=== PATIENT | male | born 1980 | race Caucasian/White ===

== ENCOUNTER 2021-05-14 14:29 | Inpatient (IN) | payer SELFPAY, OTHER ==
[2021-05-14 14:45] VITALS: BP 142/82; PULSE 79; RESP 16; TEMP 36.7; O2SAT 93; BMI 30.6
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
[2021-05-14] MEDS: Propranolol 10 MG Tablet PO ×2 (18:41→20:17)
[2021-05-14 19:31] VITALS: BP 138/77; PULSE 84; RESP 18; TEMP 36.8; O2SAT 99
[2021-05-14 19:33] VITALS: RESP 22; O2SAT 90
[2021-05-14 20:00] VITALS: PULSE 84; RESP 18; O2SAT 99
[2021-05-14] MEDS: Enoxaparin 30 MG/0.3 ML Syringe SC (20:16)
[2021-05-14] MEDS: Amox/Clavulanate 875 MG Tablet PO (20:17)
[2021-05-14] MEDS: MELATONIN 3 MG TABLET 6 MG PO (20:18)
[2021-05-14] MEDS: levETIRAcetam 1,000 MG Tablet 1000 MG PO (20:18)
[2021-05-14] MEDS: Acetaminophen 500 MG Tablet 1000 MG PO (20:19)
[2021-05-14] MEDS: QUEtiapine 25 MG Tablet PO (22:13)
[2021-05-15] VITALS (7 sets, daily range): BP systolic 115; BP diastolic 62; PULSE 75–97; RESP 18–20; TEMP 37.1–39.4; O2SAT 89–98
--- NOTE | 2021-05-15 00:50 | NURSING ---
PT'S UP TO THE NURSE'S STATION AND REPORTS PT IS RESTING WITH EYES CLOSED, BUT THAT HIS BREATHING IS FAST. PULSE OX CHECKED WHILE PT ASLEEP AND PULSE IS79 BPM WITH A PULSE OX OF 89% ON RA. HUMIDIFIED O2 AT 3 LPM APPLIED PER N/C AND OX INCREASING TO 92%. O2 THAN INCREASED TO 4 LPM PER N/C.
[2021-05-15] MEDS: oxyCODONE 5 MG Tablet PO ×3 (01:57→17:52)
[2021-05-15] MEDS: Acetaminophen 500 MG Tablet 1000 MG PO ×2 (06:44→22:15)
[2021-05-15] MEDS: Amox/Clavulanate 875 MG Tablet PO ×2 (08:48→22:13)
[2021-05-15] MEDS: Cholecalciferol (VIT D3) 25 MCG TABLET (1,000 UNITS) PO (08:48)
[2021-05-15] MEDS: Propranolol 10 MG Tablet PO ×4 (08:48→22:13)
[2021-05-15] MEDS: Enoxaparin 30 MG/0.3 ML Syringe SC ×2 (08:48→22:12)
[2021-05-15] MEDS: Lidocaine 5% Patch 1 PATCH TOPICAL (08:49)
[2021-05-15 09:02] LABS: Absolute Lymphocyte Count 1.61 X10^3/uL (0.83-4.51); Absolute Neutrophil Count 22.8 X10^3/uL (2.0-7.7); Basophil# 0.09 X10^3/uL; Basophil% 0.3 % (0-1); Eosinophil# 0.13 X10^3/uL; Eosinophils% 0.5 % (0-5); Hematocrit 36.7 % (40-54); Hemoglobin 12.3 g/dL (13.0-16.5); Lymphocyte # 1.61 X10^3/ul (0.83-4.51); Mean Corp Hgb Conc 33.5 g/dL (32-36); Mean Corpuscular Hgb 30.8 pg (27.0-32.0); Mean Platelet Vol. 8.7 fl (6.2-12.0); Monocyte% 5.6 % (0-10); NRBC Flagged by Analyzer 0 % (0-5); Neutrophil # 22.83 X10^3/uL (2.7-7.7); Neutrophil % 85.8 % (47-70); POSITIVE DIFFERENTIAL YES; Platelet Count 460 K/mm3 (150-450); RBC Distribution Width CV 13.2 % (11.6-14.6); RBC Distribution Width SD 44.7 fl (35.1-43.9); Red Blood Count 3.99 M/mm3 (4.6-6.2); White Blood Count 26.7 K/mm3 (4.4-11.0)
[2021-05-15 09:03] LABS: Differential Indicated SCAN CRITERIA MET
[2021-05-15 09:35] LABS: ALB/GLOB Ratio 0.6 RATIO (0.9-2.4); AST(SGOT) 50 U/L (15-37); Alanine Aminotransfer ALT/SGPT 75 U/L (16-61); Albumin, Serum 2.9 g/dL (3.2-5.0); Alkaline Phosphatase 91 U/L (45-117); Anion Gap 8 (5-15); BUN 17 mg/dL (7-18); BUN/Creat Ratio 17.3 RATIO (10-20); Chloride 103 mmol/L (98-107); Creatinine, Serum 0.98 mg/dL (0.70-1.30); EST Glomerular Filtration Rate 89 mL/min (>60); Est Glom Filt Rate - Afr Amer 108 mL/min (>60); Estimated Creatinine Clearance 102.42 ml/min; Globulin 4.6 g/dL (2.2-4.2); Glucose 122 mg/dL (74-106); Magnesium 2.3 mg/dL (1.6-2.6); Phosphorus 2.9 mg/dL (2.5-4.9); Potassium 3.9 mmol/L (3.5-5.1); Protein, Total 7.5 g/dL (6.4-8.2); Sodium Level 138 mmol/L (136-145)
--- NOTE | 2021-05-15 14:56 | CASEMGMT ---
Social Work Left message with to complete admit assessment. Juliette Enriquez, SOFT TILE SETTER WOMEN'S APPAREL SALESPERSON
--- NOTE | 2021-05-15 15:11 | CHAPLAIN ---
Type of Pastoral Visit _x__ Initial Visit ___ Follow-up Visit ___ On-call Visit ___ General Patient Visit ___ Spiritual Assessment ___ Family Conference ___ Bereavement ___ Rapid Response ___ Code Blue ___ Other (describe below) Pastoral Care Referral From ___ Patient ___ Family ___ Nurse ___ Physician ___ Counter Person ___ Tuckpointer Cleaner Caulker _x__ Other (describe below) Sacrament/Intervention _x__ Active listening ___ Anointing ___ Uatsdin ___ Bereavement ___ Communion ___ Radha exploration ___ ___ Life review _x__ Prayer ___ Reconciliation ___ Sacrament of Sick _x__ Supportive presence ___ Wedding ___ Other (describe below) Pastoral Comments visit recommended by Bruce Arzola for support to this patient and even more for the ; introduced self and role at hospital; pt and welcomed visit; pt interacted but had some difficulty finishing his sentences and getting words out; gave assurance to patient that our time together would be understanding and patient; offer of prayer welcomed; future visits would be welcomed; is tearful after the prayer
[2021-05-15] MEDS: QUEtiapine 25 MG Tablet PO (20:40)
[2021-05-15] MEDS: MELATONIN 3 MG TABLET 6 MG PO (22:13)
[2021-05-16] VITALS (8 sets, daily range): BP systolic 121–125; BP diastolic 67–68; PULSE 80–101; RESP 16–24; TEMP 36.9–37.2; O2SAT 91–95
--- NOTE | 2021-05-16 01:51 | NURSING ---
1999 pt temp was rechecked per spouse request and was noted to be 102.9 orally. blanket removed and pt used IS, post and anterior bases were diminished this hs . stressed the importance to spouse of using the IS. 2210 pt up to go the br and temp retaken, this was 100.8 orally pt returned to bed, temp reduced in room and ice pack applied to neck. tylenol given at this time. 02 at 2l/m applied d/t SP02 was 89% on ra with the 02 on SP02 came up to 92-93%. pt takes 02 off when awake and staff applies when lays back down in the bed. spouse reports that he has drank as much today, pt offered juice or other liquids and pt refused. pt will doze off and then wants to get up and go. staff will offer bathroom or walk and pt is agreeable, but declines 2350 pt up to the br and returned to bed and temp is now 99.3 orally. rn aware of the above charting 0230 bed alarm are going off and pt is sitting on the side of the bed, pt asked if he wanted to go to the br and stated that he didn't know. pt assisted to the br and pt voided. pt ambulated in the amor with 2 assists with quad walker. pt gait is very unsteady d/t crossing feet and having the walker to close to body, pt instructed proper ambulation techniques and would do ok for a while but then return to crossing his feet. pt returned to bed and 02 reapplied and is now resting quietly
[2021-05-16] MEDS: oxyCODONE 5 MG Tablet PO ×4 (03:29→18:31)
[2021-05-16] MEDS: Acetaminophen 500 MG Tablet 1000 MG PO ×3 (05:56→23:52)
--- NOTE | 2021-05-16 08:34 | PCM.PN.BLA ---
Progress Note Had a temp last night to 102.9. Received Tylenol and this AM temp is 99.3. VSS Maintaining appropriate oxygen saturation on RA while awake. He desaturates into the high 80's at night when sleeping. Nursing has been applying oxygen while sleeping Oral intake was 1360 yesterday Discussed with nursing - Not sleeping well at night. Occasional dry cough. Reviewed the PT/OT/ST notes - scheduled for a MBS today. Medication list reviewed. He is much more alert today than he was last evening when I saw him. He has a intermittent cough. He denies dysuria, worsening pain in the chest, SOB, abd pain, N/V/D. HE is able to follow commands today and he is giving me appropriate verbal responses to my questions. His voice is soft and hoarse. Denies ST, sinus pain, loss of taste and smell. He is smiling today and working with OT. Physical Exam Const alert and no apparent distress General Appearance: cooperative HEENT HEENT Narrative: No hearing deficit detected. MM are dry today and I asked him to increase his water intake today. Neck no lymphadenopathy and supple Resp Resp Narrative: BS's in both bases are very diminished. He is guarding his respirations and unable to take a very deep breath. There are crackles in the bases and no wheezing. He is not tachypneic and he has no conversational dyspnea. Effort and Inspection: Negative for respiratory distress Cardio regular rhythm, S1 normal heart sound, S2 normal heart sound, no murmurs, no rub and no gallops Cardio Narrative: The resting HR is in the 90's and I suspect this is due to dehydration +/- fever. BP is normal and stable GI normal to inspection, nondistended, normoactive bowel sounds, soft to palpation and non-tender Extremity no calf tenderness and no pedal edema Skin no jaundice and no mottling Rashes: no rashes Neuro CN's II-XII intact bilaterally, moves all extremities and no focal motor deficits Neuro Narrative: more alert and appropriate today. He is able to speak in short phrases and able to follow simple commands. Processing time today is faster but still slower than what I expect in a 40 YO. Assessment & Plan Assessment/Plan (1) Fever: (2) Physical debility: (3) Scapula fracture: (4) Temporal bone fracture: (5) Multiple transverse process fractures: (6) TBI (traumatic brain injury): (7) Pulmonary laceration: (8) Glenoid fracture of shoulder: (9) Clavicle fracture: (10) SDH (subdural hematoma): (11) SAH (subarachnoid hemorrhage): (12) Multiple fractures of ribs of right side: (13) Vertebral fracture, closed: PLAN: 1. blood cultures now 2. sputum culture 3, repeat a CBC and a BMP in the AM 4. PA and LAT CXR now 5. COVID 19 rapid test now 6. Supplemental oxygen as needed. 7. UA now. 8. MBS today 7. He has been on Augmentin. I will review the paperwork from the previous hospital to see if anything was ever covered. Will DC the Augmentin and start Vanco and Zosyn. 8. Continue therapy 9. continue Seroquel at the same dose nightly. Will add Ambien PRN insomnia. Visit Charges Inpatient E&M: 37073 Subs Hosp L3
[2021-05-16] MEDS: Lidocaine 5% Patch 1 PATCH TOPICAL (09:46)
[2021-05-16] MEDS: Enoxaparin 30 MG/0.3 ML Syringe SC ×2 (09:46→20:35)
[2021-05-16 09:47] LABS: Color, Urine Yellow (Yellow); Glucose, Dipstick Normal (Normal); Ketone-Dipstick Negative (Negative); Leukocyte Esterase-Dipstick 25 /ul (Negative); Nitrite-Dipstick Negative (Negative); Occult Blood-Urine 10 /ul (Negative); Protein-Dipstick 30 mg/dl (Negative); Urine Bilirubin Dipstick Negative (Negative); Urine Clarity Sl. Cloudy (Clear); Urine Urobilinogen 4 mg/dl (Normal)
[2021-05-16] MEDS: Cholecalciferol (VIT D3) 25 MCG TABLET (1,000 UNITS) PO (09:47)
[2021-05-16] MEDS: Propranolol 10 MG Tablet PO ×4 (09:47→20:35)
[2021-05-16] MEDS: Senna/Docusate Sodium 1 Tablet 2 TABLET PO (09:47)
[2021-05-16 09:53] LABS: Bacteria 1+ /hpf (None Seen); Mucous, Urine 2+ /hpf (<or=2+); Red Blood Cells-Urine 0-5 SEEN /hpf (0-5); Squamous Epithelial Cells - UA 0-5 SEEN /hpf (0-5); White Blood Cells 0-5 SEEN /hpf (0-5)
[2021-05-16] MEDS: 0.9% Saline Lock 10 ML Syringe IV ×2 (10:13→20:30)
[2021-05-16] MEDS: Albuterol 2.5 MG/3 ML VIAL.NEB. INHALATION ×4 (10:58→23:48)
--- NOTE | 2021-05-16 11:22 | PHA.PHARE_ITS ---
Consult Pharmacy has been consulted to manage selected antiobiotic: Vancomycin Type of Consult: New start Suspected Infection: Pneumonia Labs: Sodium 138 mmol/L (136-145) 05/15/21 08:40 Potassium 3.9 mmol/L (3.5-5.1) 05/15/21 08:40 Chloride 103 mmol/L (98-107) 05/15/21 08:40 Carbon Dioxide 27.0 mmol/L (21.0-32.0) 05/15/21 08:40 Anion Gap 8 (5-15) 05/15/21 08:40 BUN 17 mg/dL (7-18) 05/15/21 08:40 Creatinine 0.98 mg/dL (0.70-1.30) 05/15/21 08:40 Est GFR (MDRD) Af Amer 108 mL/min (>60) 05/15/21 08:40 Est GFR (MDRD) Non-Af 89 mL/min (>60) 05/15/21 08:40 BUN/Creatinine Ratio 17.3 RATIO (10-20) 05/15/21 08:40 Glucose 122 mg/dL (74-106) H 05/15/21 08:40 Microbiology: Microbiology 05/16/21 09:30 Nasal Secretion SARS-CoV-2 Antigen (Rapid) - Final Weight used for dosin kg Estimated Creatinine Clearance: 102ML/MIN Goal Trough: 15-20 mcg/mL Pharmacy Plan for Drug Dosing: Give initial standard (15mg/kg) dose of 1500mg IV x1 as ordered. Then continue with 1250mg IV q8h per [facility] dosing protocol. Will order a vanc trough to be drawn before the 4th total dose tomorrow. Pharmacy Service will continue to monitor and adjust dosing as required. Follow-Up Labs: Trough Vancomycin Labs to be done on [date and time ordered]: 05/17/21 10:30
--- NOTE | 2021-05-16 14:15 | RAD_ITS ---
STUDY: X-RAY CHEST REASON FOR EXAM: Male, 40 years old. Fever. Recent right sided chest tube. TECHNIQUE: PA and lateral views of the chest. COMPARISON: None. FINDINGS: The lungs are hypoexpanded. There is bibasilar atelectasis versus early infiltrate. No pneumothorax. There is no demonstrated pleural abnormality. Normal size heart. Normal mediastinum and melody. Normal visualized pulmonary arteries. Normal visualized aortic arch and descending thoracic aorta. Normal visualized thoracic spine. There is a displaced fracture of the right mid clavicle. The shoulders are otherwise intact. There is question of multiple age indeterminate right rib fractures. There is no demonstrated abnormality of the visualized soft tissue structures of the upper abdomen. RAD/Chest PA and Lateral IMPRESSION: 1. The Limited inspiration. Atelectasis versus infiltrate at the lung bases. 2. No pneumothorax. 3. Irregularity of the right chest wall. Question age-indeterminate rib fractures. 4. Displaced fracture of the mid right clavicle. Electronically Signed: Obinna Gamboa DO at 16:52 EST Tel [phone], Service support ,
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
[2021-05-16 19:40] LABS: M R Staph aureus DNA By PCR Negative (Negative); Probe Check PASS; Specimen Processing Control PASS
[2021-05-16] MEDS: QUEtiapine 25 MG Tablet PO (20:14)
[2021-05-16] MEDS: Zolpidem Tartrate 5 MG Tablet PO (23:52)
--- NOTE | 2021-05-17 00:01 | CPS ---
Rehab Unit RN took aerosol mask off pt. due to pt. being called to ER at this time
--- NOTE | 2021-05-17 01:08 | NURSING ---
pt awake at 2330 and requested to use the toilet, staff assisted, pt gait is slightly unsteady. respiratory called to give breathing tx. pt also medicated with ambien and tylenol for rib pain. k-pad set up for pt to use. pt resting quietly after returning to bed and spouse requested to have pt check for fever and was 100.1, this was before k-pad was warm. SP02 was 89% on ra after breathing tx and 02 at 2l/m applied at this time. rn made aware
[2021-05-17 02:42] VITALS: TEMP 36.9
[2021-05-17] MEDS: oxyCODONE 5 MG Tablet PO ×3 (06:34→21:24)
[2021-05-17 07:54] VITALS: PULSE 98; RESP 21; O2SAT 90
[2021-05-17] MEDS: Albuterol 2.5 MG/3 ML VIAL.NEB. INHALATION ×3 (07:54→14:58)
[2021-05-17 08:34] VITALS: BP 130/62; PULSE 82; RESP 16; TEMP 36.6; O2SAT 95
[2021-05-17] MEDS: Propranolol 10 MG Tablet PO ×4 (09:05→21:23)
[2021-05-17] MEDS: Lidocaine 5% Patch 1 PATCH TOPICAL (09:05)
[2021-05-17] MEDS: Acetaminophen 500 MG Tablet 1000 MG PO ×2 (09:05→20:21)
[2021-05-17] MEDS: Enoxaparin 30 MG/0.3 ML Syringe SC ×2 (09:05→21:24)
[2021-05-17] MEDS: Cholecalciferol (VIT D3) 25 MCG TABLET (1,000 UNITS) PO (09:05)
[2021-05-17 09:07] LABS: Absolute Lymphocyte Count 1.01 X10^3/uL (0.83-4.51); Absolute Neutrophil Count 13.4 X10^3/uL (2.0-7.7); Basophil# 0.05 X10^3/uL; Basophil% 0.3 % (0-1); Eosinophils% 1.3 % (0-5); Hematocrit 34.6 % (40-54); Hemoglobin 11.4 g/dL (13.0-16.5); Lymphocyte # 1.01 X10^3/ul (0.83-4.51); Lymphocyte % 6.5 % (19-41); Mean Corp Hgb Conc 32.9 g/dL (32-36); Mean Corpuscular Hgb 30.7 pg (27.0-32.0); Mean Corpuscular Volume 93.3 fL (80-94); Mean Platelet Vol. 9.1 fl (6.2-12.0); Monocyte# 0.65 X10^3/uL; Monocyte% 4.2 % (0-10); NRBC Flagged by Analyzer 0 % (0-5); Neutrophil # 13.43 X10^3/uL (2.7-7.7); Neutrophil % 86.5 % (47-70); Platelet Count 463 K/mm3 (150-450); RBC Distribution Width CV 13.5 % (11.6-14.6); RBC Distribution Width SD 45.9 fl (35.1-43.9); Red Blood Count 3.71 M/mm3 (4.6-6.2); White Blood Count 15.5 K/mm3 (4.4-11.0)
[2021-05-17 09:24] LABS: Anion Gap 9 (5-15); BUN 15 mg/dL (7-18); Calcium,Total 8.8 mg/dL (8.5-10.1); Chloride 104 mmol/L (98-107); Creatinine, Serum 1.07 mg/dL (0.70-1.30); EST Glomerular Filtration Rate 81 mL/min (>60); Est Glom Filt Rate - Afr Amer 98 mL/min (>60); Estimated Creatinine Clearance 93.81 ml/min; Glucose 141 mg/dL (74-106); Phosphorus 2.5 mg/dL (2.5-4.9); Potassium 3.7 mmol/L (3.5-5.1); Sodium Level 136 mmol/L (136-145)
[2021-05-17 11:08] LABS: Vancomycin, Trough Level 11.4 ug/mL (5.0-15.0)
[2021-05-17 11:48] VITALS: PULSE 81; RESP 22; O2SAT 93
--- NOTE | 2021-05-17 12:56 | PCM.RX.CS ---
Consult Pharmacy has been consulted to manage selected antiobiotic: Vancomycin Type of Consult: Follow-up Suspected Infection: Pneumonia Prior Doses of Antibiotics Received/Current Regimen: 1250mg iv q8h. Labs: Sodium 136 mmol/L (136-145) 05/17/21 08:30 Potassium 3.7 mmol/L (3.5-5.1) 05/17/21 08:30 Chloride 104 mmol/L (98-107) 05/17/21 08:30 Carbon Dioxide 23.0 mmol/L (21.0-32.0) 05/17/21 08:30 Anion Gap 9 (5-15) 05/17/21 08:30 BUN 15 mg/dL (7-18) 05/17/21 08:30 Creatinine 1.07 mg/dL (0.70-1.30) 05/17/21 08:30 Est GFR (MDRD) Af Amer 98 mL/min (>60) 05/17/21 08:30 Est GFR (MDRD) Non-Af 81 mL/min (>60) 05/17/21 08:30 BUN/Creatinine Ratio 14.0 RATIO (10-20) 05/17/21 08:30 Glucose 141 mg/dL (74-106) H 05/17/21 08:30 Vancomycin Trough 11.4 ug/mL (5.0-15.0) 05/17/21 10:22 Microbiology: Microbiology 05/16/21 09:30 Urine, Clean Catch Urine Culture - Preliminary Culture exhibits no growth. 05/16/21 09:30 Nasal Secretion SARS-CoV-2 Antigen (Rapid) - Final Weight used for dosin kg Estimated Creatinine Clearance: 94 ml/min Goal Trough: 15-20 mcg/mL Pharmacy Plan for Drug Dosing: Trough level today was 11.4 with goal range of 15-20mcg/ml. Renal labs reviewed. Will increase dose to 1500mg iv q8h. New trough level ordered for 05.18.21 before 4th dose of new regimen. Pharmacy Service will continue to monitor and adjust dosing as required. Follow-Up Labs: Trough Vancomycin - 05.18.21@1830 before 1900 dose
[2021-05-17] MEDS: 0.9% Saline Lock 10 ML Syringe IV ×2 (14:09→18:53)
[2021-05-17 14:58] VITALS: RESP 21
[2021-05-17 19:25] VITALS: BP 150/82; PULSE 100; RESP 16; TEMP 37.1; O2SAT 96
[2021-05-17] MEDS: QUEtiapine 25 MG Tablet 50 MG PO (21:23)
[2021-05-18] MEDS: Acetaminophen 500 MG Tablet 1000 MG PO ×3 (04:22→22:49)
[2021-05-18] MEDS: 0.9% Saline Lock 10 ML Syringe IV (05:40)
[2021-05-18 07:30] VITALS: PULSE 90; RESP 17
[2021-05-18] MEDS: Albuterol 2.5 MG/3 ML VIAL.NEB. INHALATION ×3 (07:30→18:39)
[2021-05-18 08:12] VITALS: BP 136/80; PULSE 100; RESP 20; TEMP 37.2; O2SAT 92
[2021-05-18] MEDS: Propranolol 10 MG Tablet PO ×4 (10:50→21:26)
[2021-05-18] MEDS: Lidocaine 5% Patch 1 PATCH TOPICAL (10:50)
[2021-05-18] MEDS: Cholecalciferol (VIT D3) 25 MCG TABLET (1,000 UNITS) PO (10:51)
[2021-05-18] MEDS: Enoxaparin 30 MG/0.3 ML Syringe SC ×2 (10:51→21:26)
[2021-05-18] MEDS: oxyCODONE 5 MG Tablet PO ×2 (11:11→19:58)
[2021-05-18 11:41] VITALS: PULSE 79; RESP 17
[2021-05-18 18:40] VITALS: PULSE 82; RESP 16
[2021-05-18 19:04] LABS: Vancomycin, Trough Level 19.3 ug/mL (5.0-15.0)
[2021-05-18 21:21] VITALS: BP 142/91; PULSE 93; RESP 18; TEMP 37; O2SAT 96
[2021-05-18] MEDS: QUEtiapine 25 MG Tablet 50 MG PO (21:26)
[2021-05-18 22:00] VITALS: RESP 18
[2021-05-19] MEDS: oxyCODONE 5 MG Tablet PO ×4 (02:44→22:05)
--- NOTE | 2021-05-19 05:09 | PCM.RX.CS ---
Consult Pharmacy has been consulted to manage selected antiobiotic: Vancomycin Type of Consult: Follow-up Labs: Sodium 136 mmol/L (136-145) 05/17/21 08:30 Potassium 3.7 mmol/L (3.5-5.1) 05/17/21 08:30 Chloride 104 mmol/L (98-107) 05/17/21 08:30 Carbon Dioxide 23.0 mmol/L (21.0-32.0) 05/17/21 08:30 Anion Gap 9 (5-15) 05/17/21 08:30 BUN 15 mg/dL (7-18) 05/17/21 08:30 Creatinine 1.07 mg/dL (0.70-1.30) 05/17/21 08:30 Est GFR (MDRD) Af Amer 98 mL/min (>60) 05/17/21 08:30 Est GFR (MDRD) Non-Af 81 mL/min (>60) 05/17/21 08:30 BUN/Creatinine Ratio 14.0 RATIO (10-20) 05/17/21 08:30 Glucose 141 mg/dL (74-106) H 05/17/21 08:30 Vancomycin Trough 19.3 ug/mL (5.0-15.0) H 05/18/21 18:30 Microbiology: Microbiology 05/16/21 09:30 Urine, Clean Catch Urine Culture - Final Culture exhibits no growth. 05/16/21 09:10 Blood Culture (Wb) - Venous Blood Culture - Preliminary No growth in 48 hours. 05/16/21 09:03 Blood Culture (Wb) - Anticubital Right Blood Culture - Preliminary No growth in 48 hours. 05/16/21 09:30 Nasal Secretion SARS-CoV-2 Antigen (Rapid) - Final Goal Trough: 15-20 mcg/mL Pharmacy Plan for Drug Dosing: Pharmacy Service will continue to monitor and adjust dosing as required. TROUGH 1830 @ 7.5HRS. NO CHANGES FOLLOW UP TROUGH IN 2 DAYS Follow-Up Labs: Trough Vancomycin Labs to be done on [date and time ordered]: 04/19 @ 1830
[2021-05-19] MEDS: Acetaminophen 500 MG Tablet 1000 MG PO ×2 (06:37→22:04)
[2021-05-19] MEDS: Propranolol 10 MG Tablet PO ×4 (07:34→21:15)
[2021-05-19] MEDS: Cholecalciferol (VIT D3) 25 MCG TABLET (1,000 UNITS) PO (07:35)
[2021-05-19] MEDS: Enoxaparin 30 MG/0.3 ML Syringe SC ×2 (07:35→21:15)
[2021-05-19] MEDS: Lidocaine 5% Patch 1 PATCH TOPICAL (07:37)
[2021-05-19 07:43] VITALS: BP 133/85; PULSE 90; RESP 16; TEMP 36.4; O2SAT 96
[2021-05-19 07:49] VITALS: PULSE 102; RESP 16
[2021-05-19] MEDS: Albuterol 2.5 MG/3 ML VIAL.NEB. INHALATION ×2 (07:49→14:46)
--- NOTE | 2021-05-19 10:59 | PN_ITS ---
Subjective Subjective Day #4 Zosyn and vancomycin. Vancomycin has been DC'd today. MRSA nasal swab was negative. Afebrile since 05/16/2021 at 0850. VSS - resting HR is higher than expected. Maintaining appropriate oxygen saturation on RA Oral intake is very good Discussed with nursing - no problems that need addressed Reviewed the PT/OT/ST notes Medication list reviewed. Vancomycin trough was therapeutic yesterday. Urine culture had no growth. COVID-19 rapid test was negative. MRSA nasal swab was negative. the cough has resolved and he is denying SOB. He tells me he feels good. He has been using the IS and acapella as instructed. Denies dysuria. Still having some difficulty with word finding. He is very cooperative and pleasant. No N/V/CP/dysuria, calf pain, diarrhea, sores in the mouth. Objective Data Objective Data Vital Signs: Vital Signs Temp Pulse Resp BP Pulse Ox 97.6 F L 90 16 133/85 H 96 05/19/21 07:43 05/19/21 07:43 05/19/21 07:43 05/19/21 07:43 05/19/21 07:43 Oxygen Flow Rate (L/min) 3 Oxygen Delivery Method Room Air Weight: 213 lb 13.574 oz Body Mass Index (BMI) 30.6 Intake & Output: Intake and Output for Last 24 Hours 05/17/21 05/18/21 05/19/21 23:59 23:59 23:59 Intake Total 2722.25 / 2722.25 2820 / 2820 870 / 870 Balance 2722.25 / 2722.25 2820 / 2820 870 / 870 Medical Nutrition Assessment Dietitian: Malnutrition Criteria Met Start: 05/15/21 13:32 Freq: Status: Active Protocol: Document 05/18/21 10:06 RMA (Rec: 05/18/21 10:07 RMA [id number]) Nutrition Malnutrition Evidence of Malnutrition Exists Yes Malnutrition (severe): Acute Illness/Injury Evidenced By Suboptimal Energy Intake ( Severe),Weight Loss (Severe) Intake Problem Inadequate Oral Intake Etiology related to limited food acceptance due to aversion to pureed texture Signs/Symptoms as evidenced by intake at meals <50% Status Active Problem Clinical Problem Acute Disease or Injury Related Malnutrition Etiology related to acute traumatic brain injury/trauma Signs/Symptoms as evidenced by loss of 7# from reported UBW 220# to CBW 213#; 3.2% body weight loss in less than two weeks (injury 05/06/21) and inadequate oral intake less than 50% meals. Status Active Problem Recommendation Dietitian Recommendations/Changes Continue regular diet as ordered with ensure compact TID at meals---consistency as per LABOR GANG SUPERVISOR, currently soft & bite -sized foods and nectar/mildly thick liquids. Adjust ONS as needed to prevent further weight loss and optimize oral intake once able to trend weights. Monitor weights closely as available. Lab / Micro Data Result Diagrams: 05/17/21 08:30 05/17/21 08:30 Labs: Laboratory Results - last 24 hr 05/18/21 18:30: Vancomycin Trough 19.3 H Micro: Microbiology 05/16/21 09:30 Urine, Clean Catch Urine Culture - Final Culture exhibits no growth. 05/16/21 09:10 Blood Culture (Wb) - Venous Blood Culture - Preliminary No growth in 48 hours. 05/16/21 09:03 Blood Culture (Wb) - Anticubital Right Blood Culture - Prelim inary No growth in 48 hours. 05/16/21 09:30 Nasal Secretion SARS-CoV-2 Antigen (Rapid) - Final Physical Exam Const alert and no apparent distress General Appearance: cooperative and well developed HEENT moist oral mucous membranes and oropharynx normal Eyes PERRL and EOMs intact bilaterally Neck supple Resp normal respiratory effort and clear to auscultation bilaterally Resp Narrative: Much better air exchange in the bases with no crackles, wheezes or rhonchi. Cardio regular rate, regular rhythm, S1 normal heart sound, S2 normal heart sound, no murmurs, no rub and no gallops GI normal to inspection, nondistended, normoactive bowel sounds, soft to palpation and non-tender GI Narrative: No guarding with palpation Extremity normal capillary refill, no clubbing, cyanosis or edema and no calf tenderness Skin Skin Narrative: abrasions and ecchymosis are resolving Rashes: no rashes Neuro CN's II-XII intact bilaterally, no focal motor deficits and no sensory deficits noted Neuro Narrative: some trouble with memory and word finding. His has been staying with him and she has been a big help reminding him about the IS and PEP and keeping him from getting out of bed and ambulating without assistance. Motor Exam: strength 5/5 throughout Psych cooperative and affect normal Appearance: appropriate Mood & Affect: Negative for anxious Assessment & Plan Assessment/Plan (1) Hospital acquired PNA: (2) Physical debility: (3) Trauma: (4) Scapula fracture: (5) Temporal bone fracture: (6) Multiple transverse process fractures: (7) Acquired cognitive dysfunction: (8) TBI (traumatic brain injury): (9) Severe protein-calorie malnutrition: PLAN: 1. DC the Vancomycin 2. continue the Zosyn - may DC tomorrow and transition to Augmentin after I see the lab and the CXR 3. Continue therapy 4. May be able to DC home soon and have therapy at home Charges/Coding Visit Charges Inpatient E&M: 24982 Subs Hosp L2
--- NOTE | 2021-05-19 13:45 | CASEMGMT ---
Social Work IDT met with patient and for Team meeting. Discussed patient's progress in therapy and nursing. Pt is progressing well. However, still has severe cognitive deficits. ST following. Recommending continued intensive therapy prior to DC home. [facility] is covering cost. Will ReTeam next week. SW to continue to follow for discharge planning. Juliette Enriquez, DIESEL SERVICE JOURNEYMAN RECEIVER BULK SYSTEM
[2021-05-19 14:46] VITALS: PULSE 85; RESP 17
[2021-05-19 18:38] VITALS: PULSE 95; RESP 18
[2021-05-19 21:00] VITALS: BP 156/79; PULSE 89; RESP 16; TEMP 36.7; O2SAT 96
[2021-05-19] MEDS: QUEtiapine 25 MG Tablet 50 MG PO (21:15)
--- NOTE | 2021-05-20 03:32 | NURSING ---
pt has been awake since midnight and restless in the bed . pt received a shower at hs and ambulated around the amor then returned to bed, medications given at 2100 and pain medication at 2200 for should and back discomfort. pt encouraged to sleep and rest with little success. rn aware
[2021-05-20] MEDS: oxyCODONE 5 MG Tablet PO (03:40)
--- NOTE | 2021-05-20 03:49 | NURSING ---
staff to check on pt and was sitting the recliner awake, pt reported that he was having some back pain, when asked. pt medicated with oxyir and oral care performed by pt with harjinder. pt offered to ambulate in the amor and declined stating that he might later
[2021-05-20 05:55] LABS: Absolute Lymphocyte Count 1.76 X10^3/uL (0.83-4.51); Basophil# 0.04 X10^3/uL; Basophil% 0.4 % (0-1); Eosinophil# 0.28 X10^3/uL; Eosinophils% 2.5 % (0-5); Hematocrit 33.4 % (40-54); Hemoglobin 10.8 g/dL (13.0-16.5); Lymphocyte # 1.76 X10^3/ul (0.83-4.51); Mean Corp Hgb Conc 32.3 g/dL (32-36); Mean Corpuscular Hgb 30.3 pg (27.0-32.0); Mean Corpuscular Volume 93.8 fL (80-94); Mean Platelet Vol. 9.6 fl (6.2-12.0); Monocyte# 0.91 X10^3/uL; Monocyte% 8.3 % (0-10); NRBC Flagged by Analyzer 0 % (0-5); Neutrophil # 7.96 X10^3/uL (2.7-7.7); Neutrophil % 72.3 % (47-70); Platelet Count 506 K/mm3 (150-450); RBC Distribution Width CV 13.7 % (11.6-14.6); RBC Distribution Width SD 46.8 fl (35.1-43.9); Red Blood Count 3.56 M/mm3 (4.6-6.2)
[2021-05-20 06:15] LABS: Anion Gap 4 (5-15); BUN 14 mg/dL (7-18); Calcium,Total 8.8 mg/dL (8.5-10.1); Chloride 107 mmol/L (98-107); Creatinine, Serum 0.94 mg/dL (0.70-1.30); EST Glomerular Filtration Rate 94 mL/min (>60); Est Glom Filt Rate - Afr Amer 114 mL/min (>60); Estimated Creatinine Clearance 106.78 ml/min; Glucose 96 mg/dL (74-106); Magnesium 2.1 mg/dL (1.6-2.6); Phosphorus 3.5 mg/dL (2.5-4.9); Potassium 3.7 mmol/L (3.5-5.1); Sodium Level 139 mmol/L (136-145)
[2021-05-20] MEDS: Acetaminophen 500 MG Tablet 1000 MG PO ×3 (06:17→21:11)
[2021-05-20] MEDS: Enoxaparin 30 MG/0.3 ML Syringe SC ×2 (07:41→21:09)
[2021-05-20] MEDS: Propranolol 10 MG Tablet PO ×4 (07:41→21:09)
[2021-05-20] MEDS: Lidocaine 5% Patch 1 PATCH TOPICAL (07:41)
[2021-05-20] MEDS: Cholecalciferol (VIT D3) 25 MCG TABLET (1,000 UNITS) PO (07:41)
[2021-05-20] MEDS: Senna/Docusate Sodium 1 Tablet 2 TABLET PO ×2 (07:42→21:10)
--- NOTE | 2021-05-20 08:00 | RAD_ITS ---
INDICATION: pneumonia follow up EXAMINATION/TECHNIQUE: X-RAY - XR Chest 2 Views COMPARISON: Chest radiograph from 05/16/2021 FINDINGS: LINES/DEVICES: None. MEDIASTINUM: Heart size is stable. LUNGS: Trace residual right basilar patchy opacities which have improved since previous study. Bibasilar atelectasis. Chronic interstitial changes. Scattered calcified granulomas. No sizable pleural effusion or pneumothorax. BONES/SOFT TISSUES: Redemonstration of age indeterminate displaced mid right clavicle fracture. Age-indeterminate right scapular fracture. Remote right-sided rib fractures. RAD/Chest PA and Lateral IMPRESSION: 1. Trace residual right basilar patchy opacities have improved since 05/16/2021 and may relate to resolving pneumonia. 2. Age indeterminate right clavicle and right scapula fractures. Remote right-sided rib fractures. Electronically Signed: Flavio Rueda MD at 13:03 EST Tel , Service support ,
[2021-05-20 08:27] VITALS: BP 123/63; PULSE 88; RESP 20; TEMP 36.6; O2SAT 94
--- NOTE | 2021-05-20 10:22 | PCM.PROGNOTE ---
Subjective Subjective Day #5/10 Antibiotics Afebrile VSS Maintaining appropriate oxygen saturation on RA Oral intake is good Discussed with nursing - no problems that need addressed Reviewed the PT/OT/ST notes Medication list reviewed. All lab was personally reviewed. White blood cell count is coming down and the differential has 72% of neutrophils which is an improvement. BMP is unremarkable. Chest x-ray was reviewed and there has been significant improvement in the infiltrates. Rell is still having trouble sleeping at night and his tells me that he was tearful and somewhat depressed last night. This is in part due to being without his children and family. We have approved his children to visit on and his parents will come on Wednesday. They agree to remain in the room and wear masks. Objective Data Objective Data Vital Signs: Vital Signs Temp Pulse Resp BP Pulse Ox 98 F 88 20 H 123/63 H 94 05/20/21 08:27 05/20/21 08:27 05/20/21 08:27 05/20/21 08:27 05/20/21 08:27 Oxygen Flow Rate (L/min) 3 Oxygen Delivery Method Room Air Weight: 213 lb 13.574 oz Body Mass Index (BMI) 30.6 Intake & Output: Intake and Output for Last 24 Hours 05/18/21 05/19/21 05/20/21 23:59 23:59 23:59 Intake Total 2820 / 2820 2069 50 / 50 Balance 2820 / 2820 2069 50 / 50 Medical Nutrition Assessment Dietitian: Malnutrition Criteria Met Start: 05/15/21 13:32 Freq: Status: Active Protocol: Document 05/18/21 10:06 RMA (Rec: 05/18/21 10:07 RMA [id number]) Nutrition Malnutrition Evidence of Malnutrition Exists Yes Malnutrition (severe): Acute Illness/Injury Evidenced By Suboptimal Energy Intake ( Severe),Weight Loss (Severe) Intake Problem Inadequate Oral Intake Etiology related to limited food acceptance due to aversion to pureed texture Signs/Symptoms as evidenced by intake at meals <50% Status Active Problem Clinical Problem Acute Disease or Injury Related Malnutrition Etiology related to acute traumatic brain injury/trauma Signs/Symptoms as evidenced by loss of 7# from reported UBW 220# to CBW 213#; 3.2% body weight loss in less than two weeks (injury 05/06/21) and inadequate oral intake less than 50% meals. Status Active Problem Recommendation Dietitian Recommendations/Changes Continue regular diet as ordered with ensure compact TID at meals---consistency as per SILVER [employer]ATER, currently soft & bite -sized foods and nectar/mildly thick liquids. Adjust ONS as needed to prevent further weight loss and optimize oral intake once able to trend weights. Monitor weights closely as available. Lab / Micro Data Result Diagrams: 05/20/21 05:13 05/20/21 05:13 Labs: Laboratory Results - last 24 hr 05/20/21 05:13: WBC 11.0, RBC 3.56 L, Hgb 10.8 L, Hct 33.4 L, MCV 93.8, MCH 30.3, MCHC 32.3, RDW Std Deviation 46.8 H, RDW Coeff of Dung 13.7, Plt Count 506 H, MPV 9.6, Immature Gran % (Auto) 0.500, Neut % (Auto) 72.3 H, Lymph % (Auto) 16.0 L, [place] % (Auto) 8.3, Eos % (Auto) 2.5, Baso % (Auto) 0.4, Absolute Neuts (auto) 8.0 H, Absolute Lymphs (auto) 1.76, Nucleated RBC % 0 05/20/21 05:13: Sodium 139, Potassium 3.7, Chloride 107, Carbon Dioxide 28.0, Anion Gap 4 L, BUN 14, Creatinine 0.94, Estim Creat Clear Calc 106.78, Est GFR (MDRD) Af Amer 114, Est GFR (MDRD) Non-Af 94, BUN/Creatinine Ratio 15.0, Glucose 96, Calcium 8.8, Phosphorus 3.5, Magnesium 2.1 Micro: Microbiology 05/16/21 09:30 Urine, Clean Catch Urine Culture - Final Culture exhibits no growth. 05/16/21 09:10 Blood Culture (Wb) - Venous Blood Culture - Preliminary No growth in 48 hours. 05/16/21 09:03 Blood Culture (Wb) - Anticubital Right Blood Culture - Preliminary No growth in 48 hours. 05/16/21 09:30 Nasal Secretion SARS-CoV-2 Antigen (Rapid) - Final Physical Exam Const alert Constitutional Narrative: oriented to place today and can name his children. Still can not recall alonso's name but he knows she is his . Resp normal respiratory effort and clear to auscultation bilaterally Resp Narrative: Much better air exchange, teresa in the bases. He is not tachypneic and has no conversation dyspnea. Cardio regular rate, regular rhythm, no murmurs and no gallops GI normal to inspection, nondistended, normoactive bowel sounds, soft to palpation, non-tender and non-distended Extremity no calf tenderness General Extremity: Negative for clubbing or edema Skin General Skin Exam: no breakdown Rashes: no rashes Neuro CN's II-XII intact bilaterally and no sensory deficits noted Neuro Narrative: Deficits are primarily due to cognition/severe TBI. He is making some progress with cognition. Motor Exam: general weakness Psych cooperative Psych Narrative: His tells me that he was very tearful last night. she thinks Appearance: appropriate Assessment & Plan Assessment/Plan (1) Insomnia: (2) Hospital acquired PNA: (3) Trauma: (4) Physical debility: (5) Acquired cognitive dysfunction: (6) TBI (traumatic brain injury): (7) Multiple transverse process fractures: (8) Temporal bone fracture: (9) Scapula fracture: PLAN: 1. Add Elavil 50 mg p.o. nightly to the current drug regimen. 2. Discontinue Zosyn after the last dose today and start Augmentin in the a.m. to finish 10 days of therapy. 3. Continue IS and PEP 4. Reassess the sleep situation in the AM 5. Continue therapy. He is a young man and I would like to get his cognition as close to baseline as possible. He will benefit from at least 1 more week in rehab. 6. 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 Charges/Coding Visit Charges Inpatient E&M: 38570 Subs Hosp L2
[2021-05-20] MEDS: 0.9% Saline Lock 10 ML Syringe IV ×2 (15:01→21:12)
--- NOTE | 2021-05-20 17:00 | CHAPLAIN ---
Type of Pastoral Visit ___ Initial Visit _x__ Follow-up Visit ___ On-call Visit ___ General Patient Visit ___ Spiritual Assessment ___ Family Conference ___ Bereavement ___ Rapid Response ___ Code Blue ___ Other (describe below) Pastoral Care Referral From _x__ Patient ___ Family ___ Nurse ___ Physician ___ Iron Guardrail Installer ___ Ship Keeper ___ Other (describe below) Sacrament/Intervention _x__ Active listening ___ Anointing ___ Jain ___ Bereavement ___ Communion ___ Radha exploration ___ ___ Life review _x__ Prayer ___ Reconciliation ___ Sacrament of Sick _x__ Supportive presence ___ Wedding ___ Other (describe below) Pastoral Comments patient reports feeling some better and making some improvements; pt and spouse are looking forward to when family is to visit; spouse asks for prayer so that patient can sleep better in the nighttime;
[2021-05-20 20:05] VITALS: BP 128/83; PULSE 87; RESP 18; TEMP 37.1; O2SAT 97
[2021-05-20 20:45] VITALS: PULSE 86; O2SAT 95
[2021-05-20] MEDS: QUEtiapine 25 MG Tablet 50 MG PO (21:09)
[2021-05-20] MEDS: Amitriptyline 25 MG Tablet 50 MG PO (21:10)
[2021-05-21] MEDS: Acetaminophen 500 MG Tablet 1000 MG PO ×2 (06:51→21:53)
[2021-05-21 07:35] VITALS: BP 133/76; PULSE 89; RESP 18; TEMP 36.6; O2SAT 93
[2021-05-21] MEDS: Propranolol 10 MG Tablet PO ×4 (10:58→21:48)
[2021-05-21] MEDS: Lidocaine 5% Patch 1 PATCH TOPICAL (10:58)
[2021-05-21] MEDS: Enoxaparin 30 MG/0.3 ML Syringe SC ×2 (10:58→21:48)
[2021-05-21] MEDS: Amox/Clavulanate 875 MG Tablet PO ×2 (10:58→21:48)
[2021-05-21] MEDS: Cholecalciferol (VIT D3) 25 MCG TABLET (1,000 UNITS) PO (10:59)
[2021-05-21] MEDS: Senna/Docusate Sodium 1 Tablet 2 TABLET PO ×2 (10:59→21:48)
--- NOTE | 2021-05-21 12:14 | PN_ITS ---
Progress Note Afebrile VSS Maintaining appropriate oxygen saturation on RA Oral intake is good Discussed with nursing - no problems that need addressed Reviewed the PT/OT/ST notes Medication list reviewed. He slept well last night with the addition of Elavil to his drug regimen. He denies shortness of breath cough, palpitations. He still has some pain in th e right chest but it is much better than it was when he presented to rehab. He is able to take a deep breath with no difficulty. No calf pain. He is very alert today and looks more rested. He easily sits up in bed and swings his legs over the side of the bed with no assistance and no grimacing. He was able to tell me he was in [place] but needed cue to tell me it was April and it was 2020 but, he eventually was able to come up with all the answers. Mucous membranes are moist Lungs-clear to auscultation bilaterally with good air exchange. Heart-regular rate and rhythm, no gallops Abdomen-soft, nontender, nondistended, normal bowel sounds, bowel movements are regular No calf tenderness, no ankle edema Impressions 1. severe TBI 2. Multiple fractures 3. PNA - hospital acquired...possible due to aspiration. Continue antibiotics continue therapy Will need ongoing ST post DC for cognition. Will continue the Elavil for depression and insomnia. Start to wean the Seroquel. No work post DC until released by ST and neurology. 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 Visit Charges Inpatient E&M: 50309 Subs Hosp L2
[2021-05-21] MEDS: Naproxen 500 MG Tablet PO (17:09)
[2021-05-21 19:31] VITALS: BP 131/81; PULSE 89; RESP 18; TEMP 36.9; O2SAT 98
[2021-05-21] MEDS: QUEtiapine 25 MG Tablet 50 MG PO (21:48)
[2021-05-21] MEDS: Amitriptyline 25 MG Tablet 50 MG PO (21:48)
[2021-05-21 22:00] VITALS: RESP 18
[2021-05-22] MEDS: 0.9% Saline Lock 10 ML Syringe IV (06:47)
[2021-05-22] MEDS: Cholecalciferol (VIT D3) 25 MCG TABLET (1,000 UNITS) PO (07:52)
[2021-05-22] MEDS: Amox/Clavulanate 875 MG Tablet PO ×2 (07:52→20:32)
[2021-05-22] MEDS: Lidocaine 5% Patch 1 PATCH TOPICAL (07:53)
[2021-05-22] MEDS: Propranolol 10 MG Tablet PO ×4 (07:53→20:33)
[2021-05-22] MEDS: Naproxen 500 MG Tablet PO ×2 (07:53→17:17)
[2021-05-22 08:00] VITALS: BP 114/74; PULSE 78; RESP 18; TEMP 36.3; O2SAT 94
[2021-05-22] MEDS: Enoxaparin 30 MG/0.3 ML Syringe SC ×2 (10:02→20:33)
[2021-05-22] MEDS: Amitriptyline 25 MG Tablet 50 MG PO (20:33)
[2021-05-22] MEDS: QUEtiapine 25 MG Tablet 50 MG PO (20:34)
[2021-05-22 22:00] VITALS: BP 123/73; PULSE 91; RESP 14; TEMP 36.2; O2SAT 100
[2021-05-23] MEDS: Lidocaine 5% Patch 1 PATCH TOPICAL (07:56)
[2021-05-23] MEDS: Cholecalciferol (VIT D3) 25 MCG TABLET (1,000 UNITS) PO (07:56)
[2021-05-23] MEDS: Naproxen 500 MG Tablet PO ×2 (07:56→17:54)
[2021-05-23] MEDS: Propranolol 10 MG Tablet PO ×4 (07:56→21:33)
[2021-05-23] MEDS: Amox/Clavulanate 875 MG Tablet PO ×2 (07:56→21:32)
[2021-05-23 08:34] VITALS: BP 113/70; PULSE 98; RESP 16; TEMP 36.6; O2SAT 95
[2021-05-23] MEDS: Enoxaparin 30 MG/0.3 ML Syringe SC ×2 (10:27→21:32)
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
--- NOTE | 2021-05-23 14:41 | CASEMGMT ---
Social Work Physician reporting pt is requesting to discharge on Wednesday05/25/21. Pt will need continued outpatient speech therapy. Pt does not need DME. SW met with pt and his in room and confirmed d/c plan. Pt is agreeable to discharge date and agreeable to outpatient speech therapy and would like to go to [facility] and use [facility] van transportation. Pt and state they do have transportation home on Wednesday. Referral made to [facility] with request to coordination appointments with [facility] van availability and to contact pt with appointment times. No other d/c needs. Plan: home with , outpatient Speech Therapy at [facility]. JOE Ramirez
--- NOTE | 2021-05-23 16:28 | PCM.DC ---
Discharge Instructions Diet Discharge Diet: - (Easy to chew with thin liquids) Activity Discharge Activity: May Not Drive and May Shower May resume sexual activity in: No Restrictions Weight Bearing Status: Full weight bearing Lifting Restrictions: 10 lbs Additional Activity Instructions:: Do the exercises given to you by the therapists at least once a day. Do NOT return to work until your PCP or the neurologist tells you that you are ready to resume work. Dressing / Incision Call your doctor if you observe: Fever of 101 or Higher, Inability to urinate, Inability to have a bowel movement, Shortness of breath, Fainting spells, Swelling in the ankles, Chest pain, Increased palpitations (irregular heartbeat) and Calf discomfort Follow Up Care Pending Tests Upon Discharge: none Discharge Plan Admission Admit Date/Time: 05/14/21 14:29 Primary Reason for Your Visit: Debility due to head trauma with severe TBI Attending Provider: Kay Nguyễn Instructions Patient Instructions: Improving Cognition After ..., Depression and TBI, Anxiety and Traumatic Brain Injury Additional Instructions / Restrictions: 1. Outpatient Speech Therapy at [facility]. They will call you with appointment time 2. It is very important for you to attend the speech therapy appts. You are still having some problems with your thought processes and memory and the harder you work at speech therapy the more likely you are to recover your baseline ability to think and process information. It can take up to 2 years to reach maximum improvement in brain function after a traumatic brain injury. 3. I do not know if neurology will want you to stay on the Keppra or not. It is an antiepileptic drug. You have an appt this coming and you should ask the doctor at that time. 4. I am decreasing one of the pills you take at night called Seroquel from 50 mg to 25 mg. You are sleeping well on the amitriptyline 50 mg at bedtime and you likely do not need to medications. Take the Seroquel 25 mg for 2 weeks and then discontinue. If the sleeping disturbance recurs give me a call or talk to your PCP (Dr. Schuler). 5. you have done VERY WELL in therapy and I think you will continue to improve. It was a pleasure to meet you and thank you for being so motivated to get better and so cooperative with us. If you or Elena have any questions after you leave rehab please call me. I can be reached at [phone] (office) or [phone] (cell phone) Take care and god bless. Discharge Orders/Prescriptions Prescriptions: New quetiapine 25 mg Tablet 25 mg PO QHS Qty: 14 RF: 0 amitriptyline 25 mg Tablet 50 mg PO QHS Qty: 60 RF: 0 lidocaine 5 % Adhesive Patch,Medicated 1 patch topical DAILY Qty: 30 RF: 0 naproxen 500 mg Tablet 500 mg PO BIDCM Qty: 60 RF: 0 acidophilus-pectin, citrus 25 million cell -100 mg Tablet 1 tab PO BID Qty: 20 RF: 0 Continued acetaminophen 500 mg Tablet 1,000 mg PO Q8H RF: 0 melatonin 3 mg Tablet 6 mg PO QHS Qty: 30 RF: 0 propranolol 10 mg Tablet 10 mg PO 4X/DAY Qty: 120 RF: 0 amoxicillin-pot clavulanate 875-125 mg Tablet 1 tab PO BID Qty: 4 RF: 0 cholecalciferol (vitamin D3) 25 mcg (1,000 unit) Tablet 25 mcg PO DAILY Qty: 30 RF: 0 Changed oxycodone 5 mg Capsule 5 mg PO Q4H PRN (Reason: Pain 4-10) 7 Days Qty: 35 RF: 0 levetiracetam [Keppra] 1,000 mg Tablet 1,000 mg PO Q12H Qty: 60 RF: 0 Referrals / Follow Up: Shanice Rodriguez MD [NON-STAFF] - 05/29/21 10:15 am David Schuler DO [NON-STAFF] - 06/02/21 10:30 am Disposition Disposition (needs filled in before D/C Order can be placed): Home, Self Care
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
[2021-05-23] MEDS: Amitriptyline 25 MG Tablet 50 MG PO (21:33)
[2021-05-23] MEDS: QUEtiapine 25 MG Tablet 50 MG PO (21:33)
[2021-05-23 21:35] VITALS: BP 100/76; PULSE 88; RESP 18; TEMP 36.7; O2SAT 96
--- NOTE | 2021-05-24 03:51 | NURSING ---
REVIEWED AND AGREE WITH [employer]S HANDOFF CHARTING AND FUNCTIONAL ASSESSMENT.
[2021-05-24 07:29] VITALS: BP 113/61; PULSE 88; RESP 16; TEMP 36.3; O2SAT 95
[2021-05-24] MEDS: Naproxen 500 MG Tablet PO (07:57)
[2021-05-24] MEDS: Amox/Clavulanate 875 MG Tablet PO (07:58)
[2021-05-24] MEDS: Propranolol 10 MG Tablet PO ×2 (07:58→15:16)
[2021-05-24] MEDS: Cholecalciferol (VIT D3) 25 MCG TABLET (1,000 UNITS) PO (08:00)
[2021-05-24] MEDS: Enoxaparin 30 MG/0.3 ML Syringe SC (08:04)
[2021-05-24 15:30] VITALS: BP 113/61; PULSE 88; RESP 16; TEMP 36.3; O2SAT 95
--- NOTE | 2021-05-24 15:30 | NURSING ---
Patient and verbalized understanding to discharge instruct given.
--- NOTE | 2021-05-27 10:14 | NURSING ---
Pt's Elena undated on pt's appointment dates and times
== END 2021-05-24 15:30 | disposition home or self-care (01) | DRG 561 ==
PROVIDERS: Admitting Provider Internal Medicine; Visit Provider Internal Medicine
DX: S22.41XD Multiple fractures of ribs, right side, subsequent encounter for fracture with routine healing (principal); S12.200D Unspecified displaced fracture of third cervical vertebra, subsequent encounter for fracture with routine healing; S12.300D Unspecified displaced fracture of fourth cervical vertebra, subsequent encounter for fracture with routine healing; S12.400D Unspecified displaced fracture of fifth cervical vertebra, subsequent encounter for fracture with routine healing; S12.500D Unspecified displaced fracture of sixth cervical vertebra, subsequent encounter for fracture with routine healing; S12.600D Unspecified displaced fracture of seventh cervical vertebra, subsequent encounter for fracture with routine healing; S22.019D Unspecified fracture of first thoracic vertebra, subsequent encounter for fracture with routine healing; S22.039D Unspecified fracture of third thoracic vertebra, subsequent encounter for fracture with routine healing; S22.049D Unspecified fracture of fourth thoracic vertebra, subsequent encounter for fracture with routine healing; S22.059D Unspecified fracture of T5-T6 vertebra, subsequent encounter for fracture with routine healing; S22.069D Unspecified fracture of T7-T8 vertebra, subsequent encounter for fracture with routine healing; S22.079D Unspecified fracture of T9-T10 vertebra, subsequent encounter for fracture with routine healing; S22.081D Stable burst fracture of T11-T12 vertebra, subsequent encounter for fracture with routine healing; S02.19XD Other fracture of base of skull, subsequent encounter for fracture with routine healing; S42.141D Displaced fracture of glenoid cavity of scapula, right shoulder, subsequent encounter for fracture with routine healing; S42.031D Displaced fracture of lateral end of right clavicle, subsequent encounter for fracture with routine healing; S06.5X9D Traumatic subdural hemorrhage with loss of consciousness of unspecified duration, subsequent encounter; S06.6X9D Traumatic subarachnoid hemorrhage with loss of consciousness of unspecified duration, subsequent encounter; R13.12 Dysphagia, oropharyngeal phase; E66.9 Obesity, unspecified; Z68.30 Body mass index [BMI] 30.0-30.9, adult; S27.331D Laceration of lung, unilateral, subsequent encounter; W20.8XXD Other cause of strike by thrown, projected or falling object, subsequent encounter
CPT/HCPCS: 36415; 71046; 74230; 80048; 80053; 80202; 81001; 83735; 84100; 85025; 87040; 87086; 87426; 87641; 92507; 92523; 92526; 92610; 92611; 94640; 94667; 94668; 97110; 97112; 97116; 97162; 97166; 97530; 97535; 97802; 97803; 99251; J7040; J7050; A4216; G0463

== ENCOUNTER 2024-12-09 20:30 | Emergency (ER) | payer OTHER, SELFPAY ==
[2024-12-09 20:31] VITALS: BP 134/87; PULSE 83; RESP 16; TEMP 36.4; O2SAT 98; BMI 30.4
--- NOTE | 2024-12-09 20:37 | EKG12_ITS ---
Test Reason : CP Blood Pressure : */* mmHG Vent. Rate : 80 BPM Atrial Rate : 80 BPM P-R Int : 152 ms QRS Dur : 84 ms QT Int : 376 ms P-R-T Axes : 63 22 0 degrees QTcB Int : 433 ms Normal sinus rhythm Normal ECG Confirmed by CLAUDE CHINO, FIDELINA ([id number]), pictures editor JACQUELYN LAKHANI ([id number]) on 12/12/2024 7:42:11 AM Referred By: Confirmed By: FIDELINA ARCE MD
--- NOTE | 2024-12-09 22:17 | EX.ED.DYSGE1 ---
HPI History of Present Illness Chief Complaint: Chest Pain Informant: patient and spouse/S.O. Narrative Narrative: 44-year-old male presenting to the emergency room with epigastric discomfort. Patient states that tonight he was rather hungry and he had 4 barbecued chicken breast. Shortly after eating he developed a pressure sensation in his epigastrium. Had a bowel movement and it was a little bit later that he began to feel better. He denied any nausea or vomiting. No pain in the shoulder. No shortness of breath. No actual chest pain no radiation to the back. Patient states he has been eating normally without any difficulty such as burning belching or pain. [facility] Medical History Obesity (BMI 30.0-34.9) Home Medications ?Medication ?Instructions ?Recorded ?Last Taken ?Type acetaminophen 500 mg tablet 1,000 mg PO Q8H pain 05/14/21 Unknown History acidophilus 25 million 1 tab PO BID #20 tabs 05/23/21 Unknown Rx cell-pectin, citrus 100 mg tablet amitriptyline 25 mg tablet 50 mg (2 x 25 mg) PO QHS #60 tabs 05/23/21 Unknown Rx cholecalciferol (vitamin D3) 25 25 mcg PO DAILY supplement #30 tabs 05/23/21 Unknown Rx mcg (1,000 unit) tablet levetiracetam 1,000 mg tablet 1,000 mg PO Q12H TBI #60 tabs 05/23/21 Unknown Rx (Keppra) lidocaine 5 % topical patch 1 patch topical DAILY #30 ea 05/23/21 Unknown Rx melatonin 3 mg tablet 6 mg (2 x 3 mg) PO QHS sleep #30 05/23/21 Unknown Rx tabs naproxen 500 mg tablet 500 mg PO BIDCM #60 tabs 05/23/21 Unknown Rx oxycodone 5 mg capsule 5 mg PO Q4H PRN Pain 4-10 7 days 05/23/21 Unknown Rx #35 caps propranolol 10 mg tablet 10 mg PO 4X/DAY pain #120 tabs 05/23/21 Unknown Rx quetiapine 25 mg tablet 25 mg PO QHS #14 tabs 05/23/21 Unknown Rx sertraline 50 mg tablet 75 mg PO DAILY 12/09/24 Unknown History Allergy/AdvReac Type Severity Reaction Status Date / Time No Known Allergies Allergy Verified 12/09/24 20:31 Social History Smoking Status: Never smoker ROS ROS ED Constitutional Constitutional ED: Denies chills, fever(s) or weight loss Eyes Eyes: Denies change in vision or diplopia ENT ENT ED: Denies ear pain, rhinorrhea or sore throat Cardiovascular Cardiovascular: Denies chest pain, orthopnea, palpitations or racing heartbeat Respiratory/Chest Respiratory/Chest: Denies cough, dyspnea, dyspnea on exertion or orthopnea Gastrointestinal Gastrointestinal: Reports abdominal pain; Denies constipation, diarrhea, nausea or vomiting Genitourinary Genitourinary ED: Denies dysuria, hematuria or urinary frequency Musculoskeletal Musculoskeletal: Denies arthralgias or myalgias Integumentary Denies abscess or rash Neurologic Neurologic: Denies headache(s) or weakness Psychiatric Psychiatric: Denies anxiety, depression, suicidal ideation or suicidal thoughts Endocrine Endocrinology: Denies polydipsia, polyphagia or polyuria Allergic/Immunologic Allergic/Immunologic ED: Denies mouth swelling, tongue swelling or urticaria EXAM Physical Exam Const Vital Signs: 12/09/24 20:31 12/09/24 22:18 12/09/24 22:39 Temperature 97.5 F L Temperature Source Temporal Pulse Rate 83 68 Respiratory Rate 16 15 Respiratory Effort Normal Non-Labored Blood Pressure 134/87 H Blood Pressure Mean 102 Pulse Ox 98 100 Oxygen Delivery Method Room Air Positive well nourished and well developed General Appearance ED: well developed and NAD HEENT Reports normocephalic, head/scalp atraumatic and moist mucous membranes Eyes PERRL and EOMs intact bilaterally Neck no lymphadenopathy, supple and no JVD Resp normal respiratory effort and clear to auscultation bilaterally Cardio regular rate, regular rhythm and no murmurs GI normal to inspection, nondistended, normoactive bowel sounds and non-tender Palpation: soft Back/Spine no CVA tenderness and normal ROM Extremity normal to inspection General Extremety ED: Negative for edema General Extremity: Negative for edema Neuro oriented x3 and CN's II-XII intact bilaterally Sensorium / Orientation: alert Motor Exam: strength 5/5 throughout Psych mental status grossly normal Mood & Affect: Negative for depressed or tearful Skin no rashes or lesions noted and no wounds MDM MDM MDM Narrative Medical decision making narrative: Differential diagnosis includes but not limited to biliary colic acute coronary syndrome pancreatitis GERD gastric outlet obstruction EKG shows a normal sinus rhythm at a ventricular rate of 80 bpm. Bedside ultrasound performed by this physician I do not see any pericholecystic fluid sludge or cholelithiasis. He has no tenderness over his gallbladder or pancreas. The common bile duct of is not readily visible on bedside ultrasound. Basic blood work was obtained including cardiac enzymes. Like 11.8 AST of 83 ALT of 49. He had some elevation of his transaminases in the past. Total bilirubin 0.5 indirect 0.3 lipase 41. Normal electrolytes normal creatinine glucose 111. Clinically I think the patient can be discharged home. I did recommend PCP follow-up if recurrent symptoms return if worsening or concerns History & Record Review Discussion w/independent historian: Patient and Significant other Additional record(s) reviewed:: Prior labs Lab Data Attestation: I reviewed the patient's lab results. Labs: Laboratory Results - last 24 hr 12/09/24 22:16 WBC 11.8 H RBC 4.53 L Hgb 14.1 Hct 41.9 MCV 92.5 MCH 31.1 MCHC 33.7 RDW Std Deviation 44.4 H RDW Coeff of Dung 13.1 Plt Count 225 MPV 9.8 Immature Gran % (Auto) 0.200 Neut % (Auto) 80.1 H Lymph % (Auto) 12.0 L Swift % (Auto) 6.7 Eos % (Auto) 0.6 Baso % (Auto) 0.4 Absolute Neuts (auto) 9.4 H Absolute Lymphs (auto) 1.41 Nucleated RBC % 0 Sodium 141 Potassium 4.1 Chloride 107 Carbon Dioxide 22.6 Anion Gap 11 BUN 16 Creatinine 1.00 Estim Creat Clear Calc 118.55 Est GFR (MDRD) Non-Af 95 BUN/Creatinine Ratio 15.7 Glucose 111 H Calcium 9.1 Total Bilirubin 0.58 Direct Bilirubin 0.30 AST 83 H ALT 49 H Alkaline Phosphatase 77 Troponin T High Sens < 6 Total Protein 6.9 Albumin 4.4 Globulin 2.5 Lipase 41 EKG Initial EKG: Attestation: I personally reviewed and interpreted this EKG as follows: Comments: Normal sinus rhythm ventricular rate of 80 bpm Discharge Plan Triage Chief Complaint: Chest Pain ED Provider: Sandip Diaz Dx/Rx/DC Orders Clinical Impression: Abdominal pain Instructions: Abdominal Pain Prescriptions: No Action acetaminophen 500 mg Tablet 1,000 mg PO Q8H quetiapine 25 mg Tablet 25 mg PO QHS Qty: 14 0RF amitriptyline 25 mg Tablet 50 mg PO QHS Qty: 60 0RF lidocaine 5 % Adhesive Patch,Medicated 1 patch topical DAILY Qty: 30 0RF Rx Instructions: apply to the R lateral ribs in the AM and remove at bedtime naproxen 500 mg Tablet 500 mg PO BIDCM Qty: 60 0RF Rx Instructions: Take with food acidophilus-pectin, citrus 25 million cell -100 mg Tablet 1 tab PO BID Qty: 20 0RF melatonin 3 mg Tablet 6 mg PO QHS Qty: 30 0RF propranolol 10 mg Tablet 10 mg PO 4X/DAY Qty: 120 0RF oxycodone 5 mg Capsule 5 mg PO Q4H PRN (Reason: Pain 4-10) 7 Days Qty: 35 0RF levetiracetam [Keppra] 1,000 mg Tablet 1,000 mg PO Q12H Qty: 60 0RF cholecalciferol (vitamin D3) 25 mcg (1,000 unit) Tablet 25 mcg PO DAILY Qty: 30 0RF sertraline 50 mg tablet 75 mg PO DAILY Primary Care Provider: Neetu Verdugo NP Referrals: Neetu Verdugo NP, [facility] [Primary Care Provider] - As Needed Print Language: Portuguese Disposition Disposition: Home, Self Care
--- OUTSIDE RECORDS SUMMARY | 2024-12-09 22:17 | XMS RPT_ITS | CCD ---
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 [address] Performed By: #### 2 4321-2 #### [facility] CLIA [id number] [address] RBC (Bld) [#/Vol] 3.86 10*6/uL Low 4.20-6.00 [facility] Comment on above: Order Comment: Speci men Type: BLOOD SPECIMEN Performed By: #### 2 4323-8 #### [facility] CLIA [id number] [address] Performed By: #### 2 4321-2 #### [facility] CLIA [id number] [address] WBC (Bld) [#/Vol] 12.03 10*3/uL High 3.70-11.00 [facility] Comment on above: Order Comment: Speci men Type: BLOOD SPECIMEN Performed By: #### 2 4323-8 #### [facility] CLIA [id number] [address] Performed By: #### 2 4321-2 #### [facility] CLIA [id number] [address] THERAPY NTon 05-13-2021 THERAPY NT HNO ID: [id number] Author: Shmuel Macedo PTA Service: Physical Therapy Author Type: Tire Design Engineer Type: Therapy (PT/OT/Speech/Resp) Filed: 05/13/2021 3:09 PM Note Text: Attestation signed by Dominick Archibald PT at 05/14/2021 4:08 PM I reviewed and agree with the documentation corresponding to this therapy visit. Noted goals met for sit to stand, transfer, and ambulation. Updated these goals to stand by/contact guard assist moving forward. SIGNATURE: Dominick Archibald, PT DATE: May 14, 2021 TIME: 4:07 PM Physical Therapy Treatment SERVICE DATE: 05/13/2021 SERVICE TIME: 1423 to 1449 ROOM: [id number] Recommended Discharge Disposition: Acute Rehab Recommended Discharge Disposition Due to: Patient requires an active, intensive rehabilitation therapy program due to:;ADL impairment resulting in caregiver dependence;ataxia;careg iver training needs;coordination deficits;decline in functional status requiring daily skilled care;new / worsened cognitive deficits related to current diagnosis;ongoing intervention of multiple therapy disciplines PT 6 Clicks Score: 16 Patient with improved mobility this session. Patient able to ambulate short distances in room--very unsteady gait, lower extremities crossing at time, decreased proprioception, increased lateral sway/loss of balance. 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 Patient would benefit from intensive rehab to maximize functional recovery for safe return to home, work, community, and head of family with spouse and 6 children. continue to recommend acute care to improve strength, ROM, balance,endurance, normalized gait pattern, and independence with mobility tasks to prior level of function for safe return to home activity. Patients right arm placed in sling to prevent from WB during mobility and improve comfort. Precautions/Activity Restrictions: Fall Risk;Bed/Chair Alarm;Impulsive with Activity;Spine;Brace;We ight Bearing Restrictions Precaution/Activity Restriction Comments: TLSO for OOB Isolation Type: None Extremity With Weight Bearing Restricted: Right Upper Extremity Right Upper Extremity Weight Bearing Status: NWB Current Hospital Course: Pt admitted after branch fell on him, sustained L SDH with TBI, R 1-10 rib fx, R C3 and C7 fx, R T1 and T3-9 transverse process fx, T6 and T11 compression fx, lung contusion, left temporal bone fx, and R glenoid, scapula, and clavicle fx. Reason for Hospital Admission: logging accident Relevant Past Medical History: none on file Response to Therapy Interventions: Good participation in activities,Improved tolerance for activity,Notable progression with functional activities/skills,Cogni tive deficits Continue skilled needs due to: Functional mobility/skill impairments,Safety concerns Physical Therapy Problem List: Cognitive Deficit;Pain;Safety Deficits;Impaired Self Care;Decreased Activity Tolerance;Decreased Strength;Functional Mobility Impairment;Balance Impaired Treatment Interventions: Education;Strengthening ;Functional Mobility Training;Balance Training;Neuromuscular Re-education;Cognitive Training Plan for next visit: Bed mobility,Chair transfer training,Gait training,Exercise instruction/handout,Sit to Stand Transfers,Standing Balance,Standing Tolerance Home Environment Patient Lives With: Family Assistance Available: 24 Hour Entry To Home: Stairs Number Of Stairs Into Home: 3 Number Of Stairs To Bed/Bath: 0 Prior Functional Level: Within Functional Limits Prior Functional Level Comments: Per chart review, pt works as a [employer]. Pt's reports pt independent in ADL's and IADL's. Patient Report: patient pleasant and agreeable to PT--following commands CURRENT FUNCTIONAL STATUS: Most recent performance mobility performed during session in bold, other mobility completed during prior session and may no longer be correct or appropriate to complete. Current Functional Mobility Assist Level Additional Information Rolling Minimal Assistance cuing for log roll to left side Supine to Sit Moderate Assistance via log roll, cuing to push with LE only, keeping RUE NWB, assist with trunk Sit to Supine Moderate Assistance;Additional Information Scooting Sit to Stand Minimal Assistance cuing to keep RUE NWB, assist with balance to come to standing, unsteady in standing Stand to Sit Minimal Assistance;Additional Information cuing to keep RUE NWB, reaching back with LUE, assist with balance and eccentric control Bed to Chair Moderate Assistance;Minimal Assistance (Jina once at EOB) Bed To Chair Transfer Type: Stepping Bed To Chair Transfer Equipment: Gait Belt Toilet/Commode Gait Moderate Assistance Gait Devic (more content not included)... Normal [facility] THERAPY NT HNO ID: [id number] Author: Palmira Almaguer [facility]-DIRECTOR MEDICAL WRITING Service: Speech/Swallow Author Type: Speech Language Pathologist Type: Therapy (PT/OT/Speech/Resp) Filed: 05/13/2021 3:13 PM Note Text: Speech Therapy Treatment SERVICE DATE: 05/13/2021 SERVICE TIME: 1048 to 1107 ROOM: [id number] IMPRESSION: Communication deficits identified: Expressive aphasia,Receptive aphasia,Cognitive deficits Swallow Deficits Identified / Suspected: Oropharyngeal dysphagia Diet Recommendations: Pureed IDDSI Level 4 Thin Liquids IDDSI Level 0 Medications crushed in puree (pudding/applesauce) Swallowing Precautions Recommendations: 1:1 Supervision Alert (patient should be fully alert for P.O. intake) Sit upright 90 degrees for all PO Small Bite/Sip Feed / Eat at a slow rate Nursing Recommendations: Ask patient preferences/routine;See swallow guide posted in patients room;Reinforce use of swallowing strategies;Reinforce use of taught communication strategies;Reinforce use of cognitive strategies Recommended Discharge Disposition: Acute Rehab Justification for Recommended Discharge Disposition: Patient requires an intensive inpatient rehabilitation therapy program due to:;aspiration risk requiring ongoing medical management;dysphagia requiring frequent assessment and diet modification;expressive language/communication deficits;receptive language/communication deficits;new/worsened cognitive deficits related to current diagnosis Current Hospital Course: 05/12 chest xray: Patchy opacity posterior right lung mid and lung base. Given recent trauma, this could represent lung contusion. Developing pneumonia cannot be excluded. Reason for Hospital Admission: logging accident Rehabilitation Precautions: Modified Diet;Aspiration Precautions;Dysphagia;C ognitive Linguistics Deficits;Communication Deficits Isolation Type: None Reason for Speech Therapy Consult: concerns for dysphagia and cognitive-linguistic deficits Relevant Past Medical History: not on file Continue skilled DIRECTOR MEDICAL WRITING services due to : Communication difficulties,Dysphagia, Safety concerns Speech Therapy Problem List: Dysphagia;Cognitive-Kavita guistic Impairment;Aphasia Patient Report: I feel okay. Current Status Oral Hygiene: Clear, moist oral cavity Dentition: Retains Natural Dentition Current Feeding Method: Oral Current Diet Textures: Clear Liquids Current Level Of Communication: Verbal Current Management Of Secretions: Able to expectorate adequately Speech/Cognition/Langua ge Expressive and Receptive Language: Auditory Comprehension Deficits: 1-Step Commands - (%): 50 Simple Yes/No Questions ? (%): 70 Verbal Expression Deficits: Confrontational Naming ? (%): 60 Cognition: Cognitive Status: Cognitive Deficits: Orientation Deficits Orientation Deficits: Place,Time,Situation,Co nfused Responsiveness: Awake,Alert Attention Deficit: Sustained The Orientation Log (O-Log) is designed to be a quick quantitative measure of orientation status for use at the bedside with rehabilitation inpatients. Place, time, and situational (Etiology/Event + Pathology/Deficits) domains are assessed. Patient responses are scored according to the following criteria: 3 = correct spontaneously or upon first free recall attempt 2 = correct upon logical cueing (e.g., That was yesterday, so today must be...) 1 = correct upon multiple choice or phonemic cueing 0 = incorrect despite cueing, inappropriate response, or unable to respond Stimulus Response/Score City 0/[address] 0/3 Name of Hospital 0 Month 0 Date 0 Year 08/28 Day of Week 0 Clock Time 08/28 Etiology/Event 0 Pathology/Deficits 0 Total 12/25 -Patient up in bed upon DIRECTOR MEDICAL WRITING arrival, agreeable to treatment. present during session -Per report, patient has more difficulty answering questions presented in Paraguayan. Patient also speaks Samoan. -Patient more alert today per report -Benefited from maximal verbal cues for orientation questions including orientation to time, place, situation. -Benefited from moderate-maximal verbal/visual cueing for expressive/receptive language tasks - also presented questions asked in tunisian. -Patient required redirection for sustaining attention Swallow Assessment Position Of Patient During Assessment: Upright In Bed Consistencies Presented: Thin Liquids IDDSI Level 0,Pureed IDDSI Level 4,Solid Compensatory Strategies Utilized During Assessment: 1:1 Supervision,Alert (patient should be fully alert for P.O. intake),Small Bite/Sip,Feed / Eat at a slow rate,Sit upright 90 degrees for all PO -Patient up in bed upon DIRECTOR MEDICAL WRITING arrival, agreeable to treatment -Able to self feed -Impulsive- requires moderate verbal cueing to take small sips/bites -Laryngeal movement detected upon swallow -Trace oral residue post swallow of solids-resolved with DIRECTOR MEDICAL WRITING facilitated liquid wash -Mastication time incr (more content not included)... [facility] ALLIED HEALTHon 05-12-2021 ALLIED HEALTH HNO ID: [id number] Author: RT Elena(R) Service: Radiology Author Type: Technologist Type: Allied Health Filed: 05/12/2021 11:26 AM Note Text: Radiology Service Progress Note PATIENT NAME: Ivanna Collier Jr. DATE OF SERVICE: May 12, 2021 TIME: 11:26 AM PATIENT IDENTITY VERIFICATION COMPLETED USING TWO (2) IDENTIFIERS: Name and Date of confirmed by patient verbally and Name and Date of confirmed by identification band. FALL SCREENING: Has the patient had 2 falls in the last year or 1 fall with injury or currently using an Ambulatory Assistive Device (Walker, Cane, Wheelchair, Crutches, etc.)? Inpatient: Screened on floor PATIENT GENDER DATA: Male PATIENT RELEVANT IMPLANT DATA REVIEWED: Not Applicable RADIOLOGY DEPARTMENT: General X-ray: Exam(s) Completed: Chest X-Ray PERIPHERAL IV DATA: Not applicable SIGNED BY: RT Char(R) May 12, 2021 11:26 AM [facility] Basic metabolic 2000 panelon 05-12-2021 Anion gap [Moles/Vol] 12 mmol/L Normal 9-18 [facility] Comment on above: Order Comment: Speci men Type: BLOOD SPECIMEN Performed By: #### 1 988-5, 70741-0 ####[facility] [id number] [place] [address] [place] Calcium [Mass/Vol] 9.2 mg/dL Normal 8.5-10.2 [facility] Comment on above: Order Comment: Speci men Type: BLOOD SPECIMEN Performed By: #### 1 988-5, 20014-7 ####[facility]ORYCLIA [id number] [address] [place] Chloride [Moles/Vol] 104 mmol/L Normal 97-105 [facility] Comment on above: Order Comment: Speci men Type: BLOOD SPECIMEN Performed By: #### 1 988-5, 68917-5 ####[facility] [id number] [place] [address] [place] CO2 [Moles/Vol] 27 mmol/L Normal 22-30 [facility] Comment on above: Order Comment: Speci men Type: BLOOD SPECIMEN Performed By: #### 1 988-5, 24357-5 ####[facility] [id number] [place] [address] [place] Creatinine [Mass/Vol] 0.83 mg/dL Normal 0.73-1.22 [facility] Comment on above: Order Comment: Speci men Type: BLOOD SPECIMEN Performed By: #### 1 988-5, 50283-9 ####[facility] [id number] [place] [address] [place] GFR/1.73 sq M.predicted MDRD (S/P/Bld) [Vol rate/Area] mL/min/{1.73_m2} [facility] Comment on above: Order Comment: Speci men Type: BLOOD SPECIMEN Result Comment: >60 eGFR (Estimated GFR) Units of measure: mL/min/1.73 meters squared eGFR is derived from the reexpressed MDRD Study equation using the following parameters: serum creatinine, age, gender and race. The creatinine assay has been calibrated to be traceable to IDMS. An eGFR <60 mL/min/1.73m2 for >3 months is consistent with chronic kidney disease. Refer to KDOQI guidelines for clinical interpretation. In patients with unstable renal function, e.g. those with acute kidney injury, the eGFR may not accurately reflect actual GFR. Performed By: #### 1 988-5, 07488-9 ####[facility]ORYCLIA [id number] [place] [address] [place] Glucose [Mass/Vol] 102 mg/dL High 74-99 [facility] Comment on above: Order Comment: Speci men Type: BLOOD SPECIMEN Result Comment: The [place] Diabetes Association (ADA) provides guidance for cutoff values for fasting glucose and random glucose. The ADA defines fasting as no caloric intake for at least 8 hours. Fasting plasma glucose results between 100 to 125 mg/dL indicate increased risk for diabetes (prediabetes). Fasting plasma glucose results greater than or equal to 126 mg/dL meet the criteria for diagnosis of diabetes. In the absence of unequivocal hyperglycemia, results should be confirmed by repeat testing. In a patient with classic symptoms of hyperglycemia or hyperglycemic crisis, random plasma glucose results greater than or equal to 200 mg/dL meet the criteria for diagnosis of diabetes. Reference: Standards of Medical Care in Diabetes 2016, [place] Diabetes Association. Diabetes Care. 2016.39(Suppl 1). Performed By: #### 1 988-5, 12318-0 ####[facility]ORYCLIA [id number] [place] [address] [place] Potassium [Moles/Vol] 3.9 mmol/L Normal 3.7-5.1 [facility] Comment on above: Order Comment: Speci men Type: BLOOD SPECIMEN Performed By: #### 1 988-5, 60371-9 ####[facility] [id number] [address] Sodium [Moles/Vol] 143 mmol/L Normal 136-144 [facility] Comment on above: Order Comment: Speci men Type: BLOOD SPECIMEN Performed By: #### 1 988-5, 30106-8 ####[facility] [id number] [address] Urea nitrogen [Mass/Vol] 24 mg/dL Normal 9-24 [facility] Comment on above: Order Comment: Speci men Type: BLOOD SPECIMEN Performed By: #### 1 988-5, 45023-4 ####[facility]ORYCLIA [id number] [address] CBC panel Auto (Bld)on 05-12 Erythrocyte distribution width (RBC) [Ratio] 13.4 % Normal 11.5-15.0 [facility] Comment on above: Order Comment: Speci men Type: BLOOD SPECIMEN Performed By: #### 5 8410-2 #### [facility] CLIA [id number] [address] Hematocrit (Bld) [Volume fraction] 35.7 % Low 39.0-51.0 [facility] Comment on above: Order Comment: Speci men Type: BLOOD SPECIMEN Performed By: #### 5 8410-2 #### [facility] CLIA [id number] [address] Hemoglobin (Bld) [Mass/Vol] 11.4 g/dL Low 13.0-17.0 [facility] Comment on above: Order Comment: Speci men Type: BLOOD SPECIMEN Performed By: #### 5 8410-2 #### [facility] CLIA [id number] [address] MCH (RBC) [Entitic mass] 30.6 pg Normal 26.0-34.0 [facility] Comment on above: Order Comment: Speci men Type: BLOOD SPECIMEN Performed By: #### 5 8410-2 #### [facility] CLIA [id number] [address] MCHC (RBC) [Mass/Vol] 31.9 g/dL Normal 30.5-36.0 [facility] Comment on above: Order Comment: Speci men Type: BLOOD SPECIMEN Performed By: #### 5 8410-2 #### [facility] CLIA [id number] [address] MCV (RBC) [Entitic vol] 96.0 fL Normal 80.0-100.0 [facility] Comment on above: Order Comment: Speci men Type: BLOOD SPECIMEN Performed By: #### 5 8410-2 #### [facility] CLIA [id number] [address] Nucleated RBC (Bld) [#/Vol] 10*3/uL Normal <0.01 [facility] Comment on above: Order Comment: Speci men Type: BLOOD SPECIMEN Performed By: #### 5 8410-2 #### [facility] CLIA [id number] [address] Platelet mean volume (Bld) [Entitic vol] 9.5 fL Normal 9.0-12.7 [facility] Comment on above: Order Comment: Speci men Type: BLOOD SPECIMEN Performed By: #### 5 8410-2 #### [facility] CLIA [id number] [address] Platelets (Bld) [#/Vol] 313 10*3/uL Normal 150-400 [facility] Comment on above: Order Comment: Speci men Type: BLOOD SPECIMEN Performed By: #### 5 8410-2 #### [facility] CLIA [id number] [address] RBC (Bld) [#/Vol] 3.72 10*6/uL Low 4.20-6.00 [facility] Comment on above: Order Comment: Speci men Type: BLOOD SPECIMEN Performed By: #### 5 8410-2 #### [facility] CLIA [id number] [address] [place] [address] [place] WBC (Bld) [#/Vol] 10.98 10*3/uL Normal 3.70-11.00 [facility] Comment on above: Order Comment: Speci men Type: BLOOD SPECIMEN Performed By: #### 5 8410-2 #### [facility] CLIA [id number] [address] CONSULTon 05-12-2021 CONSULT HNO ID: [id number] Author: David Colón MD Service: Physical Medicine AND Rehabilitation Author Type: Physician Type: Consults Filed: 05/12/2021 11:37 PM Note Text: HOSPITAL INITIAL CONSULTATION: PMANDR SERVICE DATE: 05/12/2021 REASON FOR CONSULTATION: assessment of rehab service needs and recommendations regarding level of care assignment ASSESSMENT AND PLAN: Pt is 40yo previously healthy male with TBI and multiple major trauma 2/2 tree branch falling on his head. Nonsurgical management of SAH/SDH. With NWB RUE and TLSO needed when out of bed. Has fluctuating somnolence/agitation with what appears to be poor sleep-wake cycle. Was extubated only 2 days ago. ACTIVE PROBLEM LIST Sdh (Subdural Hematoma) (Hcc) Tbi (Traumatic Brain Injury) (Hcc) Acute Respiratory Failure (Hcc) Multiple Rib Fractures Cervical Transverse Process Fracture, Initial Encounter ([facility]) Closed Fracture of Transverse Process of Thoracic Vertebra (Hcc) Closed Fracture of Temporal Bone (Hcc) Subarachnoid Hemorrhage Following Injury, With Loss of Consciousness (Hcc) Closed Displaced Fracture of Acromial End of Right Clavicle Closed Wedge Compression Fracture of T6 Vertebra (Hcc) Closed Wedge Compression Fracture of T11 Vertebra (Hcc) Contusion of Right Lung Closed Nondisplaced Fracture of Body of Right Scapula RECOMMENDATIONS: - Consider Seroquel or mirtazapine for nightly agitation. - Avoid Haldol or benzos for acute agitation, instead IM Zyprexa or Geodon would be preferred if conservative techniques are not sufficient for his safety. - Encourage sleep hygiene measures, fewer daytime naps, window shades up during the day - Discussed discharge rehab recommendation with , she is agreeable to acute rehab. Prefers location near home ([place]) but given brain injury, would be best served in facility with lock-down unit available. ? I recommend a Acute Rehabilitation intensity level in view of the patient's projected near-term ability to tolerate a high (15 hours of therapy per week) level of activity and reasonable plan for discharge to the home setting, good potential to experience functional improvements, with rehab treatment, that would make a substantial difference in the eventual discharge setting, need for medical and nursing care that is intensive, with very close nursing and medical surveillance and qualifying diagnosis for IRF and level of medical complexity. ? This patient requires multidisciplinary rehabilitation treatment, including PMANDR physician daily care, 24 hour rehabilitation nursing, physical therapy, occupational therapy, rehabilitation psychology, +/- speech pathology, rec therapy and rehabilitation social work, nutrition services. SUBJECTIVE: HPI: Ivanna Collier Jr. is a 40 year old male with PMH as below who presented to [facility] on 05/06/2021 for TBI. Struck on head by large branch falling from unknown height, works as [employer]. Immediate LOC. Intubated on the scene with hypertonic NS for brain edema. On workup, noted to have multiple displaced rib fxs, vertebral compression and TP fractures, left temporal bone fx, SAH/SDH, right scapula/glenoid/clavicl e fractures. Has been followed by trauma, ICU, spine, NSG, and ortho teams. No interventional procedures have been required to this point. Extubated on 05/10, now on [place] oxygen. Has been recommended TLSO for now. Due to functional impairments with need for multidisciplinary therapy services and complex medical issues needing medical supervision, patient was referred to [facility] services for rehab recommendations and level of care assignment, Bowel/Bladder: external cath, Senna-S Pain Mgmt: gabapentin, oxy, tylenol, Agitation/dysautonomia: Decreased responsiveness with intermittent agitation. Required Haldol once. DVT PPx: lovenox Weightbearing restrictions: ALICIA SCOTT Current sedating medications: neurontin, Keppra, oxycodone, propranolol Patient seen and examined today. Reported agitation overnight, but states that he is more alert today than prior days. He denies any active pain and is pleasant, although confused with minimal responses. Difficulty following exam instructions. Denies any problems with vision, headaches, sensitivity to light/sound. notes that he sleeps a lot during the day. Of note, He was only extubated 2 days ago. His also noted concern with his safety as he tends to want to walk to the bathroom himself instead of using call light or urinal. No falls. 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 Pt's reports pt independent in ADL's and IADL's. Current Level of F (more content not included)... [facility] CRP SerPl-mCncon 05-12-2021 CRP [Mass/Vol] 18.1 mg/dL High <0.9 [facility] Comment on above: Order Comment: Speci men Type: BLOOD SPECIMEN Performed By: #### 1 988-5, 16070-6 ####[facility]ORYCLIA [id number] [place] [address] [place] NURSING PROGon 05-12-2021 NURSING PROG HNO ID: [id number] Author: Anh Yanez RN Service: Nursing Author Type: Registered Nurse Type: Nursing Progress Note Filed: 05/12/2021 1:32 AM Note Text: Noted some wheezing in pt respirations not previously noted on assessment. Respiratory treatment delivered at 2330 and not due again until 0430. Pt continues 90-92% on room air as before. Paged #[phone] to update. [facility] NUTRITIONon 05-12-2021 NUTRITION HNO ID: [id number] Author: Amanda Ortega RD Service: Nutrition Therapy Author Type: Registered Dietitian Type: Nutrition Filed: 05/12/2021 3:39 PM Note Text: NUTRITION THERAPY PROGRESS NOTE SERVICE DATE: 05/12/2021 SERVICE TIME: 10:52 AM Nutrition Assessment: Recommended Malnutrition Diagnosis: No Malnutrition Identified (05/07/21 1034 : Lizett Torrez RD) Estimated kilocalorie needs: 7554-8755 Calorie Calculation Method: 25-30 kcals/kg Estimated protein needs (grams): 113-151 Grams protein determined by: [place] body weight;1.5 - 2.0 g/kg Care Plan: Follow for diet advancement to goal Supplements: Ensure Clear Monitor and Evaluation: Meet greater than 75% of estimated needs;Monitor fluid/electrolyte balance;Monitor bowel function;Monitor labs, I/Os, vital signs, weight Interval History: LOS 5 days s/p log to head injury. Extubated 05/10 and tube feeds d/c. Minimal verbal responses. On CLD. Anthropometrics: Height: 177.8 cm (5' 10) Weight: 104.9 kg (231 lb 4.2 oz) Dosing Weight: 75.3 kg (166 lb) Usual Weight: 104.4 kg (230 lb 2.6 oz) Body mass index is 33.18 kg/m?. Obese Weight change percentage over time: Spouse at bedside reports stable weight Intake History: Current Intake: Less than 50% estimated energy needs Over: 5 day LOS Diet Orders (From admission, onward) Start Ordered 05/11/21 0900 DIET LIQUID START NOW Question: Liquid Diet Answer: CLEAR LIQUID 05/11/21 0849 MNT Billing Type: Re-assess/15 min 1 unit SIGNATURE: Amanda Ortega RD PATIENT NAME: Ivanna Collier Jr. DATE: May 12, 2021 TIME: 10:52 AM PAGER: [phone] [facility] Prealbumin [Mass/Vol]on 04-28 Prealbumin Nephelometry [Mass/Vol] 12 mg/dL Low 17-36 [facility] Comment on above: Order Comment: Speci men Type: BLOOD SPECIMEN Performed By: #### 1 4338-8 #### [facility] CLIA [id number] [address] Order Comment: Speci men Type: URINE SPECIMEN Performed By: #### U TOX2 #### [facility] CLIA [id number] [address] THERAPY NTon 05-12-2021 THERAPY NT HNO ID: [id number] Author: Darinaa Triana CCC-DIRECTOR MEDICAL WRITING Service: Speech/Swallow Author Type: Speech Language Pathologist Type: Therapy (PT/OT/Speech/Resp) Filed: 05/12/2021 2:25 PM Note Text: Speech Therapy Speech Evaluation,Clinical Swallow Evaluation SERVICE DATE: 05/12/2021 SERVICE TIME: 1325 to 1355 ROOM: [id number] IMPRESSION: Communication deficits identified: Cognitive deficits Swallow Deficits Identified / Suspected: Oropharyngeal dysphagia Diet Recommendations: Clear Liquids Medications crushed in puree (pudding/applesauce) Swallowing Precautions Recommendations: 1:1 Supervision Alert (patient should be fully alert for P.O. intake) Feed / Eat at a slow rate Small Bite/Sip Sit upright 90 degrees for all PO Nursing Recommendations: Ask patient preferences/routine Encourage participation Encourage talking to loved ones Re-orienting frequently throughout the day Allow for extended time for thought processing Offer patient Yes/No questions as able Simplify commands to 1 step Reinforce an upright position during / after all PO Routine Rigid Oral Hygiene Recommended Discharge Disposition: Acute Rehab Justification for Recommended Discharge Disposition: Patient requires an intensive inpatient rehabilitation therapy program due to:;aspiration risk requiring ongoing medical management;dysphagia requiring frequent assessment and diet modification;expressive language/communication deficits;receptive language/communication deficits;new/worsened cognitive deficits related to current diagnosis Current Hospital Course: 05/12 chest xray: Patchy opacity posterior right lung mid and lung base. Given recent trauma, this could represent lung contusion. Developing pneumonia cannot be excluded. Reason for Hospital Admission: logging accident Rehabilitation Precautions: Modified Diet;Aspiration Precautions;Cognitive Linguistics Deficits;Communication Deficits Reason for Speech Therapy Consult: concerns for dysphagia and cognitive-linguistic deficits Relevant Past Medical History: not on file Continue skilled DIRECTOR MEDICAL WRITING services due to : Communication difficulties,Dysphagia, Education / training needs,Safety concerns Speech Therapy Problem List: Dysphagia;Cognitive-Kavita guistic Impairment;Oral Communication Impairment Patient Report: Patient answering yes/no questions at this visit Current Status Oral Hygiene: Clear, moist oral cavity Dentition: Retains Natural Dentition Current Feeding Method: Oral Current Diet Textures: Clear Liquids Current Level Of Communication: Verbal Current Management Of Secretions: Able to self-manage Oral Motor Exam: (unable to assess d/t alertness) Oral Health Assessment Tool (OHAT) for Non-Dental Professionals Initial Assessment Category 0 = healthy 1 = changes 2 = unhealthy Score Lips Smooth, pink, moist Dry, chapped, or red at corners Swelling or lump, white/red/ulcerated patch; bleeding/ulcerated at corners 0 Tongue Normal, moist, pink Patchy, fissured, red, coated Patch that is red and/or white, ulcerated, swollen 0 Gums and Tissues [place], moist, Smooth, no bleeding Dry, shiny, rough, red, swollen around 1 to 6 teeth, one ulcer or sore spot under denture Swollen, bleeding around 7 teeth or more, loose teeth, ulcers and/or white patches, generalized redness and/or tenderness 0 Saliva Moist tissues, watery and free flowing saliva Dry, sticky tissues, little saliva present, resident thinks they have dry mouth Tissues parched and red, very little or no saliva present; saliva is thick, ropey, resident complains of dry mouth 1 Natural Teeth No decayed or broken teeth/roots 1 to 3 decayed or broken teeth/roots 4 or more decayed or broken teeth/roots, or very worn down teeth, or less than 4 teeth with no denture 1 Denture(s) No broken areas/teeth, dentures worn regularly, name is on 1 broken area/tooth, or dentures only worn for 1-2h daily, or no name on denture(s) More than 1 broken area/tooth, denture missing or not worn due to poor fit, or worn only with denture adhesive 0 Oral Cleanliness Clean and on food particles or tartar on teeth or dentures Food particles/tartar/debris in 1 or 2 areas of the mouth or on small areas of dentures; occasional bad breath Food particles, tartar, debris in most areas of the mouth or on most areas of denture(s), or severe halitosis (bad breath) 0 Dental Pain No behavioral, verbal or physical signs of pain Verbal and/or behavioral signs or pain such as pulling of face, chewing lips, not eating, aggression Physical signs such as swelling or cheek or gum, broken teeth, ulcers, 'gum boil', as well as verbal and or behavioral signs 0 Total score: 2 Star Bai., Lizzie Nazario., Ryan Tolbert., Paul Ulloa., AND Андрей Rain (2005). The oral health assessment tool--validity and reliability. [place] dental journey, 50(3), 191-199. Patient resting in bed upon arrival, at bedside Tri (more content not included)... [facility] THERAPY NT HNO ID: [id number] Author: Raegan Potter OTR/L Service: Occupational Therapy Author Type: Occupational Therapist Type: Therapy (PT/OT/Speech/Resp) Filed: 05/12/2021 11:52 AM Note Text: Occupational Therapy Evaluation SERVICE DATE: 05/12/2021 SERVICE TIME: 1014 to 1044 ROOM: [id number] ([facility]) Recommended Discharge Disposition: Acute Rehab Recommended Discharge Disposition Comments: Pt functioning well below baseline. Pt requires assist for all ADL's. Pt would benefit from active therapy and can tolerate 3 hours of therapy a day to assist in returning to OF. Recommended Discharge Disposition Due to: Patient requires an active, intensive rehabilitation therapy program due to:;decline in functional status requiring daily skilled care;deficits affecting dominant side;new / worsened cognitive deficits related to current diagnosis;ongoing intervention of multiple therapy disciplines OT 6 Clicks Score: 12 [place] level 5 Educated pt and spouse on BLT back precautions. Assisted pt to complete log roll with moderate assist to sit edge of bed with cuing to remain non weight bearing on right upper extremity. While seated edge of bed, assisted pt to don TLSO brace. Pt completed sit to stand transfer with moderate assist x2. Pt required minimal assist to maintain balance. Pt attempted to take side steps towards head of bed and required ongoing cuing for motion, pt then shifted weight and required moderate assist x2 to maintain balance. Assisted pt back to bed with moderate assist and cuing for log roll technique and to maintain non weight bearing precautions on right upper extremity. Assessed pt's cognition, pt able to correctly identify the color of his socks. Pt unable to correctly identify the time by looking at a clock. Encouraged pt's spouse to continue orienting pt to self, place, situation, and time. Conducted the Rancho Los Amigos Scale Assessment this date. The Rancho Los Amigos Scale describes eight levels of post-brain injury cognitive function. These levels describe a person's reliance on assistance to carry out cognitive and physical functions. The pt currently falls within level 5 of brain injury. A pt that scores at this level will most likely exhibit the following behaviors: Rancho Level V- Confused, Inappropriate Patient appears alert and is able to respond to simple commands fairly consistently; however, with increased complexity of commands or lack of any external structure, responses are non-purposeful or random toward any desired goal. The patient may still show agitated behavior, not on an internal basis, but rather as a result of external stimuli, and usually out of proportion to the stimulus. The patient may have gross attention to the environment, but is highly distractible and lacks ability to focus attention to a specific task without frequent re-direction back to it. With structure, the patient may be able to converse on a social-automatic level for short periods of time. Verbalization is often inappropriate; confabulation may be triggered by present events. Memory is severely impaired, with confusion of past and present in their reaction to ongoing activity. Patient lacks initiation of functional tasks and often shows inappropriate use of objects without external direction. The patient may be able to perform previously-learned tasks when structured but is unable to learn new information. The patient can usually perform self-care activities and feeding with assistance. Management of the patient is often a problem if the patient is physically mobile, as they may wander off, either randomly or with vague intentions of going home. Precautions/Activity Restrictions: Fall Risk;Bed/Chair Alarm;Impulsive with Activity;Spine;Brace;We ight Bearing Restrictions Precaution/Activity Restriction Comments: TLSO for OOB Extremity With Weight Bearing Restricted: Right Upper Extremity Right Upper Extremity Weight Bearing Status: NWB Current Hospital Course: Pt admitted after branch fell on him, sustained L SDH with TBI, R 1-10 rib fx, R C3 and C7 fx, R T1 and T3-9 transverse process fx, T6 and T11 compression fx, lung contusion, left temporal bone fx, and R glenoid, scapula, and clavicle fx. Reason for Hospital Admission: logging accident Relevant Past Medical History: none on file Response to Therapy Interventions: Good participation in activities,Cognitive deficits,Multiple ongoing medical issues,Needs frequent redirection or re-instruction Continue skilled needs due to: Cognitive deficits,Functional impairment,Safety concerns Occupational Therapy Problem List: Cognitive Deficit;Safety Deficits;Impaired Self Care;Decreased Range Of Motion;Decreased Strength;Functional Mobility Impairment;Balance Impaired Cognition/Communication Deficits Communication Deficits: Other: See Comment (Limited communication) Orientation De (more content not included)... [facility] THERAPY NT HNO ID: [id number] Author: Dominick Archibald, PT Service: Physical Therapy Author Type: Physical Therapist Type: Therapy (PT/OT/Speech/Resp) Filed: 05/12/2021 11:22 AM Note Text: Physical Therapy Evaluation SERVICE DATE: 05/12/2021 SERVICE TIME: 1015 to 1045 ROOM: [place] [address] Recommended Discharge Disposition: Acute Rehab Recommended Discharge Disposition Due to: Patient requires an active, intensive rehabilitation therapy program due to:;ADL impairment resulting in caregiver dependence;ataxia;careg iver training needs;coordination deficits;decline in functional status requiring daily skilled care;new / worsened cognitive deficits related to current diagnosis;ongoing intervention of multiple therapy disciplines PT 6 Clicks Score: 10 Precautions/Activity Restrictions: Fall Risk;Bed/Chair Alarm;Impulsive with Activity;Spine;Brace;We ight Bearing Restrictions Precaution/Activity Restriction Comments: TLSO for OOB Extremity With Weight Bearing Restricted: Right Upper Extremity Right Upper Extremity Weight Bearing Status: NWB Current Hospital Course: Pt admitted after branch fell on him, sustained L SDH with TBI, R 1-10 rib fx, R C3 and C7 fx, R T1 and T3-9 transverse process fx, T6 and T11 compression fx, lung contusion, left temporal bone fx, and R glenoid, scapula, and clavicle fx. Reason for Hospital Admission: logging accident Relevant Past Medical History: none on file Response to Therapy Interventions: Good participation in activities,Cognitive deficits,Needs frequent redirection or re-instruction Continue skilled needs due to: Functional mobility/skill impairments,Safety concerns Physical Therapy Problem List: Cognitive Deficit;Pain;Safety Deficits;Impaired Self Care;Decreased Activity Tolerance;Decreased Strength;Functional Mobility Impairment;Balance Impaired Treatment Interventions: Education;Strengthening ;Functional Mobility Training;Balance Training;Neuromuscular Re-education;Cognitive Training Home Environment Patient Lives With: Family (spouse and six kids) Assistance Available: 24 Hour Entry To Home: Stairs Number Of Stairs Into Home: 3 Number Of Stairs To Bed/Bath: 0 Prior Functional Level: Within Functional Limits Prior Functional Level Comments: 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 Pt's reports pt independent in ADL's and IADL's. Patient Report: Pt following commands about 50%, fairly consistent responses with y/n questions. present helpful, she reports pt often responds better to Samoan, but he does speak Paraguayan fluently CURRENT FUNCTIONAL STATUS: Most recent performance Current Functional Mobility Assist Level Additional Information Rolling Moderate Assistance;Additional Information cued for bent knees, assisted to roll to side Supine to Sit Moderate Assistance;Additional Information cued in log roll technique Sit to Supine Moderate Assistance;Additional Information cued to lay down to side, assisted to guide legs into bed Scooting Sit to Stand Moderate Assistance;Additional Information needs cues/assist to place feet properly prior to standing Stand to Sit Moderate Assistance Bed to Chair Toilet/Commode Gait Moderate Assistance;Additional Information (x2) Gait Device: Hand Held Assist Gait Distance (feet): pregait marching x30 seconds limited foot clearance and pt with variable foot placement, tending toward narrow base of support; cued and demonstrated for wider base of support, though pt had difficulty correcting, significant assist for stability during pregait Stairs Curb Step Car Transfer Blank jean indicate activity not attempted Range of Motion: WFL Except;ROM Limitation Comments ROM Limitation Comments: R shoulder not assessed Strength: Strength Limitation Comments Strength Limitation Comments: formal assessment limited by command following, appears grossly 4/5 Quality of Movement: Ataxic Balance: Static Standing;Dynamic Standing Static Standing Balance: Poor Patient requires handhold support and moderate to maximal assistance to maintain position Dynamic Standing Balance: Poor Patient unable to accept challenge or move without loss of balance -[facility]: 5: Standing (1 or more minutes) Learning/Educational Needs: Discharge Plan;Equipment;Function al Activities/Mobility;Constantino n of Care;Rehabilitation Techniques and Procedures;Safety Goals for Plan of Care: Patient /Caregiver Goals: Go To Rehab Transfer supine to/from sit with: Stand By Assistance Transfer sit to/from stand with: Minimal Assistance Ambulate with: Moderate Assistance Distance: 10 Device: Hand Held Assist;Other: See Comment (or pyramid cane) Transfer: bed to/from chair with mod A Rehab Potential: Good Patient will be discontinued from Physical Therapy when no further skilled needs are identified in this setting. PLAN: PT Frequency: Once daily (4-7) Plan of Care developed with: Patient TREATMENT INTERVENT (more content not included)... [facility] XR CHEST 2V FRONTAL/LATon XR CHEST 2V FRONTAL/LAT * * *Final Report* * * DATE OF EXAM: May 12 2021 11:31AM AKX 5291 - XR CHEST 2V FRONTAL/LAT / PROCEDURE REASON: Chest trauma, blunt * * * * Physician Interpretation * * * * EXAMINATION: CHEST RADIOGRAPH (2 VIEW FRONTAL and LATERAL) CLINICAL HISTORY: Chest trauma, blunt, Cough, persistent, Pneumothorax MQ: XC2_6 EXAM DATE/TIME: 05/12/2021 11:31 AM COMPARISON: 05/11/2021 at 0402 RESULT: Lines, tubes, and devices: None. Lungs and pleura: Small right-sided pleural effusion. Patchy opacity noted posteriorly right lung mid and base. Similar to prior exam. No pneumothorax. Subsegmental atelectasis left lung. Cardiomediastinal silhouette: Normal cardiomediastinal silhouette. Bones and soft tissues: Multiple right-sided rib fractures. Right-sided clavicle fracture. Comminuted right scapular fractures. Compression deformity noted lower thoracic spine at approximately T11. IMPRESSION: Patchy opacity posterior right lung mid and lung base. Given recent trauma, this could represent lung contusion. Developing pneumonia cannot be excluded. No pneumothorax. Again noted are multiple right-sided rib fractures, right clavicle fracture, and right scapular fracture. On lateral view, compression deformity of T11 is again noted. Program Project Analyst: PSCB Transcribe Date/Time: May 12 2021 12:09P Dictated by : JIL TEMPLETON MD This examination was interpreted and the report reviewed and electronically signed by: JIL TEMPLETON MD on May 12 2021 12:13PM EST [id number] [facility] ALLIED HEALTHon 05-11-2021 ALLIED HEALTH HNO ID: [id number] Author: Neetu Rasheed RT(R) Service: ? Author Type: Landing Scaler Type: Allied Health Filed: 05/11/2021 5:17 AM Note Text: Radiology Service Progress Note PATIENT NAME: Ivanna Collier Jr. DATE OF SERVICE: May 11, 2021 TIME: 5:15 AM PATIENT IDENTITY VERIFICATION COMPLETED USING TWO (2) IDENTIFIERS: Name and Date of confirmed by identification band. FALL SCREENING: Has the patient had 2 falls in the last year or 1 fall with injury or currently using an Ambulatory Assistive Device (Walker, Cane, Wheelchair, Crutches, etc.)? Inpatient: Screened on floor PATIENT GENDER DATA: Male PATIENT RELEVANT IMPLANT DATA REVIEWED: Not Applicable RADIOLOGY DEPARTMENT: General X-ray: Exam(s) Completed: Chest X-Ray PERIPHERAL IV DATA: Not applicable SIGNED BY: RT Farhat(R) May 11, 2021 5:15 AM [facility] Basic metabolic 2000 panelon 05-11-2021 Anion gap [Moles/Vol] 8 mmol/L Low 9-18 [facility] Comment on above: Order Comment: Speci men Type: BLOOD SPECIMEN Performed By: #### 2 777-1, 28892-3, ####[facility] [id number] [address] Performed By: #### I CA #### [facility] CLIA [id number] [address] Calcium [Mass/Vol] 8.8 mg/dL Normal 8.5-10.2 [facility] Comment on above: Order Comment: Speci men Type: BLOOD SPECIMEN Performed By: #### 2 777-1, 44331-6, ####[facility] [id number] [address] Performed By: #### I CA #### [facility] CLIA [id number] [address] [place] Chloride [Moles/Vol] 105 mmol/L Normal 97-105 [facility] Comment on above: Order Comment: Speci men Type: BLOOD SPECIMEN Performed By: #### 2 777-1, 94329-5, ####[facility] [id number] [address] Performed By: #### I CA #### [facility] CLIA [id number] [address] CO2 [Moles/Vol] 28 mmol/L Normal 22-30 [facility] Comment on above: Order Comment: Speci men Type: BLOOD SPECIMEN Performed By: #### 2 777-1, 53426-5, ####[facility] [id number] [address] Performed By: #### I CA #### [facility] CLIA [id number] [address] Creatinine [Mass/Vol] 0.74 mg/dL Normal 0.73-1.22 [facility] Comment on above: Order Comment: Speci men Type: BLOOD SPECIMEN Performed By: #### 2 777-1, , ####[facility] [id number] [address] Performed By: #### I CA #### [facility] CLIA [id number] [address] GFR/1.73 sq M.predicted MDRD (S/P/Bld) [Vol rate/Area] mL/min/{1.73_m2} [facility] Comment on above: Order Comment: Speci men Type: BLOOD SPECIMEN Result Comment: >60 eGFR (Estimated GFR) Units of measure: mL/min/1.73 meters squared eGFR is derived from the reexpressed MDRD Study equation using the following parameters: serum creatinine, age, gender and race. The creatinine assay has been calibrated to be traceable to IDMS. An eGFR <60 mL/min/1.73m2 for >3 months is consistent with chronic kidney disease. Refer to KDOQI guidelines for clinical interpretation. In patients with unstable renal function, e.g. those with acute kidney injury, the eGFR may not accurately reflect actual GFR. Performed By: #### 2 777-1, 15709-5, ####[facility] [id number] [address] Performed By: #### I CA #### [facility] CLIA [id number] [address] Glucose [Mass/Vol] 104 mg/dL High 74-99 [facility] Comment on above: Order Comment: Speci men Type: BLOOD SPECIMEN Result Comment: The [place] Diabetes Association (ADA) provides guidance for cutoff values for fasting glucose and random glucose. The ADA defines fasting as no caloric intake for at least 8 hours. Fasting plasma glucose results between 100 to 125 mg/dL indicate increased risk for diabetes (prediabetes). Fasting plasma glucose results greater than or equal to 126 mg/dL meet the criteria for diagnosis of diabetes. In the absence of unequivocal hyperglycemia, results should be confirmed by repeat testing. In a patient with classic symptoms of hyperglycemia or hyperglycemic crisis, random plasma glucose results greater than or equal to 200 mg/dL meet the criteria for diagnosis of diabetes. Reference: Standards of Medical Care in Diabetes 2016, [place] Diabetes Association. Diabetes Care. 2016.39(Suppl 1). Performed By: #### 2 777-1, , ####[facility] [id number] [address] Performed By: #### I CA #### [facility] CLIA [id number] [address] Potassium [Moles/Vol] 3.9 mmol/L Normal 3.7-5.1 [facility] Comment on above: Order Comment: Speci men Type: BLOOD SPECIMEN Performed By: #### 2 777-, , ####[facility]CL[facility] [id number] [address] Performed By: #### I CA #### [facility] CLIA [id number] [address] Sodium [Moles/Vol] 141 mmol/L Normal 136-144 [facility] Comment on above: Order Comment: Speci men Type: BLOOD SPECIMEN Performed By: #### 2 777-1, , ####[facility]ORYCL[facility] [id number] [address] Performed By: #### I CA #### [facility] CLIA [id number] [address] Urea nitrogen [Mass/Vol] 24 mg/dL Normal 9-24 [facility] Comment on above: Order Comment: Speci men Type: BLOOD SPECIMEN Performed By: #### 2 777-1, 70636-8, 00342-6 ####[facility]ORYCL[facility] [id number] [address] Performed By: #### I CA #### [facility] CLIA [id number] [address] CALCIUM IONIZED Bon 05-11-20 Calcium.ionized (BldV) [Mass/Vol] 1.19 mmol/L Normal 1.08-1.30 [facility] Comment on above: Order Comment: Speci men Type: BLOOD SPECIMEN Performed By: #### I CA ####[facility]CL[facility] [id number] [address] Performed By: #### I CA #### [facility] CLIA [id number] [address] [place] [address] Calcium.ionized adjusted to pH 7.4 (Bld) [Moles/Vol] 1.19 mmol/L Normal 1.08-1.30 [facility] Comment on above: Order Comment: Speci men Type: BLOOD SPECIMEN Performed By: #### I CA ####[facility] [id number] [address] Performed By: #### I CA #### [facility] CLIA [id number] [address] CBC panel Auto (Bld)on 05-11 Erythrocyte distribution width (RBC) [Ratio] 13.5 % Normal 11.5-15.0 [facility] Comment on above: Order Comment: Speci men Type: BLOOD SPECIMEN Performed By: #### 2 4323-8 #### [facility] CLIA [id number] [address] [place] [address] Performed By: #### 2 4321-2 #### [facility] CLIA [id number] [address] Hematocrit (Bld) [Volume fraction] 33.6 % Low 39.0-51.0 [facility] Comment on above: Order Comment: Speci men Type: BLOOD SPECIMEN Performed By: #### 2 4323-8 #### [facility] CLIA [id number] [address] Performed By: #### 2 4321-2 #### [facility] CLIA [id number] [address] Hemoglobin (Bld) [Mass/Vol] 10.6 g/dL Low 13.0-17.0 [facility] Comment on above: Order Comment: Speci men Type: BLOOD SPECIMEN Performed By: #### 2 4323-8 #### [facility] CLIA [id number] [address] Performed By: #### 2 4321-2 #### [facility] CLIA [id number] [address] MCH (RBC) [Entitic mass] 30.8 pg Normal 26.0-34.0 [facility] Comment on above: Order Comment: Speci men Type: BLOOD SPECIMEN Performed By: #### 2 4323-8 #### [facility] CLIA [id number] [address] Performed By: #### 2 4321-2 #### [facility] CLIA [id number] [address] MCHC (RBC) [Mass/Vol] 31.5 g/dL Normal 30.5-36.0 [facility] Comment on above: Order Comment: Speci men Type: BLOOD SPECIMEN Performed By: #### 2 4323-8 #### [facility] CLIA [id number] [address] Performed By: #### 2 4321-2 #### [facility] CLIA [id number] [address] MCV (RBC) [Entitic vol] 97.7 fL Normal 80.0-100.0 [facility] Comment on above: Order Comment: Speci men Type: BLOOD SPECIMEN Performed By: #### 2 4323-8 #### [facility] CLIA [id number] [address] Performed By: #### 2 4321-2 #### [facility] CLIA [id number] [address] Nucleated RBC (Bld) [#/Vol] 10*3/uL Normal <0.01 [facility] Comment on above: Order Comment: Speci men Type: BLOOD SPECIMEN Performed By: #### 2 4323-8 #### [facility] CLIA [id number] [address] Performed By: #### 2 4321-2 #### [facility] CLIA [id number] [address] Platelet mean volume (Bld) [Entitic vol] 9.7 fL Normal 9.0-12.7 [facility] Comment on above: Order Comment: Speci men Type: BLOOD SPECIMEN Performed By: #### 2 4323-8 #### [facility] CLIA [id number] [address] Performed By: #### 2 4321-2 #### [facility] CLIA [id number] [address] Platelets (Bld) [#/Vol] 231 10*3/uL Normal 150-400 [facility] Comment on above: Order Comment: Speci men Type: BLOOD SPECIMEN Performed By: #### 2 4323-8 #### [facility] CLIA [id number] [address] Performed By: #### 2 4321-2 #### [facility] CLIA [id number] [address] RBC (Bld) [#/Vol] 3.44 10*6/uL Low 4.20-6.00 [facility] Comment on above: Order Comment: Speci men Type: BLOOD SPECIMEN Performed By: #### 2 4323-8 #### [facility] CLIA [id number] [address] Performed By: #### 2 4321-2 #### [facility] CLIA [id number] [address] WBC (Bld) [#/Vol] 9.95 10*3/uL Normal 3.70-11.00 [facility] Comment on above: Order Comment: Speci men Type: BLOOD SPECIMEN Performed By: #### 2 4323-8 #### [facility] CLIA [id number] [address] [place] [address] Performed By: #### 2 4321-2 #### [facility] CLIA [id number] [address] Magnesium SerPl-mCncon 05-11 Magnesium [Mass/Vol] 2.2 mg/dL Normal 1.7-2.3 [facility] Comment on above: Order Comment: Speci men Type: BLOOD SPECIMEN Performed By: #### 2 777-1, 01273-3, 55054-6 ####[facility] [id number] [address] Performed By: #### I CA #### [facility] CLIA [id number] [address] NURSING PROGon 05-11-2021 NURSING PROG HNO ID: [id number] Author: Soto Serrato RN Service: Nursing Author Type: Registered Nurse Type: Nursing Progress Note Filed: 05/11/2021 12:22 PM Note Text: Nursing Progress Note Patient Name: Ivanna Collier Jr. [address]: [address]/[facility]-5260 -01 Daily Note:Report given to accepting RN will transfer pt via bed. This note was completed by: Soto Serrato [facility] Phosphate SerPl-mCncon 05-11 Phosphate [Mass/Vol] 3.1 mg/dL Normal 2.7-4.8 [facility] Comment on above: Order Comment: Speci men Type: BLOOD SPECIMEN Performed By: #### T SCR #### [facility] CLIA [id number] [address] Performed By: #### I CA #### [facility] CLIA [id number] [address] XR CHEST 1V FRONTALon 2020 XR CHEST 1V FRONTAL * * *Final Report* * * DATE OF EXAM: May 11 2021 5:18AM AKX 5290 - XR CHEST 1V FRONTAL / PROCEDURE REASON: Evaluate tube, line or lead position * * * * Physician Interpretation * * * * EXAMINATION: CHEST RADIOGRAPH (SINGLE VIEW AP OR PA) CLINICAL HISTORY: Evaluate tube, line or lead position MQ: XC1_5 Comparison: 05/10/2021 RESULT: Lines, tubes, and devices: None. The patient has been extubated and the NG tube has been removed. Lungs and pleura: There has been worsening of the right lower lung infiltrates with persistent infiltrates/atelectatic changes in the left lung base. A right pleural effusion cannot be excluded. Cardiomediastinal silhouette: Stable cardiomediastinal silhouette. Other: Again identified is a displaced fracture involving the right clavicle IMPRESSION: Worsening of the right lower lung infiltrate with persistent left lower lung infiltrate/atelectasis and fracture of the right clavicle. Program Project Analyst: ITZEL Transcribe Date/Time: May 11 2021 12:37P Dictated by : JG WEST MD This examination was interpreted and the report reviewed and electronically signed by: JG WEST MD on May 11 2021 12:39PM EST [id number] [facility] ALLIED HEALTHon 05-10-2021 ALLIED HEALTH HNO ID: [id number] Author: RT Farhat(R) Service: ? Author Type: Landing Scaler Type: Allied Health Filed: 05/10/2021 5:15 AM Note Text: Radiology Service Progress Note PATIENT NAME: Ivanna Collier Jr. DATE OF SERVICE: May 10, 2021 TIME: 5:14 AM PATIENT IDENTITY VERIFICATION COMPLETED USING TWO (2) IDENTIFIERS: Name and Date of confirmed by patient verbally and Name and Date of confirmed by identification band. FALL SCREENING: Has the patient had 2 falls in the last year or 1 fall with injury or currently using an Ambulatory Assistive Device (Walker, Cane, Wheelchair, Crutches, etc.)? Inpatient: Screened on floor PATIENT GENDER DATA: Male PATIENT RELEVANT IMPLANT DATA REVIEWED: Not Applicable RADIOLOGY DEPARTMENT: General X-ray: Exam(s) Completed: Chest X-Ray PERIPHERAL IV DATA: Not applicable SIGNED BY: RT Farhat(R) May 10, 2021 5:14 AM Normal [facility] ARTERIAL BLOOD GASESon 05-10 Base excess Calc (Bld) [Moles/Vol] 5 mmol/L High 0-2 [facility] Comment on above: Order Comment: Speci men Type: BLOOD SPECIMEN Performed By: #### 2 4323-8 #### [facility] CLIA [id number] [address] Order Comment: Speci men Type: ARTERIAL BLOOD SPECIMEN Performed By: #### A LLBG ####[facility] [id number] [address] Body temperature 98.96 [degF] Normal [facility] Comment on above: Order Comment: Speci men Type: BLOOD SPECIMEN Performed By: #### 2 4323-8 #### [facility] CLIA [id number] [address] Order Comment: Speci men Type: ARTERIAL BLOOD SPECIMEN Performed By: #### A LLBG ####[facility] [id number] [address] CALCIUM IONIZED, PH CORRECTED 1.22 mmol/L Normal 1.08-1.30 [facility] Comment on above: Order Comment: Speci men Type: BLOOD SPECIMEN Performed By: #### 2 4323-8 #### [facility] CLIA [id number] [address] Order Comment: Speci men Type: ARTERIAL BLOOD SPECIMEN Performed By: #### A LLBG ####[facility] [id number] [address] Calcium.ionized (BldV) [Mass/Vol] 1.21 mmol/L Normal 1.08-1.30 [facility] Comment on above: Order Comment: Speci men Type: BLOOD SPECIMEN Performed By: #### 2 4323-8 #### [facility] CLIA [id number] [address] Order Comment: Speci men Type: ARTERIAL BLOOD SPECIMEN Performed By: #### A LLBG ####[facility] [id number] [address] Carboxyhemoglobin (BldA) [Mass fraction] 1.6 % Normal 0.0-2.0 [facility] Comment on above: Order Comment: Speci men Type: BLOOD SPECIMEN Result Comment: Carb oxyhemoglobin Reference Range for Smokers: 2.0-8.0% Performed By: #### 2 4323-8 #### [facility] CLIA [id number] [address] Order Comment: Speci men Type: ARTERIAL BLOOD SPECIMEN Performed By: #### A LLBG ####[facility] [id number] [address] CO2 (Bld) [Partial pressure] 46 mm Hg Normal 36-46 [facility] Comment on above: Order Comment: Speci men Type: BLOOD SPECIMEN Performed By: #### 2 4323-8 #### [facility] CLIA [id number] [address] Order Comment: Speci men Type: ARTERIAL BLOOD SPECIMEN Performed By: #### A LLBG ####[facility] [id number] [address] CO2 [Moles/Vol] 27.2 mmol/L Normal 22-28 [facility] Comment on above: Order Comment: Speci men Type: BLOOD SPECIMEN Performed By: #### 2 4323-8 #### [facility] CLIA [id number] [address] Order Comment: Speci men Type: ARTERIAL BLOOD SPECIMEN Performed By: #### A LLBG ####[facility] [id number] [address] CO2 adjusted to patient's actual temperature (Bld) [Partial pressure] 47 mmHg High 36-46 [facility] Comment on above: Order Comment: Speci men Type: BLOOD SPECIMEN Performed By: #### 2 4323-8 #### [facility] CLIA [id number] [address] Order Comment: Speci men Type: ARTERIAL BLOOD SPECIMEN Performed By: #### A LLBG ####[facility] [id number] [address] FIO2 30 % Normal [facility] Comment on above: Order Comment: Speci men Type: BLOOD SPECIMEN Performed By: #### 2 4323-8 #### [facility] CLIA [id number] [address] Order Comment: Speci men Type: ARTERIAL BLOOD SPECIMEN Performed By: #### A LLBG ####[facility] [id number] [address] Glucose [Mass/Vol] 148 mg/dL High 60-105 [facility] Comment on above: Order Comment: Speci men Type: BLOOD SPECIMEN Performed By: #### 2 4323-8 #### [facility] CLIA [id number] [address] Order Comment: Speci men Type: ARTERIAL BLOOD SPECIMEN Performed By: #### A LLBG ####[facility] [id number] [address] HCO3 (Bld) [Moles/Vol] 29 mmol/L High 22-26 [facility] Comment on above: Order Comment: Speci men Type: BLOOD SPECIMEN Performed By: #### 2 4323-8 #### [facility] CLIA [id number] [address] Order Comment: Speci men Type: ARTERIAL BLOOD SPECIMEN Performed By: #### A LLBG ####[facility] [id number] [address] Hematocrit (Bld) [Volume fraction] 31.7 % Low 39.0-51.0 [facility] Comment on above: Order Comment: Speci men Type: BLOOD SPECIMEN Performed By: #### 2 4323-8 #### [facility] CLIA [id number] [address] Order Comment: Speci men Type: ARTERIAL BLOOD SPECIMEN Performed By: #### A LLBG ####[facility] [id number] [address] Hemoglobin (Bld) [Mass/Vol] 10.2 g/dL Low 13.0-17.0 [facility] Comment on above: Order Comment: Speci men Type: BLOOD SPECIMEN Performed By: #### 2 4323-8 #### [facility] CLIA [id number] [address] Order Comment: Speci men Type: ARTERIAL BLOOD SPECIMEN Performed By: #### A LLBG ####[facility] [id number] [address] Methemoglobin (Bld) [Mass fraction] % Normal 0.0-1.5 [facility] Comment on above: Order Comment: Speci men Type: BLOOD SPECIMEN Performed By: #### 2 4323-8 #### [facility] CLIA [id number] [address] Order Comment: Speci men Type: ARTERIAL BLOOD SPECIMEN Performed By: #### A LLBG ####[facility] [id number] [address] O2 THERAPY Ventilator Normal [facility] Comment on above: Order Comment: Speci men Type: BLOOD SPECIMEN Performed By: #### 2 4323-8 #### [facility] CLIA [id number] [address] [place] [address] Order Comment: Speci men Type: ARTERIAL BLOOD SPECIMEN Performed By: #### A LLBG ####[facility] [id number] [address] Oxygen (Bld) [Partial pressure] 75 mm Hg Low 85-95 [facility] Comment on above: Order Comment: Speci men Type: BLOOD SPECIMEN Performed By: #### 2 4323-8 #### [facility] CLIA [id number] [address] [place] [address] Order Comment: Speci men Type: ARTERIAL BLOOD SPECIMEN Performed By: #### A LLBG ####[facility] [id number] [address] Oxygen adjusted to patient's actual temperature (Bld) [Partial pressure] 75.7 mmHg Low 85-95 [facility] Comment on above: Order Comment: Speci men Type: BLOOD SPECIMEN Performed By: #### 2 4323-8 #### [facility] CLIA [id number] [address] Order Comment: Speci men Type: ARTERIAL BLOOD SPECIMEN Performed By: #### A LLBG ####[facility] [id number] [address] OXYGEN SATURATION, ARTERIAL 95 % Normal 95-98 [facility] Comment on above: Order Comment: Speci men Type: BLOOD SPECIMEN Performed By: #### 2 4323-8 #### [facility] CLIA [id number] [address] Order Comment: Speci men Type: ARTERIAL BLOOD SPECIMEN Performed By: #### A LLBG ####[facility] [id number] [address] Oxyhemoglobin (BldA) [Mass fraction] 92 % Low 95-98 [facility] Comment on above: Order Comment: Speci men Type: BLOOD SPECIMEN Performed By: #### 2 4323-8 #### [facility] CLIA [id number] [address] Order Comment: Speci men Type: ARTERIAL BLOOD SPECIMEN Performed By: #### A LLBG ####[facility]CLIA [id number] [address] pH (Bld) 7.42 [pH] Normal 7.35-7.45 [facility] Comment on above: Order Comment: Speci men Type: BLOOD SPECIMEN Performed By: #### 2 4323-8 #### [facility] CLIA [id number] [address] Order Comment: Speci men Type: ARTERIAL BLOOD SPECIMEN Performed By: #### A LLBG ####[facility] [id number] [address] pH adjusted to patient's actual temperature (Bld) 7.42 Normal 7.35-7.45 [facility] Comment on above: Order Comment: Speci men Type: BLOOD SPECIMEN Performed By: #### 2 4323-8 #### [facility] CLIA [id number] [address] Order Comment: Speci men Type: ARTERIAL BLOOD SPECIMEN Performed By: #### A LLBG ####[facility] [id number] [address] Potassium [Moles/Vol] 4.2 mmol/L Normal 3.5-5.0 [facility] Comment on above: Order Comment: Speci men Type: BLOOD SPECIMEN Performed By: #### 2 4323-8 #### [facility] CLIA [id number] [address] Order Comment: Speci men Type: ARTERIAL BLOOD SPECIMEN Performed By: #### A LLBG ####[facility] [id number] [address] Sodium [Moles/Vol] 142 mmol/L Normal 136-144 [facility] Comment on above: Order Comment: Speci men Type: BLOOD SPECIMEN Performed By: #### 2 4323-8 #### [facility] CLIA [id number] [address] Order Comment: Speci men Type: ARTERIAL BLOOD SPECIMEN Performed By: #### A LLBG ####[facility] [id number] [address] Basic metabolic 2000 panelon 05-10-2021 Anion gap [Moles/Vol] 9 mmol/L Normal 9-18 [facility] Comment on above: Order Comment: Speci men Type: BLOOD SPECIMEN Performed By: #### 1 9123-9, 2777-1, 68015-3 ####[facility] [id number] [address] Performed By: #### I CA #### [facility] CLIA [id number] [address] Calcium [Mass/Vol] 8.7 mg/dL Normal 8.5-10.2 [facility] Comment on above: Order Comment: Speci men Type: BLOOD SPECIMEN Performed By: #### 1 9123-9, 2776-06, ####[facility] [id number] [address] Performed By: #### I CA #### [facility] CLIA [id number] [address] Chloride [Moles/Vol] 104 mmol/L Normal 97-105 [facility] Comment on above: Order Comment: Speci men Type: BLOOD SPECIMEN Performed By: #### 1 9123-9, 2776-06, ####[facility] [id number] [address] Performed By: #### I CA #### [facility] CLIA [id number] [address] [place] [address] CO2 [Moles/Vol] 28 mmol/L Normal 22-30 [facility] Comment on above: Order Comment: Speci men Type: BLOOD SPECIMEN Performed By: #### 1 91239, 2776-06, ####[facility] [id number] [address] Performed By: #### I CA #### [facility] CLIA [id number] [address] [place] [address] Creatinine [Mass/Vol] 0.74 mg/dL Normal 0.73-1.22 [facility] Comment on above: Order Comment: Speci men Type: BLOOD SPECIMEN Performed By: #### 1 9123-9, 2776-06, ####[facility] [id number] [address] Performed By: #### I CA #### [facility] CLIA [id number] [address] GFR/1.73 sq M.predicted MDRD (S/P/Bld) [Vol rate/Area] mL/min/{1.73_m2} Normal [facility] Comment on above: Order Comment: Speci men Type: BLOOD SPECIMEN Result Comment: >60 eGFR (Estimated GFR) Units of measure: mL/min/1.73 meters squared eGFR is derived from the reexpressed MDRD Study equation using the following parameters: serum creatinine, age, gender and race. The creatinine assay has been calibrated to be traceable to IDMS. An eGFR <60 mL/min/1.73m2 for >3 months is consistent with chronic kidney disease. Refer to KDOQI guidelines for clinical interpretation. In patients with unstable renal function, e.g. those with acute kidney injury, the eGFR may not accurately reflect actual GFR. Performed By: #### 1 9123-9, 2777-1, 74814-6 ####[facility] [id number] [address] Performed By: #### I CA #### [facility] CLIA [id number] [address] Glucose [Mass/Vol] 141 mg/dL High 74-99 [facility] Comment on above: Order Comment: Speci men Type: BLOOD SPECIMEN Result Comment: The [place] Diabetes Association (ADA) provides guidance for cutoff values for fasting glucose and random glucose. The ADA defines fasting as no caloric intake for at least 8 hours. Fasting plasma glucose results between 100 to 125 mg/dL indicate increased risk for diabetes (prediabetes). Fasting plasma glucose results greater than or equal to 126 mg/dL meet the criteria for diagnosis of diabetes. In the absence of unequivocal hyperglycemia, results should be confirmed by repeat testing. In a patient with classic symptoms of hyperglycemia or hyperglycemic crisis, random plasma glucose results greater than or equal to 200 mg/dL meet the criteria for diagnosis of diabetes. Reference: Standards of Medical Care in Diabetes 2016, [place] Diabetes Association. Diabetes Care. 2016.39(Suppl 1). Performed By: #### 1 9123-9, 2777-1, 82895-8 ####[facility] [id number] [address] Performed By: #### I CA #### [facility] CLIA [id number] [address] Potassium [Moles/Vol] 4.2 mmol/L Normal 3.7-5.1 [facility] Comment on above: Order Comment: Speci men Type: BLOOD SPECIMEN Performed By: #### 1 9123-9, 2777, 46296-4 ####[facility] [id number] [address] Performed By: #### I CA #### [facility] CLIA [id number] [address] Sodium [Moles/Vol] 141 mmol/L Normal 136-144 [facility] Comment on above: Order Comment: Speci men Type: BLOOD SPECIMEN Performed By: #### 1 9123-9, 27712-26, 46559-3 ####[facility] [id number] [address] Performed By: #### I CA #### [facility] CLIA [id number] [address] [place] [address] Urea nitrogen [Mass/Vol] 24 mg/dL Normal 9-24 [facility] Comment on above: Order Comment: Speci men Type: BLOOD SPECIMEN Performed By: #### 1 9123-9, 2777, 34606-0 ####[facility] [id number] [address] Performed By: #### I CA #### [facility] CLIA [id number] [address] CBC panel Auto (Bld)on 05-10 Erythrocyte distribution width (RBC) [Ratio] 13.4 % Normal 11.5-15.0 [facility] Comment on above: Order Comment: Speci men Type: BLOOD SPECIMEN Performed By: #### 2 4323-8 #### [facility] CLIA [id number] [address] Performed By: #### 2 4321-2 #### [facility] CLIA [id number] [address] Hematocrit (Bld) [Volume fraction] 31.5 % Low 39.0-51.0 [facility] Comment on above: Order Comment: Speci men Type: BLOOD SPECIMEN Performed By: #### 2 4323-8 #### [facility] CLIA [id number] [address] Performed By: #### 2 4321-2 #### [facility] CLIA [id number] [address] Hemoglobin (Bld) [Mass/Vol] 10.1 g/dL Low 13.0-17.0 [facility] Comment on above: Order Comment: Speci men Type: BLOOD SPECIMEN Performed By: #### 2 4323-8 #### [facility] CLIA [id number] [address] Performed By: #### 2 4321-2 #### [facility] CLIA [id number] [address] MCH (RBC) [Entitic mass] 31.2 pg Normal 26.0-34.0 [facility] Comment on above: Order Comment: Speci men Type: BLOOD SPECIMEN Performed By: #### 2 4323-8 #### [facility] CLIA [id number] [address] Performed By: #### 2 4321-2 #### [facility] CLIA [id number] [address] MCHC (RBC) [Mass/Vol] 32.1 g/dL Normal 30.5-36.0 [facility] Comment on above: Order Comment: Speci men Type: BLOOD SPECIMEN Performed By: #### 2 4323-8 #### [facility] CLIA [id number] [address] Performed By: #### 2 4321-2 #### [facility] CLIA [id number] [address] MCV (RBC) [Entitic vol] 97.2 fL Normal 80.0-100.0 [facility] Comment on above: Order Comment: Speci men Type: BLOOD SPECIMEN Performed By: #### 2 4323-8 #### [facility] CLIA [id number] [address] Performed By: #### 2 4321-2 #### [facility] CLIA [id number] [address] Nucleated RBC (Bld) [#/Vol] 10*3/uL Normal <0.01 [facility] Comment on above: Order Comment: Speci men Type: BLOOD SPECIMEN Performed By: #### 2 4323-8 #### [facility] CLIA [id number] [address] Performed By: #### 2 4321-2 #### [facility] CLIA [id number] [address] Platelet mean volume (Bld) [Entitic vol] 10.3 fL Normal 9.0-12.7 [facility] Comment on above: Order Comment: Speci men Type: BLOOD SPECIMEN Performed By: #### 2 4323-8 #### [facility] CLIA [id number] [address] Performed By: #### 2 4321-2 #### [facility] CLIA [id number] [address] Platelets (Bld) [#/Vol] 181 10*3/uL Normal 150-400 [facility] Comment on above: Order Comment: Speci men Type: BLOOD SPECIMEN Performed By: #### 2 4323-8 #### [facility] CLIA [id number] [address] Performed By: #### 2 4321-2 #### [facility] CLIA [id number] [address] RBC (Bld) [#/Vol] 3.24 10*6/uL Low 4.20-6.00 [facility] Comment on above: Order Comment: Speci men Type: BLOOD SPECIMEN Performed By: #### 2 4323-8 #### [facility] CLIA [id number] [address] Performed By: #### 2 4321-2 #### [facility] CLIA [id number] [address] WBC (Bld) [#/Vol] 10.17 10*3/uL Normal 3.70-11.00 [facility] Comment on above: Order Comment: Speci men Type: BLOOD SPECIMEN Performed By: #### 2 4323-8 #### [facility] CLIA [id number] [address] [place] [address] Performed By: #### 2 4321-2 #### [facility] CLIA [id number] [address] Magnesium SerPl-ncon 05-10 Magnesium [Mass/Vol] 1.9 mg/dL Normal 1.7-2.3 [facility] Comment on above: Order Comment: Speci men Type: BLOOD SPECIMEN Performed By: #### 1 9123-9, 2777-1, 16998-3 ####[facility] [id number] [address] Performed By: #### I CA #### [facility] CLIA [id number] [address] NURSING PROGon 05-10-2021 NURSING PROG HNO ID: [id number] Author: Soto Serrato RN Service: Nursing Author Type: Registered Nurse Type: Nursing Progress Note Filed: 05/10/2021 7:15 AM Note Text: Nursing Progress: Topic: RESTRAINT NON-VIOLENT PATIENT NAME: Ivanna Collier Jr. 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 The following interventions were attempted but were not effective in protecting the patient's safety: Arm Boards (unsecured),Bed in Low/Locked Position,Call Light Within Reach,Diversion Activities,IV/Feeding Bag/Pump Out of Vision,Medications Reviewed,Modify Environment,Modify Equipment,Frequent Observation Next, a comprehensive assessment was performed and warranted placing the patient in Soft Bilateral Wrists, the least restrictive restraint needed to protect the patient's safety. Ongoing safety assessments and evaluation for earliest removal of restraints will be performed. DATE: May 10, 2021 TIME: 7:15 AM Soto Serrato RN [facility] NURSING PROG HNO ID: [id number] Author: Jenny Gregorio RN Service: ? Author Type: Registered Nurse Type: Nursing Progress Note Filed: 05/10/2021 6:46 AM Note Text: Nursing Progress: Topic: RESTRAINT NON-VIOLENT PATIENT NAME: Ivanna Collier Jr. PATIENT LOCATION: [place] [address]/[place] [address] 0* The patient demonstrates Attempting to Remove Medical Devices Vital to Medical Stability,Confusion,Lac k of Understanding/Ability to Comply with Safety Directions,Impulsive Behavior,Inability to be Redirected as evidenced by the following behaviors confusion, inability to be redirected which pose an imminent danger to self or others. The following interventions were attempted but were not effective in protecting the patient's safety: Arm Boards (unsecured),Bed in Low/Locked Position,Call Light Within Reach,Diversion Activities,IV/Feeding Bag/Pump Out of Vision,Medications Reviewed,Modify Environment,Modify Equipment,Frequent Observation Next, a comprehensive assessment was performed and warranted placing the patient in Soft Bilateral Wrists, the least restrictive restraint needed to protect the patient's safety. Ongoing safety assessments and evaluation for earliest removal of restraints will be performed. DATE: May 10, 2021 TIME: 6:46 AM Jenny Gregorio RN Normal [facility] Phosphate SerPl-mCncon 05-10 Phosphate [Mass/Vol] 2.2 mg/dL Low 2.7-4.8 [facility] Comment on above: Order Comment: Speci men Type: BLOOD SPECIMEN Performed By: #### 1 9123-9, 2777-1, 07957-8 ####[facility] [id number] [address] Performed By: #### I CA #### [facility] CLIA [id number] [address] XR CHEST 1V FRONTALon 2020 XR CHEST 1V FRONTAL * * *Final Report* * * DATE OF EXAM: May 10 2021 5:20AM AKX [id number] - XR CHEST 1V FRONTAL / PROCEDURE REASON: Evaluate tube, line or lead position * * * * Physician Interpretation * * * * EXAMINATION: CHEST RADIOGRAPH (SINGLE VIEW AP OR PA) CLINICAL HISTORY: Evaluate tube, line or lead position MQ: XC1_5 Comparison: 05/09/2021 RESULT: Lines, tubes, and devices: Endotracheal tube with the tip projecting approximately 3.0 cm above the imelda. Enteric tube extending below the diaphragm with the tip and sidehole projecting over the left upper quadrant in the expected region of the gastric body. Lungs and pleura: Stable infiltrative airspace opacities in the right lung and medial left lung base. No sizable pneumothorax. Small right pleural effusion. Cardiomediastinal silhouette: Stable cardiomediastinal silhouette. Other: Redemonstration of multiple right-sided rib fractures and right clavicle fracture, grossly unchanged from previous examination. IMPRESSION: Chest radiograph demonstrating no significant change from previous examination as detailed above. Program Project Analyst: ITZEL Transcribe Date/Time: May 10 2021 8:10A Dictated by : GEOVANI RYDER DO This examination was interpreted and the report reviewed and electronically signed by: GEOVANI RYDER DO on May 10 2021 8:19AM EST [id number] Normal [facility] ALLIED HEALTHon 05-09-2021 ALLIED HEALTH HNO ID: [id number] Author: RT Samantha(R) Service: Radiology Author Type: Technologist Type: Allied Health Filed: 05/09/2021 5:14 AM Note Text: Radiology Service Progress Note PATIENT NAME: Ivanna Colleir Jr. DATE OF SERVICE: May 09, 2021 TIME: 5:14 AM PATIENT IDENTITY VERIFICATION COMPLETED USING TWO (2) IDENTIFIERS: Name and Date of confirmed by identification band. FALL SCREENING: Has the patient had 2 falls in the last year or 1 fall with injury or currently using an Ambulatory Assistive Device (Walker, Cane, Wheelchair, Crutches, etc.)? Inpatient: Screened on floor PATIENT GENDER DATA: Male PATIENT RELEVANT IMPLANT DATA REVIEWED: Not Applicable RADIOLOGY DEPARTMENT: General X-ray: Exam(s) Completed: Chest X-Ray PERIPHERAL IV DATA: Not applicable SIGNED BY: RT Samantha(R) May 09, 2021 5:14 AM Normal [facility] ARTERIAL BLOOD GASESon 05-09 Base excess Calc (Bld) [Moles/Vol] 4 mmol/L High 0-2 [facility] Comment on above: Order Comment: Speci men Type: BLOOD SPECIMEN Performed By: #### 2 4323-8 #### [facility] CLIA [id number] [address] [place] [address] Performed By: #### 2 4321-2 #### [facility] CLIA [id number] [address] Body temperature 99.5 [degF] Normal [facility] Comment on above: Order Comment: Speci men Type: BLOOD SPECIMEN Performed By: #### 2 4323-8 #### [facility] CLIA [id number] [address] Performed By: #### 2 4321-2 #### [facility] CLIA [id number] [address] CALCIUM IONIZED, PH CORRECTED 1.23 mmol/L Normal 1.08-1.30 [facility] Comment on above: Order Comment: Speci men Type: BLOOD SPECIMEN Performed By: #### 2 4323-8 #### [facility] CLIA [id number] [address] Performed By: #### 2 4321-2 #### [facility] CLIA [id number] [address] Calcium.ionized (BldV) [Mass/Vol] 1.22 mmol/L Normal 1.08-1.30 [facility] Comment on above: Order Comment: Speci men Type: BLOOD SPECIMEN Performed By: #### 2 4323-8 #### [facility] CLIA [id number] [address] Performed By: #### 2 4321-2 #### [facility] CLIA [id number] [address] Carboxyhemoglobin (BldA) [Mass fraction] 1.3 % Normal 0.0-2.0 [facility] Comment on above: Order Comment: Speci men Type: BLOOD SPECIMEN Result Comment: Carb oxyhemoglobin Reference Range for Smokers: 2.0-8.0% Performed By: #### 2 4323-8 #### [facility] CLIA [id number] [address] Performed By: #### 2 4321-2 #### [facility] CLIA [id number] [address] CO2 (Bld) [Partial pressure] 44 mm Hg Normal 36-46 [facility] Comment on above: Order Comment: Speci men Type: BLOOD SPECIMEN Performed By: #### 2 4323-8 #### [facility] CLIA [id number] [address] Performed By: #### 2 4321-2 #### [facility] CLIA [id number] [address] CO2 [Moles/Vol] 25.8 mmol/L Normal 22-28 [facility] Comment on above: Order Comment: Speci men Type: BLOOD SPECIMEN Performed By: #### 2 4323-8 #### [facility] CLIA [id number] [address] Performed By: #### 2 4321-2 #### [facility] CLIA [id number] [address] CO2 adjusted to patient's actual temperature (Bld) [Partial pressure] 46 mmHg Normal 36-46 [facility] Comment on above: Order Comment: Speci men Type: BLOOD SPECIMEN Performed By: #### 2 4323-8 #### [facility] CLIA [id number] [address] Performed By: #### 2 4321-2 #### [facility] CLIA [id number] [address] FIO2 35 % Normal [facility] Comment on above: Order Comment: Speci men Type: BLOOD SPECIMEN Performed By: #### 2 4323-8 #### [facility] CLIA [id number] [address] Performed By: #### 2 4321-2 #### [facility] CLIA [id number] [address] Glucose [Mass/Vol] 153 mg/dL High 60-105 [facility] Comment on above: Order Comment: Speci men Type: BLOOD SPECIMEN Performed By: #### 2 4323-8 #### [facility] CLIA [id number] [address] Performed By: #### 2 4321-2 #### [facility] CLIA [id number] [address] HCO3 (Bld) [Moles/Vol] 28 mmol/L High 22-26 [facility] Comment on above: Order Comment: Speci men Type: BLOOD SPECIMEN Performed By: #### 2 4323-8 #### [facility] CLIA [id number] [address] Performed By: #### 2 432-2 #### [facility] CLIA [id number] [address] Hematocrit (Bld) [Volume fraction] 34.7 % Low 39.0-51.0 [facility] Comment on above: Order Comment: Speci men Type: BLOOD SPECIMEN Performed By: #### 2 4323-8 #### [facility] CLIA [id number] [address] Performed By: #### 2 432-2 #### [facility] CLIA [id number] [address] Hemoglobin (Bld) [Mass/Vol] 11.3 g/dL Low 13.0-17.0 [facility] Comment on above: Order Comment: Speci men Type: BLOOD SPECIMEN Performed By: #### 2 4323-8 #### [facility] CLIA [id number] [address] Performed By: #### 2 432-2 #### [facility] CLIA [id number] [address] Methemoglobin (Bld) [Mass fraction] % Normal 0.0-1.5 [facility] Comment on above: Order Comment: Speci men Type: BLOOD SPECIMEN Performed By: #### 2 4323-8 #### [facility] CLIA [id number] [address] Performed By: #### 2 4321-2 #### [facility] CLIA [id number] [address] O2 THERAPY Ventilator Normal [facility] Comment on above: Order Comment: Speci men Type: BLOOD SPECIMEN Performed By: #### 2 4323-8 #### [facility] CLIA [id number] [address] Performed By: #### 2 4321-2 #### [facility] CLIA [id number] [address] Oxygen (Bld) [Partial pressure] 95 mm Hg Normal 85-95 [facility] Comment on above: Order Comment: Speci men Type: BLOOD SPECIMEN Performed By: #### 2 4323-8 #### [facility] CLIA [id number] [address] Performed By: #### 2 432-2 #### [facility] CLIA [id number] [address] Oxygen adjusted to patient's actual temperature (Bld) [Partial pressure] 97.9 mmHg High 85-95 [facility] Comment on above: Order Comment: Speci men Type: BLOOD SPECIMEN Performed By: #### 2 4323-8 #### [facility] CLIA [id number] [address] Performed By: #### 2 4321-2 #### [facility] CLIA [id number] [address] OXYGEN SATURATION, ARTERIAL 98 % Normal 95-98 [facility] Comment on above: Order Comment: Speci men Type: BLOOD SPECIMEN Performed By: #### 2 4323-8 #### [facility] CLIA [id number] [address] Performed By: #### 2 4321-2 #### [facility] CLIA [id number] [address] Oxyhemoglobin (BldA) [Mass fraction] 96 % Normal 95-98 [facility] Comment on above: Order Comment: Speci men Type: BLOOD SPECIMEN Performed By: #### 2 4323-8 #### [facility] CLIA [id number] [address] Performed By: #### 2 4321-2 #### [facility] CLIA [id number] [address] PEEP/CPAP 10 cmH2O Normal [facility] Comment on above: Order Comment: Speci men Type: BLOOD SPECIMEN Performed By: #### 2 4323-8 #### [facility] CLIA [id number] [address] Performed By: #### 2 4321-2 #### [facility] CLIA [id number] [address] pH (Bld) 7.42 [pH] Normal 7.35-7.45 [facility] Comment on above: Order Comment: Speci men Type: BLOOD SPECIMEN Performed By: #### 2 4323-8 #### [facility] CLIA [id number] [address] Performed By: #### 2 4321-2 #### [facility] CLIA [id number] [address] pH adjusted to patient's actual temperature (Bld) 7.41 Normal 7.35-7.45 [facility] Comment on above: Order Comment: Speci men Type: BLOOD SPECIMEN Performed By: #### 2 4323-8 #### [facility] CLIA [id number] [address] Performed By: #### 2 4321-2 #### [facility] CLIA [id number] [address] Potassium [Moles/Vol] 4.3 mmol/L Normal 3.7-5.1 [facility] Comment on above: Order Comment: Speci men Type: BLOOD SPECIMEN Performed By: #### 2 4323-8 #### [facility] CLIA [id number] [address] Performed By: #### 2 4321-2 #### [facility] CLIA [id number] [address] Sodium [Moles/Vol] 141 mmol/L Normal 136-144 [facility] Comment on above: Order Comment: Speci men Type: BLOOD SPECIMEN Performed By: #### 2 4323-8 #### [facility] CLIA [id number] [address] Performed By: #### 2 4321-2 #### [facility] CLIA [id number] [address] Basic metabolic 2000 panelon 05-09-2021 Anion gap [Moles/Vol] 7 mmol/L Low 9-18 [facility] Comment on above: Order Comment: Speci men Type: BLOOD SPECIMEN Performed By: #### 2 4323-8 #### [facility] CLIA [id number] [address] Performed By: #### 2 432-2 #### [facility] CLIA [id number] [address] Calcium [Mass/Vol] 8.5 mg/dL Normal 8.5-10.2 [facility] Comment on above: Order Comment: Speci men Type: BLOOD SPECIMEN Performed By: #### 2 4323-8 #### [facility] CLIA [id number] [address] Performed By: #### 2 432-2 #### [facility] CLIA [id number] [address] Chloride [Moles/Vol] 104 mmol/L Normal 97-105 [facility] Comment on above: Order Comment: Speci men Type: BLOOD SPECIMEN Performed By: #### 2 4323-8 #### [facility] CLIA [id number] [address] Performed By: #### 2 4321-2 #### [facility] CLIA [id number] [address] CO2 [Moles/Vol] 28 mmol/L Normal 22-30 [facility] Comment on above: Order Comment: Speci men Type: BLOOD SPECIMEN Performed By: #### 2 4323-8 #### [facility] CLIA [id number] [address] Performed By: #### 2 4321-2 #### [facility] CLIA [id number] [address] Creatinine [Mass/Vol] 0.75 mg/dL Normal 0.73-1.22 [facility] Comment on above: Order Comment: Speci men Type: BLOOD SPECIMEN Performed By: #### 2 4323-8 #### [facility] CLIA [id number] [address] Performed By: #### 2 4321-2 #### [facility] CLIA [id number] [address] GFR/1.73 sq M.predicted MDRD (S/P/Bld) [Vol rate/Area] mL/min/{1.73_m2} Normal [facility] Comment on above: Order Comment: Speci men Type: BLOOD SPECIMEN Result Comment: >60 eGFR (Estimated GFR) Units of measure: mL/min/1.73 meters squared eGFR is derived from the reexpressed MDRD Study equation using the following parameters: serum creatinine, age, gender and race. The creatinine assay has been calibrated to be traceable to IDMS. An eGFR <60 mL/min/1.73m2 for >3 months is consistent with chronic kidney disease. Refer to KDOQI guidelines for clinical interpretation. In patients with unstable renal function, e.g. those with acute kidney injury, the eGFR may not accurately reflect actual GFR. Performed By: #### 2 4323-8 #### [facility] CLIA [id number] [address] Performed By: #### 2 4321-2 #### [facility] CLIA [id number] [address] Glucose [Mass/Vol] 151 mg/dL High 74-99 [facility] Comment on above: Order Comment: Speci men Type: BLOOD SPECIMEN Result Comment: The [place] Diabetes Association (ADA) provides guidance for cutoff values for fasting glucose and random glucose. The ADA defines fasting as no caloric intake for at least 8 hours. Fasting plasma glucose results between 100 to 125 mg/dL indicate increased risk for diabetes (prediabetes). Fasting plasma glucose results greater than or equal to 126 mg/dL meet the criteria for diagnosis of diabetes. In the absence of unequivocal hyperglycemia, results should be confirmed by repeat testing. In a patient with classic symptoms of hyperglycemia or hyperglycemic crisis, random plasma glucose results greater than or equal to 200 mg/dL meet the criteria for diagnosis of diabetes. Reference: Standards of Medical Care in Diabetes 2016, [place] Diabetes Association. Diabetes Care. 2016.39(Suppl 1). Performed By: #### 2 4323-8 #### [facility] CLIA [id number] [address] [place] [address] Performed By: #### 2 4321-2 #### [facility] CLIA [id number] [address] Sodium [Moles/Vol] 139 mmol/L Normal 136-144 [facility] Comment on above: Order Comment: Speci men Type: BLOOD SPECIMEN Performed By: #### 2 4323-8 #### [facility] CLIA [id number] [address] Performed By: #### 2 4321-2 #### [facility] CLIA [id number] [address] Urea nitrogen [Mass/Vol] 18 mg/dL Normal 9-24 [facility] Comment on above: Order Comment: Speci men Type: BLOOD SPECIMEN Performed By: #### 2 4323-8 #### [facility] CLIA [id number] [address] Performed By: #### 2 4321-2 #### [facility] CLIA [id number] [address] CASE MANAGEMon 05-09-2021 CASE MANAGEM HNO ID: [id number] Author: Kenyatta Prieto RN Service: Nursing Author Type: Registered Nurse Type: Care Mgt Progress Note Filed: 05/09/2021 2:06 PM Note Text: CARE MANAGEMENT PROGRESS NOTE SERVICE DATE: 05/09/2021 SERVICE TIME: 2:03 PM LOS: 3 days DC Plan: TBD, pt from home with and was hurt while working; pt and are [employer] and [employer] self pay Barriers to DC: pt still on vent Anticipated DC Date: TBD Transportation : might need transportation set up at dc SIGNATURE: Kenyatta Prieto RN PATIENT NAME: Ivanna Collier Jr. DATE: May 09, 2021 TIME: 2:02 PM PAGER/CONTACT #: [phone] Normal [facility] CBC panel Auto (Bld)on 05-09 Erythrocyte distribution width (RBC) [Ratio] 13.3 % Normal 11.5-15.0 [facility] Comment on above: Order Comment: Speci men Type: BLOOD SPECIMEN Performed By: #### V ITD #### [facility] CLIA [id number] [address] Performed By: #### 2 4321-2 #### [facility] CLIA [id number] [address] Hematocrit (Bld) [Volume fraction] 33.1 % Low 39.0-51.0 [facility] Comment on above: Order Comment: Speci men Type: BLOOD SPECIMEN Performed By: #### V ITD #### [facility] CLIA [id number] [address] Performed By: #### 2 4321-2 #### [facility] CLIA [id number] [address] Hemoglobin (Bld) [Mass/Vol] 10.7 g/dL Low 13.0-17.0 [facility] Comment on above: Order Comment: Speci men Type: BLOOD SPECIMEN Performed By: #### V ITD #### [facility] CLIA [id number] [address] [place] [address] Performed By: #### 2 4321-2 #### [facility] CLIA [id number] [address] [place] [address] MCH (RBC) [Entitic mass] 31.1 pg Normal 26.0-34.0 [facility] Comment on above: Order Comment: Speci men Type: BLOOD SPECIMEN Performed By: #### V ITD #### [facility] CLIA [id number] [address] [place] [address] Performed By: #### 2 4321-2 #### [facility] CLIA [id number] [address] [place] [address] MCHC (RBC) [Mass/Vol] 32.3 g/dL Normal 30.5-36.0 [facility] Comment on above: Order Comment: Speci men Type: BLOOD SPECIMEN Performed By: #### V ITD #### [facility] CLIA [id number] [address] [place] [address] Performed By: #### 2 4321-2 #### [facility] CLIA [id number] [address] [place] [address] MCV (RBC) [Entitic vol] 96.2 fL Normal 80.0-100.0 [facility] Comment on above: Order Comment: Speci men Type: BLOOD SPECIMEN Performed By: #### V ITD #### [facility] CLIA [id number] [address] [place] [address] Performed By: #### 2 4321-2 #### [facility] CLIA [id number] [address] [place] [address] Nucleated RBC (Bld) [#/Vol] 10*3/uL Normal <0.01 [facility] Comment on above: Order Comment: Speci men Type: BLOOD SPECIMEN Performed By: #### V ITD #### [facility] CLIA [id number] [address] Performed By: #### 2 4321-2 #### [facility] CLIA [id number] [address] Platelet mean volume (Bld) [Entitic vol] 10.2 fL Normal 9.0-12.7 [facility] Comment on above: Order Comment: Speci men Type: BLOOD SPECIMEN Performed By: #### V ITD #### [facility] CLIA [id number] [address] Performed By: #### 2 4321-2 #### [facility] CLIA [id number] [address] Platelets (Bld) [#/Vol] 156 10*3/uL Normal 150-400 [facility] Comment on above: Order Comment: Speci men Type: BLOOD SPECIMEN Performed By: #### V ITD #### [facility] CLIA [id number] [address] Performed By: #### 2 4321-2 #### [facility] CLIA [id number] [address] RBC (Bld) [#/Vol] 3.44 10*6/uL Low 4.20-6.00 [facility] Comment on above: Order Comment: Speci men Type: BLOOD SPECIMEN Performed By: #### V ITD #### [facility] CLIA [id number] [address] Performed By: #### 2 4321-2 #### [facility] CLIA [id number] [address] WBC (Bld) [#/Vol] 11.11 10*3/uL High 3.70-11.00 [facility] Comment on above: Order Comment: Speci men Type: BLOOD SPECIMEN Performed By: #### V ITD #### [facility] CLIA [id number] [address] Performed By: #### 2 4321-2 #### [facility] CLIA [id number] [address] Magnesium SerPl-mCncon 05-09 Magnesium [Mass/Vol] 2.0 mg/dL Normal 1.7-2.3 [facility] Comment on above: Order Comment: Speci men Type: BLOOD SPECIMEN Performed By: #### 2 4323-8 #### [facility] CLIA [id number] [address] Performed By: #### 2 4321-2 #### [facility] CLIA [id number] [address] NURSING PROGon 05-09-2021 NURSING PROG HNO ID: [id number] Author: Gillian Rodríguez RN Service: Nursing Author Type: Registered Nurse Type: Nursing Progress Note Filed: 05/09/2021 6:46 PM Note Text: Nursing Progress: Topic: RESTRAINT NON-VIOLENT PATIENT NAME: Ivanna Collier Jr. PATIENT LOCATION: [place] [address] [address]* The patient demonstrates Attempting to Remove Medical Devices Vital to Medical Stability,Lack of Understanding/Ability to Comply with Safety Directions,Impulsive Behavior as evidenced by the following behaviors reaches for and attempts to pull at tubes/lines/drains which pose an imminent danger to self or others. The following interventions were attempted but were not effective in protecting the patient's safety: Alarms,Family/Significa nt Other Involvement,Bed in Low/Locked Position,Call Light Within Reach,Gauze Wrap/Sleeve IV Site,IV/Feeding Bag/Pump Out of Vision,Medications Reviewed,Modify Environment,Modify Equipment,Frequent Observation,Pain/Discom fort Relief,Partial Bedrails Up,Re-Orientation Methods Next, a comprehensive assessment was performed and warranted placing the patient in Soft Bilateral Wrists, the least restrictive restraint needed to protect the patient's safety. Ongoing safety assessments and evaluation for earliest removal of restraints will be performed. DATE: May 09, 2021 TIME: 6:45 PM Gillian Rodríguez RN Normal [facility] Phosphate SerPl-mCncon 05-09 Phosphate [Mass/Vol] 2.2 mg/dL Low 2.7-4.8 [facility] Comment on above: Order Comment: Speci men Type: BLOOD SPECIMEN Performed By: #### 2 4323-8 #### [facility] CLIA [id number] [address] Performed By: #### 2 4321-2 #### [facility] CLIA [id number] [address] XR CHEST 1V FRONTALon 2020 XR CHEST 1V FRONTAL * * *Final Report* * * DATE OF EXAM: May 09 2021 5:12AM AKX 5290 - XR CHEST 1V FRONTAL / PROCEDURE REASON: Evaluate tube, line or lead position * * * * Physician Interpretation * * * * EXAMINATION: CHEST RADIOGRAPH (SINGLE VIEW AP OR PA) CLINICAL HISTORY: Evaluate tube, line or lead position MQ: XC1_5 Comparison: 05/08/2021 and 11 11 RESULT: Lines, tubes, and devices: Tip of endotracheal tube is at the level of the aortic arch. Enteric tube passing into the stomach. Lungs and pleura: Patchy decreased aeration noted right lung base and medially left lung base. Considerations include atelectasis versus lung contusion. No pneumothorax. Cardiomediastinal silhouette: Stable. Other: Note is made of right-sided clavicle fracture. Suspect right-sided rib fractures likely involving at least the right second, third, and fourth ribs. IMPRESSION: Stable appearance of the chest. Details listed above. Program Project Analyst: ITZEL Transcribe Date/Time: May 09 2021 7:16A Dictated by : JIL TEMPLETON MD This examination was interpreted and the report reviewed and electronically signed by: JIL TEMPLETON MD on May 09 2021 7:18AM EST [id number] Normal [facility] ALLIED HEALTHon 05-08-2021 ALLIED HEALTH HNO ID: [id number] Author: RT Noemi(Jimmie) Service: Radiology Author Type: Landing Scaler Type: Allied Health Filed: 05/08/2021 8:25 PM Note Text: Radiology Service Progress Note PATIENT NAME: Ivanna Collier Jr. DATE OF SERVICE: May 08, 2021 TIME: 8:25 PM PATIENT IDENTITY VERIFICATION COMPLETED USING TWO (2) IDENTIFIERS: Name and Date of confirmed by patient verbally and Name and Date of confirmed by identification band. FALL SCREENING: Has the patient had 2 falls in the last year or 1 fall with injury or currently using an Ambulatory Assistive Device (Walker, Cane, Wheelchair, Crutches, etc.)? Inpatient: Screened on floor PATIENT GENDER DATA: Male PATIENT RELEVANT IMPLANT DATA REVIEWED: Not Applicable RADIOLOGY DEPARTMENT: CT; Exam(s) Completed: Brain PERIPHERAL IV DATA: Not applicable SIGNED BY: GOLDEN Franklin)(CT) May 08, 2021 8:[address] [facility] HNO ID: [id number] Author: RT Raman(Jimmie) Service: Radiology Author Type: Technologist Type: [facility] Filed: 05/08/2021 6:07 AM Note Text: Radiology Service Progress Note PATIENT NAME: Ivanna Collier Jr. DATE OF SERVICE: May 08, 2021 TIME: 6:06 AM PATIENT IDENTITY VERIFICATION COMPLETED USING TWO (2) IDENTIFIERS: Name and Date of confirmed by patient verbally and Name and Date of confirmed by identification band. FALL SCREENING: Has the patient had 2 falls in the last year or 1 fall with injury or currently using an Ambulatory Assistive Device (Walker, Cane, Wheelchair, Crutches, etc.)? Inpatient: Screened on floor PATIENT GENDER DATA: Male PATIENT RELEVANT IMPLANT DATA REVIEWED: Not Applicable RADIOLOGY DEPARTMENT: CT; Exam(s) Completed: Brain PERIPHERAL IV DATA: Not applicable SIGNED BY: RT Raman(R) May 08, 2021 6:[address] [facility] HNO ID: [id number] Author: ZARA DoughertyR) Service: ? Author Type: Landing Scaler Type: [facility] Filed: 05/08/2021 5:29 AM Note Text: Radiology Service Progress Note PATIENT NAME: Ivanna Collier Jr. DATE OF SERVICE: May 08, 2021 TIME: 5:29 AM PATIENT IDENTITY VERIFICATION COMPLETED USING TWO (2) IDENTIFIERS: Name and Date of confirmed by identification band. FALL SCREENING: Has the patient had 2 falls in the last year or 1 fall with injury or currently using an Ambulatory Assistive Device (Walker, Cane, Wheelchair, Crutches, etc.)? Inpatient: Screened on floor PATIENT GENDER DATA: Male PATIENT RELEVANT IMPLANT DATA REVIEWED: Not Applicable RADIOLOGY DEPARTMENT: General X-ray: Exam(s) Completed: Chest X-Ray PERIPHERAL IV DATA: Not applicable SIGNED BY: RT Priscila(R) May 08, 2021 5:29 AM Normal [facility] ARTERIAL BLOOD GASESon 05-08 Base excess Calc (Bld) [Moles/Vol] 2 mmol/L Normal 0-2 [facility] Comment on above: Order Comment: Speci men Type: BLOOD SPECIMEN Performed By: #### V ITD #### [facility] CLIA [id number] [address] Order Comment: Speci men Type: URINE SPECIMEN Performed By: #### U TOX2 #### [facility] CLIA [id number] [address] Body temperature 98.42 [degF] Normal [facility] Comment on above: Order Comment: Speci men Type: BLOOD SPECIMEN Performed By: #### V ITD #### [facility] CLIA [id number] [address] Order Comment: Speci men Type: URINE SPECIMEN Performed By: #### U TOX2 #### [facility] CLIA [id number] [address] CALCIUM IONIZED, PH CORRECTED 1.19 mmol/L Normal 1.08-1.30 [facility] Comment on above: Order Comment: Speci men Type: BLOOD SPECIMEN Performed By: #### V ITD #### [facility] CLIA [id number] [address] Order Comment: Speci men Type: URINE SPECIMEN Performed By: #### U TOX2 #### [facility] CLIA [id number] [address] Calcium.ionized (BldV) [Mass/Vol] 1.19 mmol/L Normal 1.08-1.30 [facility] Comment on above: Order Comment: Speci men Type: BLOOD SPECIMEN Performed By: #### V ITD #### [facility] CLIA [id number] [address] Order Comment: Speci men Type: URINE SPECIMEN Performed By: #### U TOX2 #### [facility] CLIA [id number] [address] Carboxyhemoglobin (BldA) [Mass fraction] 1.6 % Normal 0.0-2.0 [facility] Comment on above: Order Comment: Speci men Type: BLOOD SPECIMEN Result Comment: Carb oxyhemoglobin Reference Range for Smokers: 2.0-8.0% Performed By: #### V ITD #### [facility] CLIA [id number] [address] Order Comment: Speci men Type: URINE SPECIMEN Performed By: #### U TOX2 #### [facility] CLIA [id number] [address] CO2 (Bld) [Partial pressure] 45 mm Hg Normal 36-46 [facility] Comment on above: Order Comment: Speci men Type: BLOOD SPECIMEN Performed By: #### V ITD #### [facility] CLIA [id number] [address] Order Comment: Speci men Type: URINE SPECIMEN Performed By: #### U TOX2 #### [facility] CLIA [id number] [address] CO2 [Moles/Vol] 24.4 mmol/L Normal 22-28 [facility] Comment on above: Order Comment: Speci men Type: BLOOD SPECIMEN Performed By: #### V ITD #### [facility] CLIA [id number] [address] Order Comment: Speci men Type: URINE SPECIMEN Performed By: #### U TOX2 #### [facility] CLIA [id number] [address] CO2 adjusted to patient's actual temperature (Bld) [Partial pressure] 44 mmHg Normal 36-46 [facility] Comment on above: Order Comment: Speci men Type: BLOOD SPECIMEN Performed By: #### V ITD #### [facility] CLIA [id number] [address] Order Comment: Speci men Type: URINE SPECIMEN Performed By: #### U TOX2 #### [facility] CLIA [id number] [address] FIO2 30 % Normal [facility] Comment on above: Order Comment: Speci men Type: BLOOD SPECIMEN Performed By: #### V ITD #### [facility] CLIA [id number] [address] Order Comment: Speci men Type: URINE SPECIMEN Performed By: #### U TOX2 #### [facility] CLIA [id number] [address] Glucose [Mass/Vol] 120 mg/dL High 60-105 [facility] Comment on above: Order Comment: Speci men Type: BLOOD SPECIMEN Performed By: #### V ITD #### [facility] CLIA [id number] [address] Order Comment: Speci men Type: URINE SPECIMEN Performed By: #### U TOX2 #### [facility] CLIA [id number] [address] HCO3 (Bld) [Moles/Vol] 27 mmol/L High 22-26 [facility] Comment on above: Order Comment: Speci men Type: BLOOD SPECIMEN Performed By: #### V ITD #### [facility] CLIA [id number] [address] Order Comment: Speci men Type: URINE SPECIMEN Performed By: #### U TOX2 #### [facility] CLIA [id number] [address] Hematocrit (Bld) [Volume fraction] 34.8 % Low 39.0-51.0 [facility] Comment on above: Order Comment: Speci men Type: BLOOD SPECIMEN Performed By: #### V ITD #### [facility] CLIA [id number] [address] Order Comment: Speci men Type: URINE SPECIMEN Performed By: #### U TOX2 #### [facility] CLIA [id number] [address] Hemoglobin (Bld) [Mass/Vol] 11.3 g/dL Low 13.0-17.0 [facility] Comment on above: Order Comment: Speci men Type: BLOOD SPECIMEN Performed By: #### V ITD #### [facility] CLIA [id number] [address] Order Comment: Speci men Type: URINE SPECIMEN Performed By: #### U TOX2 #### [facility] CLIA [id number] [address] Methemoglobin (Bld) [Mass fraction] 1.0 % Normal 0.0-1.5 [facility] Comment on above: Order Comment: Speci men Type: BLOOD SPECIMEN Performed By: #### V ITD #### [facility] CLIA [id number] [address] Order Comment: Speci men Type: URINE SPECIMEN Performed By: #### U TOX2 #### [facility] CLIA [id number] [address] O2 THERAPY Ventilator Normal [facility] Comment on above: Order Comment: Speci men Type: BLOOD SPECIMEN Performed By: #### V ITD #### [facility] CLIA [id number] [address] Order Comment: Speci men Type: URINE SPECIMEN Performed By: #### U TOX2 #### [facility] CLIA [id number] [address] Oxygen (Bld) [Partial pressure] 65 mm Hg Low 85-95 [facility] Comment on above: Order Comment: Speci men Type: BLOOD SPECIMEN Performed By: #### V ITD #### [facility] CLIA [id number] [address] Order Comment: Speci men Type: URINE SPECIMEN Performed By: #### U TOX2 #### [facility] CLIA [id number] [address] Oxygen adjusted to patient's actual temperature (Bld) [Partial pressure] 65.0 mmHg Low 85-95 [facility] Comment on above: Order Comment: Speci men Type: BLOOD SPECIMEN Performed By: #### V ITD #### [facility] CLIA [id number] [address] Order Comment: Speci men Type: URINE SPECIMEN Performed By: #### U TOX2 #### [facility] CLIA [id number] [address] OXYGEN SATURATION, ARTERIAL 93 % Low 95-98 [facility] Comment on above: Order Comment: Speci men Type: BLOOD SPECIMEN Performed By: #### V ITD #### [facility] CLIA [id number] [address] Order Comment: Speci men Type: URINE SPECIMEN Performed By: #### U TOX2 #### [facility] CLIA [id number] [address] Oxyhemoglobin (BldA) [Mass fraction] 91 % Low 95-98 [facility] Comment on above: Order Comment: Speci men Type: BLOOD SPECIMEN Performed By: #### V ITD #### [facility] CLIA [id number] [address] Order Comment: Speci men Type: URINE SPECIMEN Performed By: #### U TOX2 #### [facility] CLIA [id number] [address] pH (Bld) 7.39 [pH] Normal 7.35-7.45 [facility] Comment on above: Order Comment: Speci men Type: BLOOD SPECIMEN Performed By: #### V ITD #### [facility] CLIA [id number] [address] Order Comment: Speci men Type: URINE SPECIMEN Performed By: #### U TOX2 #### [facility] CLIA [id number] [address] pH adjusted to patient's actual temperature (Bld) 7.40 Normal 7.35-7.45 [facility] Comment on above: Order Comment: Speci men Type: BLOOD SPECIMEN Performed By: #### V ITD #### [facility] CLIA [id number] [address] Order Comment: Speci men Type: URINE SPECIMEN Performed By: #### U TOX2 #### [facility] CLIA [id number] [address] Potassium [Moles/Vol] 3.8 mmol/L Normal 3.5-5.0 [facility] Comment on above: Order Comment: Speci men Type: BLOOD SPECIMEN Performed By: #### V ITD #### [facility] CLIA [id number] [address] Order Comment: Speci men Type: URINE SPECIMEN Performed By: #### U TOX2 #### [facility] CLIA [id number] [address] Sodium [Moles/Vol] 138 mmol/L Normal 136-144 [facility] Comment on above: Order Comment: Speci men Type: BLOOD SPECIMEN Performed By: #### V ITD #### [facility] CLIA [id number] [address] Order Comment: Speci men Type: URINE SPECIMEN Performed By: #### U TOX2 #### [facility] CLIA [id number] [address] Basic metabolic 2000 panelon 05-08-2021 Anion gap [Moles/Vol] 9 mmol/L Normal 9-18 [facility] Comment on above: Order Comment: Speci men Type: BLOOD SPECIMEN Performed By: #### 2 4321-2, 2776-06, ####[facility] [id number] [address] Calcium [Mass/Vol] 8.6 mg/dL Normal 8.5-10.2 [facility] Comment on above: Order Comment: Speci men Type: BLOOD SPECIMEN Performed By: #### 2 4321-2, 2776-06, ####[facility] [id number] [address] Chloride [Moles/Vol] 103 mmol/L Normal 97-105 [facility] Comment on above: Order Comment: Speci men Type: BLOOD SPECIMEN Performed By: #### 2 4321-2, 2776-06, ####[facility] [id number] [address] STATES OF [facility] CO2 [Moles/Vol] 25 mmol/L Normal 22-30 [facility] Comment on above: Order Comment: Speci men Type: BLOOD SPECIMEN Performed By: #### 2 4321-2, 2776-06, ####[facility] [id number] [address] [place] Creatinine [Mass/Vol] 0.86 mg/dL Normal 0.73-1.22 [facility] Comment on above: Order Comment: Speci men Type: BLOOD SPECIMEN Performed By: #### 2 4321-2, 2777-, ####[facility] [id number] [place] [address] [place] GFR/1.73 sq M.predicted MDRD (S/P/Bld) [Vol rate/Area] mL/min/{1.73_m2} Normal [facility] Comment on above: Order Comment: Speci men Type: BLOOD SPECIMEN Result Comment: >60 eGFR (Estimated GFR) Units of measure: mL/min/1.73 meters squared eGFR is derived from the reexpressed MDRD Study equation using the following parameters: serum creatinine, age, gender and race. The creatinine assay has been calibrated to be traceable to IDMS. An eGFR <60 mL/min/1.73m2 for >3 months is consistent with chronic kidney disease. Refer to KDOQI guidelines for clinical interpretation. In patients with unstable renal function, e.g. those with acute kidney injury, the eGFR may not accurately reflect actual GFR. Performed By: #### 2 4321-2, 2777-, 70314-0 ####[facility] [id number] [place] [address] [place] Glucose [Mass/Vol] 118 mg/dL High 74-99 [facility] Comment on above: Order Comment: Michelle joseph Type: BLOOD SPECIMEN Result Comment: The [place] Diabetes Association (ADA) provides guidance for cutoff values for fasting glucose and random glucose. The ADA defines fasting as no caloric intake for at least 8 hours. Fasting plasma glucose results between 100 to 125 mg/dL indicate increased risk for diabetes (prediabetes). Fasting plasma glucose results greater than or equal to 126 mg/dL meet the criteria for diagnosis of diabetes. In the absence of unequivocal hyperglycemia, results should be confirmed by repeat testing. In a patient with classic symptoms of hyperglycemia or hyperglycemic crisis, random plasma glucose results greater than or equal to 200 mg/dL meet the criteria for diagnosis of diabetes. Reference: Standards of Medical Care in Diabetes 2016, [place] Diabetes Association. Diabetes Care. 2016.39(Suppl 1). Performed By: #### 2 4321-2, 2777-, 67485-7 ####[facility] [id number] [place], [place] [id number] [place] [address] [place] OF [facility] Potassium [Moles/Vol] 3.9 mmol/L Normal 3.7-5.1 [facility] Comment on above: Order Comment: Speci men Type: BLOOD SPECIMEN Performed By: #### 2 4321-2, 2776-1, ####[facility] [id number] [place] [address] [facility] Sodium [Moles/Vol] 137 mmol/L Normal 136-144 [facility] Comment on above: Order Comment: Speci men Type: BLOOD SPECIMEN Performed By: #### 2 4321-2, 2776-, ####[facility] [id number] [address] Urea nitrogen [Mass/Vol] 19 mg/dL Normal 9-24 [facility] Comment on above: Order Comment: Speci men Type: BLOOD SPECIMEN Performed By: #### 2 4321-2, 2776-06, ####[facility] [id number] [address] CASE MANAGEMon 05-08-2021 CASE MANAGEM HNO ID: [id number] Author: JOE Joyce Service: Case Management Author Type: Road Oiler Type: Care Mgt Progress Note Filed: 05/08/2021 2:18 PM Note Text: CARE MANAGEMENT PROGRESSTE SERVICE DATE: 05/08/2021 SERVICE TIME: 2:17 PM LOS: 2 days sw provided emotional support to patient's who was at bedside. SIGNATURE: JOE Joyce PATIENT NAME: Ivanna Collier Jr. DATE: May 08, 2021 TIME: 2:16 PM PAGER/CONTACT #: 2:18 PM Normal [facility] CBC panel Auto (Bld)on 05-08 Erythrocyte distribution width (RBC) [Ratio] 13.4 % Normal 11.5-15.0 [facility] Comment on above: Order Comment: Speci men Type: BLOOD SPECIMEN Performed By: #### 5 8410-2 ####[facility] [id number] [address] Hematocrit (Bld) [Volume fraction] 34.3 % Low 39.0-51.0 [facility] Comment on above: Order Comment: Speci men Type: BLOOD SPECIMEN Performed By: #### 5 8410-2 ####[facility] [id number] [address] Hemoglobin (Bld) [Mass/Vol] 11.0 g/dL Low 13.0-17.0 [facility] Comment on above: Order Comment: Speci men Type: BLOOD SPECIMEN Performed By: #### 5 8410-2 ####[facility] [id number] [address] MCH (RBC) [Entitic mass] 30.6 pg Normal 26.0-34.0 [facility] Comment on above: Order Comment: Speci men Type: BLOOD SPECIMEN Performed By: #### 5 8410-2 ####[facility] [id number] [address] MCHC (RBC) [Mass/Vol] 32.1 g/dL Normal 30.5-36.0 [facility] Comment on above: Order Comment: Speci men Type: BLOOD SPECIMEN Performed By: #### 5 8410-2 ####[facility] [id number] [address] MCV (RBC) [Entitic vol] 95.3 fL Normal 80.0-100.0 [facility] Comment on above: Order Comment: Speci men Type: BLOOD SPECIMEN Performed By: #### 5 8410-2 ####[facility] [id number] [address] Nucleated RBC (Bld) [#/Vol] 10*3/uL Normal <0.01 [facility] Comment on above: Order Comment: Speci men Type: BLOOD SPECIMEN Performed By: #### 5 8410-2 ####[facility]CLIA [id number] [address] Platelet mean volume (Bld) [Entitic vol] 9.8 fL Normal 9.0-12.7 [facility] Comment on above: Order Comment: Speci men Type: BLOOD SPECIMEN Performed By: #### 5 8410-2 ####[facility] [id number] [address] Platelets (Bld) [#/Vol] 176 10*3/uL Normal 150-400 [facility] Comment on above: Order Comment: Speci men Type: BLOOD SPECIMEN Performed By: #### 5 8410-2 ####[facility] [id number] [address] RBC (Bld) [#/Vol] 3.60 10*6/uL Low 4.20-6.00 [facility] Comment on above: Order Comment: Speci men Type: BLOOD SPECIMEN Performed By: #### 5 8410-2 ####[facility] [id number] [address] WBC (Bld) [#/Vol] 10.88 10*3/uL Normal 3.70-11.00 [facility] Comment on above: Order Comment: Speci men Type: BLOOD SPECIMEN Performed By: #### 5 8410-2 ####[facility]CL[facility] [id number] [address] BRAIN WO IVCONon 05-08-[address] BRAIN WO IVCON * * *Final Report* * * DATE OF EXAM: May 08 2021 8:26PM [facility] 0504 - CT BRAIN WO IVCON / PROCEDURE REASON: Head trauma, subacute-chronic, new neuro deficit * * * * Physician Interpretation * * * * EXAMINATION: CT BRAIN WO IVCON CLINICAL HISTORY: Head trauma, subacute-chronic, new. New neurologic deficit. TECHNIQUE: Serial axial images without IV contrast were obtained from the vertex to the foramen magnum. MQ: [id number] CT Radiation dose: Integrated Dose-Length Product (DLP) for this visit = 795 mGy*cm CT Dose Reduction Employed: Iterative recon COMPARISON: CT brain earlier on the same date and prior studies. RESULT: Grades 9 Through 12 Teacher (topogram) images: Unremarkable. Post-operative change: None. Acute change: No evidence of an acute arterial infarction. Hemorrhage: Hemorrhagic contusions in the lateral left temporal lobe an inferior left frontal lobe including opercular region, with mild surrounding edema, unchanged. Left parietal subdural hematoma measuring up to 8 mm in thickness, unchanged. Trace subdural blood along the posterior falx. Trace subarachnoid hemorrhage. ECASS hemorrhagic transformation score: Not Applicable Mass Lesion / Mass Effect: Mass effect associated with the left parietal subdural hematoma with local sulcal effacement, stable. Rightward midline shift of 2 mm. Chronic change: None apparent. Parenchyma: There is no significant volume loss. The brain parenchyma is otherwise within normal limits for age. Ventricles: Mild effacement on the left. No hydrocephalus or trapping. Paranasal sinuses and skull base: The visualized paranasal sinuses are grossly clear. Hematoma in the left parietal/temporal scalp mildly decreased. IMPRESSION: Stable multicompartmental intracranial hemorrhage, with hemorrhagic contusions including in the left frontal opercular region. Stable left parietal convexity subdural hemorrhage with local mass effect. Mildly decreased left parietotemporal scalp hematoma in the interval. Program Project Analyst: ITZEL Transcribe Date/Time: May 08 2021 8:31P Dictated by : KARINE RIVERS MD This examination was interpreted and the report reviewed and electronically signed by: KARINE RIVERS MD on May 08 2021 8:38PM EST [id number] Normal [facility] CT BRAIN WO IVCON * * *Final Report* * * DATE OF EXAM: May 08 2021 6:04AM [facility] 0504 - CT BRAIN WO IVCON / PROCEDURE REASON: Intracranial hemorrhage * * * * Physician Interpretation * * * * EXAMINATION: CT BRAIN WO IVCON CLINICAL HISTORY: Intracranial hemorrhage TECHNIQUE: Routine CT of the brain without IV contrast. CT Dose-Length Product (DLP): 768 mGy*cm CT Dose Reduction Employed: Iterative recon; COMPARISON: 04/06/2021 CT RESULT: Mostly stable extent of high density/acute intracranial bleeding, including the left-sided supratentorial convexity extra-axial hemorrhage measuring up to 9 mm in thickness in the parietal region, the minimal subdural bleeding along the falx cerebri, the patchy small left-sided frontotemporal hemorrhagic contusions (but with slightly more hypodensity/edema associated with a frontal component), and scattered mild subarachnoid bleeds. The mild interpeduncular cistern hemorrhage has partially faded, and the sulcal subarachnoid bleeds also show some progressive fading in comparison to the earlier scan. Stable mass effect, including mild-moderate upon the left-sided parieto-occipital lobes, and a mild/2 mm rightward shift of the septum pellucidum across midline. Small ventricles, with likely element of compression. No hydrocephalus. The cerebellar tonsils lie slightly below the level of foramen magnum, as before. Reidentified eccentric to the LEFT moderate posterior scalp swellings, and nondisplaced left-sided supratentorial calvarial fracture. Grades 9 Through 12 Teacher (topogram) images: Support tube(s) and/or catheter(s). Non-diagnostic otherwise. IMPRESSION: Brain CT shows nonprogression of the acute intracranial bleeds. Stable size of the dominant left-sided posterior supratentorial convexity extra-axial (probably epidural given adjacent nondisplaced fracture) hemorrhage, progressive partial fading of the subarachnoid bleeds, and stable left-sided frontotemporal hemorrhagic contusions (but with slightly more parenchymal edema associated with a frontal component). Stable associated mass effect, with a 2 mm rightward shift of septum pellucidum across midline. Program Project Analyst: ROBERTS [place] Transcribe Date/Time: May 08 2021 6:05A Dictated by : BIANCA HUSSEIN MD This examination was interpreted and the report reviewed and electronically signed by: BIANCA HUSSEIN MD on May 08 2021 6:21AM EST [id number] [facility] Magnesium SerPl-mCncon 05-08 Magnesium [Mass/Vol] 2.0 mg/dL Normal 1.7-2.3 [facility] Comment on above: Order Comment: Speci men Type: BLOOD SPECIMEN Performed By: #### 2 4321-2, 2777-1, 24507-2 ####[facility] [id number] [place] [address] [place] [facility] NURSING PROGon 05-08-2021 NURSING PROG HNO ID: [id number] Author: Nicole Plunkett RN Service: Nursing Author Type: Registered Nurse Type: Nursing Progress Note Filed: 05/08/2021 11:08 PM Note Text: Nursing Progress: Topic: RESTRAINT NON-VIOLENT PATIENT NAME: Ivanna Collier Jr. PATIENT LOCATION: [place] [address] [address]* The patient demonstrates Attempting to Remove Medical Devices Vital to Medical Stability,Lack of Understanding/Ability to Comply with Safety Directions as evidenced by the following behaviors reaching for lines, drains, and airway; unable to be redirected which pose an imminent danger to self or others. The following interventions were attempted but were not effective in protecting the patient's safety: Alarms,Bed in Low/Locked Position,Call Light Within Reach,Contraindicated - Imminent Safety Risk,Gauze Wrap/Sleeve IV Site,IV/Feeding Bag/Pump Out of Vision,Medications Reviewed,Modify Environment,Modify Equipment Next, a comprehensive assessment was performed and warranted placing the patient in Soft Bilateral Wrists, the least restrictive restraint needed to protect the patient's safety. Ongoing safety assessments and evaluation for earliest removal of restraints will be performed. DATE: May 08, 2021 TIME: 11:07 PM Nicole Plunkett RN [facility] NURSING PROG HNO ID: [id number] Author: Ronit Ortiz RN Service: Nursing Author Type: Registered Nurse Type: Nursing Progress Note Filed: 05/08/2021 5:49 PM Note Text: Nursing Progress: Topic: RESTRAINT NON-VIOLENT PATIENT NAME: Ivanna Collier Jr. PATIENT LOCATION: [place] [address]/[place] [address] 0* The patient demonstrates Attempting to Remove Medical Devices Vital to Medical Stability,Lack of Understanding/Ability to Comply with Safety Directions as evidenced by the following behaviors attempts to remove ETT which pose an imminent danger to self or others. The following interventions were attempted but were not effective in protecting the patient's safety: Alarms,Bed in Low/Locked Position,Call Light Within Reach,Contraindicated - Imminent Safety Risk,Gauze Wrap/Sleeve IV Site,IV/Feeding Bag/Pump Out of Vision,Medications Reviewed,Modify Environment,Modify Equipment Next, a comprehensive assessment was performed and warranted placing the patient in Soft Bilateral Wrists, the least restrictive restraint needed to protect the patient's safety. Ongoing safety assessments and evaluation for earliest removal of restraints will be performed. DATE: May 08, 2021 TIME: 5:49 PM Ronit Ortiz RN [facility] NURSING PROG HNO ID: [id number] Author: Tomás Shea RN Service: Nursing Author Type: Registered Nurse Type: Nursing Progress Note Filed: 05/08/2021 2:23 PM Note Text: Nursing Progress: Topic: RESTRAINT NON-VIOLENT PATIENT NAME: Ivanna Collier Jr. PATIENT LOCATION: [place] [address]/[place] [address] 0* The patient demonstrates Attempting to Remove Medical Devices Vital to Medical Stability,Confusion,Lac k of Understanding/Ability to Comply with Safety Directions,Impulsive Behavior,Inability to be Redirected as evidenced by the following behaviors attempting to pull at lines/drains/airway, unable to be redirected at this time which pose an imminent danger to self or others. The following interventions were attempted but were not effective in protecting the patient's safety: Alarms,Family/Significa nt Other Involvement,Bed in Low/Locked Position,Call Light Within Reach,Diversion Activities,Gauze Wrap/Sleeve IV Site,IV/Feeding Bag/Pump Out of Vision,Medications Reviewed,Modify Equipment,Modify Environment,Frequent Observation,Move Patient Closer to Nurses Station,Pad Tubes/Drains,Pain/Disco mfort Relief Next, a comprehensive assessment was performed and warranted placing the patient in Soft Bilateral Wrists, the least restrictive restraint needed to protect the patient's safety. Ongoing safety assessments and evaluation for earliest removal of restraints will be performed. DATE: May 08, 2021 TIME: 2:23 PM Tomás Shea RN [facility] Phosphate SerPl-mCncon 05-08 Phosphate [Mass/Vol] 2.7 mg/dL Normal 2.7-4.8 [facility] Comment on above: Order Comment: Speci men Type: BLOOD SPECIMEN Performed By: #### 2 4323-8 #### [facility] CLIA [id number] [address] Performed By: #### 2 4321-2, 2777-1, 85076-2 ####[facility] [id number] [place] [id number] [facility] THERAPY NTon 05-08-2021 THERAPY NT HNO ID: [id number] Author: EITAN Mejia/Naye Service: Occupational Therapy Author Type: Occupational Therapist Type: Therapy (PT/OT/Speech/Resp) Filed: 05/08/2021 10:36 AM Note Text: OCCUPATIONAL THERAPY MISSED VISIT SERVICE DATE: 05/08/2021 SERVICE TIME: 1035 to 1035 ROOM: [place] [address] Attempted Evaluation. Patient not seen due to Illness (Noted possible extubation this date. Will await ortho input/decisions prior to formal therapy eval.). SIGNATURE: ANNE Mejia PATIENT NAME: Ivanna Collier Jr. DATE: May 08, 2021 TIME: 10:36 AM [facility] XR CHEST 1V FRONTALon 2020 XR CHEST 1V FRONTAL * * *Final Report* * * DATE OF EXAM: May 08 2021 5:29AM AKX 5290 - XR CHEST 1V FRONTAL / PROCEDURE REASON: Evaluate tube, line or lead position * * * * Physician Interpretation * * * * EXAMINATION: CHEST RADIOGRAPH (SINGLE VIEW AP OR PA) CLINICAL HISTORY: Evaluate tube, line or lead position MQ: XC1_5 Comparison: 05/07/2021 RESULT: Lines, tubes, and devices: Tip of endotracheal tube at the level the aortic arch. Enteric tube passing into the stomach. Overlying monitor worker leads. Lungs and pleura: Opacities noted within the right lung. Opacity in the right upper lobe appears less well-defined than on earlier exam. Persistent opacities at both lung bases medially Calcified lymph nodes in the right hilum. Cardiomediastinal silhouette: Heart size normal. Other: Again noted is right-sided clavicle fracture and probable right scapular fracture. IMPRESSION: 1. Changing appearance of opacities in the right lung may represent improving lung contusion versus atelectasis right upper lobe. 2. Decreasing aeration at both lung bases consistent with atelectasis and/or evidence of lung contusion. 3. Again noted is right clavicle and right scapular fractures. Program Project Analyst: ITZEL Transcribe Date/Time: May 08 2021 7:14A Dictated by : JIL TEMPLETON MD This examination was interpreted and the report reviewed and electronically signed by: JIL TEMPLETON MD on May 08 2021 7:17AM EST [id number] [facility] HNO ID: [id number] Author: RT Farhat(R) Service: ? Author Type: Landing Scaler Type: [facility] Filed: 05/07/2021 5:35 AM Note Text: Radiology Service Progress Note PATIENT NAME: Ivanna Colleir Jr. DATE OF SERVICE: May 07, 2021 TIME: 5:35 AM PATIENT IDENTITY VERIFICATION COMPLETED USING TWO (2) IDENTIFIERS: Name and Date of confirmed by patient verbally and Name and Date of confirmed by identification band. FALL SCREENING: Has the patient had 2 falls in the last year or 1 fall with injury or currently using an Ambulatory Assistive Device (Walker, Cane, Wheelchair, Crutches, etc.)? Inpatient: Screened on floor PATIENT GENDER DATA: Male PATIENT RELEVANT IMPLANT DATA REVIEWED: Not Applicable RADIOLOGY DEPARTMENT: General X-ray: Exam(s) Completed: Chest X-Ray PERIPHERAL IV DATA: Not applicable SIGNED BY: RT Farhat(R) May 07, 2021 5:35 AM [facility] HNO ID: [id number] Author: Laura Carl AppVault Service: Radiology Author Type: Landing Scaler Type: [facility] Filed: 05/07/2021 12:28 AM Note Text: Radiology Service Progress Note PATIENT NAME: Ivanna Collier Jr. DATE OF SERVICE: May 07, 2021 TIME: 12:27 AM PATIENT IDENTITY VERIFICATION COMPLETED USING TWO (2) IDENTIFIERS: Name and Date of confirmed by patient verbally and Name and Date of confirmed by identification band. FALL SCREENING: Has the patient had 2 falls in the last year or 1 fall with injury or currently using an Ambulatory Assistive Device (Walker, Cane, Wheelchair, Crutches, etc.)? Inpatient: Screened on floor PATIENT GENDER DATA: Male PATIENT RELEVANT IMPLANT DATA REVIEWED: Yes RADIOLOGY DEPARTMENT: MR; Exam(s) Completed: Spine: Thoracic spine and Lumbar spine PERIPHERAL IV DATA: Inpatient: see LDA documentation SIGNED BY: LEOBARDO De Leon Tech May 07, 2021 12:27 AM [facility] ARTERIAL BLOOD GASESon 05-07 BASE DEFICIT, ARTERIAL -1.6 mmol/L Normal -2-0 [facility] Comment on above: Order Comment: Speci men Type: BLOOD SPECIMEN Performed By: #### V ITD #### [facility] CLIA [id number] [address] Performed By: #### 2 4321-2 #### [facility] CLIA [id number] [address] Body temperature 96.26 [degF] [facility] Comment on above: Order Comment: Speci men Type: BLOOD SPECIMEN Performed By: #### V ITD #### [facility] CLIA [id number] [address] Performed By: #### 2 4321-2 #### [facility] CLIA [id number] [address] CALCIUM IONIZED, PH CORRECTED 1.17 mmol/L Normal 1.08-1.30 [facility] Comment on above: Order Comment: Speci men Type: BLOOD SPECIMEN Performed By: #### V ITD #### [facility] CLIA [id number] [address] Performed By: #### 2 4321-2 #### [facility] CLIA [id number] [address] Calcium.ionized (BldV) [Mass/Vol] 1.19 mmol/L Normal 1.08-1.30 [facility] Comment on above: Order Comment: Speci men Type: BLOOD SPECIMEN Performed By: #### V ITD #### [facility] CLIA [id number] [address] Performed By: #### 2 4321-2 #### [facility] CLIA [id number] [address] Carboxyhemoglobin (BldA) [Mass fraction] <1.0 Normal 0.0-2.0 [facility] Comment on above: Order Comment: Speci men Type: BLOOD SPECIMEN Result Comment: Carb oxyhemoglobin Reference Range for Smokers: 2.0-8.0% Performed By: #### V ITD #### [facility] CLIA [id number] [address] Performed By: #### 2 4321-2 #### [facility] CLIA [id number] [address] CO2 (Bld) [Partial pressure] 42 mm Hg Normal 36-46 [facility] Comment on above: Order Comment: Speci men Type: BLOOD SPECIMEN Performed By: #### V ITD #### [facility] CLIA [id number] [address] Performed By: #### 2 4321-2 #### [facility] CLIA [id number] [address] CO2 [Moles/Vol] 20.9 mmol/L Low 22-28 [facility] Comment on above: Order Comment: Speci men Type: BLOOD SPECIMEN Performed By: #### V ITD #### [facility] CLIA [id number] [address] Performed By: #### 2 4321-2 #### [facility] CLIA [id number] [address] CO2 adjusted to patient's actual temperature (Bld) [Partial pressure] 40 mmHg Normal 36-46 [facility] Comment on above: Order Comment: Speci men Type: BLOOD SPECIMEN Performed By: #### V ITD #### [facility] CLIA [id number] [address] Performed By: #### 2 4321-2 #### [facility] CLIA [id number] [address] Glucose [Mass/Vol] 138 mg/dL High 60-105 [facility] Comment on above: Order Comment: Speci men Type: BLOOD SPECIMEN Performed By: #### V ITD #### [facility] CLIA [id number] [address] Performed By: #### 2 4321-2 #### [facility] CLIA [id number] [address] HCO3 (Bld) [Moles/Vol] 23 mmol/L Normal 22-26 [facility] Comment on above: Order Comment: Speci men Type: BLOOD SPECIMEN Performed By: #### V ITD #### [facility] CLIA [id number] [address] [place] [address] Performed By: #### 2 4321-2 #### [facility] CLIA [id number] [address] Hematocrit (Bld) [Volume fraction] 41.1 % Normal 39.0-51.0 [facility] Comment on above: Order Comment: Speci men Type: BLOOD SPECIMEN Performed By: #### V ITD #### [facility] CLIA [id number] [address] Performed By: #### 2 4321-2 #### [facility] CLIA [id number] [address] Hemoglobin (Bld) [Mass/Vol] 13.4 g/dL Normal 13.0-17.0 [facility] Comment on above: Order Comment: Speci men Type: BLOOD SPECIMEN Performed By: #### V ITD #### [facility] CLIA [id number] [address] Performed By: #### 2 4321-2 #### [facility] CLIA [id number] [address] Methemoglobin (Bld) [Mass fraction] 1.1 % Normal 0.0-1.5 [facility] Comment on above: Order Comment: Speci men Type: BLOOD SPECIMEN Performed By: #### V ITD #### [facility] CLIA [id number] [address] Performed By: #### 2 4321-2 #### [facility] CLIA [id number] [address] O2 THERAPY Ventilator Normal [facility] Comment on above: Order Comment: Speci men Type: BLOOD SPECIMEN Performed By: #### V ITD #### [facility] CLIA [id number] [address] Performed By: #### 2 4321-2 #### [facility] CLIA [id number] [address] Oxygen (Bld) [Partial pressure] 92 mm Hg Normal 85-95 [facility] Comment on above: Order Comment: Speci men Type: BLOOD SPECIMEN Performed By: #### V ITD #### [facility] CLIA [id number] [address] Performed By: #### 2 4321-2 #### [facility] CLIA [id number] [address] Oxygen adjusted to patient's actual temperature (Bld) [Partial pressure] 85.0 mmHg Normal 85-95 [facility] Comment on above: Order Comment: Speci men Type: BLOOD SPECIMEN Performed By: #### V ITD #### [facility] CLIA [id number] [address] Performed By: #### 2 4321-2 #### [facility] CLIA [id number] [address] OXYGEN SATURATION, ARTERIAL 97 % Normal 95-98 [facility] Comment on above: Order Comment: Speci men Type: BLOOD SPECIMEN Performed By: #### V ITD #### [facility] CLIA [id number] [address] Performed By: #### 2 4321-2 #### [facility] CLIA [id number] [address] Oxyhemoglobin (BldA) [Mass fraction] 95 % Normal 95-98 [facility] Comment on above: Order Comment: Speci men Type: BLOOD SPECIMEN Performed By: #### V ITD #### [facility] CLIA [id number] [address] Performed By: #### 2 4321-2 #### [facility] CLIA [id number] [address] pH (Bld) 7.36 [pH] Normal 7.35-7.45 [facility] Comment on above: Order Comment: Speci men Type: BLOOD SPECIMEN Performed By: #### V ITD #### [facility] CLIA [id number] [address] Performed By: #### 2 4321-2 #### [facility] CLIA [id number] [address] pH adjusted to patient's actual temperature (Bld) 7.38 Normal 7.35-7.45 [facility] Comment on above: Order Comment: Speci men Type: BLOOD SPECIMEN Performed By: #### V ITD #### [facility] CLIA [id number] [address] Performed By: #### 2 4321-2 #### [facility] CLIA [id number] [address] Potassium [Moles/Vol] 5.6 mmol/L High 3.5-5.0 [facility] Comment on above: Order Comment: Speci men Type: BLOOD SPECIMEN Performed By: #### V ITD #### [facility] CLIA [id number] [address] Performed By: #### 2 4321-2 #### [facility] CLIA [id number] [address] Sodium [Moles/Vol] 137 mmol/L Normal 136-144 [facility] Comment on above: Order Comment: Speci men Type: BLOOD SPECIMEN Performed By: #### V ITD #### [facility] CLIA [id number] [address] Performed By: #### 2 432-2 #### [facility] CLIA [id number] [address] Basic metabolic 2000 panelon 05-07-2021 Anion gap [Moles/Vol] 8 mmol/L Low 9-18 [facility] Comment on above: Order Comment: Speci men Type: BLOOD SPECIMEN Performed By: #### 1 4338-8 #### [facility] CLIA [id number] [address] [place] [address] Performed By: #### 2 4321-2 #### [facility] CLIA [id number] [address] Calcium [Mass/Vol] 8.5 mg/dL Normal 8.5-10.2 [facility] Comment on above: Order Comment: Speci men Type: BLOOD SPECIMEN Performed By: #### 1 4338-8 #### [facility] CLIA [id number] [address] Performed By: #### 2 4321-2 #### [facility] CLIA [id number] [address] Chloride [Moles/Vol] 107 mmol/L High 97-105 [facility] Comment on above: Order Comment: Speci men Type: BLOOD SPECIMEN Performed By: #### 1 4338-8 #### [facility] CLIA [id number] [address] Performed By: #### 2 4321-2 #### [facility] CLIA [id number] [address] CO2 [Moles/Vol] 25 mmol/L Normal 22-30 [facility] Comment on above: Order Comment: Speci men Type: BLOOD SPECIMEN Performed By: #### 1 4338-8 #### [facility] CLIA [id number] [address] Performed By: #### 2 4321-2 #### [facility] CLIA [id number] [address] Creatinine [Mass/Vol] 0.89 mg/dL Normal 0.73-1.22 [facility] Comment on above: Order Comment: Speci men Type: BLOOD SPECIMEN Performed By: #### 1 4338-8 #### [facility] CLIA [id number] [address] Performed By: #### 2 4321-2 #### [facility] CLIA [id number] [address] GFR/1.73 sq M.predicted MDRD (S/P/Bld) [Vol rate/Area] mL/min/{1.73_m2} Normal [facility] Comment on above: Order Comment: Speci men Type: BLOOD SPECIMEN Result Comment: >60 eGFR (Estimated GFR) Units of measure: mL/min/1.73 meters squared eGFR is derived from the reexpressed MDRD Study equation using the following parameters: serum creatinine, age, gender and race. The creatinine assay has been calibrated to be traceable to IDMS. An eGFR <60 mL/min/1.73m2 for >3 months is consistent with chronic kidney disease. Refer to KDOQI guidelines for clinical interpretation. In patients with unstable renal function, e.g. those with acute kidney injury, the eGFR may not accurately reflect actual GFR. Performed By: #### 1 4338-8 #### [facility] CLIA [id number] [address] Performed By: #### 2 4321-2 #### [facility] CLIA [id number] [address] Glucose [Mass/Vol] 125 mg/dL High 74-99 [facility] Comment on above: Order Comment: Speci men Type: BLOOD SPECIMEN Result Comment: The [place] Diabetes Association (ADA) provides guidance for cutoff values for fasting glucose and random glucose. The ADA defines fasting as no caloric intake for at least 8 hours. Fasting plasma glucose results between 100 to 125 mg/dL indicate increased risk for diabetes (prediabetes). Fasting plasma glucose results greater than or equal to 126 mg/dL meet the criteria for diagnosis of diabetes. In the absence of unequivocal hyperglycemia, results should be confirmed by repeat testing. In a patient with classic symptoms of hyperglycemia or hyperglycemic crisis, random plasma glucose results greater than or equal to 200 mg/dL meet the criteria for diagnosis of diabetes. Reference: Standards of Medical Care in Diabetes 2016, [place] Diabetes Association. Diabetes Care. 2016.39(Suppl 1). Performed By: #### 1 4338-8 #### [facility] CLIA [id number] [address] [place] [address] Performed By: #### 2 4321-2 #### [facility] CLIA [id number] [address] Potassium [Moles/Vol] 4.4 mmol/L Normal 3.7-5.1 [facility] Comment on above: Order Comment: Speci men Type: BLOOD SPECIMEN Performed By: #### 1 4338-8 #### [facility] CLIA [id number] [address] Performed By: #### 2 4321-2 #### [facility] CLIA [id number] [address] Sodium [Moles/Vol] 140 mmol/L Normal 136-144 [facility] Comment on above: Order Comment: Speci men Type: BLOOD SPECIMEN Performed By: #### 1 4338-8 #### [facility] CLIA [id number] [address] Performed By: #### 2 4321-2 #### [facility] CLIA [id number] [address] Urea nitrogen [Mass/Vol] 19 mg/dL Normal 9-24 [facility] Comment on above: Order Comment: Speci men Type: BLOOD SPECIMEN Performed By: #### 1 4338-8 #### [facility] CLIA [id number] [address] Performed By: #### 2 4321-2 #### [facility] CLIA [id number] [address] Anion gap [Moles/Vol] 10 mmol/L Normal 9-18 [facility] Comment on above: Order Comment: Speci men Type: BLOOD SPECIMEN Performed By: #### 1 9123-9, 70629-3, 2776- ####[facility] [id number] [address] Performed By: #### 1 9123-9, 90397-8, 2776- #### [facility] CLIA [id number] [address] Calcium [Mass/Vol] 8.9 mg/dL Normal 8.5-10.2 [facility] Comment on above: Order Comment: Speci men Type: BLOOD SPECIMEN Performed By: #### 1 9123-9, 68987-9, 2776- ####[facility] [id number] [address] Performed By: #### 1 9123-9, 38577-2, 2776- #### [facility] CLIA [id number] [address] Chloride [Moles/Vol] 107 mmol/L High 97-105 [facility] Comment on above: Order Comment: Speci men Type: BLOOD SPECIMEN Performed By: #### 1 9123-9, 79356-8, 2776- ####[facility] [id number] [address] Performed By: #### 1 9123-9, 81513-8, 2776- #### [facility] CLIA [id number] [address] CO2 [Moles/Vol] 22 mmol/L Normal 22-30 [facility] Comment on above: Order Comment: Speci men Type: BLOOD SPECIMEN Performed By: #### 1 9123-9, 76184-6, 2776- ####[facility] [id number] [address] Performed By: #### 1 23-9, 98911-1, 2776-06 #### [facility] CLIA [id number] [address] Creatinine [Mass/Vol] 1.03 mg/dL Normal 0.73-1.22 [facility] Comment on above: Order Comment: Speci men Type: BLOOD SPECIMEN Performed By: #### 1 9123-9, 16699-5, 2776- ####[facility] [id number] [address] Performed By: #### 1 9123-9, 31964-8, 2776- #### [facility] CLIA [id number] [address] GFR/1.73 sq M.predicted MDRD (S/P/Bld) [Vol rate/Area] mL/min/{1.73_m2} Normal [facility] Comment on above: Order Comment: Speci men Type: BLOOD SPECIMEN Result Comment: >60 eGFR (Estimated GFR) Units of measure: mL/min/1.73 meters squared eGFR is derived from the reexpressed MDRD Study equation using the following parameters: serum creatinine, age, gender and race. The creatinine assay has been calibrated to be traceable to IDMS. An eGFR <60 mL/min/1.73m2 for >3 months is consistent with chronic kidney disease. Refer to KDOQI guidelines for clinical interpretation. In patients with unstable renal function, e.g. those with acute kidney injury, the eGFR may not accurately reflect actual GFR. Performed By: #### 1 9123-9, 85344-1, 2776- ####[facility] [id number] [address] Performed By: #### 1 9123-9, 62312-9, 2776- #### [facility] CLIA [id number] [address] Glucose [Mass/Vol] 123 mg/dL High 74-99 [facility] Comment on above: Order Comment: Speci men Type: BLOOD SPECIMEN Result Comment: The [place] Diabetes Association (ADA) provides guidance for cutoff values for fasting glucose and random glucose. The ADA defines fasting as no caloric intake for at least 8 hours. Fasting plasma glucose results between 100 to 125 mg/dL indicate increased risk for diabetes (prediabetes). Fasting plasma glucose results greater than or equal to 126 mg/dL meet the criteria for diagnosis of diabetes. In the absence of unequivocal hyperglycemia, results should be confirmed by repeat testing. In a patient with classic symptoms of hyperglycemia or hyperglycemic crisis, random plasma glucose results greater than or equal to 200 mg/dL meet the criteria for diagnosis of diabetes. Reference: Standards of Medical Care in Diabetes 2016, [place] Diabetes Association. Diabetes Care. 2016.39(Suppl 1). Performed By: #### 1 9123-9, 45254-1, 2776- ####[facility] [id number] [address] Performed By: #### 1 9123-9, 46035-1, 2776- #### [facility] CLIA [id number] [address] Potassium [Moles/Vol] 5.7 mmol/L High 3.7-5.1 [facility] Comment on above: Order Comment: Speci men Type: BLOOD SPECIMEN Performed By: #### 1 9123-9, 44068-2, 2776- ####[facility] [id number] [address] Performed By: #### 1 9123-9, 42107-9, 2776- #### [facility] CLIA [id number] [address] Sodium [Moles/Vol] 139 mmol/L Normal 136-144 [facility] Comment on above: Order Comment: Speci men Type: BLOOD SPECIMEN Performed By: #### 1 91-9, 20228-6, 2776- ####[facility] [id number] [address] Performed By: #### 1 23-9, 21557-8, 2776-06 #### [facility] CLIA [id number] [address] Urea nitrogen [Mass/Vol] 18 mg/dL Normal 9-24 [facility] Comment on above: Order Comment: Speci men Type: BLOOD SPECIMEN Performed By: #### 1 9123-9, 52782-4, 2776- ####[facility] [id number] [address] Performed By: #### 1 9123-9, [id number], 2776-06 #### [facility] CLIA [id number] [address] CASE MGT INIT NERISSAasia 2020 CASE MGT INIT NERISSA HNO ID: [id number] Author: JOE Joyce Service: Case Management Author Type: Road Oiler Type: Care Mgt Initial Assessment Filed: 05/07/2021 11:52 AM Note Text: CARE MANAGEMENT: ASSESSMENT AND DISCHARGE PLAN SERVICE DATE: May 07, 2021 SERVICE TIME: 11:47 AM PRIMARY CARE PHYSICIAN: No primary care provider on file. 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 Last discharge within 30 days: No Advance Directive: Current Advance Directive: None Track Watchman Attempted to Assist with AD Completion: Yes Action: Patient Unwilling Health LiteracyHow often do you need to have someone help you when you read instructions, pamphlets, or other written material from your doctor or pharmacy? : 1 - Never How confident are you filling out medical forms by yourself?: 1 - Extremely If Patient scores > 3 on either question, the following interventions were put into place:: Patient did not score > 3 on either question. Baseline Mental Status Prior to this Illness what was the patient's Baseline Mental Status?: Alert AND Oriented Prior to this illness, has anyone described the patient having any of the following behaviors?: Not Applicable Relationship of the informant to the patient:: Spouse Name of Informant: : alonso collier Functional Status: Independent Does Patient Currently Receive Any Community Services or Home Care?: None Equipment Prior to Admission: None Has the Patient Been in a Group Home Facility in the Past 30 days?: No SOCIAL: Living Arrangements: Home Lives With: Spouse Financial Resources: Employed Primary Contact: Extended Emergency Contact Information Primary Emergency Contact: alonso collier Mobile Relation: Spouse Secondary Emergency Contact: jorge deluca Mobile Relation: Son Supportive Patient Contact:: Yes Contact Resources: Significant Other Caregiver AssessmentCaregiver is ready, willing and able to meet the patient's needs as recommended by the inter-professional team:: Yes Does the patient have an acute stroke diagnosis, or has the patient had a stroke during this admission?: No Patient's transition needs and plan for meeting these needs: discharge to be determined Patient's perception of need for this admission: Medication Adherance I am convinced of the importance of my prescription medication: 0 - Agree Completely I worry that my prescription medication will do more harm than good to me : 0 - Disagree Completely I feel financially burdened by my xmx-wj-swekop expenses for my prescription medication:: 0 - Disagree Completely Risk Score: 0 Patient is categorized as: Low risk < 2 Are you interested in bedside delivery of your medications? Yes Is Patient Psychosocially Complex?: Yes, refer to Social Work ASSESSMENT AND PLAN: Medical Needs: Medical Needs: Other Needs (blunt trauma) Psychosocial Needs: Psychosocial Needs: None FREEDOM OF CHOICE EXPLAINED: [place] of Choice Given: No Reason Not Given: Unable to complete with this assessment - revisit POTENTIAL TRANSITION PLANS Home;To Be Determined;Group Home Facility/Intermediate Care Facility acute rehab vs ltac Sw spoke to patient's due to patient being intubated. 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 Per patient is independent with adl's. Patient employed. Patient has no equip or services. sw provided emotional support to . Patient and are Christianity. SIGNATURE: JOE Joyce PATIENT NAME: Ivanna Collier Jr. DATE: May 07, 2021 TIME: 11:47 AM PAGER/CONTACT #: [phone] [facility] CBC panel Auto (Bld)on 05-07 Erythrocyte distribution width (RBC) [Ratio] 13.2 % Normal 11.5-15.0 [facility] Comment on above: Order Comment: Speci men Type: BLOOD SPECIMEN Performed By: #### T SCR #### [facility] CLIA [id number] [address] Performed By: #### I CA #### [facility] CLIA [id number] [address] Hematocrit (Bld) [Volume fraction] 38.8 % Low 39.0-51.0 [facility] Comment on above: Order Comment: Speci men Type: BLOOD SPECIMEN Performed By: #### T SCR #### [facility] CLIA [id number] [address] Performed By: #### I CA #### [facility] CLIA [id number] [address] Hemoglobin (Bld) [Mass/Vol] 12.5 g/dL Low 13.0-17.0 [facility] Comment on above: Order Comment: Speci men Type: BLOOD SPECIMEN Performed By: #### T SCR #### [facility] CLIA [id number] [address] Performed By: #### I CA #### [facility] CLIA [id number] [address] MCH (RBC) [Entitic mass] 30.8 pg Normal 26.0-34.0 [facility] Comment on above: Order Comment: Speci men Type: BLOOD SPECIMEN Performed By: #### T SCR #### [facility] CLIA [id number] [address] Performed By: #### I CA #### [facility] CLIA [id number] [address] MCHC (RBC) [Mass/Vol] 32.2 g/dL Normal 30.5-36.0 [facility] Comment on above: Order Comment: Speci men Type: BLOOD SPECIMEN Performed By: #### T SCR #### [facility] CLIA [id number] [address] Performed By: #### I CA #### [facility] CLIA [id number] [address] MCV (RBC) [Entitic vol] 95.6 fL Normal 80.0-100.0 [facility] Comment on above: Order Comment: Speci men Type: BLOOD SPECIMEN Performed By: #### T SCR #### [facility] CLIA [id number] [address] Performed By: #### I CA #### [facility] CLIA [id number] [address] [place] Nucleated RBC (Bld) [#/Vol] 10*3/uL Normal <0.01 [facility] Comment on above: Order Comment: Speci men Type: BLOOD SPECIMEN Performed By: #### T SCR #### [facility] CLIA [id number] [address] Performed By: #### I CA #### [facility] CLIA [id number] [address] Platelet mean volume (Bld) [Entitic vol] 10.1 fL Normal 9.0-12.7 [facility] Comment on above: Order Comment: Speci men Type: BLOOD SPECIMEN Performed By: #### T SCR #### [facility] CLIA [id number] [address] Performed By: #### I CA #### [facility] CLIA [id number] [address] Platelets (Bld) [#/Vol] 218 10*3/uL Normal 150-400 [facility] Comment on above: Order Comment: Speci men Type: BLOOD SPECIMEN Performed By: #### T SCR #### [facility] CLIA [id number] [address] Performed By: #### I CA #### [facility] CLIA [id number] [address] RBC (Bld) [#/Vol] 4.06 10*6/uL Low 4.20-6.00 [facility] Comment on above: Order Comment: Speci men Type: BLOOD SPECIMEN Performed By: #### T SCR #### [facility] CLIA [id number] [address] Performed By: #### I CA #### [facility] CLIA [id number] [address] WBC (Bld) [#/Vol] 13.45 10*3/uL High 3.70-11.00 [facility] Comment on above: Order Comment: Speci men Type: BLOOD SPECIMEN Performed By: #### T SCR #### [facility] CLIA [id number] [address] Performed By: #### I CA #### [facility] CLIA [id number] 1 [place] [id number] [facility] CT BRAIN WO IVCONon 05-07-[address] BRAIN WO IVCON * * *Final Report* * * DATE OF EXAM: May 07 2021 1:35AM [facility] 0504 - CT BRAIN WO IVCON / PROCEDURE REASON: Subdural hemorrhage * * * * Physician Interpretation * * * * EXAMINATION: CT BRAIN WO IVCON CLINICAL HISTORY: Follow-up intracranial hemorrhage TECHNIQUE: Serial axial images without IV contrast were obtained from the vertex to the foramen magnum. MQ: CTBWO_3 CT Radiation dose: Integrated Dose-Length Product (DLP) for this visit = 805 mGy*cm CT Dose Reduction Employed: [employer] COMPARISON: 05/06/2021 RESULT: Grades 9 Through 12 Teacher (topogram) images: Post-operative change: None. Acute change: No evidence of an acute infarct or other acute parenchymal process. Hemorrhage: Slightly less conspicuous left parieto-occipital extra-axial hemorrhage which again measures approximately 1.1 cm in maximum AP dimension. Similar mass effect with no midline shift. Scattered left temporal and frontal opercular hemorrhagic contusion/subarachnoid hemorrhage is also unchanged. Scattered basal cisterns subarachnoid hemorrhage and left hemispheric subarachnoid hemorrhage is also similar in appearance. Mass Lesion / Mass Effect: Similar appearance of diffuse bilateral loss of cortical sulcation reflective of some degree of edema. Unchanged appearance of the lateral ventricles and partial effacement of the basal cisterns. Unchanged inferior cerebellar tonsillar herniation. Chronic change: None apparent. Parenchyma: There is no significant volume loss. The brain parenchyma is otherwise within normal limits for age. Ventricles: Unchanged ventricle size Paranasal sinuses and skull base: The visualized paranasal sinuses are grossly clear. The skull base and imaged soft tissues are unremarkable. IMPRESSION: Similar appearance of intra-axial and extra-axial hemorrhage without increased mass effect or midline shift. Diffuse bilateral loss of cortical sulcation reflective of some degree of cerebral edema is also similar in appearance to comparison. Partial effacement of the basal cisterns, lateral ventricles, and inferior cerebellar tonsillar herniation is also similar to comparison. No midline shift. Unchanged skull base and calvarial fractures. Unchanged left temporal scalp hematoma. Program Project Analyst: ITZEL Transcribe Date/Time: May 07 2021 2:21A Dictated by : RAJI GARRETT MD This examination was interpreted and the report reviewed and electronically signed by: RAJI GARRETT MD on May 07 2021 2:27AM EST [id number] [facility] MRI LUMBAR SPINE WO IVCONon 05-07-2021 MRI LUMBAR SPINE WO IVCON * * *Final Report* * * DATE OF EXAM: May 07 2021 1:01AM [facility] 0303 - MRI LUMBAR SPINE WO IVCON / PROCEDURE REASON: L/S-spine fx, traumatic * * * * Physician Interpretation * * * * EXAMINATION: MRI THORACIC SPINE WITHOUT IV CONTRAST, MRI LUMBAR SPINE WITHOUT IV CONTRAST CLINICAL HISTORY: T-spine fractures, traumatic. L5-S1 spondylolisthesis. Trauma. TECHNIQUE: Routine lumbosacral and thoracic spine MR protocol without gadolinium. MQ: MRTLWO_3 COMPARISON: CT thoracic spine and CT lumbar spine 05/06/2021. RESULT: THORACIC: Counting reference: Lumbosacral junction. For the purposes of this report, L4-5 is considered the level of the iliac crest and assume there are 5 lumbar-type vertebrae. Anatomic variant: None. Localizer images: Unremarkable. Alignment: Alignment is anatomic. Cord: The thoracic spinal cord is within normal limits of signal intensity and morphology. No evidence of thoracic cord contusion. Bone marrow signal/fracture: T6 mild superior endplate acute compression fracture. T11 mild to moderate acute compression fracture. No significant retropulsion. No other evidence of acute thoracic spine compression fracture. Fractures involving multiple right-sided thoracic transverse processes. No suspicious bone marrow replacing lesion. Multiple rib fractures are better seen on the patient's recent CT thoracic spine. Thoracic soft tissues: The paraspinal soft tissues are within normal limits. Canal and foramina: T4-T5 probable small right paracentral disc protrusion without causing significant central canal stenosis. The thoracic canal and foramina are patent within the constraints of the study. No evidence of epidural fluid collection. LUMBAR: Counting reference: Lumbosacral junction. For the purposes of this report, L4-5 is considered the level of the iliac crest and assume there are 5 lumbar-type vertebrae. Anatomic variant: None. Localizer images: Unremarkable. Alignment: L5-S1 mild anterolisthesis due to bilateral L5 pars interarticularis defects. L4-L5 minimal retrolisthesis. Bone marrow signal/fracture: No evidence of pathologic marrow infiltration. No evidence of prior fracture. Conus: The conus is within normal limits of signal intensity and morphology. There is minimal subarachnoid hemorrhage noted layering in the lower thecal sac at the S1-S2 level likely related to the patient's intracranial hemorrhage. 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 Paraspinal soft tissues: Paraspinal soft tissues are within normal limits. T12-L1: Canal and foramina are patent. L1-L2: Canal and foramina are patent. L2-L3: Canal and foramina are patent L3-L4: Canal and foramina are patent L4-L5: Minimal retrolisthesis. No significant central canal stenosis or neural foraminal narrowing. L5-S1: Bilateral neural foraminal narrowing related to the anterolisthesis. No central canal stenosis. Sacrum and iliac wings: The visualized sacrum and iliac wings are within normal limits. The presacral soft tissues are normal in appearance. IMPRESSION: 1. T11 mild to moderate acute compression fracture. T6 mild acute compression fracture. No significant retropulsion. 2. Nondisplaced fractures of multiple right sided thoracic transverse processes. 3. T4-T5 probable small right paracentral disc protrusion without significant central canal stenosis. 4. L5-S1 mild anterolisthesis due to bilateral L5 pars interarticularis defects and at least mild bilateral neural foraminal narrowing. L4-L5 minimal retrolisthesis. 5. No evidence of cord contusion or epidural hemorrhage. 6. Small amount of subarachnoid hemorrhage layering in the sacral thecal sac that is likely related to the patient's known intracranial hemorrhage. Anatomic Thoracic/Lumbar Variant: None. L4-5 is considered the level of the iliac crest and assume there are 5 lumbar-type vertebrae. Program Project Analyst: ITZEL Transcribe Date/Time: May 07 2021 7:45A Dictated by : ADITYA GARCIA MD This examination was interpreted and the report reviewed and electronically signed by: ADITYA GARCIA MD on May 07 2021 8:05AM EST [id number] [facility] MRI THORACIC SPINE WO IVCONo n 05-07-2021 MRI THORACIC SPINE WO IVCON * * *Final Report* * * DATE OF EXAM: May 07 2021 1:01AM [facility] 0325 - MRI THORACIC SPINE WO IVCON / PROCEDURE REASON: T-spine fx, traumatic * * * * Physician Interpretation * * * * EXAMINATION: MRI THORACIC SPINE WITHOUT IV CONTRAST, MRI LUMBAR SPINE WITHOUT IV CONTRAST CLINICAL HISTORY: T-spine fractures, traumatic. L5-S1 spondylolisthesis. Trauma. TECHNIQUE: Routine lumbosacral and thoracic spine MR protocol without gadolinium. MQ: MRTLWO_3 COMPARISON: CT thoracic spine and CT lumbar spine 05/06/2021. RESULT: THORACIC: Counting reference: Lumbosacral junction. For the purposes of this report, L4-5 is considered the level of the iliac crest and assume there are 5 lumbar-type vertebrae. Anatomic variant: None. Localizer images: Unremarkable. Alignment: Alignment is anatomic. Cord: The thoracic spinal cord is within normal limits of signal intensity and morphology. No evidence of thoracic cord contusion. Bone marrow signal/fracture: T6 mild superior endplate acute compression fracture. T11 mild to moderate acute compression fracture. No significant retropulsion. No other evidence of acute thoracic spine compression fracture. Fractures involving multiple right-sided thoracic transverse processes. No suspicious bone marrow replacing lesion. Multiple rib fractures are better seen on the patient's recent CT thoracic spine. Thoracic soft tissues: The paraspinal soft tissues are within normal limits. Canal and foramina: T4-T5 probable small right paracentral disc protrusion without causing significant central canal stenosis. The thoracic canal and foramina are patent within the constraints of the study. No evidence of epidural fluid collection. LUMBAR: Counting reference: Lumbosacral junction. For the purposes of this report, L4-5 is considered the level of the iliac crest and assume there are 5 lumbar-type vertebrae. Anatomic variant: None. Localizer images: Unremarkable. Alignment: L5-S1 mild anterolisthesis due to bilateral L5 pars interarticularis defects. L4-L5 minimal retrolisthesis. Bone marrow signal/fracture: No evidence of pathologic marrow infiltration. No evidence of prior fracture. Conus: The conus is within normal limits of signal intensity and morphology. There is minimal subarachnoid hemorrhage noted layering in the lower thecal sac at the S1-S2 level likely related to the patient's intracranial hemorrhage. 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 Paraspinal soft tissues: Paraspinal soft tissues are within normal limits. T12-L1: Canal and foramina are patent. L1-L2: Canal and foramina are patent. L2-L3: Canal and foramina are patent L3-L4: Canal and foramina are patent L4-L5: Minimal retrolisthesis. No significant central canal stenosis or neural foraminal narrowing. L5-S1: Bilateral neural foraminal narrowing related to the anterolisthesis. No central canal stenosis. Sacrum and iliac wings: The visualized sacrum and iliac wings are within normal limits. The presacral soft tissues are normal in appearance. IMPRESSION: 1. T11 mild to moderate acute compression fracture. T6 mild acute compression fracture. No significant retropulsion. 2. Nondisplaced fractures of multiple right sided thoracic transverse processes. 3. T4-T5 probable small right paracentral disc protrusion without significant central canal stenosis. 4. L5-S1 mild anterolisthesis due to bilateral L5 pars interarticularis defects and at least mild bilateral neural foraminal narrowing. L4-L5 minimal retrolisthesis. 5. No evidence of cord contusion or epidural hemorrhage. 6. Small amount of subarachnoid hemorrhage layering in the sacral thecal sac that is likely related to the patient's known intracranial hemorrhage. Anatomic Thoracic/Lumbar Variant: None. L4-5 is considered the level of the iliac crest and assume there are 5 lumbar-type vertebrae. Program Project Analyst: PSCB Transcribe Date/Time: May 07 2021 7:45A Dictated by : ADITYA GARCIA MD This examination was interpreted and the report reviewed and electronically signed by: ADITYA GARCIA MD on May 07 2021 8:05AM EST [id number] [facility] Magnesium SerPl-mCncon 05-07 Magnesium [Mass/Vol] 2.1 mg/dL Normal 1.7-2.3 [facility] Comment on above: Order Comment: Speci men Type: BLOOD SPECIMEN Performed By: #### 1 9123-9, 18723-2, 2777-1 ####[facility] [id number] [address] Performed By: #### 1 9123-9, 10603-4, 2777-1 #### [facility] CLIA [id number] [address] NURSING PROGon 05-07-2021 NURSING PROG HNO ID: [id number] Author: Tomás Shea RN Service: Nursing Author Type: Registered Nurse Type: Nursing Progress Note Filed: 05/07/2021 11:42 AM Note Text: Nursing Progress: Topic: RESTRAINT NON-VIOLENT PATIENT NAME: Ivanna Collier Jr. PATIENT LOCATION: [place] [address] [address]* The patient demonstrates Attempting to Remove Medical Devices Vital to Medical Stability,Confusion,Lac k of Understanding/Ability to Comply with Safety Directions,Impulsive Behavior,Inability to be Redirected as evidenced by the following behaviors attempting to pull at lines/drains/airway, unable to be redirected at this time which pose an imminent danger to self or others. The following interventions were attempted but were not effective in protecting the patient's safety: Alarms,Family/Significa nt Other Involvement,Bed in Low/Locked Position,Call Light Within Reach,Diversion Activities,Gauze Wrap/Sleeve IV Site,IV/Feeding Bag/Pump Out of Vision,Medications Reviewed,Modify Environment,Modify Equipment,Frequent Observation,Move Patient Closer to Nurses Station,Pad Tubes/Drains,Pain/Disco mfort Relief,Partial Bedrails Up Next, a comprehensive assessment was performed and warranted placing the patient in Soft Bilateral Wrists, the least restrictive restraint needed to protect the patient's safety. Ongoing safety assessments and evaluation for earliest removal of restraints will be performed. DATE: May 07, 2021 TIME: 11:42 AM Tomás Shea RN [facility] NURSING PROG HNO ID: [id number] Author: Sobeida Moncada RN Service: ? Author Type: Registered Nurse Type: Nursing Progress Note Filed: 05/07/2021 6:34 AM Note Text: Nursing Progress: Topic: RESTRAINT NON-VIOLENT PATIENT NAME: Ivanna Collier Jr. PATIENT LOCATION: [id number] 0* The patient demonstrates Attempting to Remove Medical Devices Vital to Medical Stability,Confusion as evidenced by the following behaviors reaching for ETT, lines which pose an imminent danger to self or others. The following interventions were attempted but were not effective in protecting the patient's safety: Alarms,Call Light Within Reach,Bed in Low/Locked Position,IV/Feeding Bag/Pump Out of Vision Next, a comprehensive assessment was performed and warranted placing the patient in Soft Bilateral Wrists, the least restrictive restraint needed to protect the patient's safety. Ongoing safety assessments and evaluation for earliest removal of restraints will be performed. DATE: May 07, 2021 TIME: 6:34 AM Sobeida Moncada RN [facility] NUTRITIONon 05-07-2021 NUTRITION HNO ID: [id number] Author: Lizett Torrez RD Service: Nutrition Therapy Author Type: Registered Dietitian Type: Nutrition Filed: 05/07/2021 12:15 PM Note Text: INITIAL ASSESSMENT SERVICE DATE: 05/07/2021 SERVICE TIME: 1034 AM Nutrition Assessment: Recommended Malnutrition Diagnosis: No Malnutrition Identified Nutrition Diagnosis: Problem: Suboptimal protein/energy intake Related to: Acute illness As evidenced by: Intubation;Medical condition Estimated kilocalorie needs: 4281-9307 Calorie Calculation Method: 25-30 kcals/kg Estimated protein needs (grams): 113-151 Grams protein determined by: [place] body weight;1.5 - 2.0 g/kg Care Plan: Follow for diet advancement to goal Propofol at 13.2 mL/hr over 24 hours provides 348.5 kcal of lipid per day Enteral Nutrition Tube Feeding Formula Type: Impact Peptide 1.5 Goal Rate (mL/hr x hours): 50 mL/hr over 24 hours (1200 mL product -- 1800 kcal, 113 gm protein, and 924 mL free water) Water Flush Volume (mL x frequency: Flush goal 30-150 mL every 4 hours Recommended Enteral Access: (Og) Monitor and Evaluation: Monitor tolerance to tube feeding;Meet greater than 75% of estimated needs;Monitor fluid/electrolyte balance;Monitor bowel function;Monitor labs, I/Os, vital signs, weight ------ HPI: 40 yo male, presented s/p log to head injury. Neurosurgery and Ortho following, noted multiple spine fractures and concerning for CL SDH, hemorrhagic contusions. Currently NPO on vent support, sedation with fentanyl and propofol. Meds and labs reviewed, + I/O, wt 104.4 kg, no edema with GI with hypoactive bowel sounds. ACTIVE PROBLEM LIST Sdh (Subdural Hematoma) ([facility]) Intake History: Nutrition Intake Prior to Admission: Greater than 75% estimated energy needs greater than or equal to 3 months Current Intake: NPO Diet Orders (From admission, onward) Start Ordered 05/06/211744 DIET NPO START NOW 05/06/21 1744 Anthropometrics: Height: 177.8 cm (5' 10) Weight: 104.4 kg (230 lb 2.6 oz) Dosing Weight: 75.3 kg (166 lb) Usual Weight: 104.4 kg (230 lb 2.6 oz) Body mass index is 33.02 kg/m?. Obese Weight change percentage over time: Spouse at bedside reports stable weight Last Wt 05/07/21 : 104.4 kg (230 lb 2.6 oz) Spouse at bedside reports weight stable at home Physical Exam: Subcutaneous fat loss: No fat loss Muscle loss: No muscle loss Potential micronutrient deficiency: No deficiency identified Edema/Ascites: No edema GI Symptoms: None Functional Status: Unable to assess Potential Signs of Inflammation: Critically ill;Hyperglycemia;Hypoa lbuminemia;Imaging studies;Leukocytosis MNT Billing Type: Initial Assess/15 min 1 unit SIGNATURE: Lizett Torrez RD PATIENT NAME: Ivanna Collier JrCathy DATE: May 07, 2021 TIME: 8:21 AM PAGER: [phone] Normal [facility] Phosphate SerPl-mCncon 05-07 Phosphate [Mass/Vol] 4.6 mg/dL Normal 2.7-4.8 [facility] Comment on above: Order Comment: Speci men Type: BLOOD SPECIMEN Performed By: #### 1 9123-9, 45046-2, 2777-1 ####[facility] [id number] [address] Performed By: #### 1 9123-9, 12219-8, 2777-1 #### [facility] CLIA [id number] [address] THERAPY NTon 05-07-2021 THERAPY NT HNO ID: [id number] Author: Stephanie Chawla PT Service: Physical Therapy Author Type: Physical Therapist Type: Therapy (PT/OT/Speech/Resp) Filed: 05/07/2021 1:18 PM Note Text: PHYSICAL THERAPY MISSED VISIT SERVICE DATE: 05/07/2021 SERVICE TIME: 1156 to 1156 ROOM: [place] [address] Attempted Evaluation. Patient not seen due to (awaiting further ortho managment plans). Glenoid fracture, multiple spine fxs Will continue to follow and eval as able SIGNATURE: Stephanie Chawla PT PATIENT NAME: Ivanna Collier Jr. DATE: May 07, 2021 TIME: 11:57 AM [facility] THERAPY NT HNO ID: [id number] Author: EITAN Allen/Naye Service: Occupational Therapy Author Type: Occupational Therapist Type: Therapy (PT/OT/Speech/Resp) Filed: 05/07/2021 11:35 AM Note Text: OCCUPATIONAL THERAPY MISSED VISIT SERVICE DATE: 05/07/2021 SERVICE TIME: 1135 to 1135 ROOM: [place] [address] Attempted Evaluation. Patient not seen due to Illness (intubated/sedated). Will continue to follow up as appropriate. SIGNATURE: EITAN Allen/Naye PATIENT NAME: Ivanna Collier Jr. DATE: May 07, 2021 TIME: 11:35 AM Normal [facility] VITAMIN D 25 HYDROXYon 05-07 25-hydroxyvitamin D3 [Mass/Vol] 16.7 ng/mL Low 30.0-100.0 [facility] Comment on above: Order Comment: Speci men Type: BLOOD SPECIMEN Result Comment: Clas sification of 25 [place] Vitamin D status: Deficiency: < 20 ng/ml. Insufficientcy: 20-30 ng/ml. Sufficiency: 30-100 ng/ml. Performed By: #### V ITD #### [facility] CLIA [id number] [address] Order Comment: Speci men Type: URINE SPECIMEN Performed By: #### U TOX2 #### [facility] CLIA [id number] [address] XR CHEST 1V FRONTALon 2020 XR CHEST 1V FRONTAL * * *Final Report* * * DATE OF EXAM: May 07 2021 5:34AM AKX [id number] - XR CHEST 1V FRONTAL / PROCEDURE REASON: Evaluate tube, line or lead position * * * * Physician Interpretation * * * * EXAMINATION: CHEST RADIOGRAPH (SINGLE VIEW AP OR PA) CLINICAL HISTORY: Evaluate tube, line or lead position MQ: XC1_5 Comparison: 05/06/2021 at 1623 RESULT: Lines, tubes, and devices: Tip of endotracheal tube at the level of the aortic arch. Enteric tube passing into the stomach. Overlying monitor worker leads. Lungs and pleura: Opacity noted in the right upper lung. Stable. No pneumothorax. Cardiomediastinal silhouette: Stable. Other: Right-sided rib fractures again noted. Right-sided clavicle fracture and right-sided scapular fracture noted. IMPRESSION: Stable appearance of the chest with atelectasis versus lung contusion right upper lung. Right-sided rib fractures, right clavicle fracture, and right scapular fracture again noted. Program Project Analyst: PSCB Transcribe Date/Time: May 07 2021 6:51A Dictated by : JIL TEMPLETON MD This examination was interpreted and the report reviewed and electronically signed by: JIL TEMPLETON MD on May 07 2021 6:54AM EST [id number] [facility] HNO ID: [id number] Author: Sonia Gamez RT(R) Service: Radiology Author Type: Technologist Type: Allied Health Filed: 05/06/2021 9:28 PM Note Text: Radiology Service Progress Note PATIENT NAME: Ivanna Collier Jr. DATE OF SERVICE: May 06, 2021 TIME: 9:28 PM PATIENT IDENTITY VERIFICATION COMPLETED USING TWO (2) IDENTIFIERS: Name and Date of confirmed by identification band. FALL SCREENING: Has the patient had 2 falls in the last year or 1 fall with injury or currently using an Ambulatory Assistive Device (Walker, Cane, Wheelchair, Crutches, etc.)? Inpatient: Screened on floor PATIENT GENDER DATA: Male PATIENT RELEVANT IMPLANT DATA REVIEWED: Not Applicable RADIOLOGY DEPARTMENT: General X-ray: Exam(s) Completed: Upper Extremity X-Ray(s): Shoulder, AP / TRUE AP right PERIPHERAL IV DATA: Not applicable SIGNED BY: Sonia Gamez RT(R) May 06, 2021 9:[address] [facility] HNO ID: [id number] Author: Flor Magdaleno RT(R) Service: ? Author Type: Technologist Type: [facility] Filed: 05/06/2021 5:06 PM Note Text: Radiology Service Progress Note PATIENT NAME: Jessica Rush DATE OF SERVICE: May 06, 2021 TIME: 5:05 PM PATIENT IDENTITY VERIFICATION COMPLETED USING TWO (2) IDENTIFIERS: Name and Date of confirmed by identification band. FALL SCREENING: Has the patient had 2 falls in the last year or 1 fall with injury or currently using an Ambulatory Assistive Device (Walker, Cane, Wheelchair, Crutches, etc.)? Emergency Room Patient: Screened in ED PATIENT GENDER DATA: Male PATIENT RELEVANT IMPLANT DATA REVIEWED: Not Applicable RADIOLOGY DEPARTMENT: General X-ray: Exam(s) Completed: Chest X-Ray Pelvis X-Ray: Pelvis General AP PERIPHERAL IV DATA: Not applicable SIGNED BY: Maegan Retana RT(R) May 06, 2021 5:[address] [facility] HNO ID: [id number] Author: Chaplain Sharon Service: Spiritual Care Author Type: Education Paraprofessional Type: Allied Health Filed: 05/06/2021 4:50 PM Note Text: SPIRITUAL CARE PROGRESS NOTE SERVICE DATE: 05/06/2021 SERVICE TIME: 4:48pm responded to ED page; but no family was present To contact the Spiritual Care Department: Please call . SIGNATURE: Chaplain Sharon PATIENT NAME: Jessica Trauma DATE: May 06, 2021 TIME: 4:49 PM PAGER/CONTACT #: [phone] Normal [facility] ARTERIAL BLOOD GASESon 05-06 BASE DEFICIT, ARTERIAL -1.6 mmol/L Normal -2-0 [facility] Comment on above: Order Comment: Speci men Type: BLOOD SPECIMEN Performed By: #### V ITD #### [facility] CLIA [id number] [address] [place] [address] Order Comment: Speci men Type: URINE SPECIMEN Performed By: #### U TOX2 #### [facility] CLIA [id number] [address] [place] [address] Body temperature 99.86 [degF] Normal [facility] Comment on above: Order Comment: Speci men Type: BLOOD SPECIMEN Performed By: #### V ITD #### [facility] CLIA [id number] [address] [place] [address] Order Comment: Speci men Type: URINE SPECIMEN Performed By: #### U TOX2 #### [facility] CLIA [id number] [address] [place] [address] CALCIUM IONIZED, PH CORRECTED 1.14 mmol/L Normal 1.08-1.30 [facility] Comment on above: Order Comment: Speci men Type: BLOOD SPECIMEN Performed By: #### V ITD #### [facility] CLIA [id number] [address] Order Comment: Speci men Type: URINE SPECIMEN Performed By: #### U TOX2 #### [facility] CLIA [id number] [address] Calcium.ionized (BldV) [Mass/Vol] 1.17 mmol/L Normal 1.08-1.30 [facility] Comment on above: Order Comment: Speci men Type: BLOOD SPECIMEN Performed By: #### V ITD #### [facility] CLIA [id number] [address] Order Comment: Speci men Type: URINE SPECIMEN Performed By: #### U TOX2 #### [facility] CLIA [id number] [address] Carboxyhemoglobin (BldA) [Mass fraction] 1.1 % Normal 0.0-2.0 [facility] Comment on above: Order Comment: Speci men Type: BLOOD SPECIMEN Result Comment: Carb oxyhemoglobin Reference Range for Smokers: 2.0-8.0% Performed By: #### V ITD #### [facility] CLIA [id number] [address] Order Comment: Speci men Type: URINE SPECIMEN Performed By: #### U TOX2 #### [facility] CLIA [id number] [address] CO2 (Bld) [Partial pressure] 44 mm Hg Normal 36-46 [facility] Comment on above: Order Comment: Speci men Type: BLOOD SPECIMEN Performed By: #### V ITD #### [facility] CLIA [id number] [address] Order Comment: Speci men Type: URINE SPECIMEN Performed By: #### U TOX2 #### [facility] CLIA [id number] [address] CO2 [Moles/Vol] 20.9 mmol/L Low 22-28 [facility] Comment on above: Order Comment: Speci men Type: BLOOD SPECIMEN Performed By: #### V ITD #### [facility] CLIA [id number] [address] Order Comment: Speci men Type: URINE SPECIMEN Performed By: #### U TOX2 #### [facility] CLIA [id number] [address] CO2 adjusted to patient's actual temperature (Bld) [Partial pressure] 45 mmHg Normal 36-46 [facility] Comment on above: Order Comment: Speci men Type: BLOOD SPECIMEN Performed By: #### V ITD #### [facility] CLIA [id number] [address] Order Comment: Speci men Type: URINE SPECIMEN Performed By: #### U TOX2 #### [facility] CLIA [id number] [address] Glucose [Mass/Vol] 134 mg/dL High 60-105 [facility] Comment on above: Order Comment: Speci men Type: BLOOD SPECIMEN Performed By: #### V ITD #### [facility] CLIA [id number] [address] Order Comment: Speci men Type: URINE SPECIMEN Performed By: #### U TOX2 #### [facility] CLIA [id number] [address] HCO3 (Bld) [Moles/Vol] 24 mmol/L Normal 22-26 [facility] Comment on above: Order Comment: Speci men Type: BLOOD SPECIMEN Performed By: #### V ITD #### [facility] CLIA [id number] [address] Order Comment: Speci men Type: URINE SPECIMEN Performed By: #### U TOX2 #### [facility] CLIA [id number] [address] Hematocrit (Bld) [Volume fraction] 44.6 % Normal 39.0-51.0 [facility] Comment on above: Order Comment: Speci men Type: BLOOD SPECIMEN Performed By: #### V ITD #### [facility] CLIA [id number] [address] Order Comment: Speci men Type: URINE SPECIMEN Performed By: #### U TOX2 #### [facility] CLIA [id number] [address] Hemoglobin (Bld) [Mass/Vol] 14.5 g/dL Normal 13.0-17.0 [facility] Comment on above: Order Comment: Speci men Type: BLOOD SPECIMEN Performed By: #### V ITD #### [facility] CLIA [id number] [address] Order Comment: Speci men Type: URINE SPECIMEN Performed By: #### U TOX2 #### [facility] CLIA [id number] [address] Methemoglobin (Bld) [Mass fraction] 1.2 % Normal 0.0-1.5 [facility] Comment on above: Order Comment: Speci men Type: BLOOD SPECIMEN Performed By: #### V ITD #### [facility] CLIA [id number] [address] Order Comment: Speci men Type: URINE SPECIMEN Performed By: #### U TOX2 #### [facility] CLIA [id number] [address] [place] [address] O2 THERAPY Ventilator Normal [facility] Comment on above: Order Comment: Speci men Type: BLOOD SPECIMEN Performed By: #### V ITD #### [facility] CLIA [id number] [address] Order Comment: Speci men Type: URINE SPECIMEN Performed By: #### U TOX2 #### [facility] CLIA [id number] [address] Oxygen (Bld) [Partial pressure] 98 mm Hg High 85-95 [facility] Comment on above: Order Comment: Speci men Type: BLOOD SPECIMEN Performed By: #### V ITD #### [facility] CLIA [id number] [address] Order Comment: Speci men Type: URINE SPECIMEN Performed By: #### U TOX2 #### [facility] CLIA [id number] [address] Oxygen adjusted to patient's actual temperature (Bld) [Partial pressure] 102 mmHg High 85-95 [facility] Comment on above: Order Comment: Speci men Type: BLOOD SPECIMEN Performed By: #### V ITD #### [facility] CLIA [id number] [address] Order Comment: Speci men Type: URINE SPECIMEN Performed By: #### U TOX2 #### [facility] CLIA [id number] [address] OXYGEN SATURATION, ARTERIAL 97 % Normal 95-98 [facility] Comment on above: Order Comment: Speci men Type: BLOOD SPECIMEN Performed By: #### V ITD #### [facility] CLIA [id number] [address] Order Comment: Speci men Type: URINE SPECIMEN Performed By: #### U TOX2 #### [facility] CLIA [id number] [address] Oxyhemoglobin (BldA) [Mass fraction] 95 % Normal 95-98 [facility] Comment on above: Order Comment: Speci men Type: BLOOD SPECIMEN Performed By: #### V ITD #### [facility] CLIA [id number] [address] Order Comment: Speci men Type: URINE SPECIMEN Performed By: #### U TOX2 #### [facility] CLIA [id number] [address] pH (Bld) 7.35 [pH] Normal 7.35-7.45 [facility] Comment on above: Order Comment: Speci men Type: BLOOD SPECIMEN Performed By: #### V ITD #### [facility] CLIA [id number] [address] Order Comment: Speci men Type: URINE SPECIMEN Performed By: #### U TOX2 #### [facility] CLIA [id number] [address] pH adjusted to patient's actual temperature (Bld) 7.34 Low 7.35-7.45 [facility] Comment on above: Order Comment: Speci men Type: BLOOD SPECIMEN Performed By: #### V ITD #### [facility] CLIA [id number] [address] Order Comment: Speci men Type: URINE SPECIMEN Performed By: #### U TOX2 #### [facility] CLIA [id number] [address] Potassium [Moles/Vol] 4.8 mmol/L Normal 3.5-5.0 [facility] Comment on above: Order Comment: Speci men Type: BLOOD SPECIMEN Performed By: #### V ITD #### [facility] CLIA [id number] [address] Order Comment: Speci men Type: URINE SPECIMEN Performed By: #### U TOX2 #### [facility] CLIA [id number] [address] Sodium [Moles/Vol] 140 mmol/L Normal 136-144 [facility] Comment on above: Order Comment: Speci men Type: BLOOD SPECIMEN Performed By: #### V ITD #### [facility] CLIA [id number] [address] Order Comment: Speci men Type: URINE SPECIMEN Performed By: #### U TOX2 #### [facility] CLIA [id number] [address] CBC panel Auto (Bld)on 05-06 Erythrocyte distribution width (RBC) [Ratio] 12.8 % Normal 11.5-15.0 [facility] Comment on above: Order Comment: Speci men Type: BLOOD SPECIMEN Performed By: #### V ITD #### [facility] CLIA [id number] [address] Performed By: #### 5 8410-2 #### [facility] CLIA [id number] [address] Hematocrit (Bld) [Volume fraction] 36.0 % Low 39.0-51.0 [facility] Comment on above: Order Comment: Speci men Type: BLOOD SPECIMEN Performed By: #### V ITD #### [facility] CLIA [id number] [address] [place] [address] Performed By: #### 5 8410-2 #### [facility] CLIA [id number] [address] Hemoglobin (Bld) [Mass/Vol] 11.8 g/dL Low 13.0-17.0 [facility] Comment on above: Order Comment: Speci men Type: BLOOD SPECIMEN Performed By: #### V ITD #### [facility] CLIA [id number] [address] [place] [address] Performed By: #### 5 8410-2 #### [facility] CLIA [id number] [address] MCH (RBC) [Entitic mass] 31.5 pg Normal 26.0-34.0 [facility] Comment on above: Order Comment: Speci men Type: BLOOD SPECIMEN Performed By: #### V ITD #### [facility] CLIA [id number] [address] [place] [address] Performed By: #### 5 8410-2 #### [facility] CLIA [id number] [address] MCHC (RBC) [Mass/Vol] 32.8 g/dL Normal 30.5-36.0 [facility] Comment on above: Order Comment: Speci men Type: BLOOD SPECIMEN Performed By: #### V ITD #### [facility] CLIA [id number] [address] Performed By: #### 5 8410-2 #### [facility] CLIA [id number] [address] MCV (RBC) [Entitic vol] 96.0 fL Normal 80.0-100.0 [facility] Comment on above: Order Comment: Speci men Type: BLOOD SPECIMEN Performed By: #### V ITD #### [facility] CLIA [id number] [address] Performed By: #### 5 8410-2 #### [facility] CLIA [id number] [address] Nucleated RBC (Bld) [#/Vol] 10*3/uL Normal <0.01 [facility] Comment on above: Order Comment: Speci men Type: BLOOD SPECIMEN Performed By: #### V ITD #### [facility] CLIA [id number] [address] Performed By: #### 5 8410-2 #### [facility] CLIA [id number] [address] Platelet mean volume (Bld) [Entitic vol] 9.7 fL Normal 9.0-12.7 [facility] Comment on above: Order Comment: Speci men Type: BLOOD SPECIMEN Performed By: #### V ITD #### [facility] CLIA [id number] [address] Performed By: #### 5 8410-2 #### [facility] CLIA [id number] [address] Platelets (Bld) [#/Vol] 184 10*3/uL Normal 150-400 [facility] Comment on above: Order Comment: Speci men Type: BLOOD SPECIMEN Performed By: #### V ITD #### [facility] CLIA [id number] [address] Performed By: #### 5 8410-2 #### [facility] CLIA [id number] [address] RBC (Bld) [#/Vol] 3.75 10*6/uL Low 4.20-6.00 [facility] Comment on above: Order Comment: Speci men Type: BLOOD SPECIMEN Performed By: #### V ITD #### [facility] CLIA [id number] [address] Performed By: #### 5 8410-2 #### [facility] CLIA [id number] [address] WBC (Bld) [#/Vol] 15.29 10*3/uL High 3.70-11.00 [facility] Comment on above: Order Comment: Speci men Type: BLOOD SPECIMEN Performed By: #### V ITD #### [facility] CLIA [id number] [address] Performed By: #### 5 8410-2 #### [facility] CLIA [id number] [address] CONSULTon 05-06-2021 CONSULT HNO ID: [id number] Author: Glen Carias MD Service: General Surgery Author Type: Resident Type: Consults Filed: 05/06/2021 8:59 PM Note Text: Surgical Intensive Care Unit Consult Note SERVICE DATE: 05/06/2021 SERVICE TIME: 7:17 PM Subjective 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 He was struck on the head by a large branch from unknown height. Witnessed immediate LOC. Paramedics had to take four wheelers to the scene. RSI was performed approximately an hour before arrival with rocuronium. GCS remained 3T en route. He was given 250 ml of 3% NS, as well as ketamine. Primary intact in trauma bay. Patient 3T. Secondary unremarkable. Sedation continued with propofol. Patient madison scanned. Admitted to SICU for critical care management. No past medical history on file. No past surgical history on file. No family history on file. Social History Tobacco Use - Smoking status: Not on file - Smokeless tobacco: Not on file Substance Use Topics - Alcohol use: Not on file - Drug use: Not on file No medications prior to admission. Current Facility-Administered Medications Medication Dose Route Frequency - NaCl 0.9% iv flush bag 20 mL INTRAVENOUS PRN - iv contrast (radiology procedure) INTRAVENOUS DIRECTED PRN - tetanus, diphtheria, and pertussis (Tdap) vaccine 0.5 mL injection (ADACEL, Tdap) 0.5 mL INTRAMUSCULAR ONCE (IMMUNIZATION) - sodium chloride 0.9 % (flush) 3-5 mL (BD POSIFLUSH) 3-5 mL INTRAVENOUS q 12 H - potassium chloride ER 20-40 mEq tab(s) (K-DUR, KLOR-CON) 20-40 mEq ORAL/FEEDING TUBE PRN Or - potassium chloride iv piggyback 20 mEq/100 mL 20 mEq INTRAVENOUS PRN - magnesium sulfate in sterile water 2 g in sterile water 50 ml 2 g INTRAVENOUS PRN - phosphorus 500 mg tab(s) (K PHOS NEUTRAL) 500 mg ORAL/FEEDING TUBE PRN(NO DISPENSE) - calcium gluconate 4 g in NaCl 0.9% 250 mL 4 g INTRAVENOUS PRN - acetaminophen 1,000 mg tab(s) (TYLENOL) 1,000 mg ORAL/FEEDING TUBE q 6 H - NaCl 0.9% iv infusion 100 mL/hr INTRAVENOUS CONTINUOUS - ipratropium-albuterol 3 mL nebulizer solution (DUONEB) 3 mL INHALATION q 4 H PRN - famotidine 20 mg injection (PEPCID) 20 mg INTRAVENOUS BID - ondansetron 4 mg tab(s) (ZOFRAN) 4 mg ORAL q 6 H PRN Or - ondansetron (PF) 4 mg injection (ZOFRAN) 4 mg INTRAVENOUS q 6 H PRN - magnesium hydroxide 400 mg/5 mL 30 mL (MOM) 30 mL ORAL/FEEDING TUBE DAILY PRN - fentaNYL 25-50 mcg bolus from bag (SUBLIMAZE) 25-50 mcg INTRAVENOUS q 30 MIN PRN Or - fentaNYL 50 mcg/mL 25-50 mcg injection (SUBLIMAZE) 25-50 mcg INTRAVENOUS q 30 MIN PRN - fentaNYL 20 mcg/mL iv infusion in NaCl 0.9% 100 mL 0-250 mcg/hr INTRAVENOUS CONTINUOUS - propofol 20 mg bolus from bag (DIPRIVAN) 20 mg INTRAVENOUS q 30 MIN PRN Or - propofol 20 mg injection (DIPRIVAN) 20 mg INTRAVENOUS q 30 MIN PRN - propofol infusion (DIPRIVAN) 0-30 mcg/kg/min INTRAVENOUS CONTINUOUS - calcium gluconate 4 g in NaCl 0.9% 250 mL 4 g INTRAVENOUS ONCE - Chlorhexidine Gluconate 0.12 % 15 mL (PERIDEX) 15 mL ORAL q 12 H - potassium chloride iv piggyback 20 mEq/100 mL 20 mEq INTRAVENOUS q 1 H - senna-docusate 8.6-50 mg 1 tablet (SENNA-S) 1 tablet ORAL BID - levETIRAcetam iv piggyback 1,000 mg in NaCl (iso-osmotic) 100 mL (KEPPRA) 1,000 mg INTRAVENOUS BID - lidocaine 4 % 1 Patch (SALONPAS) 1 Patch TRANSDERMAL DAILY AT 9 PM And - [START ON 05/07/2021] lidocaine patch - REMOVE OTHER DAILY And - lidocaine - VERIFY PATCH OTHER q 8 H Allergies As of Date: 05/06/2021 (No Known Allergies) Fully Assessed 05/06/2021 COMPLETE REVIEW OF SYSTEMS: Is the patient having any pain? Unable to obtain secondary to mental status Constitutional: Unable to obtain due to mental status or language barrier Eye/Ear/Nose: Unable to obtain due to mental status or language barrier Respiratory: Unable to obtain due to mental status or language barrier Cardiovascular: Unable to obtain due to mental status or language barrier GI/Liver/Biliary: Unable to obtain due to mental status or language barrier Genitourinary: Unable to obtain due to mental status or language barrier Psychiatric: Unable to obtain due to mental status or language barrier Neurologic: Unable to obtain due to mental status or language barrier Musculoskeletal: Unable to obtain due to mental status or language barrier Integument: Unable to obtain due to mental status or language barrier Endocrine: Unable to obtain due to mental status or language barrier Heme/Lymph: Unable to obtain due to mental status or language barrier Objective PHYSICAL EXAM: BP 109/69 Pulse 86 Temp 99.86 Resp 15 Wt 242 lb 8.1 oz (110.0kg) SpO2 100% O2 Therapy: Ventilator, %FIO2: (S) 40 NEURO: 3T HEENT: Head: No lacerations or abrasions, no bony step offs, midface stable to palpation, Ears: Canals without blood or CSF drainage, TMs clear, external ears without lacerations, Nose: Septum midline, no crepitus with motion, Throat: Oral mucosa without la (more content not included)... [facility] CONSULT HNO ID: [id number] Author: Ryland Dorado MD Service: Orthopaedic Surgery Author Type: Physician Type: Consults Filed: 05/07/2021 10:44 AM Note Text: Orthopaedic Surgery Consultation Note Reason for Consultation: Right shoulder injury s/p polytrauma Consulting Physician: Ryland Dorado MD Date: May 06, 2021 Time: 7:11 PM History of Present Illness 40 year old male being evaluated today regarding a right shoulder injury s/p a branch falling on him when we was cutting lumber. Patient was in the walker with his son when a branch fell on him. It was unwitnessed, but it was believed that it hit his head. When his son found him, he was talking but not coherently. EMS was called who had to take four-wheelers out to the scene. He was sedated and intubated at the scene and immediately taken to [facility]. Patient remains intubated and was evaluated in the SICU. Review of Systems 10-point ROS negative except as in HPI. History No past medical history on file. No past surgical history on file. There are no preventive care reminders to display for this patient. A review of the patient's history was completed and is otherwise non-contributory to the patient's presenting condition. Medications No prescriptions on file. Allergies Patient has no known allergies. Family History No family history on file. Social History Employer And Job Title: None on file Years Of Education Completed: Not specified Marital Status: Social History Tobacco Use - Smoking status: Not on file - Smokeless tobacco: Not on file Substance Use Topics - Alcohol use: Not on file - Drug use: Not on file Physical Examination Vitals BP 123/85 Pulse 92 Temp 37.3 ?C (99.1 ?F) Resp 16 Wt 110 kg (242 lb 8.1 oz) SpO2 98% General Intubated and sedated Right Upper Extremity Swelling to right clavicle overlying fracture No ecchymosis, or erythema. No open wounds or lacerations. Patient moving RUE to painful stimuli Formal motor and sensory exam unable to be performed R/U pulses palpable; BCR all digits. Labs Recent Labs 05/06/21 1709 05/06/21 1644 NA 144 -- K 2.7* -- CHLOR 113* -- CO2 17* -- BUN 13 -- CREAT 0.72* -- GLUC 85 -- ANION 14 -- CA 5.8* -- ALB 3.3* -- AST 33 -- ALT 24 -- ALKPHOS 42 -- TBILI 0.3 -- WBC 15.29* -- HB 11.8* -- HCT 36.0* -- PLT 184 -- LACT -- 1.2 INR 1.1 -- Imaging CT of chest: demonstrates right clavicle fracture and a possible acromion and coracoid fracture. Designated xrays of right shoulder ordered. Assessment Ivanna Collier Jr. is a 40 year old male with a right clavicle and possible acromion and coracoid fracture Plan 1. Admitted to SICU 2. Management per primary team. 3. Pain control. 4. Weight-bearing status: NWB RUE. 5. Antibiotic(s): per primary 6. Imaging: dedicated right shoulder XR 7. Perform secondary exam when extubated 8. Discussed with Dr. Dorado who agrees with the above recommendations. Ruben Liang MD May 06, 2021 8:06 PM Attending Note I personally saw and examined the patient. I reviewed the resident's note. I agree with the resident's assessment and plan unless otherwise noted. Conservative management. Monitor for additional injuries. Signature: Ryland Dorado MD Date: 05/07/2021 Time: 10:44 AM [facility] CONSULT HNO ID: [id number] Author: Ruben Liang MD Service: Orthopaedic Surgery Author Type: Resident Type: Consults Filed: 05/06/2021 8:50 PM Note Text: Attestation signed by Siva Cormier DO at 05/07/2021 10:28 AM I saw and examined the patient. I agree with the residents assessment and plan. The patient is still intubated and sedated. He has transverse process fractures of C3, 7, T1, T3-9. These fractures are stable. T6 compression fracture with no retropulsion, and a T11 compression fracture with 30% loss of height with no retropulsion. MRI thoracic spine shows no disruption of the posterior ligamentous complex at T6 or T11. Recommend standing x-rays in a brace once the patient is stable. No surgical intervention at this time. Siva Cormier, DO Orthopaedic Surgery Consultation Note Reason for Consultation: Multiple spinal fractures Consulting Physician: Siva Cormier MD Date: May 06, 2021 Time: 7:10 PM History of Present Illness 40 year old male being evaluated today regarding a polytrauma. Patient was cutting lumber with his son. His son was gone for a little bit and when he returned he found the patient on the ground. A large branch had fallen and hit him. At the scene, it is suspected he had a loss of consciousness but it is believed the timber hit his head. He was talking when his son found him but he was not talking coherently. EMS was called who had to take four-wheelers out to the scene. He was sedated and intubated at the scene and immediately taken to [facility]. Patient remains intubated and was evaluated in the SICU. Review of Systems 10-point ROS negative except as in HPI. History No past medical history on file. No past surgical history on file. There are no preventive care reminders to display for this patient. A review of the patient's history was completed and is otherwise non-contributory to the patient's presenting condition. Medications No prescriptions on file. Allergies Patient has no known allergies. Family History No family history on file. Social History Employer And Job Title: None on file Years Of Education Completed: Not specified Marital Status: Social History Tobacco Use - Smoking status: Not on file - Smokeless tobacco: Not on file Substance Use Topics - Alcohol use: Not on file - Drug use: Not on file Physical Examination Vitals BP 123/85 Pulse 92 Temp 37.3 ?C (99.1 ?F) Resp 16 Wt 110 kg (242 lb 8.1 oz) SpO2 98% General Intubated and sedated Neuro Exam Patient able to withdraw to painful stimuli in all four extremities Moving all four extremities Formal neuro exam unable to be performed due to patient being intubated and sedated *Will perform formal neuro exam when awake Labs Recent Labs 05/06/21 1709 05/06/21 1644 NA 144 -- K 2.7* -- CHLOR 113* -- CO2 17* -- BUN 13 -- CREAT 0.72* -- GLUC 85 -- ANION 14 -- CA 5.8* -- ALB 3.3* -- AST 33 -- ALT 24 -- ALKPHOS 42 -- TBILI 0.3 -- WBC 15.29* -- HB 11.8* -- HCT 36.0* -- PLT 184 -- LACT -- 1.2 INR 1.1 -- Imaging CT of entire spine: - Displaced right C3, C7, T1 AND T3-9 TP fxs - T6 compression superior end plate fx with less than 20% loss of height and no retropulsion - T11 compression fx with about 30% of height with no retropulsion into canal Assessment Ivanna Collier Jr. is a 40 year old male with multiple spinal fractures s/p large branch falling on him Plan 1. Admitted to SICU 2. Management per primary team. 3. Pain control. 4. Weight-bearing status: NWB. 5. Antibiotic(s): per primary 6. Imaging: MRI of T and L spine 7. Perform secondary exam when extubated 8. Discussed with Dr. Cormier who agrees with the above recommendations. Ruben Liang MD May 06, 2021 8:17 PM [facility] CONSULT HNO ID: [id number] Author: Anitha Greenwood PA-C Service: Neurosurgery Author Type: Physician Material Control Associate Type: Consults Filed: 05/06/2021 6:24 PM Note Text: Attestation signed by Kapil Brannon MD at 05/07/2021 9:09 AM Attending Note I reviewed pertinent patient history and examination performed by PA/ALLERGIST IMMUNOLOGIST, relevant laboratory results and imaging studies. Unless indicated below I agree with the plan of care discussed. 40M s/p head injury 05/06/2021 branch fell onto head Intubated, eyes open to voice, strong spontaneous movement in upper and lower extremities CT brain reviewed - lt occipital SDH with local mass effect, no midline shift, left temporal contusions Repeat CT brain stable - no indication for immediate neurosurgical intervention - continue to monitor clinically - if deterioration, will repeat CT brain Kapil Brannon MD NEUROSURGERY INITIAL CONSULT NOTE SERVICE DATE: 05/06/2021 SERVICE TIME: This provider arrived at 1626, patient arrived to trauma bay at 1647, Dr Brannon notified, who was available to review CT Brain within 15 minutes of availability of the study REASON FOR CONSULT: Level One Trauma, Head trauma with depressed neurologic status, SDH REQUESTING PHYSICIAN: Trauma/Dr Gagnon PRIMARY CARE PHYSICIAN: No primary care provider on file. Subjective Mr. Collier is a 40 year old male who presented as a level one trauma after he was struck on the head with a large tree branch, +LOC. According to the flight team, witnesses called 911 when he was not waking up. EMS had to use ATVs to access his remote location. They reached him approximately one hour prior to his arrival to this facility. At the scene, the patient was apparently moaning, but was not opening his eyes or moving any extremity. The patient was given rocuronium, ketamine, and was intubated for airway protection. He was given a 250ml bolus of 3% once he was in the care of the flight team and an additional dose of ketamine just prior to arrival. On arrival, the patient was intubated, sedated, GCS 3T. No past medical history on file. No past surgical history on file. No family history on file. Social History Tobacco Use - Smoking status: Not on file - Smokeless tobacco: Not on file Substance Use Topics - Alcohol use: Not on file - Drug use: Not on file No medications prior to admission. Current Facility-Administered Medications Medication Dose Route Frequency - iv contrast (radiology procedure) INTRAVENOUS DIRECTED PRN - iv contrast (radiology procedure) INTRAVENOUS DIRECTED PRN - NaCl 0.9% iv flush bag 20 mL INTRAVENOUS PRN - iv contrast (radiology procedure) INTRAVENOUS DIRECTED PRN - tetanus, diphtheria, and pertussis (Tdap) vaccine 0.5 mL injection (ADACEL, Tdap) 0.5 mL INTRAMUSCULAR ONCE (IMMUNIZATION) Allergies As of Date: 05/06/2021 (No Known Allergies) Fully Assessed 05/06/2021 COMPLETE REVIEW OF SYSTEMS: Unable to obtain due to mental status. No family available at the bedside Objective PHYSICAL EXAM: Physical Exam Performed: General - Intubated. Sedated. Cardiac- RRR, normotensive Resp - even, unlabored, on vent GI - abdomen soft, non-tender, non-distended. Has rectal tone HEENT - Normocephalic. No outward signs of trauma immediately appreciated Neuro - Intubated. Pupils 2mm, non-reactive initially. -corneals, -gag reflex initially. No response to nox stim on initial exam. Once patient was in the CT scanner, he did begin to spontaneously move his BUE and RLE. Extremities- Grossly normal. Symmetrical. No edema, deformity, coloration changes. Pulses- 2+ DP, 2+ radial BP 144/99 Pulse 88 Temp 97.7 Resp 24 Wt 242 lb 8.1 oz (110.0kg) SpO2 100% O2 Therapy: Ventilator DATA: CT Brain reviewed Left posterior SDH. Minimal if any shift. Contusions appreciated in left temporal/parietal area Impression/Recommendati ons This is a 40 yo male who presented as a level one trauma after being struck on the head with a large tree branch, radiographic findings concerning for L SDH (posterior), hemorrhagic contusions: -Neuro as above, began to show signs of improvement during transport, CT. -No immediate plan for neurosurgical intervention. May consider ICP monitor if patient's exam does not improve -Will repeat CT brain in 6 hours (or sooner if patient shows signs of neurologic decline) -Keppra 1000mg BID x 7 days -recommend ICU admission for close neurologic monitoring. -Discussed with Dr. Brannon Medication and Non-Pharmacologic VTE Prophylaxis/Anticoagula nts VTE Prophylaxis: VTE prophylaxis appropriate SIGNATURE: Anitha Greenwood PA-C PATIENT NAME: Ivanna Collier Jr. DATE: May 06, 2021 TIME: 5:44 PM [facility] CT ABD/PEL W IVCONon 09-[address] ABD/PEL W IVCON * * *Final Report* * * DATE OF EXAM: May 06 2021 5:34PM [facility] 0530 - CT ABD/PEL W IVCON / PROCEDURE REASON: Abdomen-pelvis trauma, moderate, blunt * * * * Physician Interpretation * * * * EXAMINATION: CT ABDOMEN AND PELVIS WITH IV CONTRAST CLINICAL HISTORY: Patient was struck by falling log. Blunt abdominal trauma. TECHNIQUE: CT of the abdomen and pelvis was performed using standard technique, scanning from just above the dome of the diaphragm to the symphysis pubis. MQ: CTAP_3 Contrast: IV: 75 ml of Omnipaque 350 CT Radiation dose: Integrated Dose-length product (DLP) for this visit = 3565 mGy*cm. CT Dose Reduction Employed: Automated exposure control(AEC) and iterative recon COMPARISON: None. RESULT: Liver: No laceration or hematoma. No mass. Biliary: No bile duct dilation. Spleen: No laceration or hematoma. No mass. No splenomegaly. Pancreas: No mass or duct dilation. Adrenals: No mass. Kidneys: No mass, calculus or hydronephrosis. GI tract: No dilation or wall thickening. Normal appendix. Orogastric tube extends below the diaphragm into the stomach. Lymph nodes: No abdominal or pelvic lymphadenopathy. Mesentery/Peritoneum: No ascites or mass. Retroperitoneum: No mass. Vasculature: The celiac axis and SMA are patent. The portal vein and branches, splenic vein, SMV, and hepatic veins are patent. No abdominal aortic or iliac artery aneurysm. Pelvis: Lee catheter is present in the bladder. Air in the nondependent portion of the bladder are secondary to the catheter. No pelvic ascites, mass or fluid collection. Bones/Soft Tissues: Acute compression fracture of T11 noted. Bilateral L5 spondylolysis with grade 1 spondylolisthesis at L5-S1. There are fractures of the right seventh through ninth transverse processes. Lower chest: CT chest performed is reported separately. Gr[employer] Teacher (topogram) images: No additional findings. IMPRESSION: 1. No solid abdominal organ injury. No hemoperitoneum. 2. Acute compression fracture at T11. 3. Acute fractures of the right seventh through ninth transverse processes. 4. Bilateral L5 spondylolysis with grade 1 spondylolisthesis at L5-S1. Program Project Analyst: ITZEL Transcribe Date/Time: May 06 2021 6:45P Dictated by : JOS GAINES MD This examination was interpreted and the report reviewed and electronically signed by: JOS GAINES MD on May 06 2021 6:53PM EST [id number] [facility] CT BRAIN WO IVCONon 05-06-20 CT BRAIN WO IVCON * * *Final Report* * * DATE OF EXAM: May 06 2021 5:32PM [facility] 0504 - CT BRAIN WO IVCON / PROCEDURE REASON: Head trauma, headache * * * * Physician Interpretation * * * * EXAMINATION: CT BRAIN WITHOUT CONTRAST, CT MAXILLOFACIAL WITHOUT CONTRAST AND CT CERVICAL SPINE WITHOUT CONTRAST CLINICAL HISTORY: Patient was struck in head with a falling log. Facial trauma. TECHNIQUE: CT scan of the brain followed by CT scan maxillofacial bones and then the the cervical spine. Serial axial unenhanced images were obtained from the vertex to the foramen magnum. Spiral, high resolution axial unenhanced images were obtained through the maxillofacial bones and from the skull base to the cervicothoracic junction with sagittal and coronal planar reconstructions. M: [id number]_2 Contrast: None CT Dose-Length Product: 2310 mGy*cm CT Dose Reduction Employed: Iterative reconstruction COMPARISON: None. RESULT: BRAIN: Post-operative change: None. Acute change: No evidence of an acute contusion or other acute parenchymal process. Hemorrhage: Acute extra-axial hematoma overlying the parietal/occipital region measuring 4.3 cm in thickness. There is acute subarachnoid hemorrhage overlying the left frontal and temporal lobes. Mass effect / Mass lesion: The left parietal/occipital extra-axial hematoma causes sulcal effacement with minimal left to right midline shift measuring 0.4 cm. There is partial effacement of the occipital horn of the left lateral ventricle. Chronic change: None apparent. Ventricles: No ventriculomegaly. Skull: Nondisplaced nondepressed fracture through the left temporal bone (coronal images 30-40 of series 8). There is a left temporoparietal scalp hematoma. MAXILLOFACIAL: Soft Tissues: Mild left frontal soft tissue swelling adjacent to the left lateral orbital rim. Facial bones: No evidence of an acute fracture in the visualized facial bones. Orbits: No evidence of an acute fracture. The globes are intact. The soft tissue planes of the orbits are maintained. Paranasal Sinuses: Mild mucosal thickening in both maxillary sinuses and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 Comment: Speci men Type: URINE SPECIMEN Performed By: #### U TOX2 #### [facility] CLIA [id number] [address] Bilirubin [Mass/Vol] 0.3 mg/dL Normal 0.2-1.3 [facility] Comment on above: Order Comment: Speci men Type: BLOOD SPECIMEN Performed By: #### 2 4323-8 #### [facility] CLIA [id number] [address] [place] [address] Order Comment: Speci men Type: URINE SPECIMEN Performed By: #### U TOX2 #### [facility] CLIA [id number] [address] Calcium [Mass/Vol] 5.8 mg/dL Low 8.5-10.2 [facility] Comment on above: Order Comment: Speci men Type: BLOOD SPECIMEN Performed By: #### 2 4323-8 #### [facility] CLIA [id number] [address] Order Comment: Speci men Type: URINE SPECIMEN Performed By: #### U TOX2 #### [facility] CLIA [id number] [address] Chloride [Moles/Vol] 113 mmol/L High 97-105 [facility] Comment on above: Order Comment: Speci men Type: BLOOD SPECIMEN Performed By: #### 2 4323-8 #### [facility] CLIA [id number] [address] Order Comment: Speci men Type: URINE SPECIMEN Performed By: #### U TOX2 #### [facility] CLIA [id number] [address] CO2 [Moles/Vol] 17 mmol/L Low 22-30 [facility] Comment on above: Order Comment: Speci men Type: BLOOD SPECIMEN Performed By: #### 2 4323-8 #### [facility] CLIA [id number] [address] Order Comment: Speci men Type: URINE SPECIMEN Performed By: #### U TOX2 #### [facility] CLIA [id number] [address] Creatinine [Mass/Vol] 0.72 mg/dL Low 0.73-1.22 [facility] Comment on above: Order Comment: Speci men Type: BLOOD SPECIMEN Performed By: #### 2 4323-8 #### [facility] CLIA [id number] [address] Order Comment: Speci men Type: URINE SPECIMEN Performed By: #### U TOX2 #### [facility] CLIA [id number] [address] [place] [address] GFR/1.73 sq M.predicted MDRD (S/P/Bld) [Vol rate/Area] mL/min/{1.73_m2} [facility] Comment on above: Order Comment: Speci men Type: BLOOD SPECIMEN Result Comment: >60 eGFR (Estimated GFR) Units of measure: mL/min/1.73 meters squared eGFR is derived from the reexpressed MDRD Study equation using the following parameters: serum creatinine, age, gender and race. The creatinine assay has been calibrated to be traceable to IDMS. An eGFR <60 mL/min/1.73m2 for >3 months is consistent with chronic kidney disease. Refer to KDOQI guidelines for clinical interpretation. In patients with unstable renal function, e.g. those with acute kidney injury, the eGFR may not accurately reflect actual GFR. Performed By: #### 2 4323-8 #### [facility] CLIA [id number] [address] Order Comment: Speci men Type: URINE SPECIMEN Performed By: #### U TOX2 #### [facility] CLIA [id number] [address] Glucose [Mass/Vol] 85 mg/dL Normal 74-99 [facility] Comment on above: Order Comment: Speci men Type: BLOOD SPECIMEN Result Comment: The [place] Diabetes Association (ADA) provides guidance for cutoff values for fasting glucose and random glucose. The ADA defines fasting as no caloric intake for at least 8 hours. Fasting plasma glucose results between 100 to 125 mg/dL indicate increased risk for diabetes (prediabetes). Fasting plasma glucose results greater than or equal to 126 mg/dL meet the criteria for diagnosis of diabetes. In the absence of unequivocal hyperglycemia, results should be confirmed by repeat testing. In a patient with classic symptoms of hyperglycemia or hyperglycemic crisis, random plasma glucose results greater than or equal to 200 mg/dL meet the criteria for diagnosis of diabetes. Reference: Standards of Medical Care in Diabetes 2016, [place] Diabetes Association. Diabetes Care. 2016.39(Suppl 1). Performed By: #### 2 4323-8 #### [facility] CLIA [id number] [address] Order Comment: Speci men Type: URINE SPECIMEN Performed By: #### U TOX2 #### [facility] CLIA [id number] [address] Potassium [Moles/Vol] 2.7 mmol/L Low 3.7-5.1 [facility] Comment on above: Order Comment: Speci men Type: BLOOD SPECIMEN Performed By: #### 2 4323-8 #### [facility] CLIA [id number] [address] Order Comment: Speci men Type: URINE SPECIMEN Performed By: #### U TOX2 #### [facility] CLIA [id number] [address] [place] Protein [Mass/Vol] 4.6 g/dL Low 6.3-8.0 [facility] Comment on above: Order Comment: Speci men Type: BLOOD SPECIMEN Performed By: #### 2 4323-8 #### [facility] CLIA [id number] [address] Order Comment: Speci men Type: URINE SPECIMEN Performed By: #### U TOX2 #### [facility] CLIA [id number] [address] Sodium [Moles/Vol] 144 mmol/L Normal 136-144 [facility] Comment on above: Order Comment: Speci men Type: BLOOD SPECIMEN Performed By: #### 2 4323-8 #### [facility] CLIA [id number] [address] Order Comment: Speci men Type: URINE SPECIMEN Performed By: #### U TOX2 #### [facility] CLIA [id number] [address] Urea nitrogen [Mass/Vol] 13 mg/dL Normal 9-24 [facility] Comment on above: Order Comment: Speci men Type: BLOOD SPECIMEN Performed By: #### 2 4323-8 #### [facility] CLIA [id number] [address] Order Comment: Speci men Type: URINE SPECIMEN Performed By: #### U TOX2 #### [facility] CLIA [id number] [address] ED NOTEon 05-06-2021 ED NOTE HNO ID: [id number] Author: Mario Morillo RN Service: Emergency Medicine Author Type: Registered Nurse Type: ED Notes Filed: 05/06/2021 5:54 PM Note Text: Report given to HERNAN Levin on SICU at bedside. No further questions at this time. [facility] ED NOTE HNO ID: [id number] Author: Mario Morillo RN Service: Emergency Medicine Author Type: Registered Nurse Type: ED Notes Filed: 05/06/2021 5:21 PM Note Text: 4800 RN unavail for report, will call back in 15 min. [facility] ED NOTE HNO ID: [id number] Author: Dariana Brar Service: ? Author Type: ? Type: ED Notes Filed: 05/06/2021 4:48 PM Note Text: Bed: 03-ED Expected date: 05/06/21 Expected time: 4:29 PM Means of arrival: [place] [employer] Comments: [facility] ED PROV NOTEon 05-06-2021 ED PROV NOTE HNO ID: [id number] Author: Igor Ortega MD Service: Emergency Medicine Author Type: Physician Type: ED Provider Notes Filed: 05/09/2021 10:51 PM Note Text: ED Provider Note Patient Name: Ivanna Collier Jr. SERVICE DATE: 05/06/21 History No chief complaint on file. Ivanna Collier Jr. Is a 40 year old male that presents today for head injury as a level 1 trauma via helicopter. The patient has no similar past medical history. 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 He immediately lost consciousness. EMS came via ATVs and found the patient moaning and obtunded in the field. He was intubated in the field using fentanyl and rocuronium. He received x3 doses of ketamine in route. He was given 250 ml of 3% NS. Vitals have been stable in route. Upon presentation, the patient was in a cervical collar and backboard. Airway was secured with an 8.0 ET tube at 23 cm at the lip. Nonbloody oral secretions were noted and were suctioned. Bilateral breath sounds. Circulation intact patient was normotensive. GCS 3 T upon arrival. Pupils 2 mm equal but not reactive. No past medical history on file. No past surgical history on file. No family history on file. Social History Tobacco Use - Smoking status: Not on file - Smokeless tobacco: Not on file Substance and Sexual Activity - Alcohol use: Not on file - Drug use: Not on file - Sexual activity: Not on file ALLERGIES No Known Allergies Review of Systems Unable to perform ROS: Intubated Physical Exam Vitals BP Pulse Temp Temp src Resp SpO2 Weight Height 05/06/21 1649 05/06/21 1649 05/06/21 1652 -- 05/06/21 1649 05/06/21 1447 05/06/21 1654 -- 140/103 (!) 95 36.5 ?C (97.7 ?F) (!) 26 100 % 110 kg (242 lb 8.1 oz) Physical Exam Vitals and nursing note reviewed. Exam conducted with a radio time salesperson present (Performed in coordination with the trauma team, my attending, and the nursing staff.). Constitutional: Appearance: He is obese. Interventions: He is sedated and intubated. Cervical collar and backboard in place. HENT: Head: No raccoon eyes, Cruz's sign, right periorbital erythema or left periorbital erythema. Comments: No facial instability upon palpation. Right Ear: Tympanic membrane, ear canal and external ear normal. Left Ear: Tympanic membrane, ear canal and external ear normal. Ears: Comments: No hemotympanum present Nose: Nose normal. Right Nostril: No septal hematoma. Left Nostril: No septal hematoma. Mouth/Throat: Pharynx: Oropharynx is clear. No posterior oropharyngeal erythema. Eyes: Pupils: Pupils are equal. Right eye: Pupil is not reactive. Left eye: Pupil is not reactive. Neck: Trachea: No tracheal deviation. Cardiovascular: Rate and Rhythm: Normal rate. Pulses: Normal pulses. Radial pulses are 2+ on the right side and 2+ on the left side. Femoral pulses are 2+ on the right side and 2+ on the left side. Dorsalis pedis pulses are 2+ on the right side and 2+ on the left side. Heart sounds: Normal heart sounds. No murmur heard. Pulmonary: Effort: Pulmonary effort is normal. No respiratory distress. He is intubated. Breath sounds: Normal breath sounds and air entry. No decreased air movement. No wheezing or rales. Comments: Bilateral equal breath sounds. Intubated. Chest: Chest wall: No tenderness. Abdominal: General: Abdomen is flat. Bowel sounds are normal. There is no distension. Palpations: Abdomen is soft. There is no mass. Tenderness: There is no abdominal tenderness. Musculoskeletal: General: No swelling, tenderness, deformity or signs of injury. Cervical back: No signs of trauma, tenderness or crepitus. Skin: General: Skin is warm and dry. Capillary Refill: Capillary refill takes less than 2 seconds. Neurological: GCS: GCS eye subscore is 1. GCS verbal subscore is 1. GCS motor subscore is 1. Sensory: No sensory deficit. Diagnostic Testing ED Labs Ordered and Reviewed CBC - Abnormal; Notable for the following components: Result Value Ref Range WBC 15.29 (*) 3.70 - 11.00 k/uL RBC 3.75 (*) 4.20 - 6.00 m/uL Hemoglobin 11.8 (*) 13.0 - 17.0 g/dL Hematocrit 36.0 (*) 39.0 - 51.0 % All other components within normal limits ACTIVATED PTT - Abnormal; Notable for the following components: APTT 22.4 (*) 23.0 - 32.4 sec All other components within normal limits Narrative: Unfractionated Heparin Therapeutic Ranges: Standard Heparin Nomogram: 53 to 78 seconds (anti-Xa level of 0.3 to 0.7 U/ml) Low Dose/ACS Nomogram: 49 to 67 seconds (anti-Xa level of 0.2 to 0.5 U/ml) Stroke Treatment Nomogram: 49 to 67 seconds (anti-Xa level of 0.2 to 0.5 U/ml) Note: The APTT therapeutic range has been determined for the current lot of laboratory APTT reagent in use throughout the [facility]. PROTHROMBIN TIME/PT - Normal COMP METABOLIC PANEL URINALYSIS, W (more content not included)... Normal [facility] Ethanol SerPl-mCncon 021 Ethanol [Mass/Vol] mg/dL Normal <11 [facility] Comment on above: Order Comment: Speci men Type: BLOOD SPECIMEN Performed By: #### 1 4338-8 #### [facility] CLIA [id number] [address] Performed By: #### 5 8410-2 #### [facility] CLIA [id number] [address] [facility] HISTORY PHYSICALon 1 HISTORY PHYSICAL HNO ID: [id number] Author: Monica Thayer MD Service: General Surgery Author Type: Physician Type: HANDP Filed: 05/07/2021 1:55 PM Note Text: TRAUMA SURGERY HANDP [facility] ARRIVAL DATE: 05/06/2021 ARRIVAL TIME: 5:07 PM CATEGORY: Level 1 INJURY DATE: 05/06/2021 INJURY TIME: 5:07 PM Subjective 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 He was struck on the head by a large branch from unknown height. Witnessed immediate LOC. Paramedics had to take four wheelers to the scene. RSI was performed approximately an hour before arrival with rocuronium. GCS remained 3T en route. He was given 250 ml of 3% NS, as well as ketamine. HPI/CHIEF COMPLAINT: logging accident LAST FLUIDS/MEAL: unknown CODE STATUS: Not discussed ALLERGIES No Known Allergies (Not in a hospital admission) DATE OF LAST TETANUS: unknown There is no immunization history on file for this patient. No past medical history on file. No past surgical history on file. Social History Tobacco Use - Smoking status: Not on file - Smokeless tobacco: Not on file Substance Use Topics - Alcohol use: Not on file - Drug use: Not on file No family history on file. ROS: Is the patient having any pain? Unable to obtain secondary to mental status Constitutional: Unable to obtain due to mental status or language barrier Eye/Ear/Nose: Unable to obtain due to mental status or language barrier Respiratory: Unable to obtain due to mental status or language barrier Cardiovascular: Unable to obtain due to mental status or language barrier GI/Liver/Biliary: Unable to obtain due to mental status or language barrier Genitourinary: Unable to obtain due to mental status or language barrier Psychiatric: Unable to obtain due to mental status or language barrier Neurologic: Unable to obtain due to mental status or language barrier Musculoskeletal: Unable to obtain due to mental status or language barrier Integument: Unable to obtain due to mental status or language barrier Endocrine: Unable to obtain due to mental status or language barrier Heme/Lymph: Unable to obtain due to mental status or language barrier Objective PRIMARY SURVEY AIRWAY: Intubated BREATHING: Breath sounds equal CIRCULATION: PT/DP 2+, Radials 2+, Femoral 2+ DISABILITY: Eye: 1=No Response Verbal: 1=No Response Motor: 1=No Response Total GCS: 3T Resp Rate: 10 to 29=4 Syst BP: > than 89=4 REVISED TRAUMA SCORE: 12 EXPOSE / ENVIRONMENT: Warm Blankets PROCEDURES: none SECONDARY SURVEY VITALS: 05/06/21 1654 05/06/21 1656 05/06/21 1657 05/06/21 1705 BP: 150/97 144/99 Pulse: (!) 91 (!) 93 88 Resp: 24 24 24 Temp: SpO2: 99% 96% 97% Weight: 110 kg (242 lb 8.1 oz) NEURO: 3T HEENT: Head: No lacerations or abrasions, no bony step offs, midface stable to palpation, Ears: Canals without blood or CSF drainage, TMs clear, external ears without lacerations, Nose: Septum midline, no crepitus with motion, Throat: Oral mucosa without lacerations, teeth in place, tongue without lacerations, eyes 2 mm, nonreactive NECK: No midline pain with palpation, No lacerations/wounds, No JVD, Trachea midline RESPIRATORY: No abrasions or contusions, No crepitus, No TTP, Equal Excursion CARDIOVASCULAR: Heart rate regular, Radial pulse present bilaterally, Femoral pulse present bilaterally, Popliteal pulse present bilaterally, Dorsalis pulse present bilaterally ABDOMEN: Non-distended, No scars or lacerations, Non-tenderness or peritoneal signs, No masses or organomegaly PELVIC/PERINEAL: Normal male genitalia, Pelvis stable to palpation, No blood noted at urethra meatus, Rectal exam with positive tone and negative for blood BACK/SPINE: Thoracolumbar spinal column non-tender, No step off or deformity noted, No external injury noted EXTREMITIES: Arm/Shoulder normal bilaterally, Forearm/Elbow normal bilaterally, Hand/Wrist normal bilaterally, Thigh/Hip normal bilaterally, Leg/Knee normal bilaterally, Foot/Ankle normal bilaterally RADIOLOGICAL/OTHER TEST DATA: CT CHEST W IVCON Final Result IMPRESSION: 1. Acute nondisplaced fracture of the right T3 transverse process. Mildly displaced fracture of the posterior aspect of the right first rib. Fractures of the right third through tenth ribs. 2. Airspace opacity at the posterior aspect of the right upper lobe with multiple small air bubbles is compatible with pulmonary contusion and small traumatic pneumatoceles/pulmonary laceration. 3. Smoothly marginated pleural reaction is present adjacent to the right-sided rib fractures. No pleural effusion or pneumothorax. 4. Airspace opacities at the dependent lung bases likely subsegmental atelectasis. Pneumonia is not excluded. 5. Compression fracture of the superior endplate of T6 is suspected to be acute. Acute burst fracture of T11. No retropulsion into the spinal canal. Program Project Analyst: ITZEL Transcribe Date/Time: May 06 2021 6:14P (more content not included)... Normal [facility] PT panel Coag (PPP)on 2020 INR Coag (PPP) [Relative time] 1.1 {INR} Normal 0.9-1.3 [facility] Comment on above: Order Comment: Speci men Type: BLOOD SPECIMEN Result Comment: Miracle min K Antagonist (VKA) Therapeutic Range: INR 2 to 3 (Target INR of 2.5) Note: For patients treated with VKA drugs, such as warfarin, the [employer] 2012 Guideline recommends a therapeutic INR range of 2 to 3 (target INR of 2.5). This recommendation includes high-risk patients with antiphospholipid syndrome with previous arterial or venous thromboembolism, current-generation mechanical or bioprosthetic aortic heart valve replacement. Note: Patients with mechanical aortic valve replacement and additional risk factors for thromboembolic events (atrial fibrillation, previous thromboembolism, LV dysfunction, hypercoagulable conditions) or an older generation mechanical AVR (i.e., ball in-Cage) or any mechanical MVR should have a INR therapeutic range of 2.5 to 3.5 (target INR of 3). Mariusz GH, et al. Chest 2012, 141:7S-47S Burton RA, et al. [facility] 2017, 70: 252-289 Performed By: #### V ITD #### [facility] CLIA [id number] [address] Order Comment: Speci men Type: URINE SPECIMEN Performed By: #### U TOX2 #### [facility] CLIA [id number] [address] PT Coag (PPP) [Time] 12.0 s Normal 9.7-13.0 [facility] Comment on above: Order Comment: Speci men Type: BLOOD SPECIMEN Performed By: #### V ITD #### [facility] CLIA [id number] [address] Order Comment: Speci men Type: URINE SPECIMEN Performed By: #### U TOX2 #### [facility] CLIA [id number] [address] SARS-CoV-2 RNA Resp Ql ANTWAN+p robeon 05-06-2021 SARS-CoV-2 (COVID-19) RNA ANTWAN+probe Ql (Resp) COVID 19 RESULT: SARS-CoV-2 (Agent of COVID-19) Not Detected by PCR. This test has been authorized by FDA under an Emergency Use Authorization (EUA). Normal [facility] Comment on above: Performed By: #### 9 4500-6 ####[facility] [id number] [address] STAPH AUREUS PCRon S. aureus and MRSA panel ANTWAN+probe (Nose) Normal Negative [facility] Comment on above: Order Comment: Speci men Type: SWAB OF INTERNAL NOSE Result Comment: Nega tive for Staphylococcus aureus by PCR. Negative for MRSA by PCR Performed By: #### S APCR ####[facility] [id number] [address] TOX SCREEN ROUT URon 021 Amphetamines Confirm (U) [Mass/Vol] Negative Normal Negative [facility] Comment on above: Order Comment: Speci men Type: URINE SPECIMEN Result Comment: Cuto ff threshold at 1000 ng/mL. Performed By: #### U TOX2 #### [facility] CLIA [id number] [address] BARBITURATES, URINE Negative Normal Negative [facility] Comment on above: Order Comment: Speci men Type: URINE SPECIMEN Result Comment: Cuto ff threshold at 200 ng/mL. Performed By: #### U TOX2 #### [facility] CLIA [id number] [address] [place] Negative Normal Negative [facility] Comment on above: Order Comment: Speci men Type: URINE SPECIMEN Result Comment: Cuto ff threshold at 200 ng/mL. Performed By: #### U TOX2 #### [facility] CLIA [id number] [address] CANNABINOIDS,URINE Negative Normal Negative [facility] Comment on above: Order Comment: Speci men Type: URINE SPECIMEN Result Comment: Cuto ff threshold at 50 ng/mL. Performed By: #### U TOX2 #### [facility] CLIA [id number] [address] Cocaine Ql (U) Negative Normal Negative [facility] Comment on above: Order Comment: Speci men Type: URINE SPECIMEN Result Comment: Cuto ff threshold at 300 ng/mL. Performed By: #### U TOX2 #### [facility] CLIA [id number] [address] Ethanol (U) [Mass/Vol] <11 Normal <11 [facility] Comment on above: Order Comment: Speci men Type: URINE SPECIMEN Performed By: #### U TOX2 #### [facility] CLIA [id number] [address] Opiates Screen Ql (U) Negative Normal Negative [facility] Comment on above: Order Comment: Speci men Type: URINE SPECIMEN Result Comment: Cuto ff threshold at 300 ng/mL. Performed By: #### U TOX2 #### [facility] CLIA [id number] [address] oxyCODONE cutoff Screen (U) [Mass/Vol] Negative Normal Negative [facility] Comment on above: Order Comment: Speci men Type: URINE SPECIMEN Result Comment: Cuto ff threshold at 100 ng/mL. Performed By: #### U TOX2 #### [facility] CLIA [id number] [address] Phencyclidine Ql (U) Negative Normal Negative [facility] Comment on above: Order Comment: Speci men Type: URINE SPECIMEN Result Comment: Cuto ff threshold at 25 ng/mL. Performed By: #### U TOX2 #### [facility] CLIA [id number] [address] TYPE AND SCREENon 05-06-2021 ABO A Normal [facility] Comment on above: Order Comment: Speci men Type: BLOOD SPECIMEN Performed By: #### T SCR #### [facility] CLIA [id number] [address] Performed By: #### T SCR ####[facility] [id number] [address] HISTORICAL AB SCR STATUS Negative Normal [facility] Comment on above: Order Comment: Speci men Type: BLOOD SPECIMEN Performed By: #### T SCR #### [facility] CLIA [id number] [address] Performed By: #### T SCR ####[facility] [id number] [address] Rh Nom (Bld) Positive Normal [facility] Comment on above: Order Comment: Speci men Type: BLOOD SPECIMEN Performed By: #### T SCR #### [facility] CLIA [id number] [address] Performed By: #### T SCR ####[facility] [id number] [address] TYPE AND SCREEN EXPIRATION 05/09/2021 23:59 Normal [facility] Comment on above: Order Comment: Speci men Type: BLOOD SPECIMEN Performed By: #### T SCR #### [facility] CLIA [id number] [address] Performed By: #### T SCR ####[facility] [id number] [address] Urinalysis complete panel (U )on 05-06-2021 Bacteria LM.HPF (Urine sed) [#/Area] None Seen Normal None Seen [facility] Comment on above: Order Comment: Speci men Type: BLOOD SPECIMEN Performed By: #### V ITD #### [facility] CLIA [id number] [address] Order Comment: Speci men Type: URINE SPECIMEN Performed By: #### U TOX2 #### [facility] CLIA [id number] [address] Bilirubin Ql (U) Negative Normal Negative [facility] Comment on above: Order Comment: Speci men Type: BLOOD SPECIMEN Performed By: #### V ITD #### [facility] CLIA [id number] [address] [place] [address] Order Comment: Speci men Type: URINE SPECIMEN Performed By: #### U TOX2 #### [facility] CLIA [id number] [address] [place] [address] Clarity (Unsp spec) Clear Normal Clear [facility] Comment on above: Order Comment: Speci men Type: BLOOD SPECIMEN Performed By: #### V ITD #### [facility] CLIA [id number] [address] [place] [address] Order Comment: Speci men Type: URINE SPECIMEN Performed By: #### U TOX2 #### [facility] CLIA [id number] [address] [place] [address] Color (U) Yellow Normal Yellow [facility] Comment on above: Order Comment: Speci men Type: BLOOD SPECIMEN Performed By: #### V ITD #### [facility] CLIA [id number] [address] Order Comment: Speci men Type: URINE SPECIMEN Performed By: #### U TOX2 #### [facility] CLIA [id number] [address] Epithelial cells LM.HPF (Urine sed) [#/Area] 0.8 /[HPF] Normal [facility] Comment on above: Order Comment: Speci men Type: BLOOD SPECIMEN Performed By: #### V ITD #### [facility] CLIA [id number] [address] Order Comment: Speci men Type: URINE SPECIMEN Performed By: #### U TOX2 #### [facility] CLIA [id number] [address] Glucose Test strip (U) [Mass/Vol] Negative Normal Negative [facility] Comment on above: Order Comment: Speci men Type: BLOOD SPECIMEN Performed By: #### V ITD #### [facility] CLIA [id number] [address] Order Comment: Speci men Type: URINE SPECIMEN Performed By: #### U TOX2 #### [facility] CLIA [id number] [address] [place] [address] Hemoglobin Ql (U) Trace Abnormal Negative [facility] Comment on above: Order Comment: Speci men Type: BLOOD SPECIMEN Performed By: #### V ITD #### [facility] CLIA [id number] [address] Order Comment: Speci men Type: URINE SPECIMEN Performed By: #### U TOX2 #### [facility] CLIA [id number] [address] Hyaline casts (Urine sed) [#/Area] 1-3 /LPF Abnormal 0 /LPF [facility] Comment on above: Order Comment: Speci men Type: BLOOD SPECIMEN Performed By: #### V ITD #### [facility] CLIA [id number] [address] Order Comment: Speci men Type: URINE SPECIMEN Performed By: #### U TOX2 #### [facility] CLIA [id number] [address] Ketones Ql (U) Negative Normal Negative [facility] Comment on above: Order Comment: Speci men Type: BLOOD SPECIMEN Performed By: #### V ITD #### [facility] CLIA [id number] [address] Order Comment: Speci men Type: URINE SPECIMEN Performed By: #### U TOX2 #### [facility] CLIA [id number] [address] Leukocyte esterase Test strip Ql (U) Negative Normal Negative [facility] Comment on above: Order Comment: Speci men Type: BLOOD SPECIMEN Performed By: #### V ITD #### [facility] CLIA [id number] [address] Order Comment: Speci men Type: URINE SPECIMEN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 Nondisplaced nondepressed left temporal bone fracture 4. C3, C7, T1, T3-9 right transverse process fractures 5. Right 1st rib fracture 6. Right 3-10 rib fractur (more content not included)... [facility] 05-13-2021 Note HNO ID: [id number] Author: JOE Espitia Service: Care Management Author Type: Road Oiler Type: Care Mgt Progress Note Filed: 05/13/2021 3:58 PM Note Text: CARE MANAGEMENT PROGRESS NOTE SERVICE DATE: 05/13/2021 SERVICE TIME: 3:55 PM LOS: 7 days Needs Prior to Discharge: To Be Determined;Accepting Facility;OT/PT Evaluation;Discharge Transportation [facility] able to accept pt. Plan for d/c tomorrow. [facility] will cloth picker pt at 10:00am and pt will transfer via cot. [facility] updated. Trauma aware. SW met with pt's at bedside, is agreeable to plan. SIGNATURE: JOE Espitia PATIENT NAME: Ivanna Collier Jr. DATE: May 13, 2021 TIME: 3:55 PM PAGER/CONTACT #: [phone] [facility] 05-13-2021 Note HNO ID: [id number] Author: JOE Espitia Service: Care Management Author Type: Road Oiler Type: Care Mgt Progress Note Filed: 05/13/2021 3:58 PM Note Text: CARE MANAGEMENT PROGRESS NOTE SERVICE DATE: 05/13/2021 SERVICE TIME: 3:55 PM LOS: 7 days Needs Prior to Discharge: To Be Determined;Accepting Facility;OT/PT Evaluation;Discharge Transportation [facility] able to accept pt. Plan for d/c tomorrow. [facility] will cloth picker pt at 10:00am and pt will transfer via cot. Rison updated. Trauma aware. SW met with pt's at bedside, is agreeable to plan. SIGNATURE: JOE Espitia PATIENT NAME: Ivanna Collier Jr. DATE: May 13, 2021 TIME: 3:55 PM PAGER/CONTACT #: [phone] [facility] 05-13-2021 Note HNO ID: [id number] Author: JOE Espitia Service: Care Management Author Type: Road Oiler Type: Care Mgt Progress Note Filed: 05/13/2021 1:06 PM Note Text: CARE MANAGEMENT PROGRESS NOTE SERVICE DATE: 05/13/2021 SERVICE TIME: 1:03 PM LOS: 7 days [place] [facility] Choice Given: Yes Level of Care Discussed: Inpatient Rehab Facility Financial Disclosure Provided: Yes Financial Disclosure Comments: Disclosed [facility] affiiation Provider List: Other: See Comment (Declined list, preference captain room service) Needs Prior to Discharge: To Be Determined;Accepting Facility;OT/PT Evaluation;Discharge Transportation SW met with pt's at bedside. Pt will need acute rehab. Referral sent to [facility]. They are able to accept. Pt's to call Rosa Maria Schroeder,[facility] [employer] Liaison to discuss payment. Pt's would like a heads up as to when pt will be discharged because she will need to find transportation herself. Pt will need cot transport at d/c. SIGNATURE: JOE Espitia PATIENT NAME: Ivanna Collier Jr. DATE: May 13, 2021 TIME: 1:03 PM PAGER/CONTACT #: [phone] [facility] 05-13-2021 Note HNO ID: [id number] Author: JOE Espitia Service: Care Management Author Type: Road Oiler Type: Care Mgt Progress Note Filed: 05/13/2021 1:06 PM Note Text: CARE MANAGEMENT PROGRESS NOTE SERVICE DATE: 05/13/2021 SERVICE TIME: 1:03 PM LOS: 7 days [place] of Choice Given: Yes Level of Care Discussed: Inpatient Rehab Facility Financial Disclosure Provided: Yes Financial Disclosure Comments: Disclosed [facility] affiiation Provider List: Other: See Comment (Declined list, preference captain room service) Needs Prior to Discharge: To Be Determined;Accepting Facility;OT/PT Evaluation;Discharge Transportation SW met with pt's at bedside. Pt will need acute rehab. Referral sent to [facility]. They are able to accept. Pt's to call Rosa Maria Schroeder,[facility] Christianity Liaison to discuss payment. Pt's would like a heads up as to when pt will be discharged because she will need to find transportation herself. Pt will need cot transport at d/c. SIGNATURE: JOE Espitia PATIENT NAME: Ivanna Collier Jr. DATE: May 13, 2021 TIME: 1:03 PM PAGER/CONTACT #: [phone] [facility] 05-13-2021 Note HNO ID: [id number] Author: Kimi Lyons APRN.RAFAEL Service: General Surgery Author Type: Nurse Practitioner Type: Progress Notes Filed: 05/13/2021 2:44 PM Note Text: Trauma Surgery Progress Note SERVICE DATE: 05/13/2021 Trauma Service Pager: For questions or concerns Mon-Fri 6a-5p please page [phone]. After 5pm and on Weekends and Holidays, please page [phone] if in ICU or [phone] if on RNF. SUBJECTIVE: NAEON. Patient opens eyes to command and answers yes/no questions. Tolerating liquid diet. Denies pain. at bedside. OBJECTIVE: Vitals: Temp (24hrs), Av.8 ?C (98.2 ?F), Min:36.7 ?C (98.1 ?F), Max:37 ?C (98.6 ?F) BP 134/67 Pulse 70 Temp 36.7 ?C (98.1 ?F) (Oral) Resp 18 Ht 177.8 cm (5' 10) Wt 97.1 kg (214 lb) SpO2 93% BMI 30.71 kg/m? O2 Therapy: Room Air IANDO: Date 05/12/21699 - 05/13/2165805/13/21699 - 05/14/21 0659 Shift 0588-1951 7096-2045 6627-4433 24 Hour Total 1493-6521 2891-8923 2303-1004 24 Hour Total INTAKE PO 480 270 200 950 PO 480 270 200 950 Shift Total 480 270 200 950 OUTPUT Urine 445 858 3442 3125 Straight cath (ml) 950 950 Output ( Indwelling Urinary Catheter 05/11/21 0830) 700 1475 2175 # of BMs Incontinent BM 1 x 1 x Shift Total 232 028 2609 3125 Weight (kg) 104.9 104.9 97.1 97.1 97.1 97.1 97.1 97.1 MEDICATIONS Current Facility-Administered Medications Medication Dose Route Frequency - acetaminophen 1,000 mg tab(s) (TYLENOL) 1,000 mg ORAL/FEEDING TUBE QID - gabapentin 300 mg cap(s) (NEURONTIN) 300 mg ORAL/FEEDING TUBE q 8 H - propranolol 10 mg tab(s) (INDERAL) 10 mg ORAL/FEEDING TUBE QID - enoxaparin 30 mg injection (LOVENOX) 30 mg SUBCUTANEOUS BID - oxyCODONE IR 5-10 mg tab(s) (ROXICODONE) 5-10 mg ORAL q 4 H PRN - melatonin 6 mg tab(s) 6 mg ORAL DAILY (8 PM) - ipratropium-albuterol 3 mL nebulizer solution (DUONEB) 3 mL INHALATION q 4 HR - levETIRAcetam 1,000 mg tab(s) (KEPPRA) 1,000 mg ORAL q 8 H - polyethylene glycol 3350 17 g packet (MIRALAX, GLYCOLAX) 17 g ORAL DAILY - cholecalciferol 1,000 Units tab(s) (VITAMIN D3) 1,000 Units ORAL DAILY - NaCl 0.9% iv flush bag 20 mL INTRAVENOUS PRN - sodium chloride 0.9 % (flush) 3-5 mL (BD POSIFLUSH) 3-5 mL INTRAVENOUS q 12 H - ondansetron 4 mg tab(s) (ZOFRAN) 4 mg ORAL q 6 H PRN Or - ondansetron (PF) 4 mg injection (ZOFRAN) 4 mg INTRAVENOUS q 6 H PRN - senna-docusate 8.6-50 mg 1 tablet (SENNA-S) 1 tablet ORAL BID - lidocaine 4 % 1 Patch (SALONPAS) 1 Patch TRANSDERMAL DAILY AT 9 PM And - lidocaine patch - REMOVE OTHER DAILY And - lidocaine - VERIFY PATCH OTHER q 8 H Labs: Recent Labs 05/13/21 0227 05/12/21 0127 05/11/21 0511 NA 140 143 141 K 4.0 3.9 3.9 CHLOR 106* 104 105 CO2 23 27 28 BUN 20 24 24 CREAT 0.73 0.83 0.74 GLUC 108* 102* 104* ANION 11 12 8* CA 8.9 9.2 8.8 MG -- -- 2.2 WBC 12.03* 10.98 9.95 HB 11.7* 11.4* 10.6* HCT 36.7* 35.7* 33.6* PLT 336 313 231 PHYSICAL EXAM: Genl: Appears age appropriate. No acute distress. Resting comfortably. Head/Face: Normocephalic. Atraumatic. Eyes: EOMI. Sclera not icteric, not injected Neck: No mid-line masses. C-spine non-tender. Back: Deferred. Resp: Lung sounds are clear bilat. No wheezes. No rales. Breathing is non-labored on RA @93%. CVS: RRR as above; 2+ pulses at RA, DP, PT bilat. GI: Abdomen is soft, non-tender, not distended. Bowel sounds normoactive. No peritonitis. MSK: Extremities without clubbing, cyanosis, edema. Normal ROM x 3. Decreased ROM to RUE 2/2 pain. Skin: Warm and dry. Not jaundiced. Neuro: AANDOx1-2. Strength and sensation normal. [place]. ASSESSMENT AND PLAN: Active Hospital Problems Diagnosis Date Noted - TBI (traumatic brain injury) ([facility]) 05/07/2021 - Acute respiratory failure ([facility]) 05/07/2021 - Multiple rib fractures 05/07/2021 - Cervical transverse process fracture, initial encounter ([facility]) 05/07/2021 - Closed fracture of transverse process of thoracic vertebra ([facility]) 05/07/2021 - Closed fracture of temporal bone ([facility]) 05/07/2021 - Subarachnoid hemorrhage following injury, with loss of consciousness ([facility]) 05/07/2021 - Closed displaced fracture of acromial end of right clavicle 05/07/2021 - Closed wedge compression fracture of T6 vertebra ([facility]) 05/07/2021 - Closed wedge compression fracture of T11 vertebra ([facility]) 05/07/2021 - Contusion of right lung 05/07/2021 - Closed nondisplaced fracture of body of right scapula 05/07/2021 - SDH (subdural hematoma) (HCC) 05/06/2021 40 year old male s/p large branch/log falling on head and right side Imaging performed: 1. CT HNFCAPTLspine, CTA HN, CXR/PXR, XR R shoulder (05/06) 2. CT brain, MRI TLspine (05/07) 3. CT brain x2 (05/08) 4. Daily CXR (05/07-05/11) 5. CXR (05/12) Traumatic Injuries: 1. Left frontal and temporal SAH 2. Left parieto-occipital extra-axial hematoma with associated sulcal effacement and minimal left-right midline shift 3. Nondisplaced nondepressed left temp (more content not included)... [facility] 05-12-2021 Note HNO ID: [id number] Author: Kimi Lyons APRN.HOSE STRIPPER Service: General Surgery Author Type: Nurse Practitioner Type: Progress Notes Filed: 05/12/2021 12:00 PM Note Text: Trauma Surgery Progress Note SERVICE DATE: 05/12/2021 Trauma Service Pager: For questions or concerns Mon-Fri 6a-5p please page [phone]. After 5pm and on Weekends and Holidays, please page [phone] if in ICU or [phone] if on RNF. SUBJECTIVE: Patient with poor sleep and wheezing overnight. at bedside this morning. Patient able to stand with therapy in brace but very unsteady. agreeable to rehab placement. Awaiting DIRECTOR MEDICAL WRITING eval for diet advancement. OBJECTIVE: Vitals: Temp (24hrs), Av.3 ?C (95.6 ?F), Min:23.4 ?C (74.12 ?F), Max:37.4 ?C (99.32 ?F) BP 146/90 Pulse 83 Temp 36.8 ?C (98.2 ?F) (Oral) Resp 22 Ht 177.8 cm (5' 10) Wt 104.9 kg (231 lb 4.2 oz) SpO2 95% BMI 33.18 kg/m? O2 Therapy: Nasal Cannula IANDO: Date 05/11/21 0700 - 05/12/21 0659 05/12/21 0700 - 05/13/21 0659 Shift 9958-8271 2789-7028 3382-1558 24 Hour Total 4086-6926 4876-8559 7012-7734 24 Hour Total INTAKE PO 480 480 PO 480 480 Shift Total 480 480 OUTPUT Urine 900 1050 1950 Output ([REMOVED] Indwelling Urinary Catheter 05/09/21 0830 Coude 18 Fr 05/10/21 ) 450 450 Output ( Indwelling Urinary Catheter 05/11/21 0830) 450 1050 1500 # of BMs Number of BMs 2 x 2 x Incontinent BM 1 x 1 x Shift Total 900 1050 1950 Weight (kg) 104.9 104.9 104.9 104.9 104.9 104.9 104.9 104.9 MEDICATIONS Current Facility-Administered Medications Medication Dose Route Frequency - acetaminophen 1,000 mg tab(s) (TYLENOL) 1,000 mg ORAL/FEEDING TUBE QID - propranolol 10 mg tab(s) (INDERAL) 10 mg ORAL/FEEDING TUBE QID - enoxaparin 30 mg injection (LOVENOX) 30 mg SUBCUTANEOUS BID - oxyCODONE IR 5-10 mg tab(s) (ROXICODONE) 5-10 mg ORAL q 4 H PRN - melatonin 6 mg tab(s) 6 mg ORAL DAILY (8 PM) - ipratropium-albuterol 3 mL nebulizer solution (DUONEB) 3 mL INHALATION q 4 HR - levETIRAcetam 1,000 mg tab(s) (KEPPRA) 1,000 mg ORAL q 8 H - polyethylene glycol 3350 17 g packet (MIRALAX, GLYCOLAX) 17 g ORAL DAILY - cholecalciferol 1,000 Units tab(s) (VITAMIN D3) 1,000 Units ORAL DAILY - NaCl 0.9% iv flush bag 20 mL INTRAVENOUS PRN - sodium chloride 0.9 % (flush) 3-5 mL (BD POSIFLUSH) 3-5 mL INTRAVENOUS q 12 H - ondansetron 4 mg tab(s) (ZOFRAN) 4 mg ORAL q 6 H PRN Or - ondansetron (PF) 4 mg injection (ZOFRAN) 4 mg INTRAVENOUS q 6 H PRN - senna-docusate 8.6-50 mg 1 tablet (SENNA-S) 1 tablet ORAL BID - lidocaine 4 % 1 Patch (SALONPAS) 1 Patch TRANSDERMAL DAILY AT 9 PM And - lidocaine patch - REMOVE OTHER DAILY And - lidocaine - VERIFY PATCH OTHER q 8 H Labs: Recent Labs 05/12/21 0127 05/11/21 0511 05/10/21 0327 NA 143 141 141 K 3.9 3.9 4.2 CHLOR 104 105 104 CO2 27 28 28 BUN 24 24 24 CREAT 0.83 0.74 0.74 GLUC 102* 104* 141* ANION 12 8* 9 CA 9.2 8.8 8.7 MG -- 2.2 1.9 WBC 10.98 9.95 10.17 HB 11.4* 10.6* 10.1* HCT 35.7* 33.6* 31.5* PLT 313 231 181 PH -- -- 7.42 PCO2 -- -- 46 PO2 -- -- 75* BE -- -- 5* HCO3 -- -- 29* PHYSICAL EXAM: Genl: Appears age appropriate. No acute distress. Resting comfortably. Head/Face: Normocephalic. Atraumatic. Eyes: EOMI. Sclera not icteric, not injected Neck: No mid-line masses. C-spine non-tender. Back: Deferred. Resp: Lung sounds are clear bilat. No wheezes. No rales. Breathing is non-labored on RA @93%. CVS: RRR as above; 2+ pulses at RA, DP, PT bilat. GI: Abdomen is soft, non-tender, not distended. Bowel sounds normoactive. No peritonitis. MSK: Extremities without clubbing, cyanosis, edema. Normal ROM x 3. Decreased ROM to RUE 2/2 pain. Skin: Warm and dry. Not jaundiced. Neuro: AANDOx1-2. Strength and sensation normal. [place]. ASSESSMENT AND PLAN: Active Hospital Problems Diagnosis Date Noted - TBI (traumatic brain injury) ([facility]) 05/07/2021 - Acute respiratory failure ([facility]) 05/07/2021 - Multiple rib fractures 05/07/2021 - Cervical transverse process fracture, initial encounter ([facility]) 05/07/2021 - Closed fracture of transverse process of thoracic vertebra ([facility]) 05/07/2021 - Closed fracture of temporal bone ([facility]) 05/07/2021 - Subarachnoid hemorrhage following injury, with loss of consciousness ([facility]) 05/07/2021 - Closed displaced fracture of acromial end of right clavicle 05/07/2021 - Closed wedge compression fracture of T6 vertebra (HCC) 05/07/2021 - Closed wedge compression fracture of T11 vertebra (HCC) 05/07/2021 - Contusion of right lung 05/07/2021 - Closed nondisplaced fracture of body of right scapula 05/07/2021 - SDH (subdural hematoma) (HCC) 05/06/2021 40 year old male s/p large branch/log falling on head and right side Imaging performed: 1. CT HNFCAPTLspine, CTA HN, CXR/PXR, XR R shoulder (05/06) 2. CT brain, MRI TLspine (05/07) 3. CT brain x2 (05/08) 4. Daily CXR (05/07-05/11) 5. CXR (05/12) Traumatic Injuries: 1 (more content not included)... [facility] 05-12-2021 Note HNO ID: [id number] Author: Jocelyne Delatorre DO Service: General Surgery Author Type: Resident Type: Plan of Care Filed: 05/12/2021 1:49 AM Note Text: Plan of Care: Paged to bedside due to concern for respiratory distress. Patient is resting comfortably. He does not have nasal cannula in place. He is saturating 90-94% on RA. Coarse breath sounds noted. He has been agitated throughout the night and has just fallen asleep. BP 145/83 Pulse 75 Temp 36.7 ?C (98.1 ?F) (Axillary) Resp 25 Ht 177.8 cm (5' 10) Wt 104.9 kg (231 lb 4.2 oz) SpO2 94% BMI 33.18 kg/m? Plan: - Breathing treatment at 4AM - Recommend fu CXR in AM [facility] 05-11-2021 Note HNO ID: [id number] Author: Nandini Meneses MD Service: General Surgery Author Type: Physician Type: Progress Notes Filed: 05/11/2021 11:54 AM Note Text: Trauma Surgery Progress Note SERVICE DATE: 05/11/2021 Trauma Service Pager: For questions or concerns Mon-Fri 6a-5p please page [phone]. After 5pm and on Weekends and Holidays, please page [phone] if in ICU or [phone] if on RNF. SUBJECTIVE: NAEO. Extubated yesterday. Able to respond to commands however is minimally verbally responsive. Having pain on the R side. OBJECTIVE: Vitals: Temp (24hrs), Av.8 ?C (96.5 ?F), Min:27.5 ?C (81.5 ?F), Max:37.7 ?C (99.86 ?F) BP 130/80 Pulse 72 Temp 37 ?C (98.6 ?F) Resp 17 Ht 177.8 cm (5' 10) Wt 104.9 kg (231 lb 4.2 oz) SpO2 95% BMI 33.18 kg/m? O2 Therapy: Nasal Cannula IANDO: Date 05/10/21 07 - 05/11/21 0659 05/11/21 0700 - 05/12/21 0659 Shift 4885-9569 3758-6518 0174-6600 24 Hour Total 6885-2501 8144-8116 8525-9417 24 Hour Total INTAKE Irrigants 60 60 Irrigant/Flush Amount In ([REMOVED] GI Feed 05/06/21 1650 Gastric Mouth 05/10/21 1045) 60 60 Gastric Tube 100 100 Tube Feed Intake (I/O) ([REMOVED] GI Feed 05/06/21 1650 Gastric Mouth 05/10/21 1045) 100 100 Shift Total 160 160 OUTPUT Urine 1820 644 576 5686 Straight cath (ml) 315 845 7599 Output ([REMOVED] Indwelling Urinary Catheter 05/09/21 0000 Coude 18 Fr 05/10/21 ) 8101 221 3932 # of BMs Number of BMs 1 x 1 x Incontinent BM 1100 x 1100 x Shift Total 1820 650 450 9809 Weight (kg) 104.9 104.9 104.9 104.9 104.9 104.9 104.9 104.9 MEDICATIONS Current Facility-Administered Medications Medication Dose Route Frequency - phosphorus 500 mg tab(s) (K PHOS NEUTRAL) 500 mg ORAL/FEEDING TUBE PC and HS - gabapentin 300 mg cap(s) (NEURONTIN) 300 mg ORAL/FEEDING TUBE q 8 H - propranolol 10 mg tab(s) (INDERAL) 10 mg ORAL/FEEDING TUBE QID - enoxaparin 30 mg injection (LOVENOX) 30 mg SUBCUTANEOUS BID - oxyCODONE IR 5-10 mg tab(s) (ROXICODONE) 5-10 mg ORAL q 4 H PRN - melatonin 6 mg tab(s) 6 mg ORAL DAILY (8 PM) - ipratropium-albuterol 3 mL nebulizer solution (DUONEB) 3 mL INHALATION q 4 HR - levETIRAcetam 1,000 mg tab(s) (KEPPRA) 1,000 mg ORAL q 8 H - polyethylene glycol 3350 17 g packet (MIRALAX, GLYCOLAX) 17 g ORAL DAILY - acetaminophen 650 mg tab(s) (TYLENOL) 650 mg ORAL/FEEDING TUBE q 4 H - cholecalciferol 1,000 Units tab(s) (VITAMIN D3) 1,000 Units ORAL DAILY - NaCl 0.9% iv flush bag 20 mL INTRAVENOUS PRN - sodium chloride 0.9 % (flush) 3-5 mL (BD POSIFLUSH) 3-5 mL INTRAVENOUS q 12 H - potassium chloride ER 20-40 mEq tab(s) (K-DUR, KLOR-CON) 20-40 mEq ORAL/FEEDING TUBE PRN Or - potassium chloride iv piggyback 20 mEq/100 mL 20 mEq INTRAVENOUS PRN - magnesium sulfate in sterile water 2 g in sterile water 50 ml 2 g INTRAVENOUS PRN - phosphorus 500 mg tab(s) (K PHOS NEUTRAL) 500 mg ORAL/FEEDING TUBE PRN(NO DISPENSE) - calcium gluconate 4 g in NaCl 0.9% 250 mL 4 g INTRAVENOUS PRN - ondansetron 4 mg tab(s) (ZOFRAN) 4 mg ORAL q 6 H PRN Or - ondansetron (PF) 4 mg injection (ZOFRAN) 4 mg INTRAVENOUS q 6 H PRN - propofol 20 mg bolus from bag (DIPRIVAN) 20 mg INTRAVENOUS q 30 MIN PRN Or - propofol 20 mg injection (DIPRIVAN) 20 mg INTRAVENOUS q 30 MIN PRN - senna-docusate 8.6-50 mg 1 tablet (SENNA-S) 1 tablet ORAL BID - lidocaine 4 % 1 Patch (SALONPAS) 1 Patch TRANSDERMAL DAILY AT 9 PM And - lidocaine patch - REMOVE OTHER DAILY And - lidocaine - VERIFY PATCH OTHER q 8 H Labs: Recent Labs 05/11/21 0511 05/10/21 0327 05/09/21 0255 NA 141 141 139 K 3.9 4.2 4.3 CHLOR 105 104 104 CO2 28 28 28 BUN 24 24 18 CREAT 0.74 0.74 0.75 GLUC 104* 141* 151* ANION 8* 9 7* CA 8.8 8.7 8.5 MG 2.2 1.9 2.0 WBC 9.95 10.17 11.11* HB 10.6* 10.1* 10.7* HCT 33.6* 31.5* 33.1* PLT 231 181 156 PH -- 7.42 7.42 PCO2 -- 46 44 PO2 -- 75* 95 BE -- 5* 4* HCO3 -- 29* 28* PHYSICAL EXAM: Genl: NAD,resting comfortably in bed HEENT: NCAT Neck: midline trachea, c collar off Resp: unlabored resp on nasal cannula CVS: RRR , warm and well perfused GI: Abdomen is soft, not distended, no rebound or gaurding Skin: Warm and dry. Not jaundiced. Neuro: weakly follows commands, [place] ASSESSMENT AND PLAN: Active Hospital Problems Diagnosis Date Noted - TBI (traumatic brain injury) ([facility]) 05/07/2021 - Acute respiratory failure ([facility]) 05/07/2021 - Multiple rib fractures 05/07/2021 - Cervical transverse process fracture, initial encounter ([facility]) 05/07/2021 - Closed fracture of transverse process of thoracic vertebra ([facility]) 05/07/2021 - Closed fracture of temporal bone ([facility]) 05/07/2021 - Subarachnoid hemorrhage following injury, with loss of consciousness ([facility]) 05/07/2021 - Closed displaced fracture of acromial end of right clavicle 05/07/2021 - Closed wedge compression fracture of T6 vertebra ([facility]) 05/07/2021 - Closed wedge compression fracture of T11 vertebra ([facility]) 05/07/2021 - (more content not included)... [facility] 05-11-2021 Note HNO ID: [id number] Author: Natalie Hayes MD Service: Orthopaedic Surgery Author Type: Resident Type: Progress Notes Filed: 05/11/2021 7:23 AM Note Text: -- Attestation signed by Siva Cormier DO at 05/11/2021 10:40 AM I saw and examined the patient today. I agree with the residents assessment and plan. Upon physical exam the patient was able to move all 4 extremities. He is unable to follow commands to follow a formal neurologic spine exam. MRI was completed of his thoracic spine and displayed compression fracture of T6 and T11, without involvement of the posterior ligamentous complex. Recommend TLSO brace. Once brace is on standing x-rays to evaluate alignment. He will also need a more formal exam once following commands. Siva Cormier DO -- ORTHOPAEDIC SURGERY DAILY PROGRESS NOTE ASSESSMENT: 40 yo M with TP fx of C3,C7, T1, T3-9, T6 compression fx without retropulsion, and T11 compression fx with 30% loss of height with no retropulsion PLAN: -Management per trauma -Spine precautions -PT/OT: after brace -DVT PPX: per trauma -[facility] bionics consult for brace -Will need standing thoracic films after brace is on -Will need full spine exam when mental status improved -Pain control -Disposition: per trauma INTERVAL HPI: No acute events overnight. Pain controlled. Denies fevers and chills. Denies chest pain and shortness of breath. OBJECTIVE: BP 123/67 Pulse 63 Temp 37.3 ?C (99.14 ?F) Resp 16 Ht 177.8 cm (5' 10) Wt 104.9 kg (231 lb 4.2 oz) SpO2 96% BMI 33.18 kg/m? Exam: General: Patient does not respond to questioning, moving all extremities, but does not follow commands Cervical Spine Sensation unable to determine due to mental status Motor exam difficult to obtain due to mental status, but patient noted to be moving bilateral upper extremities and able to overcome gravity easily Reflexes Right Left Biceps 2+ Normal 2+ Normal Brachioradialis 2+ Normal 2+ Normal Ortiz's absent absent Thoracic AND Lumbar Spine Sensation unable to determine due to mental status Motor exam difficult to obtain due to mental status, but patient noted to be moving bilateral lower extremities on the bed Reflexes Right Left Knee 2+ Normal 2+ Normal Ankle 2+ Normal 2+ Normal Clonus absent absent Babinski Downgoing Downgoing Recent Labs 05/11/21 0511 05/10/21 0327 05/09/21 0255 CREAT 0.74 0.74 0.75 BUN 24 24 18 NA 141 141 139 K 3.9 4.2 4.3 CHLOR 105 104 104 CO2 28 28 28 ANION 8* 9 7* GLUC 104* 141* 151* CA 8.8 8.7 8.5 MG 2.2 1.9 2.0 WBC 9.95 10.17 11.11* HB 10.6* 10.1* 10.7* HCT 33.6* 31.5* 33.1* PLT 231 181 156 COAGS: APTT 22.4 05/06/2021 INR 1.1 05/06/2021 SED RATE/CRP: No results found for this basename: wsr:*,crp:* Imaging: No new Natalie Hayes MD Orthopaedic Surgery 05/11/2021 6:51 AM [facility] 05-11-2021 Note HNO ID: [id number] Author: Billy Ramirez MD Service: General Surgery Author Type: Physician Type: Progress Notes Filed: 05/11/2021 9:20 AM Note Text: INPATIENT SICU PROGRESS NOTE SERVICE DATE: 05/11/2021 SERVICE TIME: 6:35 AM Subjective Pt seen this morning, he was extubated yesterday and passed his bedside swallow but hasn't been speaking much. Per nursing he responds more to family in room when they speak tunisian. He tracks but doesn't answer questions or follow commands but does not seem in distress. Current Facility-Administered Medications Medication Dose Route Frequency - NaCl 0.9% iv flush bag 20 mL INTRAVENOUS PRN - sodium chloride 0.9 % (flush) 3-5 mL (BD POSIFLUSH) 3-5 mL INTRAVENOUS q 12 H - potassium chloride ER 20-40 mEq tab(s) (K-DUR, KLOR-CON) 20-40 mEq ORAL/FEEDING TUBE PRN Or - potassium chloride iv piggyback 20 mEq/100 mL 20 mEq INTRAVENOUS PRN - magnesium sulfate in sterile water 2 g in sterile water 50 ml 2 g INTRAVENOUS PRN - phosphorus 500 mg tab(s) (K PHOS NEUTRAL) 500 mg ORAL/FEEDING TUBE PRN(NO DISPENSE) - calcium gluconate 4 g in NaCl 0.9% 250 mL 4 g INTRAVENOUS PRN - ondansetron 4 mg tab(s) (ZOFRAN) 4 mg ORAL q 6 H PRN Or - ondansetron (PF) 4 mg injection (ZOFRAN) 4 mg INTRAVENOUS q 6 H PRN - propofol 20 mg bolus from bag (DIPRIVAN) 20 mg INTRAVENOUS q 30 MIN PRN Or - propofol 20 mg injection (DIPRIVAN) 20 mg INTRAVENOUS q 30 MIN PRN - senna-docusate 8.6-50 mg 1 tablet (SENNA-S) 1 tablet ORAL BID - lidocaine 4 % 1 Patch (SALONPAS) 1 Patch TRANSDERMAL DAILY AT 9 PM And - lidocaine patch - REMOVE OTHER DAILY And - lidocaine - VERIFY PATCH OTHER q 8 H - levETIRAcetam 1,000 mg tab(s) (KEPPRA) 1,000 mg ORAL q 8 H - polyethylene glycol 3350 17 g packet (MIRALAX, GLYCOLAX) 17 g ORAL DAILY - acetaminophen 650 mg tab(s) (TYLENOL) 650 mg ORAL/FEEDING TUBE q 4 H - cholecalciferol 1,000 Units tab(s) (VITAMIN D3) 1,000 Units ORAL DAILY - enoxaparin 30 mg injection (LOVENOX) 30 mg SUBCUTANEOUS BID - oxyCODONE IR 5-10 mg tab(s) (ROXICODONE) 5-10 mg ORAL q 4 H PRN - melatonin 6 mg tab(s) 6 mg ORAL DAILY (8 PM) - ipratropium-albuterol 3 mL nebulizer solution (DUONEB) 3 mL INHALATION q 4 HR - gabapentin 300 mg cap(s) (NEURONTIN) 300 mg ORAL/FEEDING TUBE q 8 H - propranolol 10 mg tab(s) (INDERAL) 10 mg ORAL/FEEDING TUBE QID - phosphorus 500 mg tab(s) (K PHOS NEUTRAL) 500 mg ORAL/FEEDING TUBE PC and HS Objective VITAL SIGNS BP 123/67 Pulse 63 Temp (Src) 99.14 (Axillary) Resp 16 Ht 5' 10 (1.78m) Wt 231 lb 4.2 oz (104.9kg) SpO2 96% BMI 33.18 kg/(m2). O2 Therapy: Nasal Cannula, Liters: 2 Temp (24hrs), Av.8 ?C (96.5 ?F), Min:27.5 ?C (81.5 ?F), Max:37.7 ?C (99.86 ?F) Date 05/10/21 07 - 05/11/21 0659 05/11/21 07 - 05/12/21 0659 Shift 2106-5553 4691-8762 6000-5113 24 Hour Total 3840-7805 2462-8713 5344-5743 24 Hour Total INTAKE Irrigants 60 60 Irrigant/Flush Amount In ([REMOVED] GI Feed 05/06/21 1650 Gastric Mouth 05/10/21 1045) 60 60 Gastric Tube 100 100 Tube Feed Intake (I/O) ([REMOVED] GI Feed 05/06/21 1650 Gastric Mouth 05/10/21 1045) 100 100 Shift Total 160 160 OUTPUT Urine 1820 884 645 1104 Straight cath (ml) 138 918 8170 Output ([REMOVED] Indwelling Urinary Catheter 05/09/21 0000 Coude 18 Fr 05/10/21 ) 8335 057 1868 # of BMs Number of BMs 1 x 1 x Incontinent BM 1100 x 1100 x Shift Total 1820 927 770 5787 Weight (kg) 104.9 104.9 104.9 104.9 104.9 104.9 104.9 104.9 PHYSICAL EXAM: GENERAL: Alert. No distress. Resting comfortably. NEURO:No focal neurologic deficits. R[place], not following commands this morning HEENT: Normocephalic. Atraumatic. EOMI. LUNGS: Unlabored breathing. Equal excursion bilaterally. CARDIAC: Regular rate. Good perfusion throughout. ABDOMEN: Soft, non-tender, non-distended. No rebound or guarding. EXTREMITIES: ROCKWELL. No deformities. SKIN: No obvious jaundice or pallor. DATA: Diagnostic tests reviewed for today's visit: Recent Labs 05/10/21 0327 05/09/21 0255 PH 7.42 7.42 PCO2 46 44 PO2 75* 95 BE 5* 4* HCO3 29* 28* CO2CT 27.2 25.8 O2HB 92* 96 COHB 1.6 1.3 MHGB <1.0 <1.0 PHTC 7.42 7.41 PCO2T 47* 46 PO2T 75.7* 97.9* O2AD 30 35 Recent Labs 05/11/21 0511 05/10/21 0327 05/09/21 0255 CREAT 0.74 0.74 0.75 BUN 24 24 18 NA 141 141 139 K 3.9 4.2 4.3 CHLOR 105 104 104 CO2 28 28 28 ANION 8* 9 7* GLUC 104* 141* 151* CA 8.8 8.7 8.5 MG 2.2 1.9 2.0 WBC 9.95 10.17 11.11* HB 10.6* 10.1* 10.7* HCT 33.6* 31.5* 33.1* PLT 231 181 156 ACTIVE PROBLEM LIST Sdh (Subdural Hematoma) (Hcc) Tbi (Traumatic Brain Injury) (Hcc) Acute Respiratory Failure (Hcc) Multiple Rib Fractures Cervical Transverse Process Fracture, Initial Encounter ([facility]) Closed Fracture of Transverse Process of Thoracic Vertebra (Hcc) Closed Fracture of Temporal Bone (Hcc) Subarachnoid Hemorrhage Following Injury, With Loss of Consciousness (Hcc) Clos (more content not included)... [facility] 05-10-2021 Note HNO ID: [id number] Author: Billy Ramirez MD Service: General Surgery Author Type: Physician Type: Progress Notes Filed: 05/10/2021 9:40 AM Note Text: INPATIENT SICU PROGRESS NOTE SERVICE DATE: 05/10/2021 SERVICE TIME: 8:49 AM Subjective Pt awakens today and follows commands, shakes his head no to pain, intubated. Current Facility-Administered Medications Medication Dose Route Frequency - NaCl 0.9% iv flush bag 20 mL INTRAVENOUS PRN - sodium chloride 0.9 % (flush) 3-5 mL (BD POSIFLUSH) 3-5 mL INTRAVENOUS q 12 H - potassium chloride ER 20-40 mEq tab(s) (K-DUR, KLOR-CON) 20-40 mEq ORAL/FEEDING TUBE PRN Or - potassium chloride iv piggyback 20 mEq/100 mL 20 mEq INTRAVENOUS PRN - magnesium sulfate in sterile water 2 g in sterile water 50 ml 2 g INTRAVENOUS PRN - phosphorus 500 mg tab(s) (K PHOS NEUTRAL) 500 mg ORAL/FEEDING TUBE PRN(NO DISPENSE) - calcium gluconate 4 g in NaCl 0.9% 250 mL 4 g INTRAVENOUS PRN - ondansetron 4 mg tab(s) (ZOFRAN) 4 mg ORAL q 6 H PRN Or - ondansetron (PF) 4 mg injection (ZOFRAN) 4 mg INTRAVENOUS q 6 H PRN - propofol 20 mg bolus from bag (DIPRIVAN) 20 mg INTRAVENOUS q 30 MIN PRN Or - propofol 20 mg injection (DIPRIVAN) 20 mg INTRAVENOUS q 30 MIN PRN - Chlorhexidine Gluconate 0.12 % 15 mL (PERIDEX) 15 mL ORAL q 12 H - senna-docusate 8.6-50 mg 1 tablet (SENNA-S) 1 tablet ORAL BID - lidocaine 4 % 1 Patch (SALONPAS) 1 Patch TRANSDERMAL DAILY AT 9 PM And - lidocaine patch - REMOVE OTHER DAILY And - lidocaine - VERIFY PATCH OTHER q 8 H - levETIRAcetam 1,000 mg tab(s) (KEPPRA) 1,000 mg ORAL q 8 H - polyethylene glycol 3350 17 g packet (MIRALAX, GLYCOLAX) 17 g ORAL DAILY - acetaminophen 650 mg tab(s) (TYLENOL) 650 mg ORAL/FEEDING TUBE q 4 H - cholecalciferol 1,000 Units tab(s) (VITAMIN D3) 1,000 Units ORAL DAILY - phosphorus 250 mg tab(s) (K PHOS NEUTRAL) 250 mg ORAL/FEEDING TUBE PC and HS - enoxaparin 30 mg injection (LOVENOX) 30 mg SUBCUTANEOUS BID - oxyCODONE IR 5-10 mg tab(s) (ROXICODONE) 5-10 mg ORAL q 4 H PRN - melatonin 6 mg tab(s) 6 mg ORAL DAILY (8 PM) - ipratropium-albuterol 3 mL nebulizer solution (DUONEB) 3 mL INHALATION q 4 HR - gabapentin 300 mg cap(s) (NEURONTIN) 300 mg ORAL/FEEDING TUBE q 8 H - propranolol 10 mg tab(s) (INDERAL) 10 mg ORAL/FEEDING TUBE QID Objective VITAL SIGNS BP 129/72 Pulse 73 Temp (Src) 99.5 (Axillary) Resp 16 Ht 5' 10 (1.78m) Wt 231 lb 4.2 oz (104.9kg) SpO2 91% BMI 33.18 kg/(m2). O2 Therapy: Ventilator, %FIO2: 30 Temp (24hrs), Av.6 ?C (99.6 ?F), Min:36.7 ?C (98.06 ?F), Max:38.4 ?C (101.12 ?F) Date 05/09/21 07 - 05/10/21 0659 05/10/21 07 - 05/11/21 0659 Shift 8439-7601 1861-7800 3301-7351 24 Hour Total 7067-5471 0896-9074 7372-2425 24 Hour Total INTAKE IV 500 21 50 571 Volume (mL) (NaCl 0.9% iv flush bag) 21 21 Volume (mL) (potassium phosphate 45 mmol in NaCl 0.9% 500 mL) 500 500 Volume (mL) (magnesium sulfate in sterile water 2 g in sterile water 50 ml) 50 50 Irrigants 60 60 60 180 60 60 Irrigant/Flush Amount In (GI Feed 05/06/21 1650 Gastric Mouth) 60 60 60 180 60 60 Gastric Tube 472 112 929 8482 100 100 Supplements/Additives (mL) (GI Feed 05/06/21 1650 Gastric Mouth) 180 280 120 580 Tube Feed Intake (I/O) (GI Feed 05/06/21 1650 Gastric Mouth) 292 542 776 9728 100 100 Shift Total 1032 499 632 6885 160 160 OUTPUT Urine 400 192 314 6372 200 200 Output ( Indwelling Urinary Catheter 05/09/21 0000 Coude 18 Fr) 400 122 735 9016 200 200 # of BMs Number of BMs 0 x 0 x Shift Total 400 370 354 7150 200 200 Weight (kg) 106 106 104.9 104.9 104.9 104.9 104.9 104.9 PHYSICAL EXAM: GENERAL: intubated NEURO: AANDOx3. No focal neurologic deficits. Sensation grossly intact. HEENT: Normocephalic. Atraumatic. EOMI. LUNGS: intubated on vent CARDIAC: Regular rate. Good perfusion throughout. ABDOMEN: Soft, non-distended. EXTREMITIES: R[place]. No deformities. SKIN: No obvious jaundice or pallor. DATA: Diagnostic tests reviewed for today's visit: Recent Labs 05/10/21 0327 05/09/21 02505/08/21337 PH 7.42 7.42 7.39 PCO2 46 44 45 PO2 75* 95 65* BE 5* 4* 2 HCO3 29* 28* 27* CO2CT 27.2 25.8 24.4 O2HB 92* 96 91* COHB 1.6 1.3 1.6 MHGB <1.0 <1.0 1.0 PHTC 7.42 7.41 7.40 PCO2T 47* 46 44 PO2T 75.7* 97.9* 65.0* O2AD 30 35 30 Recent Labs 05/10/2132605/09/2125405/08/2133705/07/21 1417 CREAT 0.74 0.75 0.86 0.89 BUN 24 18 19 19 NA 141 139 137 140 K 4.2 4.3 3.9 4.4 CHLOR 104 104 103 107* CO2 28 28 25 25 ANION 9 7* 9 8* GLUC 141* 151* 118* 125* CA 8.7 8.5 8.6 8.5 MG 1.9 2.0 2.0 -- WBC 10.17 11.11* 10.88 -- HB 10.1* 10.7* 11.0* -- HCT 31.5* 33.1* 34.3* -- PLT 181 156 176 -- ACTIVE PROBLEM LIST Sdh (Subdural Hematoma) ([facility]) Tbi (Traumatic Brain Injury) ([facility]) Acute Respiratory Failure (Hcc) Multiple Rib Fractures Cervical Transverse Process Fracture, Initial Encounter ([facility]) Closed Fracture (more content not included)... [facility] 05-09-2021 Note HNO ID: [id number] Author: Nuvia Davidson PA-C Service: Neurosurgery Author Type: Physician Material Control Associate Type: Progress Notes Filed: 05/09/2021 2:24 PM Note Text: PROGRESS NOTE NEUROSURGERY SERVICE DATE: 05/09/[address] brain repeated overnight due to concern for AMS- stable imaging. Patient remains intubated and sedated. Following simple commands intermittently to left side. Moves right side but does not follow commands for this examiner. Current Facility-Administered Medications Medication Dose Route Frequency - NaCl 0.9% iv flush bag 20 mL INTRAVENOUS PRN - sodium chloride 0.9 % (flush) 3-5 mL (BD POSIFLUSH) 3-5 mL INTRAVENOUS q 12 H - potassium chloride ER 20-40 mEq tab(s) (K-DUR, KLOR-CON) 20-40 mEq ORAL/FEEDING TUBE PRN Or - potassium chloride iv piggyback 20 mEq/100 mL 20 mEq INTRAVENOUS PRN - magnesium sulfate in sterile water 2 g in sterile water 50 ml 2 g INTRAVENOUS PRN - phosphorus 500 mg tab(s) (K PHOS NEUTRAL) 500 mg ORAL/FEEDING TUBE PRN(NO DISPENSE) - calcium gluconate 4 g in NaCl 0.9% 250 mL 4 g INTRAVENOUS PRN - ondansetron 4 mg tab(s) (ZOFRAN) 4 mg ORAL q 6 H PRN Or - ondansetron (PF) 4 mg injection (ZOFRAN) 4 mg INTRAVENOUS q 6 H PRN - propofol 20 mg bolus from bag (DIPRIVAN) 20 mg INTRAVENOUS q 30 MIN PRN Or - propofol 20 mg injection (DIPRIVAN) 20 mg INTRAVENOUS q 30 MIN PRN - Chlorhexidine Gluconate 0.12 % 15 mL (PERIDEX) 15 mL ORAL q 12 H - senna-docusate 8.6-50 mg 1 tablet (SENNA-S) 1 tablet ORAL BID - lidocaine 4 % 1 Patch (SALONPAS) 1 Patch TRANSDERMAL DAILY AT 9 PM And - lidocaine patch - REMOVE OTHER DAILY And - lidocaine - VERIFY PATCH OTHER q 8 H - levETIRAcetam 1,000 mg tab(s) (KEPPRA) 1,000 mg ORAL q 8 H - polyethylene glycol 3350 17 g packet (MIRALAX, GLYCOLAX) 17 g ORAL DAILY - acetaminophen 650 mg tab(s) (TYLENOL) 650 mg ORAL/FEEDING TUBE q 4 H - cholecalciferol 1,000 Units tab(s) (VITAMIN D3) 1,000 Units ORAL DAILY - phosphorus 250 mg tab(s) (K PHOS NEUTRAL) 250 mg ORAL/FEEDING TUBE PC and HS - enoxaparin 30 mg injection (LOVENOX) 30 mg SUBCUTANEOUS BID - oxyCODONE IR 5-10 mg tab(s) (ROXICODONE) 5-10 mg ORAL q 4 H PRN - melatonin 6 mg tab(s) 6 mg ORAL DAILY (8 PM) - ipratropium-albuterol 3 mL nebulizer solution (DUONEB) 3 mL INHALATION q 4 HR - potassium phosphate 45 mmol in NaCl 0.9% 500 mL 45 mmol INTRAVENOUS ONCE - gabapentin 300 mg cap(s) (NEURONTIN) 300 mg ORAL/FEEDING TUBE q 8 H - propranolol 10 mg tab(s) (INDERAL) 10 mg ORAL/FEEDING TUBE QID Objective Physical Exam Performed: General - Intubated. Sedated. Resp - even, unlabored, on vent GI - abdomen soft, non-tender, non-distended HEENT - Normocephalic. Atraumatic. No drainage noted from ears bilaterally. Neuro - Intubated. PERRL. Opens eyes to voice. R[place], L>R. Follows simple commands to left side, does not follow commands to right side for this examiner. Extremities- Grossly normal. Symmetrical. Pulses- 2+ DP VITAL SIGNS 24 HOUR REVIEW: Patient Vitals for the past 24 hrs: BP Temp Pulse Resp SpO2 Weight 05/09/21 0938 ? ? 77 25 94 % ? 05/09/21 0900 150/80 37.7 ?C (99.86 ?F) 92 17 95 % ? 05/09/21 0800 136/82 37.6 ?C (99.68 ?F) 90 20 93 % ? 05/09/21 0709 ? ? 80 17 95 % ? 05/09/21 0700 134/79 37.5 ?C (99.5 ?F) 84 16 95 % ? 05/09/21 0600 139/82 37.4 ?C (99.32 ?F) 79 15 96 % ? 05/09/21 0500 143/80 37.4 ?C (99.32 ?F) 97 18 96 % ? 05/09/21 0400 143/80 37.4 ?C (99.32 ?F) 105 16 96 % 106 kg (233 lb 11 oz) 05/09/21 0330 ? ? 73 16 97 % ? 05/09/21 0300 141/79 37.4 ?C (99.32 ?F) 76 18 97 % ? 05/09/21 0200 137/85 37.5 ?C (99.5 ?F) 77 17 96 % ? 05/09/21 0100 140/79 37.6 ?C (99.68 ?F) 84 19 97 % ? 05/09/21 0000 152/87 37.6 ?C (99.68 ?F) 101 15 96 % ? 05/08/21 2332 ? ? 81 17 98 % ? 05/08/21 2300 133/93 37.6 ?C (99.68 ?F) 78 15 97 % ? 05/08/21 2200 143/83 37.5 ?C (99.5 ?F) 84 17 96 % ? 05/08/21 2100 137/76 ? 78 17 96 % ? 05/08/21 2030 143/84 ? 85 18 95 % ? 05/08/21 2000 170/91 37.9 ?C (100.22 ?F) 98 17 96 % ? 05/08/21 1937 ? ? 85 18 97 % ? 05/08/21 1900 135/69 37.8 ?C (100.04 ?F) 78 17 96 % ? 05/08/21 1800 129/73 37.9 ?C (100.22 ?F) 81 18 96 % ? 05/08/21 1700 128/74 37.9 ?C (100.22 ?F) 81 17 96 % ? 05/08/21 1600 121/73 (!) 38 ?C (100.4 ?F) 83 18 96 % ? 05/08/21 1527 ? ? 86 17 96 % ? 05/08/21 1500 125/68 (!) 38 ?C (100.4 ?F) 77 17 96 % ? 05/08/21 1400 126/69 (!) 38 ?C (100.4 ?F) 78 19 95 % ? 05/08/21 1300 128/74 (!) 38 ?C (100.4 ?F) 80 17 97 % ? 05/08/21 1200 126/67 (!) 38 ?C (100.4 ?F) 85 18 96 % ? 05/08/21 1128 ? ? 72 17 96 % ? 05/08/21 1126 ? ? 79 19 94 % ? 05/08/21 1100 126/65 37.8 ?C (100.04 ?F) 75 17 95 % ? 05/08/21 1000 126/68 37.7 ?C (99.86 ?F) 76 17 95 % ? LABS: CBC, Coags, BMP, Mg, Phos Recent Labs 05/09/21 0255 05/08/21 0338 05/07/21 1417 05/07/21 0533 05/07/21 0406 05/06/21 1709 WBC 11.11* 10.88 -- -- 13.45* 15.29* HB 10.7* 11.0* -- -- 12.5* 11.8* HCT 33.1* 34.3* -- (more content not included)... [facility] 05-09-2021 Note HNO ID: [id number] Author: Billy Ramirez MD Service: General Surgery Author Type: Physician Type: Progress Notes Filed: 05/09/2021 9:07 AM Note Text: INPATIENT SICU PROGRESS NOTE SICU Service Pager: For questions or concerns Mon-Fri 6a-5p please page [phone]. After 5pm and on Weekends and Holidays, please page [phone]. SERVICE DATE: 05/09/2021 Subjective: NAEO, repeat head ct obtained for lethargy - stable. Follows commands this am. Tube feeds running Current Facility-Administered Medications Medication Dose Route Frequency - NaCl 0.9% iv flush bag 20 mL INTRAVENOUS PRN - sodium chloride 0.9 % (flush) 3-5 mL (BD POSIFLUSH) 3-5 mL INTRAVENOUS q 12 H - potassium chloride ER 20-40 mEq tab(s) (K-DUR, KLOR-CON) 20-40 mEq ORAL/FEEDING TUBE PRN Or - potassium chloride iv piggyback 20 mEq/100 mL 20 mEq INTRAVENOUS PRN - magnesium sulfate in sterile water 2 g in sterile water 50 ml 2 g INTRAVENOUS PRN - phosphorus 500 mg tab(s) (K PHOS NEUTRAL) 500 mg ORAL/FEEDING TUBE PRN(NO DISPENSE) - calcium gluconate 4 g in NaCl 0.9% 250 mL 4 g INTRAVENOUS PRN - ondansetron 4 mg tab(s) (ZOFRAN) 4 mg ORAL q 6 H PRN Or - ondansetron (PF) 4 mg injection (ZOFRAN) 4 mg INTRAVENOUS q 6 H PRN - propofol 20 mg bolus from bag (DIPRIVAN) 20 mg INTRAVENOUS q 30 MIN PRN Or - propofol 20 mg injection (DIPRIVAN) 20 mg INTRAVENOUS q 30 MIN PRN - propofol infusion (DIPRIVAN) 0-30 mcg/kg/min INTRAVENOUS CONTINUOUS - Chlorhexidine Gluconate 0.12 % 15 mL (PERIDEX) 15 mL ORAL q 12 H - senna-docusate 8.6-50 mg 1 tablet (SENNA-S) 1 tablet ORAL BID - lidocaine 4 % 1 Patch (SALONPAS) 1 Patch TRANSDERMAL DAILY AT 9 PM And - lidocaine patch - REMOVE OTHER DAILY And - lidocaine - VERIFY PATCH OTHER q 8 H - levETIRAcetam 1,000 mg tab(s) (KEPPRA) 1,000 mg ORAL q 8 H - polyethylene glycol 3350 17 g packet (MIRALAX, GLYCOLAX) 17 g ORAL DAILY - acetaminophen 650 mg tab(s) (TYLENOL) 650 mg ORAL/FEEDING TUBE q 4 H - cholecalciferol 1,000 Units tab(s) (VITAMIN D3) 1,000 Units ORAL DAILY - phosphorus 250 mg tab(s) (K PHOS NEUTRAL) 250 mg ORAL/FEEDING TUBE PC and HS - enoxaparin 30 mg injection (LOVENOX) 30 mg SUBCUTANEOUS BID - oxyCODONE IR 5-10 mg tab(s) (ROXICODONE) 5-10 mg ORAL q 4 H PRN - melatonin 6 mg tab(s) 6 mg ORAL DAILY (8 PM) - ipratropium-albuterol 3 mL nebulizer solution (DUONEB) 3 mL INHALATION q 4 HR - gabapentin 400 mg oral liquid (NEURONTIN) 400 mg ORAL/FEEDING TUBE TID - potassium phosphate 45 mmol in NaCl 0.9% 500 mL 45 mmol INTRAVENOUS ONCE Objective VITAL SIGNS BP 139/82 Pulse 79 Temp (Src) 99.32 (Axillary) Resp 15 Ht 5' 10 (1.78m) Wt 233 lb 11 oz (106.0kg) SpO2 96% BMI 33.53 kg/(m2). O2 Therapy: Ventilator, %FIO2: 30 Temp (24hrs), Av.7 ?C (99.8 ?F), Min:37.1 ?C (98.78 ?F), Max:38 ?C (100.4 ?F) Date 05/08/21699 - 05/09/2165805/09/21699 - 05/10/21 0659 Shift 5326-0322 0007-6379 8419-3511 24 Hour Total 4324-9999 7402-3693 3294-6769 24 Hour Total INTAKE IV 581.5 581.5 Volume (mL) 67.6 67.6 Volume (mL) 13.9 13.9 Volume (mL) (potassium phosphate 45 mmol in NaCl 0.9% 500 mL) 500 500 Irrigants 30 90 120 Irrigant/Flush Amount In (GI Feed 05/06/21 1650 Gastric Mouth) 30 90 120 Gastric Tube 262 168 495 925 Supplements/Additives (mL) (GI Feed 05/06/21 1650 Gastric Mouth) 60 60 Tube Feed Intake (I/O) (GI Feed 05/06/21 1650 Gastric Mouth) 202 168 495 865 Shift Total 843.5 024 526 2558.5 OUTPUT Urine 525 440 965 Straight cath (ml) 525 525 Output ([REMOVED] External Collection Device 05/07/21 1800 05/09/21 0000) 0 0 Output ( Indwelling Urinary Catheter 05/09/21 0000 Coude 18 Fr) 440 440 # of BMs Number of BMs 0 x 0 x Shift Total 525 440 965 Weight (kg) 106 106 106 106 106 106 106 106 PHYSICAL EXAM: GENERAL/NEURO: Patient in no distress, still intubated and sedated, Responds as able HEENT: EOMI, ET tube in place NECK: Trachea midline, no JVD SKIN: Skin color, texture, turgor normal. No rashes or lesions. LUNGS: Symmetric chest rise bilaterally on O2 Therapy: Ventilator, sating at SpO2: 95 % CARDIAC: Regular rate and rhythm as above ABDOMEN: Soft and non-distended EXTREMITIES: ROCKWELL. No deformities noted. Improved alertness from day prior. DATA: Diagnostic tests reviewed for today's visit: Recent Labs 05/09/2125405/08/218 05/07/21 0425 PH 7.42 7.39 7.36 PCO2 44 45 42 PO2 95 65* 92 BE 4* 2 -- HCO3 28* 27* 23 CO2CT 25.8 24.4 20.9* O2HB 96 91* 95 COHB 1.3 1.6 <1.0 MHGB <1.0 1.0 1.1 PHTC 7.41 7.40 7.38 PCO2T 46 44 40 PO2T 97.9* 65.0* 85.0 O2AD 35 30 -- Recent Labs 05/09/21 0255 05/08/21 0338 05/07/21 1417 05/07/21 0533 05/07/21 0406 05/06/21 1709 05/06/21 1644 CREAT 0.75 0.86 0.89 1.03 -- 0.72* -- BUN 18 19 19 18 -- 13 -- NA 139 137 140 139 -- 144 -- K 4.3 3.9 4.4 5.7* -- 2.7* -- CHLOR 104 103 107* 107* -- 113* -- CO2 28 25 25 22 -- 17* -- ANION 7* 9 8* 10 (more content not included)... [facility] 05-09-2021 Note HNO ID: [id number] Author: Nandini Meneses MD Service: General Surgery Author Type: Physician Type: Progress Notes Filed: 05/09/2021 8:28 PM Note Text: Trauma Surgery Progress Note SERVICE DATE: 05/09/2021 Trauma Service Pager: For questions or concerns Mon-Fri 6a-5p please page [phone]. After 5pm and on Weekends and Holidays, please page [phone] if in ICU or [phone] if on RNF. SUBJECTIVE: Overnight, there was concern for lethargy and altered mental status. Repeat CT H performed, and stable. Remains intubated, on vent. Tube feeds running. OBJECTIVE: Vitals: Temp (24hrs), Av.7 ?C (99.8 ?F), Min:37 ?C (98.6 ?F), Max:38 ?C (100.4 ?F) BP 143/80 Pulse 97 Temp 37.4 ?C (99.32 ?F) Resp 18 Ht 177.8 cm (5' 10) Wt 106 kg (233 lb 11 oz) SpO2 96% BMI 33.53 kg/m? O2 Therapy: Ventilator IANDO: Date 05/08/21699 - 05/09/21 0659 05/09/21699 - 05/10/21 0659 Shift 3899-3593 9027-6223 1204-2675 24 Hour Total 8125-9092 5820-0549 3811-2681 24 Hour Total INTAKE IV 581.5 581.5 Volume (mL) 67.6 67.6 Volume (mL) 13.9 13.9 Volume (mL) (potassium phosphate 45 mmol in NaCl 0.9% 500 mL) 500 500 Irrigants 30 90 120 Irrigant/Flush Amount In (GI Feed 05/06/21 1650 Gastric Mouth) 30 90 120 Gastric Tube 262 168 495 925 Supplements/Additives (mL) (GI Feed 05/06/21 1650 Gastric Mouth) 60 60 Tube Feed Intake (I/O) (GI Feed 05/06/21 1650 Gastric Mouth) 202 168 495 865 Shift Total 843.5 009 745 3886.5 OUTPUT Urine 525 440 965 Straight cath (ml) 525 525 Output ([REMOVED] External Collection Device 05/07/21 1800 05/09/21 0000) 0 0 Output ( Indwelling Urinary Catheter 05/09/21 0000 Coude 18 Fr) 440 440 # of BMs Number of BMs 0 x 0 x Shift Total 525 440 965 Weight (kg) 106 106 106 106 106 106 106 106 MEDICATIONS Current Facility-Administered Medications Medication Dose Route Frequency - potassium phosphate 45 mmol in NaCl 0.9% 500 mL 45 mmol INTRAVENOUS ONCE - phosphorus 250 mg tab(s) (K PHOS NEUTRAL) 250 mg ORAL/FEEDING TUBE PC and HS - enoxaparin 30 mg injection (LOVENOX) 30 mg SUBCUTANEOUS BID - oxyCODONE IR 5-10 mg tab(s) (ROXICODONE) 5-10 mg ORAL q 4 H PRN - melatonin 6 mg tab(s) 6 mg ORAL DAILY (8 PM) - ipratropium-albuterol 3 mL nebulizer solution (DUONEB) 3 mL INHALATION q 4 HR - gabapentin 400 mg oral liquid (NEURONTIN) 400 mg ORAL/FEEDING TUBE TID - famotidine 20 mg tab(s) (PEPCID) 20 mg ORAL BID - levETIRAcetam 1,000 mg tab(s) (KEPPRA) 1,000 mg ORAL q 8 H - polyethylene glycol 3350 17 g packet (MIRALAX, GLYCOLAX) 17 g ORAL DAILY - acetaminophen 650 mg tab(s) (TYLENOL) 650 mg ORAL/FEEDING TUBE q 4 H - cholecalciferol 1,000 Units tab(s) (VITAMIN D3) 1,000 Units ORAL DAILY - NaCl 0.9% iv flush bag 20 mL INTRAVENOUS PRN - sodium chloride 0.9 % (flush) 3-5 mL (BD POSIFLUSH) 3-5 mL INTRAVENOUS q 12 H - potassium chloride ER 20-40 mEq tab(s) (K-DUR, KLOR-CON) 20-40 mEq ORAL/FEEDING TUBE PRN Or - potassium chloride iv piggyback 20 mEq/100 mL 20 mEq INTRAVENOUS PRN - magnesium sulfate in sterile water 2 g in sterile water 50 ml 2 g INTRAVENOUS PRN - phosphorus 500 mg tab(s) (K PHOS NEUTRAL) 500 mg ORAL/FEEDING TUBE PRN(NO DISPENSE) - calcium gluconate 4 g in NaCl 0.9% 250 mL 4 g INTRAVENOUS PRN - ondansetron 4 mg tab(s) (ZOFRAN) 4 mg ORAL q 6 H PRN Or - ondansetron (PF) 4 mg injection (ZOFRAN) 4 mg INTRAVENOUS q 6 H PRN - propofol 20 mg bolus from bag (DIPRIVAN) 20 mg INTRAVENOUS q 30 MIN PRN Or - propofol 20 mg injection (DIPRIVAN) 20 mg INTRAVENOUS q 30 MIN PRN - propofol infusion (DIPRIVAN) 0-30 mcg/kg/min INTRAVENOUS CONTINUOUS - Chlorhexidine Gluconate 0.12 % 15 mL (PERIDEX) 15 mL ORAL q 12 H - senna-docusate 8.6-50 mg 1 tablet (SENNA-S) 1 tablet ORAL BID - lidocaine 4 % 1 Patch (SALONPAS) 1 Patch TRANSDERMAL DAILY AT 9 PM And - lidocaine patch - REMOVE OTHER DAILY And - lidocaine - VERIFY PATCH OTHER q 8 H Labs: Recent Labs 05/09/21 0255 05/08/21 0338 05/06/21 1932 05/06/21 1709 05/06/21 1644 NA 139 137 < > 144 -- K 4.3 3.9 < > 2.7* -- CHLOR 104 103 < > 113* -- CO2 28 25 < > 17* -- BUN 18 19 < > 13 -- CREAT 0.75 0.86 < > 0.72* -- GLUC 151* 118* < > 85 -- ANION 7* 9 < > 14 -- CA 8.5 8.6 < > 5.8* -- MG 2.0 2.0 < > -- -- ALB -- -- -- 3.3* -- AST -- -- -- 33 -- ALT -- -- -- 24 -- ALKPHOS -- -- -- 42 -- TBILI -- -- -- 0.3 -- WBC 11.11* 10.88 < > 15.29* -- HB 10.7* 11.0* < > 11.8* -- HCT 33.1* 34.3* < > 36.0* -- PLT 156 176 < > 184 -- LACT -- -- -- -- 1.2 INR -- -- -- 1.1 -- PH 7.42 7.39 < > -- -- PCO2 44 45 < > -- -- PO2 95 65* < > -- -- BE 4* 2 -- -- -- HCO3 28* 27* < > -- -- < > = values in this interval not displayed. PHYSICAL EXAM: Genl: NAD, sedated, on vent HEENT: NCAT Neck: aspen in place Resp: unlabored resp on vent, coarse breath sounds bilaterally CVS: RRR GI: Abdomen is soft, not distended Skin: Warm and dry. Not jaundiced. Neuro: weakly fo (more content not included)... [facility] 05-08-2021 Note HNO ID: [id number] Author: Kaila Garcia MD Service: General Surgery Author Type: Resident Type: Plan of Care Filed: 05/08/2021 9:49 PM Note Text: Patient's propofol had been off earlier this afternoon and the day RN had noted pt to be arousible and following command. However ~7pm both his RN and were concerned about his new lethargy. Evaluated the pt at bedside. He was HDS, moved upper and lower extremities but did not follow commands. Would open his eyes to his 's command. Given this new change in his mentation CTH was obtained that showed stable ICH. [facility] 05-08-2021 Note HNO ID: [id number] Author: Anitha Greenwood PA-C Service: Neurosurgery Author Type: Physician Material Control Associate Type: Progress Notes Filed: 05/08/2021 11:22 AM Note Text: PROGRESS NOTE NEUROSURGERY SERVICE DATE: 05/08/2021 Subjective INTERVAL HPI No acute events overnight. Patient remains intubated, sedated. The patient does not reliably follow commands. Current Facility-Administered Medications Medication Dose Route Frequency - NaCl 0.9% iv flush bag 20 mL INTRAVENOUS PRN - sodium chloride 0.9 % (flush) 3-5 mL (BD POSIFLUSH) 3-5 mL INTRAVENOUS q 12 H - potassium chloride ER 20-40 mEq tab(s) (K-DUR, KLOR-CON) 20-40 mEq ORAL/FEEDING TUBE PRN Or - potassium chloride iv piggyback 20 mEq/100 mL 20 mEq INTRAVENOUS PRN - magnesium sulfate in sterile water 2 g in sterile water 50 ml 2 g INTRAVENOUS PRN - phosphorus 500 mg tab(s) (K PHOS NEUTRAL) 500 mg ORAL/FEEDING TUBE PRN(NO DISPENSE) - calcium gluconate 4 g in NaCl 0.9% 250 mL 4 g INTRAVENOUS PRN - ondansetron 4 mg tab(s) (ZOFRAN) 4 mg ORAL q 6 H PRN Or - ondansetron (PF) 4 mg injection (ZOFRAN) 4 mg INTRAVENOUS q 6 H PRN - propofol 20 mg bolus from bag (DIPRIVAN) 20 mg INTRAVENOUS q 30 MIN PRN Or - propofol 20 mg injection (DIPRIVAN) 20 mg INTRAVENOUS q 30 MIN PRN - propofol infusion (DIPRIVAN) 0-30 mcg/kg/min INTRAVENOUS CONTINUOUS - Chlorhexidine Gluconate 0.12 % 15 mL (PERIDEX) 15 mL ORAL q 12 H - senna-docusate 8.6-50 mg 1 tablet (SENNA-S) 1 tablet ORAL BID - lidocaine 4 % 1 Patch (SALONPAS) 1 Patch TRANSDERMAL DAILY AT 9 PM And - lidocaine patch - REMOVE OTHER DAILY And - lidocaine - VERIFY PATCH OTHER q 8 H - famotidine 20 mg tab(s) (PEPCID) 20 mg ORAL BID - levETIRAcetam 1,000 mg tab(s) (KEPPRA) 1,000 mg ORAL q 8 H - polyethylene glycol 3350 17 g packet (MIRALAX, GLYCOLAX) 17 g ORAL DAILY - acetaminophen 650 mg tab(s) (TYLENOL) 650 mg ORAL/FEEDING TUBE q 4 H - cholecalciferol 1,000 Units tab(s) (VITAMIN D3) 1,000 Units ORAL DAILY - potassium phosphate 45 mmol in NaCl 0.9% 500 mL 45 mmol INTRAVENOUS ONCE - phosphorus 250 mg tab(s) (K PHOS NEUTRAL) 250 mg ORAL/FEEDING TUBE PC and HS - [START ON 05/09/2021] enoxaparin 30 mg injection (LOVENOX) 30 mg SUBCUTANEOUS BID - oxyCODONE IR 10 mg tab(s) (ROXICODONE) 10 mg ORAL q 6 H - oxyCODONE IR 5-10 mg tab(s) (ROXICODONE) 5-10 mg ORAL q 4 H PRN - melatonin 6 mg tab(s) 6 mg ORAL DAILY (8 PM) - ipratropium-albuterol 3 mL nebulizer solution (DUONEB) 3 mL INHALATION q 4 HR Objective Physical Exam Performed: General - Intubated. Sedated. Resp - even, unlabored, on vent GI - abdomen non-distended HEENT - Normocephalic. Neuro - Intubated. Pupils equal, round, reactive. Opens eyes to voice. Does not reliably follow commands, though he did squeeze hands/wiggle toes when his asked him to in Samoan. He did not release hands on command or give thumbs up, however Motor Exam- R[place], pulls hard against restraints, becomes very restless when stimulated RUE:5/5 LUE:5/5 RLE: at least 4/5 LLE: at least 4/5 Extremities- Grossly normal. Symmetrical. No edema, deformity, coloration changes. Pulses- 2+ DP, 2+ radial VITAL SIGNS 24 HOUR REVIEW: Patient Vitals for the past 24 hrs: BP Temp Temp src Pulse Resp SpO2 Weight 05/08/21 0937 ? 95 % ? 05/08/21 0900 116/73 37.5 ?C (99.5 ?F) ? 71 15 90 % ? 05/08/21 0800 125/79 37.1 ?C (98.78 ?F) Axillary 82 16 91 % 106 kg (233 lb 11 oz) 05/08/21 0721 ? ? ? 73 15 90 % ? 05/08/21 0700 119/75 37 ?C (98.6 ?F) ? 72 15 90 % ? 05/08/21 0600 140/74 37.5 ?C (99.5 ?F) ? 85 17 97 % ? 05/08/21 0500 126/73 37.3 ?C (99.14 ?F) ? 76 15 92 % ? 05/08/21 0400 133/69 37.1 ?C (98.78 ?F) ? 75 15 92 % ? 05/08/21 0326 ? ? ? 72 15 96 % ? 05/08/21 0300 119/78 36.6 ?C (97.88 ?F) ? 73 15 97 % ? 05/08/21 0200 116/72 36.6 ?C (97.88 ?F) ? 69 15 96 % ? 05/08/21 0100 121/75 36.8 ?C (98.24 ?F) ? 66 15 96 % ? 05/08/21 0000 113/69 36.8 ?C (98.24 ?F) ? 70 15 96 % ? 05/07/21 2329 ? ? ? 71 ? 96 % ? 05/07/21 2300 116/66 36.8 ?C (98.24 ?F) ? 72 15 97 % ? 05/07/21 2200 122/71 36.8 ?C (98.24 ?F) ? 74 15 96 % ? 05/07/21 2100 125/70 36.8 ?C (98.24 ?F) ? 73 15 95 % ? 05/07/21 2000 127/69 36 ?C (96.8 ?F) ? 67 15 95 % ? 05/07/21 1922 ? ? ? 71 15 95 % ? 05/07/21 1800 130/89 36.3 ?C (97.34 ?F) ? 83 16 92 % ? 05/07/21 1700 129/72 36.4 ?C (97.52 ?F) ? 68 15 93 % ? 05/07/21 1600 138/94 36.7 ?C (98.06 ?F) ? 86 13 97 % ? 05/07/21 1537 ? ? ? 74 11 97 % ? 05/07/21 1512 ? ? ? 72 14 95 % ? 05/07/21 1400 117/71 36.4 ?C (97.52 ?F) ? 73 15 96 % ? 05/07/21 1300 116/72 36.4 ?C (97.52 ?F) ? 70 15 97 % ? 05/07/21 1200 112/74 36.1 ?C (96.98 ?F) ? 71 15 97 % ? LABS: CBC, Coags, BMP, Mg, Phos Recent Labs 05/08/21 0338 05/07/21 1417 05/07/21 0533 05/07/21 0406 05/06/21 1709 WBC 10.88 -- -- 13.45* 15.29* HB 11.0* -- -- 12.5* 11.8* HCT 34.3* -- -- 38.8* 36.0* PLT 176 -- -- 218 184 INR -- -- -- -- 1.1 APTT -- -- -- -- 22.4* NA (more content not included)... [facility] 05-08-2021 Note HNO ID: [id number] Author: Monica Thayer MD Service: General Surgery Author Type: Physician Type: Progress Notes Filed: 05/08/2021 2:43 PM Note Text: Trauma Surgery Progress Note SERVICE DATE: 05/08/2021 Trauma Service Pager: For questions or concerns Mon-Fri 6a-5p please page [phone]. After 5pm and on Weekends and Holidays, please page [phone] if in ICU or [phone] if on RNF. SUBJECTIVE: Intubated/sedated on vent. HDS and AF. Sedated with no response to commands. Would open eyes to painful stimuli. OBJECTIVE: Vitals: Temp (24hrs), Av.7 ?C (98.1 ?F), Min:36 ?C (96.8 ?F), Max:37.5 ?C (99.5 ?F) BP 116/73 Pulse 71 Temp 37.5 ?C (99.5 ?F) Resp 15 Ht 177.8 cm (5' 10) Wt 106 kg (233 lb 11 oz) SpO2 95% BMI 33.53 kg/m? O2 Therapy: Ventilator IANDO: Date 05/07/21699 - 05/08/2165805/08/21699 - 05/09/21 0659 Shift 7157-7455 8993-1391 7014-6074 24 Hour Total 9252-8546 1474-9147 6477-1595 24 Hour Total INTAKE IV 1141.4 187 1328.4 46.3 46.3 Volume (mL) 76.3 126.2 202.5 32.4 32.4 Volume (mL) 28.1 60.8 88.9 13.9 13.9 Volume (mL) (levETIRAcetam iv piggyback 1,000 mg in NaCl (iso-osmotic) 100 mL (KEPPRA)) 100 100 Volume (mL) (NaCl 0.9% iv infusion) 937 937 Irrigants 30 60 90 Irrigant/Flush Amount In (GI Feed 05/06/21 1650 Gastric Mouth) 30 60 90 Gastric Tube 80 143 223 84 84 Supplements/Additives (mL) (GI Feed 05/06/21 1650 Gastric Mouth) 80 80 30 30 Tube Feed Intake (I/O) (GI Feed 05/06/21 1650 Gastric Mouth) 143 143 54 54 Shift Total 1221.4 30 390 1641.4 130.3 130.3 OUTPUT Urine 360 200 375 935 Straight cath (ml) 375 375 Output ( External Collection Device 05/07/21 1800) 0 0 Output ([REMOVED] Indwelling Urinary Catheter 05/06/21 165 Coude 05/07/21 1800) 360 200 560 Shift Total 360 200 375 935 Weight (kg) 104.4 104.4 104.4 104.4 106 106 106 106 MEDICATIONS Current Facility-Administered Medications Medication Dose Route Frequency potassium phosphate 45 mmol in NaCl 0.9% 500 mL 45 mmol INTRAVENOUS ONCE phosphorus 250 mg tab(s) (K PHOS NEUTRAL) 250 mg ORAL/FEEDING TUBE PC and HS oxyCODONE IR 10 mg tab(s) (ROXICODONE) 10 mg ORAL q 6 H oxyCODONE IR 5-10 mg tab(s) (ROXICODONE) 5-10 mg ORAL q 4 H PRN ipratropium-albuterol 3 mL nebulizer solution (DUONEB) 3 mL INHALATION q 4 HR famotidine 20 mg tab(s) (PEPCID) 20 mg ORAL BID levETIRAcetam 1,000 mg tab(s) (KEPPRA) 1,000 mg ORAL q 8 H polyethylene glycol 3350 17 g packet (MIRALAX, GLYCOLAX) 17 g ORAL DAILY acetaminophen 650 mg tab(s) (TYLENOL) 650 mg ORAL/FEEDING TUBE q 4 H cholecalciferol 1,000 Units tab(s) (VITAMIN D3) 1,000 Units ORAL DAILY NaCl 0.9% iv flush bag 20 mL INTRAVENOUS PRN sodium chloride 0.9 % (flush) 3-5 mL (BD POSIFLUSH) 3-5 mL INTRAVENOUS q 12 H potassium chloride ER 20-40 mEq tab(s) (K-DUR, KLOR-CON) 20-40 mEq ORAL/FEEDING TUBE PRN Or potassium chloride iv piggyback 20 mEq/100 mL 20 mEq INTRAVENOUS PRN magnesium sulfate in sterile water 2 g in sterile water 50 ml 2 g INTRAVENOUS PRN phosphorus 500 mg tab(s) (K PHOS NEUTRAL) 500 mg ORAL/FEEDING TUBE PRN(NO DISPENSE) calcium gluconate 4 g in NaCl 0.9% 250 mL 4 g INTRAVENOUS PRN ondansetron 4 mg tab(s) (ZOFRAN) 4 mg ORAL q 6 H PRN Or ondansetron (PF) 4 mg injection (ZOFRAN) 4 mg INTRAVENOUS q 6 H PRN propofol 20 mg bolus from bag (DIPRIVAN) 20 mg INTRAVENOUS q 30 MIN PRN Or propofol 20 mg injection (DIPRIVAN) 20 mg INTRAVENOUS q 30 MIN PRN propofol infusion (DIPRIVAN) 0-30 mcg/kg/min INTRAVENOUS CONTINUOUS Chlorhexidine Gluconate 0.12 % 15 mL (PERIDEX) 15 mL ORAL q 12 H senna-docusate 8.6-50 mg 1 tablet (SENNA-S) 1 tablet ORAL BID lidocaine 4 % 1 Patch (SALONPAS) 1 Patch TRANSDERMAL DAILY AT 9 PM And lidocaine patch - REMOVE OTHER DAILY And lidocaine - VERIFY PATCH OTHER q 8 H Labs: Recent Labs 05/08/21 0338 05/07/21 1417 05/07/21 0533 05/07/21 0425 05/07/21 0406 05/06/21 1932 05/06/21 1709 05/06/21 1644 0000 NA 137 140 139 -- -- -- 144 -- < > K 3.9 4.4 5.7* -- -- -- 2.7* -- < > CHLOR 103 107* 107* -- -- -- 113* -- < > CO2 25 25 22 -- -- -- 17* -- < > BUN 19 19 18 -- -- -- 13 -- < > CREAT 0.86 0.89 1.03 -- -- -- 0.72* -- < > GLUC 118* 125* 123* -- -- -- 85 -- < > ANION 9 8* 10 -- -- -- 14 -- < > CA 8.6 8.5 8.9 -- -- -- 5.8* -- < > MG 2.0 -- 2.1 -- -- -- -- -- -- ALB -- -- -- -- -- -- 3.3* -- -- AST -- -- -- -- -- -- 33 -- -- ALT -- -- -- -- -- -- 24 -- -- ALKPHOS -- -- -- -- -- -- 42 -- -- TBILI -- -- -- -- -- -- 0.3 -- -- WBC 10.88 -- -- -- 13.45* -- 15.29* -- < > HB 11.0* -- -- -- 12.5* -- 11.8* -- < > HCT 34.3* -- -- -- 38.8* -- 36.0* -- < > PLT 176 -- -- -- 218 -- 184 -- < > LACT -- -- -- -- -- -- -- 1.2 -- INR -- -- -- -- -- -- 1.1 -- -- PH 7.39 -- -- 7.36 -- < > -- -- -- PCO2 45 -- -- 42 -- < > -- -- -- PO2 65* -- -- 92 -- < > -- -- -- BE 2 -- -- -- -- -- -- -- -- HCO3 27* -- -- 23 -- < > -- -- -- < > = values in this inter (more content not included)... [facility] 05-08-2021 Note HNO ID: [id number] Author: Isauro Nicholson DO Service: General Surgery Author Type: Resident Type: Progress Notes Filed: 05/08/2021 8:19 AM Note Text: -- Attestation signed by Ryland Brooke MD at 05/08/2021 9:39 AM Surgical Critical Care Addendum/Attestation: I evaluated Ivanna Collier Jr. on 05/08/2021. I provided 40 minutes of critical care services which were necessary due to above specified injuries and illnesses. This patient has a high probability of sudden, clinical significant deterioration, which required the highest level of care and preparedness to intervene urgently. I managed and supervised life or organ supporting interventions that require frequent assessments. This time does not include time devoted to teaching and to any procedure I billed separately. I have personally seen and examined this patient and participated in the raygoza components of this encounter with the multi-disciplinary ICU team. I discussed the management of this case with the resident and reviewed/confirmed their documentation, attached or in separate note. I personally reviewed today's actual images, the associated image reports, and current labs. I supervised the ordering of additional testing, imaging, labs, and/or consultations. The patient and/or family were fully informed of the findings and plan of care. They had the opportunity to ask questions and raise any issues of concern, all of which were answered and dealt with by me to their stated satisfaction. The critical care treatment was mainly directed to address the following issues: Active Hospital Problems Diagnosis Date Noted TBI (traumatic brain injury) ([facility]) 05/07/2021 Acute respiratory failure ([facility]) 05/07/2021 Multiple rib fractures 05/07/2021 Cervical transverse process fracture, initial encounter ([facility]) 05/07/2021 Closed fracture of transverse process of thoracic vertebra ([facility]) 05/07/2021 Closed fracture of temporal bone ([facility]) 05/07/2021 Subarachnoid hemorrhage following injury, with loss of consciousness ([facility]) 05/07/2021 Closed displaced fracture of acromial end of right clavicle 05/07/2021 Closed wedge compression fracture of T6 vertebra ([facility]) 05/07/2021 Closed wedge compression fracture of T11 vertebra ([facility]) 05/07/2021 Contusion of right lung 05/07/2021 Closed nondisplaced fracture of body of right scapula 05/07/2021 SDH (subdural hematoma) ([facility]) 05/06/2021 Decrease fent gtt to off, scheduled oxycodone, with PRN, scheduled, tylenol, add scheduled neurontin, melatonin QHS, Q4H neurochecks, Goal TF today, bowel regimen Increase PEEP for recruitment, monitor pleural effusion on R. Adjust weight bearing status. ICU Checklist Last Documented/Reviewed time: 05/08/2021 9:23 AM -- --- A= Assess, Prevent, Manage Pain Pain adequately controlled?: Yes C= Choice of Sedation and Analgesia RASS at Goal?: Yes B= Both Spontaneous Awakening and Breathing Trials Ventilator: Present Spontaneous Awakening?: Yes Spontaneous Breathing?: Yes Head of Bed > 30 degrees?: Yes Mouth Care?: Yes D= Delirium: Assess, Prevent and Manage ICU Delirium Status: CAM Negative - no action required Sleep adequate?: Yes Restraint Status: Present, will maintain Restraint Maintain Reason: Maintain safety of patient E= Early Mobility/Excercise ICU Mobility: ICU Mobility-Pt Has Been Out of Bed: No - Specify F= Family Engagement and Empowerment ICU plan of care visit at bedside in last 24 hours: Yes, Provider, RN, Patient/ designee ICU Disposition: ICU Disposition- Is Patient Clinically Ready to Transfer to RNF or SDU?: No Discharge Planning: To be determined Prevention: Line Status: None Lee Status: None Pressure Injury Status: None GI/Stress Ulcer Prophylaxis: H2 blockers Nutrition is at Goal: Yes VTE Prophylaxis: Chemoprophylaxis: Low Molecular Wt Heparin Mechanical Prophylaxis: Knee high SCD Management included sedation, pain control and ventilation assessment including need for ventilator, weaning and/or extubation as indicated. Management of critical care illnesses are edited above by me, including system by system plan and are not only limited to infectious disease and tailoring the antibiotic therapy, nutrition assessment and supplementation, electrolyte correction and prevention of ICU related complications using ventilator bundle, sedation holiday and assessment and removal of lines and tubes where indicated. Ryland Brooke MD TEACHING PHYSICIAN NOTE OF PERSONAL INVOLVEMENT IN CARE: I have personally seen and examined the patient and performed the medical decision-making components. I have reviewed the medical student documentation and verified the findings in the note as written. Any additions or c (more content not included)... [facility] 05-07-2021 Note HNO ID: [id number] Author: Ryland Dorado MD Service: Orthopaedic Surgery Author Type: Physician Type: Plan of Care Filed: 05/08/2021 10:15 AM Note Text: Orthopedic Surgery Plan of Care Note: Orthopedic Surgery asked to review need for rib plating. Patient with multiple right sided rib fracture, 4-10 being far posterior. Location of majority of fractures are not amendable to plate fixation. Would recommend conservative management of this patient's rib fractures. Sid Bowden Orthopedic Surgery 05/07/21 1410 Attending Note I personally saw and examined the patient. I reviewed the resident's note. I agree with the resident's assessment and plan unless otherwise noted. Monitor for additional injuries Signature: Ryland Dorado MD Date: 05/08/2021 Time: 10:15 AM [facility] 05-07-2021 Note HNO ID: [id number] Author: Kane Coleman RRT Service: Respiratory Therapy Author Type: Registered Resp Therapist Type: Progress Notes Filed: 05/07/2021 3:17 PM Note Text: -- Summary: Weaning Parameters -- VT 556 RR 18 VC 1191 MV 10 NIF -21 RSBI 32.3 LEAK POS [facility] 05-07-2021 Note HNO ID: [id number] Author: Monica Thayer MD Service: General Surgery Author Type: Physician Type: Progress Notes Filed: 05/07/2021 2:01 PM Note Text: Trauma Surgery Progress Note SERVICE DATE: 05/07/2021 Trauma Service Pager: For questions or concerns Mon-Fri 6a-5p please page [phone]. After 5pm and on Weekends and Holidays, please page [phone] if in ICU or [phone] if on RNF. SUBJECTIVE: Intubated, sedated on vent. Would not respond to commands or withdraw from pain. OBJECTIVE: Vitals: Temp (24hrs), Av.7 ?C (98 ?F), Min:35.2 ?C (95.36 ?F), Max:38 ?C (100.4 ?F) BP 111/69 Pulse 72 Temp 36.2 ?C (97.16 ?F) Resp 15 Ht 177.8 cm (5' 10) Wt 104.4 kg (230 lb 2.6 oz) SpO2 96% BMI 33.02 kg/m? O2 Therapy: Ventilator IANDO: Date 05/06/21699 - 05/07/2159 05/07/21699 - 05/08/21 0659 Shift 1066-3957 5201-9730 5522-5320 24 Hour Total 2754-1449 6067-7302 5591-6180 24 Hour Total INTAKE IV 545.7 1021.5 1567.2 462.1 462.1 Volume (mL) 66.9 115.8 182.7 39.3 39.3 Volume (mL) 12.1 34.7 46.8 14.8 14.8 Volume (mL) (calcium gluconate 4 g in NaCl 0.9% 250 mL) 250 250 Volume (mL) (potassium chloride iv piggyback 20 mEq/100 mL) 216.7 216.7 Volume (mL) (levETIRAcetam iv piggyback 1,000 mg in NaCl (iso-osmotic) 100 mL (KEPPRA)) 100 100 Volume (mL) (NaCl 0.9% iv infusion) 871 871 308 308 Gastric Tube 80 80 Supplements/Additives (mL) (GI Feed 05/06/21 1650 Gastric Mouth) 80 80 Shift Total 545.7 1021.5 1567.2 542.1 542.1 OUTPUT Urine 976 793 3959 110 110 Output ( Indwelling Urinary Catheter 05/06/21 1655 Coude) 748 058 3416 110 110 Tubes 0 0 Output (GI Feed 05/06/21 1650 Gastric Mouth) 0 0 Shift Total 383 364 5084 110 110 Weight (kg) 110 104.4 104.4 104.4 104.4 104.4 104.4 MEDICATIONS Current Facility-Administered Medications Medication Dose Route Frequency - NaCl 0.9% iv flush bag 20 mL INTRAVENOUS PRN - iv contrast (radiology procedure) INTRAVENOUS DIRECTED PRN - tetanus, diphtheria, and pertussis (Tdap) vaccine 0.5 mL injection (ADACEL, Tdap) 0.5 mL INTRAMUSCULAR ONCE (IMMUNIZATION) - sodium chloride 0.9 % (flush) 3-5 mL (BD POSIFLUSH) 3-5 mL INTRAVENOUS q 12 H - potassium chloride ER 20-40 mEq tab(s) (K-DUR, KLOR-CON) 20-40 mEq ORAL/FEEDING TUBE PRN Or - potassium chloride iv piggyback 20 mEq/100 mL 20 mEq INTRAVENOUS PRN - magnesium sulfate in sterile water 2 g in sterile water 50 ml 2 g INTRAVENOUS PRN - phosphorus 500 mg tab(s) (K PHOS NEUTRAL) 500 mg ORAL/FEEDING TUBE PRN(NO DISPENSE) - calcium gluconate 4 g in NaCl 0.9% 250 mL 4 g INTRAVENOUS PRN - acetaminophen 1,000 mg tab(s) (TYLENOL) 1,000 mg ORAL/FEEDING TUBE q 6 H - NaCl 0.9% iv infusion 100 mL/hr INTRAVENOUS CONTINUOUS - ipratropium-albuterol 3 mL nebulizer solution (DUONEB) 3 mL INHALATION q 4 H PRN - famotidine 20 mg injection (PEPCID) 20 mg INTRAVENOUS BID - ondansetron 4 mg tab(s) (ZOFRAN) 4 mg ORAL q 6 H PRN Or - ondansetron (PF) 4 mg injection (ZOFRAN) 4 mg INTRAVENOUS q 6 H PRN - magnesium hydroxide 400 mg/5 mL 30 mL (MOM) 30 mL ORAL/FEEDING TUBE DAILY PRN - fentaNYL 25-50 mcg bolus from bag (SUBLIMAZE) 25-50 mcg INTRAVENOUS q 30 MIN PRN Or - fentaNYL 50 mcg/mL 25-50 mcg injection (SUBLIMAZE) 25-50 mcg INTRAVENOUS q 30 MIN PRN - fentaNYL 20 mcg/mL iv infusion in NaCl 0.9% 100 mL 0-250 mcg/hr INTRAVENOUS CONTINUOUS - propofol 20 mg bolus from bag (DIPRIVAN) 20 mg INTRAVENOUS q 30 MIN PRN Or - propofol 20 mg injection (DIPRIVAN) 20 mg INTRAVENOUS q 30 MIN PRN - propofol infusion (DIPRIVAN) 0-30 mcg/kg/min INTRAVENOUS CONTINUOUS - Chlorhexidine Gluconate 0.12 % 15 mL (PERIDEX) 15 mL ORAL q 12 H - senna-docusate 8.6-50 mg 1 tablet (SENNA-S) 1 tablet ORAL BID - levETIRAcetam iv piggyback 1,000 mg in NaCl (iso-osmotic) 100 mL (KEPPRA) 1,000 mg INTRAVENOUS BID - lidocaine 4 % 1 Patch (SALONPAS) 1 Patch TRANSDERMAL DAILY AT 9 PM And - lidocaine patch - REMOVE OTHER DAILY And - lidocaine - VERIFY PATCH OTHER q 8 H Labs: Recent Labs 05/07/21 0533 05/07/21 0425 05/07/21 0406 05/06/21 1932 05/06/21 1709 05/06/21 1644 NA 139 -- -- -- 144 -- K 5.7* -- -- -- 2.7* -- CHLOR 107* -- -- -- 113* -- CO2 22 -- -- -- 17* -- BUN 18 -- -- -- 13 -- CREAT 1.03 -- -- -- 0.72* -- GLUC 123* -- -- -- 85 -- ANION 10 -- -- -- 14 -- CA 8.9 -- -- -- 5.8* -- MG 2.1 -- -- -- -- -- ALB -- -- -- -- 3.3* -- AST -- -- -- -- 33 -- ALT -- -- -- -- 24 -- ALKPHOS -- -- -- -- 42 -- TBILI -- -- -- -- 0.3 -- WBC -- -- 13.45* -- 15.29* -- HB -- -- 12.5* -- 11.8* -- HCT -- -- 38.8* -- 36.0* -- PLT -- -- 218 -- 184 -- LACT -- -- -- -- -- 1.2 INR -- -- -- -- 1.1 -- PH -- 7.36 -- 7.35 -- -- PCO2 -- 42 -- 44 -- -- PO2 -- 92 -- 98* -- -- HCO3 -- 23 -- 24 -- -- GENERAL: intubated/sedated on vent. NEURO: intubated/sedated on vent. HEENT: Normocephalic. Atraumatic. EOMI. LUNGS: equal excursions b/l on vent. CARDIAC: Regular rat (more content not included)... [facility] 05-07-2021 Note HNO ID: [id number] Author: Betty Greco RPh Service: Pharmacy Author Type: Pharmacist Type: Plan of Care Filed: 05/07/2021 11:36 AM Note Text: PHARMACY MEDICATION REVIEW Patient Name: Ivanna Collier Jr. : 1980 The following medications were updated within the [facility] medication list: Medications ADDED to [facility] medication list ? n/a Medications CHANGED on [facility] medication list ? n/a Medications REMOVED from [facility] medication list ? n/a Additional comments: Med hx obtained via sources listed below. Unable to d/w patient and verify any current rx/otc/herbal products. - Nothing per [facility] x5 years - per [facility], nothing filled since 2018 - per 2nd [facility] chart, ibuprofen OTC listed, but last updated in 2014 - Attempted to contact patient's , but no answer. The below information represents the best possible medication history: Yes Medication history completed by: Pharmacist: Betty Greco [facility] Source of history: Pharmacy records[facility] and [facility] Medication nonadherence identified: Unable to assess Reconciliation completed: Yes All [facility] medications addressed by LIP Patient interested in Bedside Delivery Services or using [facility] OP Pharmacy at discharge? Unable to assess Preferred outpatient pharmacy: - [facility] [address] [place] [id number] [facility] [phone] Allergies: No Known Allergies Prior to Admission medications as of 05/07/21 1133 Not on File Betty Greco, [facility] 05/07/2021 [facility] 05-07-2021 Note HNO ID: [id number] Author: Nuvia Davidson PA-C Service: Neurosurgery Author Type: Physician Material Control Associate Type: Progress Notes Filed: 05/07/2021 11:24 AM Note Text: PROGRESS NOTE NEUROSURGERY SERVICE DATE: 05/07/2021 Subjective INTERVAL HPI Patient intubated and sedated. Opens eyes to voice, [place]. Does not follow commands for this examiner, per RN patient did follow some simple commands. Current Facility-Administered Medications Medication Dose Route Frequency - NaCl 0.9% iv flush bag 20 mL INTRAVENOUS PRN - iv contrast (radiology procedure) INTRAVENOUS DIRECTED PRN - tetanus, diphtheria, and pertussis (Tdap) vaccine 0.5 mL injection (ADACEL, Tdap) 0.5 mL INTRAMUSCULAR ONCE (IMMUNIZATION) - sodium chloride 0.9 % (flush) 3-5 mL (BD POSIFLUSH) 3-5 mL INTRAVENOUS q 12 H - potassium chloride ER 20-40 mEq tab(s) (K-DUR, KLOR-CON) 20-40 mEq ORAL/FEEDING TUBE PRN Or - potassium chloride iv piggyback 20 mEq/100 mL 20 mEq INTRAVENOUS PRN - magnesium sulfate in sterile water 2 g in sterile water 50 ml 2 g INTRAVENOUS PRN - phosphorus 500 mg tab(s) (K PHOS NEUTRAL) 500 mg ORAL/FEEDING TUBE PRN(NO DISPENSE) - calcium gluconate 4 g in NaCl 0.9% 250 mL 4 g INTRAVENOUS PRN - acetaminophen 1,000 mg tab(s) (TYLENOL) 1,000 mg ORAL/FEEDING TUBE q 6 H - NaCl 0.9% iv infusion 100 mL/hr INTRAVENOUS CONTINUOUS - ipratropium-albuterol 3 mL nebulizer solution (DUONEB) 3 mL INHALATION q 4 H PRN - famotidine 20 mg injection (PEPCID) 20 mg INTRAVENOUS BID - ondansetron 4 mg tab(s) (ZOFRAN) 4 mg ORAL q 6 H PRN Or - ondansetron (PF) 4 mg injection (ZOFRAN) 4 mg INTRAVENOUS q 6 H PRN - magnesium hydroxide 400 mg/5 mL 30 mL (MOM) 30 mL ORAL/FEEDING TUBE DAILY PRN - fentaNYL 25-50 mcg bolus from bag (SUBLIMAZE) 25-50 mcg INTRAVENOUS q 30 MIN PRN Or - fentaNYL 50 mcg/mL 25-50 mcg injection (SUBLIMAZE) 25-50 mcg INTRAVENOUS q 30 MIN PRN - fentaNYL 20 mcg/mL iv infusion in NaCl 0.9% 100 mL 0-250 mcg/hr INTRAVENOUS CONTINUOUS - propofol 20 mg bolus from bag (DIPRIVAN) 20 mg INTRAVENOUS q 30 MIN PRN Or - propofol 20 mg injection (DIPRIVAN) 20 mg INTRAVENOUS q 30 MIN PRN - propofol infusion (DIPRIVAN) 0-30 mcg/kg/min INTRAVENOUS CONTINUOUS - Chlorhexidine Gluconate 0.12 % 15 mL (PERIDEX) 15 mL ORAL q 12 H - senna-docusate 8.6-50 mg 1 tablet (SENNA-S) 1 tablet ORAL BID - levETIRAcetam iv piggyback 1,000 mg in NaCl (iso-osmotic) 100 mL (KEPPRA) 1,000 mg INTRAVENOUS BID - lidocaine 4 % 1 Patch (SALONPAS) 1 Patch TRANSDERMAL DAILY AT 9 PM And - lidocaine patch - REMOVE OTHER DAILY And - lidocaine - VERIFY PATCH OTHER q 8 H Objective Physical Exam Performed: General - Intubated. Sedated. Resp - even, unlabored, on vent GI - abdomen soft, non-tender, non-distended HEENT - Normocephalic. Atraumatic. Neuro - Intubated. PERRL. Opens eyes to voice. Does not follow commands for this examiner. R[place], UE antigravity. LE bends at knees. Extremities- Grossly normal. Symmetrical. Pulses- 2+ DP VITAL SIGNS 24 HOUR REVIEW: Patient Vitals for the past 24 hrs: BP Temp Temp src Pulse Resp SpO2 Height Weight 05/07/21 1105 ? ? ? 72 15 96 % ? ? 05/07/21 1100 111/69 36.2 ?C (97.16 ?F) ? 70 15 97 % ? ? 05/07/21 1000 121/71 36.1 ?C (96.98 ?F) ? 74 15 94 % ? ? 05/07/21 0900 106/73 ? ? 74 15 96 % ? ? 05/07/21 0800 105/68 ? Axillary 74 15 96 % ? ? 05/07/21 0739 ? ? ? 74 15 96 % ? ? 05/07/21 0600 112/71 (!) 35.2 ?C (95.36 ?F) ? 82 14 95 % ? ? 05/07/21 0538 ? 104.4 kg (230 lb 2.6 oz) 05/07/21 0500 108/71 (!) 35.4 ?C (95.72 ?F) ? 72 15 96 % ? ? 05/07/21 0400 105/69 (!) 35.7 ?C (96.26 ?F) ? 69 15 96 % ? ? 05/07/21 0318 ? ? ? 67 15 96 % ? ? 05/07/21 0300 99/61 (!) 35.7 ?C (96.26 ?F) ? 68 15 96 % ? ? 05/07/21 0200 95/63 36 ?C (96.8 ?F) ? 74 15 93 % ? ? 05/07/21 0145 ? 36.2 ?C (97.16 ?F) ? 79 15 92 % ? ? 05/07/21 0140 ? 99 % ? ? 05/07/21 0100 112/64 ? 05/07/21 0000 117/73 37.9 ?C (100.22 ?F) ? 88 16 98 % ? ? 05/06/21 2300 105/68 37.9 ?C (100.22 ?F) ? 79 15 96 % ? ? 05/06/21 2200 109/78 37.7 ?C (99.86 ?F) ? 87 15 95 % ? ? 05/06/212140 ? 98 % ? ? 05/06/210 ? 177.8 cm (5' 10) ? 05/06/21 2100 107/75 (!) 38 ?C (100.4 ?F) ? 100 15 99 % ? ? 05/06/21 2000 109/69 37.7 ?C (99.86 ?F) Axillary 86 15 100 % ? ? 05/06/219 ? ? ? 88 15 99 % ? ? 05/06/21 1900 116/82 37.5 ?C (99.5 ?F) ? 90 15 99 % ? ? 05/06/21 1845 123/85 37.3 ?C (99.1 ?F) ? 92 16 98 % ? ? 05/06/21 1830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
[2024-12-09 22:25] LABS: Absolute Lymphocyte Count 1.41 X10^3/uL (0.83-4.51); Absolute Neutrophil Count 9.4 X10^3/uL (2.0-7.7); Basophil# 0.05 X10^3/uL; Basophil% 0.4 % (0-1); Eosinophil# 0.07 X10^3/uL; Eosinophils% 0.6 % (0-5); Hematocrit 41.9 % (40-54); Hemoglobin 14.1 g/dL (13.0-16.5); Lymphocyte # 1.41 X10^3/ul (0.83-4.51); Mean Corp Hgb Conc 33.7 g/dL (32-36); Mean Corpuscular Hgb 31.1 pg (27.0-32.0); Mean Corpuscular Volume 92.5 fL (80-94); Mean Platelet Vol. 9.8 fl (6.2-12.0); Monocyte# 0.79 X10^3/uL; Monocyte% 6.7 % (0-10); NRBC Flagged by Analyzer 0 % (0-5); Neutrophil # 9.42 X10^3/uL (2.7-7.7); Neutrophil % 80.1 % (47-70); Platelet Count 225 K/mm3 (150-450); RBC Distribution Width CV 13.1 % (11.6-14.6); RBC Distribution Width SD 44.4 fl (35.1-43.9); Red Blood Count 4.53 M/mm3 (4.6-6.2); White Blood Count 11.8 K/mm3 (4.4-11.0)
[2024-12-09 22:39] VITALS: PULSE 68; RESP 15; O2SAT 100
[2024-12-09 22:51] LABS: AST(SGOT) 83 U/L (<=37); Alanine Aminotransfer ALT/SGPT 49 U/L (<=46); Albumin, Serum 4.4 g/dL (3.5-5.0); Alkaline Phosphatase 77 U/L (40-129); Anion Gap 11 (5-15); BUN 16 mg/dL (4-19); BUN/Creat Ratio 15.7 RATIO (10-20); Calcium,Total 9.1 mg/dL (7.6-11.0); Carbon Dioxide 22.6 mmol/L (21.0-32.0); Chloride 107 mmol/L (98-108); EST Glomerular Filtration Rate 95 (>60); Estimated Creatinine Clearance 118.55 ml/min (50-250); Globulin 2.5 g/dL (2.2-4.2); Glucose 111 mg/dL (70-99); Lipase 41 U/L (13-75); Potassium 4.1 mmol/L (3.3-5.1); Protein, Total 6.9 g/dL (5.9-8.4); Sodium Level 141 mmol/L (133-145); Total Bilirubin 0.58 mg/dL (0.00-1.30); Troponin T High Sensitivity < 6 ng/L (<=22)
[2024-12-09 23:05] VITALS: BP 130/80; PULSE 68; RESP 15; TEMP 36.4; O2SAT 100
== END 2024-12-09 23:07 | disposition home or self-care (01) ==
PROVIDERS: Emergency Provider Emergency Medicine; PCP Nurse Practitioner Family; Visit Provider Emergency Medicine
DX: R10.13 Epigastric pain (principal)
CPT/HCPCS: 80048; 80076; 83690; 84484; 85025; 93005; 99283; A4216